=== PATIENT | male | born 1970 | race Caucasian/White ===

== ENCOUNTER 2019-08-29 00:07 | Outpatient (CLI) | payer OTHER, SELFPAY ==
[2019-08-29 18:00] LABS: SARS-CoV-2 RNA PCR Negative
== END 2019-08-29 00:08 | disposition home or self-care (01) ==
LOC: ANHCOVIDDT 00:07
PROVIDERS: PCP Family Medicine; Visit Provider Otolaryngology
DX: Z01.818 Encounter for other preprocedural examination (principal); Z11.59 Encounter for screening for other viral diseases
CPT/HCPCS: 87635; C9803; U0003

== ENCOUNTER 2019-09-01 00:47 | Day surgery (SDC) | payer OTHER, SELFPAY ==
[2019-08-25 08:03] VITALS: BMI 35.7
--- NOTE | 2019-08-27 06:35 | P.HP_ITS ---
History of Present Illness History of Present Illness Consent: Risks, benefits, and alternatives have been discussed and questions answered. Patient agrees to proceed with procedure. Chief complaint: Mucocele Right Lower Lip Narrative: Armaan Hurst is a 49 year old male Review of Systems Review of Systems: Narrative: Patient presents with a small mucocele on the lower lip chest clear heart without murmurs abdomen is soft extremities negative impression mucocele lower lip plan excision and primary closure PMFSH Surgical History Surgical History (Updated 05/07/19 @ 10:57 by Kayley Valenzuela MA) H/O left knee surgery (~2013) H/O shoulder surgery left shoulder History of neck surgery History of right knee surgery (~2017) Family History Family History (Updated 05/07/19 @ 11:00 by Kayley Valenzuela MA) Mother Parkinson disease Father Accident Social History Social History (Updated 06/04/19 @ 08:36 by Stephanie Cisneros [facility]) Smoking status: Current every day smoker Tobacco type: cigarettes and smokeless tobacco Smokeless tobacco user: chewing tobacco Second hand tobacco smoke exposure: No Alcohol intake: never Substance use: never Substance use type: does not use Gender identity (if verbalized by the patient): Male Meds Home Medications and Allergies Home Medications Medication Instructions Recorded Confirmed Type nebivolol [Bystolic] 20 mg PO DAILY 08/25/19 08/25/19 History vitamin B complex 1 tablet PO DAILY 08/25/19 08/25/19 History Allergies Allergy/AdvReac Type Severity Reaction Status Date / Time chlorpheniramine AdvReac CHILE- Verified 08/25/19 08:04 [From Actifed Cold-Allergy] UNKNOWN REACTION phenylephrine AdvReac CHILD- Verified 08/25/19 08:04 [From Actifed Cold-Allergy] UNKNOWN REACTION pseudoephedrine AdvReac CHILD- Verified 08/25/19 08:04 [From Actifed Cold-Allergy] UNKNOWN REACTION triprolidine AdvReac CHILD- Verified 08/25/19 08:04 [From Actifed Cold-Allergy] UNKNOWN REACTION Assessment and Plan Additional Plan Plan is to remove the mucocele with primary closure
--- NOTE | 2019-09-01 05:54 | WPDHPUPDATE1 ---
History and Physical Update Update Date/Time: 09/01/19 05:54 History and Physical has been reviewed, including an updated exam of the patient. There are NO changes in the patient's condition. Risks, benefits, and alternatives have been discussed and questions answered. Patient agrees to proceed with procedure.
[2019-09-01 06:44] VITALS: BP 128/76; PULSE 20; RESP 16; TEMP 36.2; O2SAT 98
[2019-09-01 07:22] VITALS: BP 144/104; PULSE 68; RESP 16; O2SAT 94
[2019-09-01] MEDS: LIDO 1%/EPINEPHRINE 1:100,000 20 ML VIAL 11 ML INFILTRATE (07:25)
[2019-09-01 07:32] VITALS: BP 160/97; PULSE 68; RESP 16; O2SAT 91
[2019-09-01 07:36] VITALS: BP 156/93; PULSE 73; RESP 17; O2SAT 94
--- NOTE | 2019-09-01 07:39 | PM.PROC ---
Procedure Note - Detailed Date of procedure: 09/01/19 Pre-op diagnosis: Mucocele Right Lower Lip Post-op diagnosis: same Description of procedure: Patient was prepped after induction of local anesthesia with 1% xylocaine 1 to 905116 epinephrine. Incision was made over the prominence of the large lower right cyst after the incision was made that appeared to be a lipoma it was excised was a question of there might be a cyst underneath however there was left undisturbed hemostasis was obtained with bipolar or bipolar electrocautery and closed with interrupted 5 0 nylon Anesthesia: GLMA Surgeon: Bobby Schneider MD Estimated blood loss (mL): 5.0 Drains: No Packing: No Pathology: yes Complications: No immediate complications Condition: stable Disposition: same day
[2019-09-01 07:40] VITALS: BP 138/86; PULSE 67; RESP 20; O2SAT 93
== END 2019-09-01 08:00 | disposition home or self-care (01) ==
PROVIDERS: PCP Family Medicine; Visit Provider Otolaryngology
PROC: (CPT 40810; principal; 2019-09-01 07:30)
DX: D17.0 Benign lipomatous neoplasm of skin and subcutaneous tissue of head, face and neck (principal)
CPT/HCPCS: 11442; 88304

== ENCOUNTER 2021-06-01 10:32 | Outpatient (CLI) | payer OTHER, SELFPAY | END 2021-06-01 10:33 | disposition home or self-care (01) | LOC: ANHAUDASC 10:34 | PROVIDERS: PCP Family Medicine; Visit Provider Otolaryngology | DX: H91.90 Unspecified hearing loss, unspecified ear (principal) | CPT/HCPCS: 92557; 92567 ==

== ENCOUNTER 2021-08-24 07:29 | Outpatient (CLI) | payer OTHER, SELFPAY ==
--- NOTE | ~2021-08-24 | XR_ITS ---
XR chest 2V DATE: 08/24/2021 08:07 INDICATION: Dyspnea TECHNIQUE: 2 views COMPARISON: 07/12/2008 two-view chest FINDINGS: Status post anterior cervical spine surgical fusion. Normal heart size. Mild aortic unfolding. No hilar or mediastinal enlargement. No pulmonary infiltrate or consolidation, pleural effusion or pulmonary vascular congestion or pneumo thorax. Degenerative spurring of the thoracic spine. IMPRESSION: No active cardiopulmonary disease Status post anterior cervical spine surgical fusion since 07/12/2008 Reviewed, dictated and finalized at location A.
--- NOTE | 2021-08-24 08:09 | ECG_ITS ---
Measurements Intervals [place] Rate: 72 P: 54 NM: 181 QRS: 45 QRSD: 94 T: 51 QT: 361 QTc: 395 Interpretive Statements SINUS RHYTHM BORDERLINE R WAVE PROGRESSION, ANTERIOR LEADS BASELINE ARTIFACT- I, II, III, AVR, AVL, AVF BORDERLINE ECG Electronically Signed On 08-24-2021 9:01:14 CDT by Iftikhar Masters D.O.
[2021-08-24 08:10] LABS: Basophils Absolute Auto 0.1 K/mm3 (0.0-0.1); Basophils Percent Auto 0.9 % (0.2-1.2); Eosinophils Absolute Auto 0.5 K/mm3 (0-0.3); Eosinophils Percent Auto 6.3 % (0-4.4); Hematocrit 44.4 % (42.0-52.0); Hemoglobin 14.1 g/dL (14.0-18.0); Immature Granulocyte Absolute 0.02 K/mm3 (0.00-0.031); Immature Granulocyte Percent A 0.3 % (0-0.5); Lymphocytes Absolute Auto 1.83 K/mm3 (0.9-3.2); Lymphocytes Percent Auto 23.9 % (18.3-44.2); Mean Corpuscular HGB Conc 31.8 g/dl (32-36); Mean Corpuscular Hemoglobin 28.4 pg (26-34); Mean Corpuscular Volume 89.5 fl (80-100); Mean Platelet Volume 12.5 fl (7.4-10.4); Monocytes Absolute Auto 0.7 K/mm3 (0.1-0.6); Monocytes Percent Auto 8.6 % (2.6-8.5); Neutrophils Absolute Auto 4.6 K/mm3 (1.3-6.7); Platelet Count Result 193 k/mm3 (150-375); Red Blood Count 4.96 M/mm3 (4.6-6.20); Red Cell Distribution Width 13.7 % (11.5-14.5); White Blood Count 7.7 K/mm3 (4.5-10.0)
--- NOTE | 2021-08-24 08:10 | EST_ITS ---
Patient Info Name: Armaan Hurst Age: 51 years : 1970 Gender: Male Ht: 65 in Wt: 220 lbs BSA: 2.18 m2 HR: 71 bpm BP: 151 / 96 mmHg Heart Rhythm: Sinus Rhythm Exam Date: 08/24/2021 9:43 AM Exam Location: [facility] Stress Patient Status: Outpatient Admit Date: 08/24/2021 Staff Ordering Physician: Juanito Moralez MD Attending Provider: Juanito Moralez MD Exercise Technologist: Yaa Leija CT Exercise Physician: Iftikhar Masters DO Exam Type: CA stress test treadmill Study Info Indications R06.00 - Dyspnea, unspecified R06.02 - Shortness of breath A treadmill exercise stress test was performed. Summary 1. 1. Negative Alfonso exercise stress test for ischemic ST changes by ECG criteria. However, he achieved only 80% MPHR for age group achieving 136 bpm which reduces sensitivity of the test. His last dose of Metoprolol Succinate was 24 hours ago. 2. 2. Good functional capacity, achieving 10 METs of workload. 3. 3. Baseline hypertension with hypertensive response to exercise. 4. 4. Appropriate HR response to exercise. 5. 5. Appropriate HR recovery at 1 minute post exercise. 6. 6. No imaging with stress testing. 7. 7. Patient informed of the above results. Protocol: Alfonso Stress ECG Details Stage: REST Duration (min): 2 min : 48 sec Speed (mph): 0.0 Grade (%): 0 HR (bpm): 72 SBP (mmHg): 151 DBP (mmHg): 96 METS: --- Stage: REST Duration (min): 15 min : 21 sec Speed (mph): 0.0 Grade (%): 0 HR (bpm): 86 SBP (mmHg): 151 DBP (mmHg): 96 METS: --- Stage: STAGE 1 Duration (min): 1 min : 0 sec Speed (mph): 1.7 Grade (%): 10 HR (bpm): 97 SBP (mmHg): 151 DBP (mmHg): 96 METS: --- Stage: STAGE 1 Duration (min): 2 min : 0 sec Speed (mph): 1.7 Grade (%): 10 HR (bpm): 101 SBP (mmHg): 151 DBP (mmHg): 96 METS: --- Stage: STAGE 1 Duration (min): 3 min : 0 sec Speed (mph): 1.7 Grade (%): 10 HR (bpm): 102 SBP (mmHg): 185 DBP (mmHg): 93 METS: --- Stage: STAGE 2 Duration (min): 1 min : 0 sec Speed (mph): 2.5 Grade (%): 12 HR (bpm): 111 SBP (mmHg): 185 DBP (mmHg): 93 METS: --- Stage: STAGE 2 Duration (min): 2 min : 0 sec Speed (mph): 2.5 Grade (%): 12 HR (bpm): 115 SBP (mmHg): 185 DBP (mmHg): 93 METS: --- Stage: STAGE 2 Duration (min): 3 min : 0 sec Speed (mph): 2.5 Grade (%): 12 HR (bpm): 115 SBP (mmHg): 201 DBP (mmHg): 110 METS: --- Stage: STAGE 3 Duration (min): 1 min : 0 sec Speed (mph): 3.4 Grade (%): 14 HR (bpm): 124 SBP (mmHg): 206 DBP (mmHg): 112 METS: --- Stage: STAGE 3 Duration (min): 2 min : 0 sec Speed (mph): 3.4 Grade (%): 14 HR (bpm): 131 SBP (mmHg): 206 DBP (mmHg): 112 METS: --- Stage: STAGE 3 Duration (min): 2 min : 57 sec Speed (mph): 3.4 Grade (%): 14 HR (bpm): 136 SBP (mmHg): 220 DBP (mmH
[2021-08-24 08:18] LABS: Add Urine Microscopic? NO; Appearance Urine Clear (Clear); Bilirubin Urine Negative (Negative); Blood Urine Negative (Negative); Color Urine Yellow (Yellow); Glucose Urine UA Negative (Negative); Ketones Urine Negative (Negative); Leukocyte Esterase Ur Negative LEU/UL (NEGATIVE); Nitrate Urine Negative (Negative); Protein Urine Negative (Negative); Specific Grav Ur 1.025 (1.001-1.035); Urobilinogen Urine 0.2 mg/dL (<2.0); pH Urine 5.5 (5.0-9.0)
[2021-08-24 08:26] LABS: Alanine Aminotransferase 28 U/L (6-50); Albumin Level 4.2 g/dL (3.5-5.1); Alkaline Phosphatase 80 U/L (38-126); Anion Gap 3 mmol/L (8-16); Aspartate Amino Transferase 31 U/L (17-59); Bilirubin,Total 0.2 mg/dL (0.2-1.3); Blood Urea Nitrogen 7 mg/dL (9-20); Calcium 8.3 mg/dL (8.4-10.2); Carbon Dioxide 28 mmol/L (22-30); Chloride 109 mmol/L (98-107); Cholesterol 207 mg/dL (0-200); Estimated Glomerular Filt Rate > 60; Glucose 110 mg/dL (65-110); HDL Direct 40 mg/dL; Potassium 4.4 mmol/L (3.4-5.0); Sodium 140 mmol/L (137-145); Triglycerides 111 mg/dL (<150)
[2021-08-24 08:37] LABS: LDL Cholesterol Direct 132 mg/dL
[2021-08-24 08:44] LABS: Hemoglobin A1C 5.5 % (<5.7)
[2021-08-24 09:27] LABS: Iron 49 ug/dL (49-181)
[2021-08-24 09:29] LABS: Folic Acid 10.9 ng/mL (2.76->20); Vitamin B12 > 1000.0 pg/mL (239-931)
[2021-08-24 09:36] LABS: Percent Iron Saturation 13 % (20-50)
--- NOTE | 2021-08-25 08:58 | WPDPFTINT ---
PFT Procedure Performed PFT Procedure Performed Spirometry with Pre/Post Bronchodilator Plethysmography (Lung Vol) Diffusing Cap (DLCO) Flow Vol Loop PFT Interpretation Lung volumes were measured with the body plethysmography method. The elevated FRC and RV are indicative of air trapping. Spirometry showed diminished expiratory flow rates and a diminished FEV1 to FVC ratio of 61%, consistent with obstructive airway disease. Following administration of a bronchodilator there was significant increase in expiratory flow rates. Lung diffusion capacity is mildly reduced at 63% predicted. The flow volume loop is consistent with obstructive airway disease. Impression: Moderate obstructive airway disease with evidence of air trapping and significant response to bronchodilators on this testing. Mild reduction in lung diffusion capacity.
== END 2021-08-24 07:30 | disposition home or self-care (01) ==
PROVIDERS: PCP Family Medicine; Visit Provider Family Medicine
DX: R06.02 Shortness of breath (principal); R06.00 Dyspnea, unspecified; Z98.1 Arthrodesis status; M47.812 Spondylosis without myelopathy or radiculopathy, cervical region
CPT/HCPCS: 36415; 71046; 80053; 80061; 81003; 82607; 82746; 83036; 83540; 83550; 84153; 84443; 85025; 93005; 93017; 94060; 94726; 94729; G0103

== ENCOUNTER → 2022-05-07 17:03 | Outpatient (CLI) | payer OTHER, SELFPAY ==
--- NOTE | ~2022-05-07 | XR_ITS ---
EXAMINATION: XR foot LT min 3V, XR foot RT min 3V DATE: 05/07/2022 17:30 INDICATION: Chronic bilateral foot and ankle pain. TECHNIQUE: 1. Dorsoplantar, two oblique and lateral views of the left foot were obtained. 2. Dorsoplantar, two oblique and lateral views of the right foot were obtained. COMPARISON: None. FINDINGS: Bone alignment is normal at both feet. No fractures. Mild osteoarthritis at the bilateral first metat arsophalangeal joints and at a few of the bilateral tarsometatarsal joints. Small left Achilles calca gabriela spur. IMPRESSION: 1. Relatively symmetric pattern of mild polyarticular osteoarthritis at the first metatarsophalangeal and several tarsal metatarsal joints. Reviewed, dictated and finalized at location A. 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 Relatively symmetric pattern of mild polyarticular osteoarthritis at the fir st metatarsophalangeal and several tarsal metatarsal joints.
== END ==
PROVIDERS: PCP Family Medicine; Visit Provider Family Medicine
DX: M25.571 Pain in right ankle and joints of right foot (principal); M25.572 Pain in left ankle and joints of left foot; M15.9 Polyosteoarthritis, unspecified
CPT/HCPCS: 73630

== ENCOUNTER → 2023-09-03 09:23 | Outpatient (CLI) | payer OTHER, SELFPAY ==
--- NOTE | ~2023-09-03 | XR_ITS ---
EXAMINATION: XR chest 2V DATE: 09/03/2023 09:32 INDICATION: Cough, unspecified. TECHNIQUE: Frontal and lateral views of the chest were obtained. COMPARISON: Chest 2 views 08/24/2021 FINDINGS: There is no pneumonia, pleural effusion, or pneumothorax. The heart size is normal. There a re changes of anterior fusion procedure in cervical spine. IMPRESSION: 1. No acute cardiopulmonary disease. Reviewed, dictated and finalized at location A.
== END ==
LOC: EXPTROY 09:24
PROVIDERS: PCP Nurse Practitioner Family; Visit Provider Nurse Practitioner Family
DX: R05.9 Cough, unspecified (principal)
CPT/HCPCS: 71046

== ENCOUNTER 2023-12-22 17:33 | Inpatient (IN) | payer OTHER, SELFPAY ==
--- NOTE | ~2023-12-22 | CT_ITS ---
EXAMINATION: CT abdomen pelvis w con DATE: 12/22/2023 22:02 INDICATION: Left lower quadrant abdominal pain, left side pain TECHNIQUE: Computed tomography (CT) of the abdomen and pelvis was performed with 100 CC Omnipaque 350 intravenous contrast. Automated exposure control and iterative reconstruction technique were employe d. Exam dose: 1482.65 mGy-cm total exam DLP. COMPARISON: None. FINDINGS: Normal heart size. No pericardial or pleural effusion. The lung bases are clear. The liver, gallbladder, bile ducts, spleen, pancreas, pancreatic duct, and adrenal glands and kidneys are unremarkable. Urinary bladder, prostate gland and seminal vesicles appear normal. Normal caliber of the abdominal aorta. No periaortic, aortocaval lymphadenopathy. There is bilateral external iliac lymphadenopathy, including 13.8 x 20.8 mm right external iliac lymph node, multiple le ft external iliac lymph nodes, the largest 16 x 28 mm. Shotty bilateral inguinal lymph nodes are note d as well. Small bilateral fat-containing inguinal hernias. Very small fat-containing umbilical hernia. Degenerative spurring of the thoracic and lumbar spine. No suspicious osteolytic or osteoblastic lesi ons. IMPRESSION: Bilateral external iliac lymphadenopathy and shotty bilateral inguinal lymph nodes Reviewed, dictated and finalized at Location A. Reviewed, dictated and finalized at location A. IMPRESSION: Bilateral external iliac lymphadenopathy and shotty bilateral ingu inal lymph nodes
--- NOTE | ~2023-12-22 | CT_ITS ---
EXAMINATION: CT LE LT w con DATE: 12/24/2023 19:13 INDICATION: Hypoxia and fever. Left lower limb swelling and infection. Assess for necrotizing fasciit is. TECHNIQUE: High resolution computed tomography (CT) of the left lower leg from the hip through the fo ot was performed with 100 mL Omnipaque-350 intravenous contrast. Additional sagittal and coronal renaldo nstructions were performed. Automated exposure control and iterative reconstruction technique were em ployed. The dose-length product was 1811.50 mGy-cm. COMPARISON: Left knee radiographs dated 12/23/2023 FINDINGS: Left total knee arthroplasty with patellar resurfacing which is in near-anatomic alignment and which appears well seated in near-anatomic alignment with no periprosthetic lucency to suggest loosening or infection. No fracture. No cortical erosions or periosteal reaction. 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 Is a large amount fluid in the joint space with no joint effus ions. No abscess or other abnormal fluid collections. No soft tissue gas to suggest necrotizing fasci itis which is ultimately a clinical diagnosis. The vasculature of the left lower limb is unremarkable with no evident hemodynamically significant stenosis or venous thrombosis. There is some excreted co ntrast in the visualized left ureter and bladder related to earlier contrast-enhanced chest CT. Mildl y prominent but still normal-sized likely reactive left inguinal lymph nodes. Partially visualized at least moderate sized fat-containing left inguinal hernia. IMPRESSION: 1. Nonspecific subcutaneous edema throughout the left lower leg. No abscess or evident soft tissue ga s to suggest necrotizing fasciitis which is ultimately a clinical diagnosis. 2. Mild likely reactive left inguinal lymphadenopathy. 3. Partially visualized at least moderate-sized fat-containing left inguinal hernia. Reviewed, dictated and finalized at location A. IMPRESSION: 1. Nonspecific subcutaneous edema throughout the left lower leg. No abscess or evident soft tissue gas to suggest necrotizing fasciitis which is ultimately a clinical diagnosis. 2. Mild likely reactive left inguinal lymphadenopathy. 3. Partially visualized at least moderate-sized fat-containing left inguinal he rnia.
--- NOTE | ~2023-12-22 | XR_ITS ---
EXAMINATION: XR knee LT 3V DATE: 12/23/2023 12:50 INDICATION: Left knee swelling and infection. TECHNIQUE: 3 views of left knee were obtained. COMPARISON: None. FINDINGS: There is a total left knee arthroplasty with patellar resurfacing in near-anatomic alignmen t. No periprosthetic lucency to suggest loosening or infection. No fracture. No knee joint effusion. IMPRESSION: 1. Total left knee arthroplasty in near-anatomic alignment. Reviewed, dictated and finalized at location A.
--- NOTE | ~2023-12-22 | CT_ITS ---
Non-contrast Head CT History: Headache Technique: Axial non-contrast imaging of the brain was performed. Dose reduction technique was used on this scan by utilizing automated exposure control and iterative reconstruction technique. The dose -length product (DLP) was 681.00 mGy-cm. Findings: There is no evidence of intracranial hemorrhage, mass lesion, or acute infarct. Brain par enchyma appears normal. The ventricles and subarachnoid spaces are normal in size. The calvarium ap pears normal. The visualized paranasal sinuses and mastoid air cells are clear. Impression: No significant abnormality seen. Reviewed, dictated and finalized at location . Impression: No significant abnormality seen.
--- NOTE | ~2023-12-22 | XR_ITS ---
XR chest 1V DATE: 12/22/2023 18:25 INDICATION: Shortness of breath TECHNIQUE: PA chest COMPARISON: 09/03/2023 2 view chest FINDINGS: Heart size is within normal range. No hilar or mediastinal enlargement. No pulmonary infiltrate or consolidation, pleural effusion or pulmonary vascular congestion or pneumo thorax. Status post lower anterior cervical spine surgical fusion. Degenerative spurring of the thoracic spine. IMPRESSION: No active cardiopulmonary disease Reviewed, dictated and finalized at location A.
--- NOTE | ~2023-12-22 | XR_ITS ---
EXAMINATION: XR chest 1V portable DATE: 12/24/2023 16:35 INDICATION: Hypoxia TECHNIQUE: frontal view of the chest was obtained. COMPARISON: Chest radiograph dated 12/22/2023 FINDINGS: The lungs remain clear with no focal airspace opacities, pulmonary edema, pleural effusion or pneumot horax. The cardiomediastinal silhouette is normal. Again seen is plate and screw fixation for lower c ervical anterior spinal fusion. IMPRESSION: 1. No acute cardiopulmonary disease. Reviewed, dictated and finalized at location A.
--- NOTE | ~2023-12-22 | CT_ITS ---
EXAMINATION: CTA chest PE protocol DATE: 12/24/2023 18:59 INDICATION: Hypoxia TECHNIQUE: Computed tomography (CT) pulmonary angiogram of the chest was performed with 100 mL Omnipa que-350 intravenous contrast. Additional 3D reconstructions utilizing coronal maximum intensity proje ction (MIP) were performed. Automated exposure control and iterative reconstruction technique were em ployed. The dose-length product was 1087.66 mGy-cm. COMPARISON: CT abdomen pelvis dated 12/22/2023 FINDINGS: No pulmonary embolism. Lungs are clear with no pneumonia, pulmonary edema or other pulmonary infiltra kings. No pleural effusion or pneumothorax. Heart size is normal. Small amount of atherosclerotic coron fran artery calcific location. No pericardial effusion. Thoracic aorta is normal in caliber with no di ssection. No pathologically enlarged thoracic lymphadenopathy. Visualized upper abdomen is unremarkab le. Moderate thoracic spondylosis with chronic appearing mild anterior wedging at T8 and T11. IMPRESSION: 1. No pulmonary embolism or other acute cardiopulmonary disease. Reviewed, dictated and finalized at location A.
--- NOTE | ~2023-12-22 | US_ITS ---
LEFT LOWER EXTREMITY VENOUS ULTRASOUND Ordering provider: MONALISA Denise History: . left calf pain . Comparison: None. FINDINGS: --COMMON FEMORAL: Patent and free of thrombus. Normal compressibility, phasic flow and augmentation. --PROXIMAL SUPERFICIAL FEMORAL: Patent and free of thrombus. Normal compressibility, phasic flow and augmentation. --DISTAL SUPERFICIAL FEMORAL: Patent and free of thrombus. Normal compressibility, phasic flow and au gmentation. --POPLITEAL: Patent and free of thrombus. Normal compressibility, phasic flow and augmentation. --POSTERIOR TIBIAL: Patent and free of thrombus. Normal compressibility, phasic flow and augmentation . Multiple lymph nodes seen in the left groin. IMPRESSION: Negative left lower extremity venous US. No deep vein thrombosis. Reviewed, dictated and finalized at location A.
--- NOTE | ~2023-12-22 | XR_ITS ---
XR chest 1V portable Ordering provider: David Bradshaw MD History: 53 years Male with . trouble breathing . Comparison: December 24, 2023 FINDINGS: MEDIASTINUM: The cardiac silhouette is slightly enlarged. Congestive linda. LUNGS: No pneumothorax. Prominent markings bilaterally with interstitial changes. Minimal opacificati on the left upper lobe area. OTHER: No free air under the diaphragm. IMPRESSION: Highly suggestive cardiomegaly with cardiac decompensation and pulmonary edema. Superimposed pneumoni tis with focal pneumonia in the left upper lobe is not excluded. Reviewed, dictated and finalized at location A. IMPRESSION: Highly suggestive cardiomegaly with cardiac decompensation and pulmonary edema. Superimposed pneumonitis with focal pneumonia in the left upper lobe is not ex cluded.
--- NOTE | ~2023-12-22 | XR_ITS ---
EXAMINATION: XR lumbar puncture diagnostic DATE: 12/24/2023 14:49 INDICATION: Headache and fever. Neck pain. TECHNIQUE: The procedure including the risks, benefits, and alternatives was discussed with the patie nt. Risks discussed included spinal headache, cerebrospinal fluid leak, bleeding, and infection. The patient understood the risks and agreed to proceed. A timeout was performed to verify the patient' s name, date of , and procedure to be performed. The skin overlying the L2-L3 and L3-L4 levels was prepped and draped in usual sterile fashion. Subcutaneous 1% lidocaine was used for local anesth esia. A 20 gauge spinal needle was advanced under fluoroscopic guidance at L2-L3 and then at L3-L4. The needle was removed and the entry site was cleaned and dressed. There were no immediate complicat ions. Fluoroscopy exposure time was 0.2 minutes. The total number of images was 2. FINDINGS: Real-time fluoroscopy demonstrates the needle at the L3-L4 level. The opening pressure was not measured. 9 mL of clear, colorless fluid was collected in 4 tubes. The fourth tube was contaminat ed by blood. IMPRESSION: 1. Successful fluoro-guided lumbar puncture. Reviewed, dictated and finalized at location A.
[2023-12-22 17:51] VITALS: BP 150/71; PULSE 110; RESP 19; TEMP 38.6; O2SAT 94
[2023-12-22 18:38] LABS: Influenza A QL RT-PCR Negative (Negative); Influenza B QL RT-PCR Negative (Negative); RSV RNA, RT-PCR Negative (Negative); SARS-CoV-2 RNA PCR Negative (Negative)
[2023-12-22 20:17] LABS: Influenza A QL RT-PCR Negative (Negative); Influenza B QL RT-PCR Negative (Negative); RSV RNA, RT-PCR Negative (Negative); SARS-CoV-2 RNA PCR Negative (Negative)
[2023-12-22] MEDS: SODIUM CHLORIDE 0.9% IV 1,000 ML 999 ML IV CONT (20:22)
[2023-12-22] MEDS: ACETAMINOPHEN 500 MG TABLET 1000 MG PO (20:23)
[2023-12-22] MEDS: ONDANSETRON INJ 4 MG/2 ML VIAL IV PUSH (20:24)
[2023-12-22 20:25] LABS: Basophils Percent Auto 0.2 % (0.2-1.2); Hematocrit 41.1 % (42.0-52.0); Hemoglobin 13.4 g/dL (14.0-18.0); Immature Granulocyte Absolute 0.12 K/mm3 (0.00-0.031); Immature Granulocyte Percent A 0.7 % (0-0.5); Lymphocytes Absolute Auto 0.86 K/mm3 (0.9-3.2); Lymphocytes Percent Auto 5.3 % (18.3-44.2); Mean Corpuscular HGB Conc 32.6 g/dl (32-36); Mean Corpuscular Hemoglobin 29.1 pg (26-34); Mean Corpuscular Volume 89.2 fl (80-100); Mean Platelet Volume 12.7 fl (7.4-10.4); Monocytes Percent Auto 6.2 % (2.6-8.5); Neutrophils Absolute Auto 14.1 K/mm3 (1.3-6.7); Neutrophils Percent Auto 87.6 % (45.5-73.1); Platelet Count Result 156 k/mm3 (150-375); Red Blood Count 4.61 M/mm3 (4.6-6.20); Red Cell Distribution Width 14.8 % (11.5-14.5); White Blood Count 16.1 K/mm3 (4.5-10.0)
[2023-12-22] MEDS: KETOROLAC 15 MG/ML VIAL (*BKC) IV PUSH (20:27)
[2023-12-22 20:31] VITALS: BP 134/71; PULSE 92; RESP 18; TEMP 37.8; O2SAT 96
[2023-12-22 20:32] VITALS: BP 134/71; PULSE 90; RESP 20; TEMP 37.8; O2SAT 94
[2023-12-22 20:39] LABS: INR 1.1; Prothrombin Time 14.5 Seconds (11.1-14.7)
[2023-12-22 20:46] VITALS: BP 127/69; PULSE 94; RESP 20; TEMP 37.7; O2SAT 96
[2023-12-22 21:19] LABS: Erythrocyte Sedimentation Rate 19 mm/hr (0-20)
[2023-12-22 21:21] LABS: Procalcitonin 0.9 ng/mL
[2023-12-22 21:34] LABS: Lactic Acid Reflex 1.3 mmol/L (0.7-2.0)
[2023-12-22 21:40] LABS: Potassium 3.5 mmol/L (3.4-5.0)
[2023-12-22 21:41] LABS: Alanine Aminotransferase 36 U/L (6-50); Albumin Level 4.1 g/dL (3.5-5.1); Alkaline Phosphatase 71 U/L (38-126); Aspartate Amino Transferase 32 U/L (17-59); Bilirubin,Total 0.4 mg/dL (0.2-1.3); Blood Urea Nitrogen 12 mg/dL (9-20); Calcium 8.1 mg/dL (8.4-10.2); Carbon Dioxide 26 mmol/L (22-30); Chloride 94 mmol/L (98-107); Estimated CRCL calculation 89 ml/min; Estimated Glomerular Filt Rate > 60; Glucose 143 mg/dL (65-110)
[2023-12-22 21:53] LABS: CRP 23.3 mg/dL (<1.0)
[2023-12-22 21:59] LABS: Anion Gap 13 mmol/L (4-12); Sodium 133 mmol/L (137-145)
--- NOTE | 2023-12-22 22:19 | ED.GENADULT ---
HPI - General Adult General Chief complaint: Unspecified Stated complaint: chills, bodyaches Time Seen by Provider: 12/22/23 19:43 History of Present Illness HPI narrative: Patient is a 53-year-old gentleman presents emergency department with chief complaint fever body aches chills left groin pain. Patient reports that yesterday he started having body aches had a fever patient reports he has had chills all over reports he has pain in the inguinal area. The patient states it hurts whenever he pushes in groin reports no mass reports no pain in the testicles or scrotum. Related Data Allergies Allergy/AdvReac Type Severity Reaction Status Date / Time chlorpheniramine AdvReac CHILE- Verified 12/13/23 13:34 [From Actifed Cold-Allergy] UNKNOWN REACTION phenylephrine AdvReac CHILD- Verified 12/13/23 13:34 [From Actifed Cold-Allergy] UNKNOWN REACTION pseudoephedrine AdvReac CHILD- Verified 12/13/23 13:34 [From Actifed Cold-Allergy] UNKNOWN REACTION triprolidine AdvReac CHILD- Verified 12/13/23 13:34 [From Actifed Cold-Allergy] UNKNOWN REACTION Review of Systems Review of Systems: A 10 system review of systems was completed on the patient and is negative except for what is stated in the HPI. Nursing and ancillary documentation was reviewed. [facility] Past Medical History Medical History (Updated 12/23/23 @ 03:57 by Jorge A Marinelli MD) Abnormal fasting glucose fasting glucose normal at 95 on 03/11/2020. Glucose 110 with hemoglobin A1c 5.5 on 08/24/2021. Glucose 95 with hemoglobin A1c 5.8 on 11/13/2022 Acute conjunctivitis of left eye Acute low back pain Adult BMI 39.0-39.9 kg/sq m BMI 36.0-36.9,adult BMI 37.0-37.9, adult Candidiasis of other urogenital sites (10/31/21) Chronic nonallergic rhinitis Chronic pain of both knees chronic bilateral knee pain after multiple surgeries. Degenerative changes. Permanent handicap placard 06/29/2021 COPD (chronic obstructive pulmonary disease) (~08/24/21) PFT on 08/24/2021 with moderate obstructive defect with significant improvement with bronchodilator. COPD exacerbation Cough COVID-19 (02/14/21) fully vaccinated and COVID COVID-19 (~08/2021) 2nd episode with mild symptoms for 2 or 3 days. Dyshidrotic eczema Dyspnea on exertion exercise stress test on 08/24/2021 was negative for ischemia. EKG revealed sinus rhythm with borderline R-wave progression. Encounter for prostate cancer screening PSA 0.6 on 03/11/2020. PSA 1.0 on 08/24/2021. Encounter for wellness examination in adult Hand eczema Hearing loss chronic worse on left than right Hypertension Insomnia Lip cyst Low iron (08/24/21) iron 49 with 13% saturation and hemoglobin 14.1 on 08/24/2021. Iron 50 with 12% saturation and ferritin 31 on 11/13/2022. Mixed hyperlipidemia total cholesterol 217, triglycerides 403, HDL 30 and LDL 106 with AST 22 and ALT 26 on 03/11/2020. Cholesterol 207, HDL 40, triglycerides 111, LDL 142 on 08/24/2021. Cholesterol 226, triglycerides 169, HDL 36, LDL 159 on 11/13/2022. Morbid obesity with BMI of 40.0-44.9, adult Obesity (BMI 30-39.9) Obstructive sleep apnea Pain in joints of both feet x-rays of both feet on 05/07/2022 reveals diffuse mild osteoarthritis of both feet. Rash and nonspecific skin eruption SOB (shortness of breath) Tinea pedis Tobacco use disorder, continuous patient quit smoking cigarettes Jul, 2021 but continues to chew tobacco 1/2 can daily. Tonsillar hypertrophy Surgical History Surgical History H/O left knee surgery (~2013) H/O shoulder surgery left shoulder History of neck surgery History of right knee surgery (~2017) Family History Family History Mother Parkinson disease Father Accident Social History Social History (Reviewed 12/22/23 @ 22:22 by Jorge A Haines
[2023-12-22 22:20] VITALS: BP 120/49; PULSE 86; RESP 20; TEMP 36.7; O2SAT 98
[2023-12-22 22:37] LABS: Add Urine Microscopic? YES; Appearance Urine Clear (Clear); Bacteria Urine None Seen /hpf; Bilirubin Urine Negative (Negative); Blood Urine Negative (Negative); Color Urine Yellow (Yellow); Glucose Urine UA Negative (Negative); Ketones Urine Negative (Negative); Leukocyte Esterase Ur Negative LEU/UL (Negative); Nitrate Urine Negative (Negative); Protein Urine 2+ mg/dL (Negative); RBC Urine 0-2 /hpf (0-2); Specific Grav Ur 1.027 (1.001-1.035); Squamous Epithelial Cell Urine None Seen /hpf (Few); WBC Urine 0-5 /hpf (0-3); pH Urine 6.5 (5.0-9.0)
[2023-12-23] VITALS (8 sets, daily range): BP systolic 121–142; BP diastolic 57–87; PULSE 83–90; RESP 13–20; TEMP 36.4–37.6; O2SAT 95–97; BMI 40.3
[2023-12-23] MEDS: PIPERACILLN/TAZ 3.375GM/NS50ML 3.375 GM/50 ML BAG IVPB ×2 (00:33→06:00)
[2023-12-23] MEDS: SODIUM CHLORIDE 0.9% IV 1,000 ML 125 ML IV CONT ×2 (01:02→16:23)
[2023-12-23] MEDS: FLUCONAZOLE 200 MG/NACL 100 ML 200 MG/100 ML BAG 100 MG IVPB (01:02)
--- NOTE | 2023-12-23 01:06 | PM.IMHP ---
H&P: HPI History of Present Illness Date/Time: 12/23/23 01:06 Chief Complaint: chills Narrative: This is a 53-year-old male with past medical history significant for obesity, COPD, hypertension, tobacco dependence, tobacco chewing. patient presents to the emergency room due to 2 days of chills, headaches, generalized malaise, body aches and pains left inguinal area lymphadenopathy painful to the touch. Patient denies any recent travel has cats and dogs as pets at home denies any penile discharge, denies sore throat, had a tick bite 3 months ago, denies rashes no nausea no vomiting. Preliminary workup was significant for CBC with a white blood cell count of 16,000, C-reactive protein is 23. patient has been admitted for further evaluation management and treatment. XR chest 1V DATE: 12/22/2023 18:25 INDICATION: Shortness of breath TECHNIQUE: PA chest COMPARISON: 09/03/2023 2 view chest FINDINGS: Heart size is within normal range. No hilar or mediastinal enlargement. No pulmonary infiltrate or consolidation, pleural effusion or pulmonary vascular congestion or pneumothorax. Status post lower anterior cervical spine surgical fusion. Degenerative spurring of the thoracic spine. IMPRESSION: No active cardiopulmonary disease EXAMINATION: CT abdomen pelvis w con DATE: 12/22/2023 22:02 INDICATION: Left lower quadrant abdominal pain, left side pain TECHNIQUE: Computed tomography (CT) of the abdomen and pelvis was performed with 100 CC Omnipaque 350 intravenous contrast. Automated exposure control and iterative reconstruction technique were employed. Exam dose: 1482.65 mGy-cm total exam DLP. COMPARISON: None. FINDINGS: Normal heart size. No pericardial or pleural effusion. The lung bases are clear. The liver, gallbladder, bile ducts, spleen, pancreas, pancreatic duct, and adrenal glands and kidneys are unremarkable. Urinary bladder, prostate gland and seminal vesicles appear normal. Normal caliber of the abdominal aorta. No periaortic, aortocaval lymphadenopathy. There is bilateral external iliac lymphadenopathy, including 13.8 x 20.8 mm right external iliac lymph node, multiple left external iliac lymph nodes, the largest 16 x 28 mm. Shotty bilateral inguinal lymph nodes are noted as well. Small bilateral fat-containing inguinal hernias. Very small fat-containing umbilical hernia. Degenerative spurring of the thoracic and lumbar spine. No suspicious osteolytic or osteoblastic lesions. IMPRESSION: Bilateral external iliac lymphadenopathy and shotty bilateral inguinal lymph nodes Review of Systems Review of Systems: left inguinal lymphadenopathy, headaches [facility] Past Medical History Medical History (Updated 12/25/23 @ 14:31 by Stephanie Lott, [employer]) Abnormal fasting glucose fasting glucose normal at 95 on 03/11/2020. Glucose 110 with hemoglobin A1c 5.5 on 08/24/2021. Glucose 95 with hemoglobin A1c 5.8 on 11/13/2022 Acute conjunctivitis of left eye Acute low back pain Adult BMI 39.0-39.9 kg/sq m BMI 36.0-36.9,adult BMI 37.0-37.9, adult Candidiasis of other urogenital sites (10/31/21) Chronic nonallergic rhinitis Chronic pain of both knees chronic bilateral knee pain after multiple surgeries. Degenerative changes. Permanent handicap placard 06/29/2021 COPD (chronic obstructive pulmonary disease) (~08/24/21) PFT on 08/24/2021 with moderate obstructive defect with significant improvement with bronchodilator. COPD exacerbation Cough COVID-19 (02/14/21) fully vaccinated and COVID COVID-19 (~08/2021) 2nd episode with mild symptoms for 2 or 3 days. Dyshidrotic eczema Dyspnea on exertion exercise stress test on 08/24/2021 was negative for ischemia. EKG revealed sinus rhythm with borderline R-wave progression. Encounter for prostate cancer screening PSA 0.6 on 03/11/2020. PSA 1.0 on 08/24/2021. Encounter for wellness examination in adult Hand eczema Hearing loss chronic worse on left than ri
[2023-12-23] MEDS: ACETAMINOPHEN 325 MG TABLET 650 MG PO ×3 (01:07→13:06)
--- NOTE | 2023-12-23 02:00 | ADMGEN ---
This patient, Armaan Hurst, was admitted to [address] [facility] Surg Room 316-02. Patient/family oriented to hospital policies and general routines including ID bracelet, bed and alarms, visiting hours, pain management, procedures, bathroom and other care routines, personal items, smoking policy, room service/diet, and visiting hours. Information on how to activate the Rapid Response Team has been discussed. Patient/Family are encouraged to report perceived risks to care and to ask questions if they do not understand what they are told or what they should do.
[2023-12-23] MEDS: DOXYCYCLINE 100 MG/NS 100 ML 100 MG/100 ML BAG IVPB ×2 (02:02→13:04)
[2023-12-23] MEDS: VANCOMYCIN 1,250 MG/NS 250 ML 1,250 MG/250 ML BAG 166.67 MG IVPB ×2 (02:09→04:00)
--- NOTE | 2023-12-23 02:50 | PC.NURSE ---
Upon admission Patient reported 8/10 headache. Stated headache started on Saturday and has not gone away. Describes it as pounding and states it is in the front of his head, says he has been taking Ibuprofen or Tylenol Arthritis at home for the headache. Patient denies any visual changes with headache. Patient also states before the headache he had a stiff neck for about a week and thought it was related to sleeping wrong, he says the stiff neck has not gone away either. Findings reported to Dr. Bradshaw via telephone.
[2023-12-23 02:58] LABS: Alanine Aminotransferase 33 U/L (6-50); Albumin Level 3.6 g/dL (3.5-5.1); Alkaline Phosphatase 73 U/L (38-126); Aspartate Amino Transferase 29 U/L (17-59); Bilirubin,Total 0.4 mg/dL (0.2-1.3)
[2023-12-23 03:07] LABS: HIV 1/2 Ab P24 Ag Result Negative (Negative)
[2023-12-23 03:33] LABS: Monoscreen Negative (Negative); Negative Monotest Control Negative (Negative); Positive Monotest Control Positive (Positive)
[2023-12-23 03:42] LABS: Rapid Plasma Reagin Non-Reactive (NonReactive)
[2023-12-23] MEDS: METOPROLOL SUCCINATE EXT REL 100 MG TABCR 200 MG PO (08:57)
--- NOTE | 2023-12-23 09:30 | P.PNIM_ITS ---
Progress Note: A&P Assessment and Plan (1) Inguinal lymphadenopathy: Code(s): R59.0 - Localized enlarged lymph nodes Status: Acute Assessment and Plan: 12/23/23: * Continue abx of Vancomycin, Zosyn, Doxycycline (Has a recent tick bite) and Diflucan. * Pt's labs are partially resulted including: RPR nonreactive, [place] negative, HIV negative, COVID negative, Flu negative, urine negative, CRP elevated at 23.3, Lactic acid normal, Procalcitonin moderately elevated at 0.9, BC pending x2, Anti-streptolysin O Screen, and Tick borne illness pending at this time. * Non-specific source at this point in time. * Pt was meeting sepsis criteria at time of presentation with left shifted Leukocytosis, Fever and Procal of 0.9. * Now no longer meeting Sepsis criteria. * Continue to monitor and trend labs and VS. * Await blood cultures, Anti Streptolysin O Screen and tick borne illness labs * Symptomatic management with prn meds for nausea/pain. (2) Headache: Code(s): R51.9 - Headache, unspecified Status: Acute Assessment and Plan: 12/23/23: * PRN pain meds * No meningismus signs. (3) Leg pain, left: Code(s): M79.605 - Pain in left leg Status: Acute Assessment and Plan: 12/23/23: * Pt states this AM that his pain has traveled from his left groin now down into the left calf. * Check Venous doppler LLE * Continue prn pain meds * Continue abx regimen. (4) Morbid obesity with BMI of 40.0-44.9, adult: Code(s): E66.01 - Morbid (severe) obesity due to excess calories; Z68.41 - Body mass index [BMI] 40.0-44.9, adult Status: Chronic Assessment and Plan: 12/23/23: * Suggest heart healthy diet and lifestyle modifications upon discharge (5) COPD (chronic obstructive pulmonary disease): Onset Date: ~08/24/21 Qualifiers: COPD type: unspecified COPD Qualified Code(s): J44.9 - Chronic obstructive pulmonary disease, unspecified Code(s): J44.9 - Chronic obstructive pulmonary disease, unspecified Status: Chronic Assessment and Plan: 12/23/23: * Not currently symptomatic. * Observe and monitor for any new symptoms or complaints. (6) Obstructive sleep apnea: Code(s): G47.33 - Obstructive sleep apnea (adult) (pediatric) Status: Chronic Assessment and Plan: 12/23/23: * Does not use home CPAP. * Consider apnea link if needed. (7) Tobacco use disorder, continuous: Code(s): F17.209 - Nicotine dependence, unspecified, with unspecified nicotine-induced disorders Status: Chronic Assessment and Plan: 12/23/23: * Nicotine patch ordered. * Fifteen minutes of counseling was provided regarding smoking cessation. Time Spent With Patient Time with patient: 25 - 35 minutes Subjective Date/time seen: 12/23/23 09:30 Interval history: This very pleasant 53 year old male pt was examined at the bedside today. He continues to complain of headache and generally feeling unwell. He shows me the site of a tick bite just below his left axillary region from a couple of months ago and states it is feed mill tender. In addition, he states the pain that he felt in his left groin now seems to be in his distal left calf. He has no further fevers and is currently being covered on Vancomycin, Zosyn, Doxy and Diflucan. Review of Systems Review of Systems: All systems reviewed & are unremarkable except as noted in HPI and below Exam Narrative: CONSTITUTIONAL: Pleasant male pt lying supine and in no acute distress. H
--- NOTE | 2023-12-23 09:30 | PM.IMPN ---
Progress Note: A&P Assessment and Plan (1) Inguinal lymphadenopathy: Code(s): R59.0 - Localized enlarged lymph nodes Status: Acute Assessment and Plan: 12/23/23: Continue abx of Vancomycin, Zosyn, Doxycycline (Has a recent tick bite) and Diflucan. Pt's labs are partially resulted including: RPR nonreactive, [place] negative, HIV negative, COVID negative, Flu negative, urine negative, CRP elevated at 23.3, Lactic acid normal, Procalcitonin moderately elevated at 0.9, BC pending x2, Anti-streptolysin O Screen, and Tick borne illness pending at this time. Non-specific source at this point in time. Pt was meeting sepsis criteria at time of presentation with left shifted Leukocytosis, Fever and Procal of 0.9. Now no longer meeting Sepsis criteria. Continue to monitor and trend labs and VS. Await blood cultures, Anti Streptolysin O Screen and tick borne illness labs Symptomatic management with prn meds for nausea/pain. (2) Headache: Code(s): R51.9 - Headache, unspecified Status: Acute Assessment and Plan: 12/23/23: PRN pain meds No meningismus signs. (3) Leg pain, left: Code(s): M79.605 - Pain in left leg Status: Acute Assessment and Plan: 12/23/23: Pt states this AM that his pain has traveled from his left groin now down into the left calf. Check Venous doppler LLE Continue prn pain meds Continue abx regimen. (4) Morbid obesity with BMI of 40.0-44.9, adult: Code(s): E66.01 - Morbid (severe) obesity due to excess calories; Z68.41 - Body mass index [BMI] 40.0-44.9, adult Status: Chronic Assessment and Plan: 12/23/23: Suggest heart healthy diet and lifestyle modifications upon discharge (5) COPD (chronic obstructive pulmonary disease): Onset Date: ~08/24/21 Qualifiers: COPD type: unspecified COPD Qualified Code(s): J44.9 - Chronic obstructive pulmonary disease, unspecified Code(s): J44.9 - Chronic obstructive pulmonary disease, unspecified Status: Chronic Assessment and Plan: 12/23/23: Not currently symptomatic. Observe and monitor for any new symptoms or complaints. (6) Obstructive sleep apnea: Code(s): G47.33 - Obstructive sleep apnea (adult) (pediatric) Status: Chronic Assessment and Plan: 12/23/23: Does not use home CPAP. Consider apnea link if needed. (7) Tobacco use disorder, continuous: Code(s): F17.209 - Nicotine dependence, unspecified, with unspecified nicotine-induced disorders Status: Chronic Assessment and Plan: 12/23/23: Nicotine patch ordered. Fifteen minutes of counseling was provided regarding smoking cessation. Time Spent With Patient Time with patient: 25 - 35 minutes Subjective Date/time seen: 12/23/23 09:30 Interval history: This very pleasant 53 year old male pt was examined at the bedside today. He continues to complain of headache and generally feeling unwell. He shows me the site of a tick bite just below his left axillary region from a couple of months ago and states it is spinning frame tender. In addition, he states the pain that he felt in his left groin now seems to be in his distal left calf. He has no further fevers and is currently being covered on Vancomycin, Zosyn, Doxy and Diflucan. Review of Systems Review of Systems: All systems reviewed & are unremarkable except as noted in HPI and below Exam Narrative: CONSTITUTIONAL: Pleasant male pt lying supine and in no acute distress. HEENT: atraumatic and normocephalic w/patent oropharynx and MMM. EYES: Non-icteric and PERRLA NECK: No appreciable LN present. FROM in a supple manner, but he does complain of a stiffness in his neck. Negative Kernig and Brudzinski's. No meningismus. RESPIRATORY: CTAB in all [place]. CARDIO: RRR, S1 and S2 present. No S3, S4, m,r,g,h or displacement of PMI. Trace BLE Peripheral edema. GI: Soft, NT, BS present x4. : Deferred SKIN: Left groin with shodd
[2023-12-23] MEDS: ENOXAPARIN 40 MG/0.4 ML SYRINGE SUB-Q (13:03)
[2023-12-23] MEDS: MORPHINE SULFATE (*CRX) 4 MG/ML INJ IV PUSH ×2 (13:03→23:11)
[2023-12-23 13:08] LABS: Basophils Percent Auto 0.2 % (0.2-1.2); Eosinophils Percent Auto 0.1 % (0-4.4); Hematocrit 39.2 % (42.0-52.0); Hemoglobin 12.5 g/dL (14.0-18.0); Immature Granulocyte Absolute 0.05 K/mm3 (0.00-0.031); Immature Granulocyte Percent A 0.4 % (0-0.5); Lymphocytes Percent Auto 10.4 % (18.3-44.2); Mean Corpuscular HGB Conc 31.9 g/dl (32-36); Mean Corpuscular Hemoglobin 29.1 pg (26-34); Mean Corpuscular Volume 91.2 fl (80-100); Mean Platelet Volume 12.5 fl (7.4-10.4); Monocytes Absolute Auto 0.7 K/mm3 (0.1-0.6); Monocytes Percent Auto 5.7 % (2.6-8.5); Neutrophils Absolute Auto 9.7 K/mm3 (1.3-6.7); Neutrophils Percent Auto 83.2 % (45.5-73.1); Platelet Count Result 144 k/mm3 (150-375); Red Cell Distribution Width 15.2 % (11.5-14.5); White Blood Count 11.6 K/mm3 (4.5-10.0)
[2023-12-23 13:20] LABS: Alanine Aminotransferase 32 U/L (6-50); Albumin Level 3.8 g/dL (3.5-5.1); Alkaline Phosphatase 72 U/L (38-126); Anion Gap 9 mmol/L (4-12); Aspartate Amino Transferase 30 U/L (17-59); Bilirubin,Total 0.3 mg/dL (0.2-1.3); Blood Urea Nitrogen 11 mg/dL (9-20); Calcium 8.4 mg/dL (8.4-10.2); Carbon Dioxide 26 mmol/L (22-30); Chloride 101 mmol/L (98-107); Estimated CRCL calculation 96 ml/min; Estimated Glomerular Filt Rate > 60; Glucose 105 mg/dL (65-110); Potassium 3.6 mmol/L (3.4-5.0); Sodium 136 mmol/L (137-145)
[2023-12-23] MEDS: ACETAMINOPHEN/BUTALBITAL/CAFFEINE 325-50-40 MG TABLET (FIORICET) 1 TAB PO (15:39)
[2023-12-23] MEDS: VANCOMYCIN 1,500 MG/NS 500 ML 1,500 MG/500 ML BAG 250 MG IVPB (15:40)
[2023-12-24] VITALS (13 sets, daily range): BP systolic 106–160; BP diastolic 51–88; PULSE 71–98; RESP 18–28; TEMP 36.7–39.1; O2SAT 85–97
[2023-12-24] MEDS: MORPHINE SULFATE (*CRX) 4 MG/ML INJ IV PUSH ×8 (00:58→18:36)
[2023-12-24] MEDS: DOXYCYCLINE 100 MG/NS 100 ML 100 MG/100 ML BAG IVPB (00:59)
[2023-12-24] MEDS: SODIUM CHLORIDE 0.9% IV 1,000 ML 125 ML IV CONT ×2 (01:00→12:18)
[2023-12-24] MEDS: VANCOMYCIN 1,500 MG/NS 500 ML 1,500 MG/500 ML BAG 250 MG IVPB ×2 (03:10→17:19)
[2023-12-24] MEDS: ACETAMINOPHEN 325 MG TABLET 650 MG PO (05:22)
[2023-12-24 06:59] LABS: Basophils Percent Auto 0.3 % (0.2-1.2); Eosinophils Percent Auto 0.2 % (0-4.4); Hematocrit 38.9 % (42.0-52.0); Hemoglobin 12.3 g/dL (14.0-18.0); Immature Granulocyte Absolute 0.08 K/mm3 (0.00-0.031); Immature Granulocyte Percent A 0.7 % (0-0.5); Immature Platelet Fraction Pct 13.7 % (0.9-11.2); Lymphocytes Absolute Auto 1.67 K/mm3 (0.9-3.2); Mean Corpuscular HGB Conc 31.6 g/dl (32-36); Mean Corpuscular Hemoglobin 29.1 pg (26-34); Mean Corpuscular Volume 92.2 fl (80-100); Mean Platelet Volume 12.7 fl (7.4-10.4); Monocytes Absolute Auto 0.9 K/mm3 (0.1-0.6); Monocytes Percent Auto 7.9 % (2.6-8.5); Neutrophils Absolute Auto 9.1 K/mm3 (1.3-6.7); Neutrophils Percent Auto 76.9 % (45.5-73.1); Platelet Count Result 147 k/mm3 (150-375); Red Blood Count 4.22 M/mm3 (4.6-6.20); Red Cell Distribution Width 15.4 % (11.5-14.5); White Blood Count 11.9 K/mm3 (4.5-10.0)
[2023-12-24 07:25] LABS: Alanine Aminotransferase 29 U/L (6-50); Albumin Level 3.7 g/dL (3.5-5.1); Alkaline Phosphatase 74 U/L (38-126); Anion Gap 5 mmol/L (4-12); Aspartate Amino Transferase 27 U/L (17-59); Bilirubin,Total 0.3 mg/dL (0.2-1.3); Blood Urea Nitrogen 9 mg/dL (9-20); CRP 25.8 mg/dL (<1.0); Carbon Dioxide 29 mmol/L (22-30); Chloride 99 mmol/L (98-107); Estimated CRCL calculation 87 ml/min; Estimated Glomerular Filt Rate > 60; Glucose 109 mg/dL (65-110); Potassium 3.8 mmol/L (3.4-5.0); Sodium 133 mmol/L (137-145)
[2023-12-24] MEDS: METOPROLOL SUCCINATE EXT REL 100 MG TABCR 200 MG PO (08:16)
[2023-12-24] MEDS: ENOXAPARIN 40 MG/0.4 ML SYRINGE SUB-Q (08:16)
--- NOTE | 2023-12-24 08:28 | PM.IMPN ---
Progress Note: A&P Assessment and Plan (1) Sepsis: Code(s): A41.9 - Sepsis, unspecified organism Status: Inactive Assessment and Plan: Unclear etiology. Patient reports with symptoms of fever and chills at home with severe headache, neck pain, and now lower extremity redness, edema, and pain. Patient did have a tick bite back in 07/2023 which was removed without issue. No subsequent rash or pain. Pt's labs are partially resulted including: RPR nonreactive, [place] negative, HIV negative, COVID negative, Flu negative, urine negative, CRP elevated at 23.3, Lactic acid normal, Procalcitonin moderately elevated at 0.9, BC pending x2, Anti-streptolysin O Screen, and Tick borne illness pending at this time. Non-specific source at this point in time. Left lower extremity cellulitis which seems to have worsened after admission. His main complaints that brought him in were fever, chills, headache, and neck pain. High suspicion for meningitis vs encephalitis. Lumbar puncture pending, antibiotics have been broadened for bacterial meningitis. Now on Rocephin, ampicillin, doxycycline, and vancomycin. He had a low grade fever of 100.9 this morning despite Vancomycin and Doxycycline. Abx broadened. Continue to monitor and trend labs and VS Await blood cultures, Anti Streptolysin O Screen and tick borne illness labs Symptomatic management with prn meds for nausea/pain (2) Inguinal lymphadenopathy: Code(s): R59.0 - Localized enlarged lymph nodes Status: Acute Assessment and Plan: likely reactive from left lower extremity cellulitis (3) Headache: Code(s): R51.9 - Headache, unspecified Status: Inactive Assessment and Plan: Patient reports severe headache with neck pain for the last week. He has had headaches before but typically will resolve with Tylenol or Ibuprofen. Fioricet is not helping (4) Leg pain, left: Code(s): M79.605 - Pain in left leg Status: Inactive Assessment and Plan: 12/24/23: Pt states he had a small patch of dry skin to his left lower leg which he used a back relocation commissioner to itch. Over the last 24 he has developed erythema, warmth, edema, and pain to his left lower leg with erythema tracking up into his left groin. Check Venous doppler LLE negative for DVT Continue prn pain medication Continue antibiotic regimen. (5) COPD (chronic obstructive pulmonary disease): Onset Date: ~08/24/21 Qualifiers: COPD type: unspecified COPD Qualified Code(s): J44.9 - Chronic obstructive pulmonary disease, unspecified Code(s): J44.9 - Chronic obstructive pulmonary disease, unspecified Status: Chronic Assessment and Plan: 12/23/23: Not currently symptomatic. Observe and monitor for any new symptoms or complaints. (6) Obstructive sleep apnea: Code(s): G47.33 - Obstructive sleep apnea (adult) (pediatric) Status: Chronic Assessment and Plan: 12/23/23: Does not use home CPAP. Consider apnea link if needed. (7) Tobacco use disorder, continuous: Code(s): F17.209 - Nicotine dependence, unspecified, with unspecified nicotine-induced disorders Status: Inactive Assessment and Plan: 12/23/23: Nicotine patch ordered. Fifteen minutes of counseling was provided regarding smoking cessation. Subjective Date/time seen: 12/24/23 08:28 Interval history: Patient is seen sitting up in his chair. He appears unwell. He complains of a severe headache and neck pain, rigidity for the last week that seems to have worsened in the last day or two. He has continued to experience fever and chills. He also has increased erythema, warmth, and pain to his left lower leg. He reports initial area of dry skin to the left lateral lower leg which he used a back relocation commissioner to itch. Over the last day the warmth increased and traveled up into his left groin associated with erythema and edema. I did speak with the pa
[2023-12-24 08:43] LABS: Erythrocyte Sedimentation Rate 25 mm/hr (0-20)
[2023-12-24 13:18] LABS: Anti Streptolysin O Screen 153 IU/mL (<200)
[2023-12-24] MEDS: ACETAMINOPHEN/BUTALBITAL/CAFFEINE 325-50-40 MG TABLET (FIORICET) 1 TAB PO (15:04)
[2023-12-24 15:19] LABS: Glucose CSF 74 mg/dL (40-70); Total Protein CSF 65 mg/dL (12-60)
[2023-12-24] MEDS: AMPICILLIN 2 GM/NS 100 ML 2 GM/100 ML BAG IVPB ×3 (15:38→21:04)
[2023-12-24] MEDS: ACETAMINOPHEN 325 MG TABLET PO (15:39)
[2023-12-24 15:47] LABS: Vancomycin Trough 9.3 ug/mL (10.0-20.0)
[2023-12-24] MEDS: cefTRIAXone 2 GM/NS 100 ML 2 GM/100 ML BAG IVPB (15:55)
[2023-12-24 15:56] LABS: Alveolar/Arterial O2 Gradient 29.3 mmHg; Fractional Inspired Oxygen 21 %; HCO3 ABG 27.2 mEq/l (22.0-26.0); Oxygen Saturation ABG 89.3 % (95.0-100.0); Oxyhemoglobin 90.5 % THb (90.0-100.0); PCO2 ABG 50.7 mmHg (35.0-45.0); PO2 ABG 59.7 mmHg (80.0-100.0); PO2 FiO2 Ratio Arterial Blood 2.84 %; Total Hemoglobin 11.8 g/dL (12.0-18.0); pH ABG 7.348 (7.350-7.450)
[2023-12-24 15:57] LABS: Modified Allen's Test Pass; Site Drawn RIGHT RADIAL
[2023-12-24 16:06] LABS: Appearance CSF Hazy (Clear); CSF source CSF
[2023-12-24 16:07] LABS: Color CSF Colorless (Colorless)
[2023-12-24 16:08] LABS: Nucleated Cell CSF 2 /uL (0-5)
[2023-12-24 16:09] LABS: Lymphocytes CSF 66 % (40-80); Monocytes CSF 22 % (15-45); Neutrophils CSF 12 % (0-6); Red Blood Cell CSF 535 (0-2)
[2023-12-24] MEDS: FAMOTIDINE 20 MG/2 ML VIAL IV PUSH (17:43)
[2023-12-24] MEDS: PROCHLORPERAZINE EDISYLATE 10 MG/2 ML VIAL IV PUSH (17:43)
[2023-12-24] MEDS: KETOROLAC 30 MG/ML VIAL (*BKC) IV PUSH (17:44)
[2023-12-24] MEDS: CEFEPIME 2 GM/NS 50 ML 2 GM/50 ML BAG IVPB (19:58)
[2023-12-24] MEDS: oxyCODONE HCL (*CRX) 5 MG TAB IR 10 MG PO (20:00)
[2023-12-24] MEDS: DOXYCYCLINE HYCLATE 100 MG TABLET PO (20:18)
--- NOTE | 2023-12-24 21:30 | PC.NURSE ---
O2 sats dropping into low 80's during sleep, educated patient on the importance of wearing CPAP when sleeping, pt states I'm aware of the effects, my doctor has been trying to get me to do a sleep study for 2 years, at this time, I want to worry about 1 problem at a time, I'm not wearing the mask . I asked him if he could tell me the effects it can have on his health, he states I don't give a damn at this time .
[2023-12-25] VITALS (13 sets, daily range): BP systolic 147–165; BP diastolic 65–82; PULSE 70–91; RESP 18–22; TEMP 36.7–37; O2SAT 84–97
[2023-12-25] MEDS: VANCOMYCIN 1,500 MG/NS 500 ML 1,500 MG/500 ML BAG 250 MG IVPB ×2 (03:16→12:08)
[2023-12-25] MEDS: ACETAMINOPHEN 325 MG TABLET 650 MG PO (04:57)
--- NOTE | 2023-12-25 04:59 | PC.NURSE ---
Pt requesting morphine for headache, quickly falls back asleep, O2 sats obtained and are 80% on room air. Awoke patient and told him its not safe to take morphine while oxygen sats are low, pt states Cant you put that oxygen back in my nose , I said yes, but cpap mask is best , he says Im not wearing that mask, but ill wear the oxygen . NC applied and oxycodone given for pain.
[2023-12-25] MEDS: AMPICILLIN 2 GM/NS 100 ML 2 GM/100 ML BAG IVPB ×4 (05:22→18:05)
[2023-12-25] MEDS: CEFEPIME 2 GM/NS 50 ML 2 GM/50 ML BAG IVPB ×3 (05:58→21:26)
[2023-12-25 06:56] LABS: Estimated CRCL calculation 80 ml/min; Estimated Glomerular Filt Rate > 60
[2023-12-25] MEDS: SODIUM CHLORIDE 0.9% IV 1,000 ML 75 ML IV CONT (08:58)
[2023-12-25] MEDS: METOPROLOL SUCCINATE EXT REL 100 MG TABCR 200 MG PO (08:59)
[2023-12-25] MEDS: DOXYCYCLINE HYCLATE 100 MG TABLET PO ×2 (09:00→20:30)
[2023-12-25] MEDS: ENOXAPARIN 40 MG/0.4 ML SYRINGE SUB-Q (09:01)
[2023-12-25 09:06] LABS: Basophils Absolute Auto 0.1 K/mm3 (0.0-0.1); Basophils Percent Auto 0.5 % (0.2-1.2); Eosinophils Percent Auto 0.3 % (0-4.4); Hematocrit 35.2 % (42.0-52.0); Hemoglobin 11.1 g/dL (14.0-18.0); Immature Granulocyte Percent A 0.9 % (0-0.5); Immature Platelet Fraction Pct 12.4 % (0.9-11.2); Lymphocytes Absolute Auto 1.45 K/mm3 (0.9-3.2); Lymphocytes Percent Auto 13.4 % (18.3-44.2); Mean Corpuscular HGB Conc 31.5 g/dl (32-36); Mean Corpuscular Hemoglobin 29.3 pg (26-34); Mean Corpuscular Volume 92.9 fl (80-100); Mean Platelet Volume 13.6 fl (7.4-10.4); Monocytes Absolute Auto 1.2 K/mm3 (0.1-0.6); Monocytes Percent Auto 10.7 % (2.6-8.5); Neutrophils Percent Auto 74.2 % (45.5-73.1); Platelet Count Result 162 k/mm3 (150-375); Red Blood Count 3.79 M/mm3 (4.6-6.20); Red Cell Distribution Width 15.5 % (11.5-14.5); White Blood Count 10.8 K/mm3 (4.5-10.0)
--- NOTE | 2023-12-25 09:08 | P.PNIM_ITS ---
Progress Note: A&P Assessment and Plan (1) Sepsis: Code(s): A41.9 - Sepsis, unspecified organism Status: Acute Assessment and Plan: * Unclear etiology. Patient reports with symptoms of fever and chills at home with severe headache, neck pain, and now lower extremity redness, edema, and pain. Patient did have a tick bite back in 07/2023 which was removed without issue. No subsequent rash or pain. * Pt's labs are partially resulted including: RPR nonreactive, [place] negative, HIV negative, COVID negative, Flu negative, urine negative, CRP elevated at 23.3, Lactic acid normal, Procalcitonin moderately elevated at 0.9, BC pending x2, Anti-streptolysin O Screen, and Tick borne illness pending at this time. * Non-specific source at this point in time. Left lower extremity cellulitis which seems to have worsened after admission. His main complaints that brought him in were fever, chills, headache, and neck pain. High suspicion for meningitis vs encephalitis. * Lumbar puncture pending, antibiotics have been broadened for bacterial meningitis. * Now on Rocephin, ampicillin, doxycycline, and vancomycin. * He had a low grade fever of 100.9 this morning despite Vancomycin and Doxycycline. Abx broadened. * Continue to monitor and trend labs and VS * Await blood cultures, Anti Streptolysin O Screen and tick borne illness labs * Symptomatic management with prn meds for nausea/pain 12/25/23: * CSF with WBC gram stain suspicious of bacterial meningitis * Continue with current antibiotic therapy will deescalate when applicable * Blood cultures with no growth (2) Bacterial meningitis: Code(s): G00.9 - Bacterial meningitis, unspecified Status: Acute Assessment and Plan: * Spinal tap CSF suspicious with WBC gram stain, hazy in color, elevated protein * culture pending * on Vanc, cefepime, and doxycycline * Still with neck pain does have HX of cervical surgery * Blood cultures negative * WBC trending down (3) Inguinal lymphadenopathy: Code(s): R59.0 - Localized enlarged lymph nodes Status: Acute Assessment and Plan: * likely reactive from left lower extremity cellulitis (4) Headache: Code(s): R51.9 - Headache, unspecified Status: Acute Assessment and Plan: * Patient reports severe headache with neck pain for the last week. He has had headaches before but typically will resolve with Tylenol or Ibuprofen. * Fioricet is not helping 12/25/23: * added sumatriptan (5) Leg pain, left: Code(s): M79.605 - Pain in left leg Status: Acute Assessment and Plan: 12/24/23: * Pt states he had a small patch of dry skin to his left lower leg which he used a back solidworks drafter to itch. Over the last 24 he has developed erythema, warmth, edema, and pain to his left lower leg with erythema tracking up into his left groin. * Check Venous doppler LLE negative for DVT Negative * Continue prn pain medication * Continue antibiotic regimen. 12/25/23: * Leg improving * Reports itching will add a cream patient has HX of eczema (6) COPD (chronic obstructive pulmonary disease): Onset Date: ~08/24/21 Qualifiers: COPD type: unspecified [place]
--- NOTE | 2023-12-25 09:08 | PM.IMPN ---
Progress Note: A&P Assessment and Plan (1) Sepsis: Code(s): A41.9 - Sepsis, unspecified organism Status: Acute Assessment and Plan: Unclear etiology. Patient reports with symptoms of fever and chills at home with severe headache, neck pain, and now lower extremity redness, edema, and pain. Patient did have a tick bite back in 07/2023 which was removed without issue. No subsequent rash or pain. Pt's labs are partially resulted including: RPR nonreactive, [place] negative, HIV negative, COVID negative, Flu negative, urine negative, CRP elevated at 23.3, Lactic acid normal, Procalcitonin moderately elevated at 0.9, BC pending x2, Anti-streptolysin O Screen, and Tick borne illness pending at this time. Non-specific source at this point in time. Left lower extremity cellulitis which seems to have worsened after admission. His main complaints that brought him in were fever, chills, headache, and neck pain. High suspicion for meningitis vs encephalitis. Lumbar puncture pending, antibiotics have been broadened for bacterial meningitis. Now on Rocephin, ampicillin, doxycycline, and vancomycin. He had a low grade fever of 100.9 this morning despite Vancomycin and Doxycycline. Abx broadened. Continue to monitor and trend labs and VS Await blood cultures, Anti Streptolysin O Screen and tick borne illness labs Symptomatic management with prn meds for nausea/pain 12/25/23: CSF with WBC gram stain suspicious of bacterial meningitis Continue with current antibiotic therapy will deescalate when applicable Blood cultures with no growth (2) Bacterial meningitis: Code(s): G00.9 - Bacterial meningitis, unspecified Status: Acute Assessment and Plan: Spinal tap CSF suspicious with WBC gram stain, hazy in color, elevated protein culture pending on Vanc, cefepime, and doxycycline Still with neck pain does have HX of cervical surgery Blood cultures negative WBC trending down (3) Inguinal lymphadenopathy: Code(s): R59.0 - Localized enlarged lymph nodes Status: Acute Assessment and Plan: likely reactive from left lower extremity cellulitis (4) Headache: Code(s): R51.9 - Headache, unspecified Status: Acute Assessment and Plan: Patient reports severe headache with neck pain for the last week. He has had headaches before but typically will resolve with Tylenol or Ibuprofen. 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 Over the last 24 he has developed erythema, warmth, edema, and pain to his left lower leg with erythema tracking up into his left groin. Check Venous doppler LLE negative for DVT Negative Continue prn pain medication Continue antibiotic regimen. 12/25/23: Leg improving Reports itching will add a cream patient has HX of eczema (6) COPD (chronic obstructive pulmonary disease): Onset Date: ~08/24/21 Qualifiers: COPD type: unspecified COPD Qualified Code(s): J44.9 - Chronic obstructive pulmonary disease, unspecified Code(s): J44.9 - Chronic obstructive pulmonary disease, unspecified Status: Chronic Assessment and Plan: 12/23/23: Not currently symptomatic. Observe and monitor for any new symptoms or complaints. 12/25/23: Episode of hypoxia CTA negative for PE or acute cardiopulmonary disease Known sleep apnea With home O2 walk study prior to discharge (7) Obstructive sleep apnea: Code(s): G47.33 - Obstructive sleep apnea (adult) (pediatric) Status: Chronic Assessment and Plan: 12/23/23: Does not use home CPAP. Consider apnea link if needed. 12/25/23: Episode of hypoxia CTA negative for PE or acute cardiopulmonary
--- NOTE | 2023-12-25 09:10 | PC.NURSE ---
Oxicodone pulled by Leonora Sewell RN. Patient was asleep, woken up, and refused medication this morning. Medication was not given at this time (early this morning). MAR documentation undone.
[2023-12-25 09:23] LABS: Alanine Aminotransferase 30 U/L (6-50); Albumin Level 3.6 g/dL (3.5-5.1); Alkaline Phosphatase 76 U/L (38-126); Anion Gap 9 mmol/L (4-12); Aspartate Amino Transferase 31 U/L (17-59); Bilirubin,Total 0.2 mg/dL (0.2-1.3); Blood Urea Nitrogen 10 mg/dL (9-20); Calcium 8.1 mg/dL (8.4-10.2); Carbon Dioxide 26 mmol/L (22-30); Chloride 102 mmol/L (98-107); Estimated CRCL calculation 80 ml/min; Estimated Glomerular Filt Rate > 60; Glucose 121 mg/dL (65-110); Sodium 137 mmol/L (137-145)
[2023-12-25] MEDS: SUMAtriptan SUCCINATE 25 MG TABLET 100 MG PO (14:14)
[2023-12-25] MEDS: oxyCODONE HCL (*CRX) 5 MG TAB IR PO ×2 (15:21→20:30)
[2023-12-25] MEDS: TRIAMCINOLONE ACET 0.1% CREAM 15 GM TUBE 1 APPLIC TOPICAL ×2 (18:06→20:30)
[2023-12-25 20:24] LABS: Vancomycin Trough 11.4 ug/mL (10.0-20.0)
[2023-12-25] MEDS: VANCOMYCIN 1,750 MG/NS 500 ML 1,750 MG/500 ML BAG 250 MG IVPB (22:06)
[2023-12-26] VITALS (16 sets, daily range): BP systolic 127–148; BP diastolic 69–84; PULSE 60–84; RESP 16–24; TEMP 36.2–38.2; O2SAT 90–100
--- NOTE | 2023-12-26 | ECHO_ITS ---
Patient Info Name: Armaan Hurst Age: 53 years : 1970 Gender: Male Ht: 65 in Wt: 250 lbs BSA: 2.34 m2 HR: 77 bpm BP: 138 / 75 mmHg Technical Quality: Fair Exam Date: 12/26/2023 10:35 AM Exam Location: Echo Lab Patient Status: Inpatient Admit Date: 12/24/2023 Staff Ordering Physician: David Bradshaw MD Electrolysis Investigator: Christina Wallace RDCS Attending Provider: Stephanie Lott APRN Referring Physician: Leeann GILL; Exam Type: CA echo dop color flow w con Study Info Indications - Elevated BNP Complete two-dimensional, color flow and Doppler transthoracic echocardiogram is performed with contrast to opacify the left ventricle and to improve the deliniation of the left ventricle endocardial borders. Contrast/Agitated Saline Contrast/Ag. Saline: Definity Amount: 2.00 ml Existing IV Access: Yes IV Access Condition: patent with no signs of infiltration Summary 1. Left ventricular chamber dimension is normal. 2. Left ventricular systolic function is normal, estimated at 60-65%. 3. The left ventricular diastolic function is abnormal. 4. Definity contrast administered improved wall motion interpretation. 5. E/e' 10 is mildly elevated. 6. There is trace tricuspid valve regurgitation. 7. Moderate pulmonary hypertension, estimated pulmonary arterial systolic pressure is 57 mmHg. Left Ventricle E/e' 10 is mildly elevated. Left ventricular chamber dimension is normal. Left ventricular systolic function is normal, estimated at 60-65%. The left ventricular diastolic function is abnormal. Definity contrast administered improved wall motion interpretation. Right Ventricle Right ventricular chamber dimension is normal. Right ventricular systolic function is normal. Left Atria Left atrial chamber dimension is normal. Right Atria Right atrial chamber dimension is normal. Aortic Valve The aortic valve is trileaflet. There is no aortic valve stenosis. There is no aortic valve regurgitation. Pulmonic Valve There is no pulmonic regurgitation. Mitral Valve There is no mitral valve stenosis. There is no mitral valve regurgitation. Tricuspid Valve There is trace tricuspid valve regurgitation. Moderate pulmonary hypertension, estimated pulmonary arterial systolic pressure is 57 mmHg. Pericardium/Pleural There is no pericardial effusion. Inferior Vena Cava Normal inferior vena cava with >50% collapse upon inspiration consistent with normal right atrial pressure, 5 mmHg. Aorta The aortic root size at the sinus of Valsalva is normal. Left Ventricular Outflow Tract Name Value Normal LVOT 2D LVOT Diameter 1.88 cm LVOT Doppler LVOT Peak Gradient 6 mmHg LVOT Mean Gradient 3 mmHg LVOT VTI 24.35 cm LVOT VTI/AV VTI Ratio 0.92 LVOT Stroke Volume 67.54 ml LVOT CO 3.87 l/min LVOT CI 1.65 L/min/m2 Pulmonic Valve Name Value Normal -
[2023-12-26] MEDS: IPRATROPIUM 0.5 MG/ALBUTEROL SULFATE 2.5 MG AMPUL.NEB 3 ML INHALATION ×2 (00:40→11:36)
[2023-12-26] MEDS: FUROSEMIDE INJ 40 MG/4 ML VIAL IV PUSH ×3 (01:00→16:50)
[2023-12-26] MEDS: MORPHINE SULFATE (*CRX) 2 MG/ML INJ 1 MG IV PUSH (01:00)
[2023-12-26 01:22] LABS: Alveolar/Arterial O2 Gradient 192.5 mmHg; Base Excess ABG 2.5 mEq/l (+/-2.0); Carboxyhemoglobin 0.8 % THb (0-2.0); Fractional Inspired Oxygen 45 %; HCO3 ABG 29.3 mEq/l (22.0-26.0); Methemoglobin ABG 0.1 %THb (0-1.5); Oxygen Content ABG 15.4 %vol (16.0-22.0); Oxyhemoglobin 91.9 % THb (90.0-100.0); PO2 ABG 64.7 mmHg (80.0-100.0); PO2 FiO2 Ratio Arterial Blood 1.44 %; Reduced Hemoglobin 7.2 %THb (0-5.0); Total Hemoglobin 11.9 g/dL (12.0-18.0); pH ABG 7.337 (7.350-7.450)
[2023-12-26 01:23] LABS: Device OTHER DEVICE; Modified Allen's Test Pass; Site Drawn RIGHT RADIAL
[2023-12-26] MEDS: AMPICILLIN 2 GM/NS 100 ML 2 GM/100 ML BAG IVPB ×7 (01:38→23:37)
[2023-12-26 01:50] LABS: Hemoglobin 10.9 g/dL (14.0-18.0); Mean Corpuscular HGB Conc 31.1 g/dl (32-36); Mean Corpuscular Hemoglobin 28.8 pg (26-34); Mean Corpuscular Volume 92.3 fl (80-100); Mean Platelet Volume 11.9 fl (7.4-10.4); Platelet Count Result 190 k/mm3 (150-375); Red Blood Count 3.79 M/mm3 (4.6-6.20); Red Cell Distribution Width 15.1 % (11.5-14.5); White Blood Count 12.5 K/mm3 (4.5-10.0)
[2023-12-26 02:00] LABS: Anion Gap 7 mmol/L (4-12); Blood Urea Nitrogen 9 mg/dL (9-20); Carbon Dioxide 31 mmol/L (22-30); Chloride 97 mmol/L (98-107); Estimated CRCL calculation 87 ml/min; Estimated Glomerular Filt Rate > 60; Glucose 152 mg/dL (65-110); Lactic Acid Reflex 1.5 mmol/L (0.7-2.0); Magnesium 1.9 mg/dL (1.6-2.3); Phosphorus 2.8 mg/dL (2.5-4.5); Potassium 4.1 mmol/L (3.4-5.0); Sodium 135 mmol/L (137-145)
[2023-12-26 02:14] LABS: NT Pro B Type Natriuretic Pept 2760 pg/mL (19.9-100)
[2023-12-26] MEDS: oxyCODONE HCL (*CRX) 5 MG TAB IR PO ×4 (03:19→20:59)
[2023-12-26] MEDS: ACETAMINOPHEN 325 MG TABLET 650 MG PO (03:19)
[2023-12-26] MEDS: CEFEPIME 2 GM/NS 50 ML 2 GM/50 ML BAG IVPB ×3 (05:07→22:00)
--- NOTE | 2023-12-26 05:55 | PCRCNOTE ---
Bipap order changed to cpap of 8 @ [address] Brad[address]. Pt refused to wear mask stating he knows he needs it, but does not want to try it at this time (03:00).
[2023-12-26] MEDS: VANCOMYCIN 1,750 MG/NS 500 ML 1,750 MG/500 ML BAG 250 MG IVPB ×2 (06:28→13:53)
[2023-12-26 07:07] LABS: Basophils Absolute Auto 0.1 K/mm3 (0.0-0.1); Basophils Percent Auto 0.4 % (0.2-1.2); Eosinophils Absolute Auto 0.1 K/mm3 (0-0.3); Eosinophils Percent Auto 1.1 % (0-4.4); Hematocrit 34.2 % (42.0-52.0); Hemoglobin 10.5 g/dL (14.0-18.0); Immature Granulocyte Absolute 0.18 K/mm3 (0.00-0.031); Immature Granulocyte Percent A 1.5 % (0-0.5); Lymphocytes Absolute Auto 1.88 K/mm3 (0.9-3.2); Lymphocytes Percent Auto 15.3 % (18.3-44.2); Mean Corpuscular HGB Conc 30.7 g/dl (32-36); Mean Corpuscular Hemoglobin 28.8 pg (26-34); Mean Corpuscular Volume 93.7 fl (80-100); Mean Platelet Volume 12.2 fl (7.4-10.4); Monocytes Absolute Auto 1.6 K/mm3 (0.1-0.6); Monocytes Percent Auto 12.9 % (2.6-8.5); Neutrophils Absolute Auto 8.4 K/mm3 (1.3-6.7); Neutrophils Percent Auto 68.8 % (45.5-73.1); Platelet Count Result 170 k/mm3 (150-375); Red Blood Count 3.65 M/mm3 (4.6-6.20); Red Cell Distribution Width 15.2 % (11.5-14.5); White Blood Count 12.3 K/mm3 (4.5-10.0)
[2023-12-26 07:15] LABS: Alanine Aminotransferase 44 U/L (6-50); Albumin Level 3.6 g/dL (3.5-5.1); Alkaline Phosphatase 78 U/L (38-126); Anion Gap 5 mmol/L (4-12); Aspartate Amino Transferase 37 U/L (17-59); Bilirubin,Total 0.2 mg/dL (0.2-1.3); Blood Urea Nitrogen 9 mg/dL (9-20); Calcium 8.6 mg/dL (8.4-10.2); Carbon Dioxide 38 mmol/L (22-30); Chloride 96 mmol/L (98-107); Estimated CRCL calculation 89 ml/min; Estimated Glomerular Filt Rate > 60; Glucose 129 mg/dL (65-110); Potassium 3.9 mmol/L (3.4-5.0); Sodium 139 mmol/L (137-145)
--- NOTE | 2023-12-26 07:39 | P.PNIM_ITS ---
Progress Note: A&P Assessment and Plan (1) Sepsis: Code(s): A41.9 - Sepsis, unspecified organism Status: Acute Assessment and Plan: * Unclear etiology. Patient reports with symptoms of fever and chills at home with severe headache, neck pain, and now lower extremity redness, edema, and pain. Patient did have a tick bite back in 07/2023 which was removed without issue. No subsequent rash or pain. * Pt's labs are partially resulted including: RPR nonreactive, [place] negative, HIV negative, COVID negative, Flu negative, urine negative, CRP elevated at 23.3, Lactic acid normal, Procalcitonin moderately elevated at 0.9, BC pending x2, Anti-streptolysin O Screen, and Tick borne illness pending at this time. * Non-specific source at this point in time. Left lower extremity cellulitis which seems to have worsened after admission. His main complaints that brought him in were fever, chills, headache, and neck pain. High suspicion for meningitis vs encephalitis. * Lumbar puncture pending, antibiotics have been broadened for bacterial meningitis. * Now on Rocephin, ampicillin, doxycycline, and vancomycin. * He had a low grade fever of 100.9 this morning despite Vancomycin and Doxycycline. Abx broadened. * Continue to monitor and trend labs and VS * Await blood cultures, Anti Streptolysin O Screen and tick borne illness labs * Symptomatic management with prn meds for nausea/pain 12/25/23: * CSF with WBC gram stain suspicious of bacterial meningitis * Continue with current antibiotic therapy will deescalate when applicable * Blood cultures with no growth 12/26/23: * No change to current treatment plan (2) Bacterial meningitis: Code(s): G00.9 - Bacterial meningitis, unspecified Status: Acute Assessment and Plan: * Spinal tap CSF suspicious with WBC gram stain, hazy in color, elevated protein * culture pending * on Vanc, cefepime, and doxycycline * Still with neck pain does have HX of cervical surgery * Blood cultures negative * WBC trending down * inguinal lymphadenopathy likely reactive from left lower extremity cellulitis 12/26/23: * WBC 12.3 today, T max 100.8 * Blood cultures showing no growth to date on preliminary read * CSF fungal culture and stain still pending * CSF gram stain shown light WBC's and no organisms seen on final read * CSF culture showing WBCs, no organisms, no epithelial cells seen on preliminary read. * Continue IV antibiotics (3) Leg pain, left: Code(s): M79.605 - Pain in left leg Status: Acute Assessment and Plan: 12/24/23: * Pt states he had a small patch of dry skin to his left lower leg which he used a back home aide to itch. Over the last 24 he has developed erythema, warmth, edema, and pain to his left lower leg with erythema tracking up into his left groin. * Check Venous doppler LLE negative for DVT Negative * Continue prn pain medication * Continue antibiotic regimen. 12/25/23: * Leg improving * Reports itching will add a cream patient has HX of eczema 12/26/23: * No change to current treatment plan (4) Headache: Code(s): R51.9 - Headache, unspecified Status: Acute Assessment and Plan: * Patient reports severe headache with neck pain for the last week. He has had headaches before but typically will resolve with Tylenol or Ibuprofen. * Fioricet is not helping 12/25/23: * added sumatriptan 12/26/23: * No change to current treatment plan (5) COPD exacerbation: Code(s): J44.1 - Chronic obstructive pulmonary disease with (acute) exace
--- NOTE | 2023-12-26 07:39 | PM.IMPN ---
Progress Note: A&P Assessment and Plan (1) Sepsis: Code(s): A41.9 - Sepsis, unspecified organism Status: Acute Assessment and Plan: Unclear etiology. Patient reports with symptoms of fever and chills at home with severe headache, neck pain, and now lower extremity redness, edema, and pain. Patient did have a tick bite back in 07/2023 which was removed without issue. No subsequent rash or pain. Pt's labs are partially resulted including: RPR nonreactive, [place] negative, HIV negative, COVID negative, Flu negative, urine negative, CRP elevated at 23.3, Lactic acid normal, Procalcitonin moderately elevated at 0.9, BC pending x2, Anti-streptolysin O Screen, and Tick borne illness pending at this time. Non-specific source at this point in time. Left lower extremity cellulitis which seems to have worsened after admission. His main complaints that brought him in were fever, chills, headache, and neck pain. High suspicion for meningitis vs encephalitis. Lumbar puncture pending, antibiotics have been broadened for bacterial meningitis. Now on Rocephin, ampicillin, doxycycline, and vancomycin. He had a low grade fever of 100.9 this morning despite Vancomycin and Doxycycline. Abx broadened. Continue to monitor and trend labs and VS Await blood cultures, Anti Streptolysin O Screen and tick borne illness labs Symptomatic management with prn meds for nausea/pain 12/25/23: CSF with WBC gram stain suspicious of bacterial meningitis Continue with current antibiotic therapy will deescalate when applicable Blood cultures with no growth 12/26/23: No change to current treatment plan (2) Bacterial meningitis: Code(s): G00.9 - Bacterial meningitis, unspecified Status: Acute Assessment and Plan: Spinal tap CSF suspicious with WBC gram stain, hazy in color, elevated protein culture pending on Vanc, cefepime, and doxycycline Still with neck pain does have HX of cervical surgery Blood cultures negative WBC trending down inguinal lymphadenopathy likely reactive from left lower extremity cellulitis 12/26/23: WBC 12.3 today, T max 100.8 Blood cultures showing no growth to date on preliminary read CSF fungal culture and stain still pending CSF gram stain shown light WBC's and no organisms seen on final read CSF culture showing WBCs, no organisms, no epithelial cells seen on preliminary read. 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 Over the last 24 he has developed erythema, warmth, edema, and pain to his left lower leg with erythema tracking up into his left groin. Check Venous doppler LLE negative for DVT Negative Continue prn pain medication Continue antibiotic regimen. 12/25/23: Leg improving Reports itching will add a cream patient has HX of eczema 12/26/23: No change to current treatment plan (4) Headache: Code(s): R51.9 - Headache, unspecified Status: Acute Assessment and Plan: Patient reports severe headache with neck pain for the last week. He has had headaches before but typically will resolve with Tylenol or Ibuprofen. Fioricet is not helping 12/25/23: added sumatriptan 12/26/23: No change to current treatment plan (5) COPD exacerbation: Code(s): J44.1 - Chronic obstructive pulmonary disease with (acute) exacerbation Status: Acute Assessment and Plan: 12/23/23: Not currently symptomatic. Observe and monitor for any new symptoms or complaints 12/25/23: Episode of hypoxia CTA negative for PE or acute cardiopulmonary disease Known sleep apnea With home O2 walk study prior to discharge 12/26/23: Will add breathing treatment as needed Continue to wean O2 for saturation greater than 92% Home O2 evaluation prior
[2023-12-26] MEDS: METOPROLOL SUCCINATE EXT REL 100 MG TABCR 200 MG PO (08:53)
[2023-12-26] MEDS: TRIAMCINOLONE ACET 0.1% CREAM 15 GM TUBE 1 APPLIC TOPICAL ×2 (08:54→21:05)
[2023-12-26] MEDS: DOXYCYCLINE HYCLATE 100 MG TABLET PO ×2 (08:54→20:59)
[2023-12-26] MEDS: ENOXAPARIN 40 MG/0.4 ML SYRINGE SUB-Q (08:56)
[2023-12-26] MEDS: PERFLUTREN LIPID MICROSPHERES 1.5 ML VIAL DILUTED TO 10 ML TOTAL VOLUME IV PUSH (12:43)
--- NOTE | 2023-12-26 12:43 | IVDEFINITY ---
Prior to administration of IV Definity the patient was educated on the risks and benefits of the imaging enhancing agent including potential adverse side effects. The patient verbalized understanding. Allergies were verified. No exclusion criteria were identified and at least one of the following inclusion criteria were met: 1) physician request, 2) patient technically difficult to image (per the [place] [employer] guidelines of two or more segments not discernable within the apical view), or 3) questionable left ventricular function. ?
[2023-12-26] MEDS: ACETAMINOPHEN/BUTALBITAL/CAFFEINE 325-50-40 MG TABLET (FIORICET) 1 TAB PO ×2 (13:51→20:58)
[2023-12-26 23:06] LABS: Vancomycin Trough 22.1 ug/mL (10.0-20.0)
[2023-12-27] VITALS (8 sets, daily range): BP systolic 131; BP diastolic 67; PULSE 63–96; RESP 16; TEMP 36.7; O2SAT 87–99
[2023-12-27] MEDS: oxyCODONE HCL (*CRX) 5 MG TAB IR PO ×2 (02:11→08:35)
[2023-12-27] MEDS: ACETAMINOPHEN/BUTALBITAL/CAFFEINE 325-50-40 MG TABLET (FIORICET) 1 TAB PO ×2 (02:11→15:45)
[2023-12-27] MEDS: AMPICILLIN 2 GM/NS 100 ML 2 GM/100 ML BAG IVPB ×2 (04:27→08:37)
[2023-12-27] MEDS: CEFEPIME 2 GM/NS 50 ML 2 GM/50 ML BAG IVPB (05:08)
[2023-12-27 06:25] LABS: Basophils Absolute Auto 0.1 K/mm3 (0.0-0.1); Basophils Percent Auto 0.5 % (0.2-1.2); Eosinophils Absolute Auto 0.5 K/mm3 (0-0.3); Eosinophils Percent Auto 5.5 % (0-4.4); Hematocrit 34.8 % (42.0-52.0); Hemoglobin 10.9 g/dL (14.0-18.0); Immature Granulocyte Absolute 0.18 K/mm3 (0.00-0.031); Immature Granulocyte Percent A 1.8 % (0-0.5); Lymphocytes Absolute Auto 1.57 K/mm3 (0.9-3.2); Mean Corpuscular HGB Conc 31.3 g/dl (32-36); Mean Corpuscular Volume 92.6 fl (80-100); Mean Platelet Volume 12.1 fl (7.4-10.4); Monocytes Percent Auto 10.1 % (2.6-8.5); Neutrophils Absolute Auto 6.5 K/mm3 (1.3-6.7); Neutrophils Percent Auto 66.1 % (45.5-73.1); Platelet Count Result 185 k/mm3 (150-375); Red Blood Count 3.76 M/mm3 (4.6-6.20); Red Cell Distribution Width 14.8 % (11.5-14.5); White Blood Count 9.8 K/mm3 (4.5-10.0)
[2023-12-27 06:39] LABS: Alanine Aminotransferase 42 U/L (6-50); Albumin Level 3.4 g/dL (3.5-5.1); Alkaline Phosphatase 79 U/L (38-126); Aspartate Amino Transferase 30 U/L (17-59); Bilirubin,Total 0.4 mg/dL (0.2-1.3); Blood Urea Nitrogen 10 mg/dL (9-20); Calcium 8.2 mg/dL (8.4-10.2); Carbon Dioxide > 40 mmol/L (22-30); Chloride 93 mmol/L (98-107); Estimated CRCL calculation 109 ml/min; Estimated Glomerular Filt Rate > 60; Glucose 119 mg/dL (65-110); Potassium 3.4 mmol/L (3.4-5.0); Sodium 138 mmol/L (137-145)
[2023-12-27] MEDS: METOPROLOL SUCCINATE EXT REL 100 MG TABCR 200 MG PO (08:35)
[2023-12-27] MEDS: DOXYCYCLINE HYCLATE 100 MG TABLET PO (08:35)
[2023-12-27] MEDS: ENOXAPARIN 40 MG/0.4 ML SYRINGE SUB-Q (08:36)
[2023-12-27] MEDS: FUROSEMIDE INJ 40 MG/4 ML VIAL IV PUSH (08:37)
[2023-12-27] MEDS: TRIAMCINOLONE ACET 0.1% CREAM 15 GM TUBE 1 APPLIC TOPICAL (08:40)
[2023-12-27] MEDS: VANCOMYCIN 1,750 MG/NS 500 ML 1,750 MG/500 ML BAG 250 MG IVPB (09:09)
--- NOTE | 2023-12-27 10:43 | P.PNIM_ITS ---
Progress Note: A&P Assessment and Plan (1) Sepsis: Code(s): A41.9 - Sepsis, unspecified organism Status: Acute Assessment and Plan: * Unclear etiology. Patient reports with symptoms of fever and chills at home with severe headache, neck pain, and now lower extremity redness, edema, and pain. Patient did have a tick bite back in 07/2023 which was removed without issue. No subsequent rash or pain. * Pt's labs are partially resulted including: RPR nonreactive, [place] negative, HIV negative, COVID negative, Flu negative, urine negative, CRP elevated at 23.3, Lactic acid normal, Procalcitonin moderately elevated at 0.9, BC pending x2, Anti-streptolysin O Screen, and Tick borne illness pending at this time. * Non-specific source at this point in time. Left lower extremity cellulitis which seems to have worsened after admission. His main complaints that brought him in were fever, chills, headache, and neck pain. High suspicion for meningitis vs encephalitis. * Lumbar puncture pending, antibiotics have been broadened for bacterial meningitis. * Now on Rocephin, ampicillin, doxycycline, and vancomycin. * He had a low grade fever of 100.9 this morning despite Vancomycin and Doxycycline. Abx broadened. * Continue to monitor and trend labs and VS * Await blood cultures, Anti Streptolysin O Screen and tick borne illness labs * Symptomatic management with prn meds for nausea/pain 12/25/23: * CSF with WBC gram stain suspicious of bacterial meningitis * Continue with current antibiotic therapy will deescalate when applicable * Blood cultures with no growth 12/26/23: * No change to current treatment plan (2) Bacterial meningitis: Code(s): G00.9 - Bacterial meningitis, unspecified Status: Acute Assessment and Plan: * Spinal tap CSF suspicious with WBC gram stain, hazy in color, elevated protein * culture pending * on Vanc, cefepime, and doxycycline * Still with neck pain does have HX of cervical surgery * Blood cultures negative * WBC trending down * inguinal lymphadenopathy likely reactive from left lower extremity cellulitis 12/26/23: * WBC 12.3 today, T max 100.8 * Blood cultures showing no growth to date on preliminary read * CSF fungal culture and stain still pending * CSF gram stain shown light WBC's and no organisms seen on final read * CSF culture showing WBCs, no organisms, no epithelial cells seen on preliminary read. * Continue IV antibiotics 12/27/23: * WBC 9.8 today , afebrile past 24 hours * Blood cultures still showing no growth to date on preliminary read * Fungal culture and stain is still pending. CSF culture still pending * Continue IV antibiotics (3) Leg pain, left: Code(s): M79.605 - Pain in left leg Status: Acute Assessment and Plan: 12/24/23: * Pt states he had a small patch of dry skin to his left lower leg which he used a back non destructive evaluation technician to itch. Over the last 24 he has developed erythema, warmth, edema, and pain to his left lower leg with erythema tracking up into his left groin. * Check Venous doppler LLE negative for DVT Negative * Continue prn pain medication * Continue antibiotic regimen. 12/25/23: * Leg improving * Reports itching will add a cream patient has HX of eczema 12/26/23: * No change to current treatment plan (4) Headache: Code(s): R51.9 - Headache, unspecified Status: Acute Assessment and Plan: * Patient reports severe headache with neck pain for the last week. He has had headaches before but typically will resolve with Tylenol or Ibuprofen. * [place]
--- NOTE | 2023-12-27 10:43 | PM.IMPN ---
Progress Note: A&P Assessment and Plan (1) Sepsis: Code(s): A41.9 - Sepsis, unspecified organism Status: Acute Assessment and Plan: Unclear etiology. Patient reports with symptoms of fever and chills at home with severe headache, neck pain, and now lower extremity redness, edema, and pain. Patient did have a tick bite back in 07/2023 which was removed without issue. No subsequent rash or pain. Pt's labs are partially resulted including: RPR nonreactive, [place] negative, HIV negative, COVID negative, Flu negative, urine negative, CRP elevated at 23.3, Lactic acid normal, Procalcitonin moderately elevated at 0.9, BC pending x2, Anti-streptolysin O Screen, and Tick borne illness pending at this time. Non-specific source at this point in time. Left lower extremity cellulitis which seems to have worsened after admission. His main complaints that brought him in were fever, chills, headache, and neck pain. High suspicion for meningitis vs encephalitis. Lumbar puncture pending, antibiotics have been broadened for bacterial meningitis. Now on Rocephin, ampicillin, doxycycline, and vancomycin. He had a low grade fever of 100.9 this morning despite Vancomycin and Doxycycline. Abx broadened. Continue to monitor and trend labs and VS Await blood cultures, Anti Streptolysin O Screen and tick borne illness labs Symptomatic management with prn meds for nausea/pain 12/25/23: CSF with WBC gram stain suspicious of bacterial meningitis Continue with current antibiotic therapy will deescalate when applicable Blood cultures with no growth 12/26/23: No change to current treatment plan (2) Bacterial meningitis: Code(s): G00.9 - Bacterial meningitis, unspecified Status: Acute Assessment and Plan: Spinal tap CSF suspicious with WBC gram stain, hazy in color, elevated protein culture pending on Vanc, cefepime, and doxycycline Still with neck pain does have HX of cervical surgery Blood cultures negative WBC trending down inguinal lymphadenopathy likely reactive from left lower extremity cellulitis 12/26/23: WBC 12.3 today, T max 100.8 Blood cultures showing no growth to date on preliminary read CSF fungal culture and stain still pending CSF gram stain shown light WBC's and no organisms seen on final read CSF culture showing WBCs, no organisms, no epithelial cells seen on preliminary read. Continue IV antibiotics 12/27/23: WBC 9.8 today , afebrile past 24 hours Blood cultures still showing no growth to date on preliminary read Fungal culture and stain is still pending. CSF culture still pending Continue IV antibiotics (3) Leg pain, left: Code(s): M79.605 - Pain in left leg Status: Acute Assessment and Plan: 12/24/23: Pt states he had a small patch of dry skin to his left lower leg which he used a back infant caregiver to itch. Over the last 24 he has developed erythema, warmth, edema, and pain to his left lower leg with erythema tracking up into his left groin. Check Venous doppler LLE negative for DVT Negative Continue prn pain medication Continue antibiotic regimen. 12/25/23: Leg improving Reports itching will add a cream patient has HX of eczema 12/26/23: No change to current treatment plan (4) Headache: Code(s): R51.9 - Headache, unspecified Status: Acute Assessment and Plan: Patient reports severe headache with neck pain for the last week. He has had headaches before but typically will resolve with Tylenol or Ibuprofen. Fioricet is not helping 12/25/23: added sumatriptan 12/26/23: No change to current treatment plan (5) COPD exacerbation: Code(s): J44.1 - Chronic obstructive pulmonary disease with (acute) exacerbation Status: Acute Assessment and Plan: 12/23/23: Not currently symptomatic. Observe and monitor for any new symptoms or complaints 12/25/23: Episode of hypoxia CTA negative for PE or acute card
[2023-12-27] MEDS: levoFLOXacin 750 MG TABLET PO (13:15)
--- NOTE | 2023-12-27 14:45 | PM.DS ---
DS: Admitting Diagnosis Discharge Date 12/27/23 Admitting Diagnosis Inguinal lymphadenopathy Headache Morbid obesity COPD DS: Discharge Diagnosis Discharge Diagnosis (1) Sepsis: Code(s): A41.9 - Sepsis, unspecified organism Status: Acute (2) Bacterial meningitis: Code(s): G00.9 - Bacterial meningitis, unspecified Status: Acute (3) Leg pain, left: Code(s): M79.605 - Pain in left leg Status: Acute (4) Headache: Code(s): R51.9 - Headache, unspecified Status: Acute (5) COPD exacerbation: Code(s): J44.1 - Chronic obstructive pulmonary disease with (acute) exacerbation Status: Acute (6) Obstructive sleep apnea: Code(s): G47.33 - Obstructive sleep apnea (adult) (pediatric) Status: Chronic (7) Hypertension: Qualifiers: Hypertension type: unspecified Qualified Code(s): I10 - Essential (primary) hypertension Code(s): I10 - Essential (primary) hypertension Status: Acute DS: Summary Hospital Course Reason for hospitalization: Inguinal lymphadenopathy Headache Morbid obesity COPD Hospital Course: This is a 53 year old male with a significant past medical history of COPD, Hypertension, HARLAN, hyperlipidemia, obesity who was admitted to the hospital on 12/23/23 with fever, chills, headache, and body aches. Work up in the hospital included a chest x-ray that was negative. Abdomen/pelvis CT shown bilateral external iliac lymphadenopathy and shotty bilateral inguinal lymph nodes. Head CT was negative. Venous Doppler was negative for DVT. Left knee x-ray shown a total left knee arthroplasty in near-anatomic alignment. Patient went for lumbar puncture on 12/24/23.Chest CTA was negative for PE , Left lower extremity CT shown nonspecific subcutaneous edema throughout the left lower leg, mild reactive left inguinal lymphadenopathy, partially visualized moderate sized fat containing left inguinal hernia. Initial labs revealed a WBC 16.1, Hgb 13.4, Na+ 133, Chloride 94, Anion gap 13, CRP 23.3. UA was obtained and shown 2+ protein, otherwise negative. Respiratory panel was negative for Influenza A and B, RSV, and COVID. HIV, [place] screen, and RPR were all negative. West Nile RNA and tick borne labs still pending. CSF labs shown cloudy appearance, RBC, 535, Neutrophils 12, glucose 74, Total protein 65. Blood cultures were obtained and showing no growth to date on preliminary read. CSF fungal culture and stain is still pending. CSF gram stain only shown light WBC's and no organisms seen. CSF culture showing WBC, no organism, or epithelial cells on preliminary read. PTH cytology pending. Patient was started on Vancomycin, Cefepime, Doxycycline and Unasyn. Patient was transitioned to Levaquin and doxycycline oral. Blood cultures are still showing no growth on preliminary read. CSF cultures are still pending. Echo was obtained and shown normal LV systolic function with an estimated EF of 60-65%, diastolic dysfunction noted, moderate pulmonary hypertension. Patient was started on Lasix as well as amlodipine for better blood pressure control and to treat his pulmonary hypertension. He also an ApneaLink which showed concerns for obstructive sleep apnea as well as the need for nocturnal O2 upon discharge. He will need a further workup for HARLAN on an outpatient basis. He will also need to follow up with a extrusion die corrector for his newly diagnosed CHF and pulmonary hypertension. The patient has been afebrile for the past 24 hours. His white blood cell count is now in a normal range. He is currently on room air, his vital signs are stable. He is stable for discharge at this time. He will need to follow up with his primary care physician in 1 week. Final diagnosis: Sepsis, Bacterial Meningitis, cellulitis, pulmonary hypertension, obstructive sleep apnea, Uncontrolled hypertension Status at Discharge Cognitive/behavioral status at discharge: Alert and oriented x3 Functiona
--- NOTE | 2023-12-27 16:03 | HOMEO2EVAL ---
Evaluation was performed at [facility] Home Oxygen Evaluation RC: Home Oxygen (O2) Evaluation Start: 12/27/23 14:39 Freq: ONCE Status: Active Protocol: RPE Activity Type Activity Date Activity User E-sign Co-sign Detail Recorded Client Recorded Date Recorded By Document 12/27/23 15:30 LINDA [email or web address] 12/27/23 16:03 LINDA Document 12/27/23 15:31 LINDA [email or web address] 12/27/23 16:03 LINDA Document 12/27/23 15:33 LINDA [email or web address] 12/27/23 16:03 LINDA Document 12/27/23 15:35 [email or web address] [email or web address] 12/27/23 16:03 LINDA Document 12/27/23 15:45 [email or web address] [email or web address] 12/27/23 16:03 LINDA 12/27/23 12/27/23 12/27/23 15:30 15:31 15:33 Home O2 Evaluation [Oxygen] -Test Phase Resting Resting Resting -Oxygen Delivery Room Air Nasal Cannula Nasal Cannula -Oxygen Flow Rate (L/min) 1 2 [Pulse Oximetry] -Pulse Oximetry (90-100 %) 87 L 88 L 94 [Pulse Rate] -Pulse Rate (60-100 beats/min) 96 [Comments] -Home Oxygen Evaluation Comments [Charges] -Evaluation Charges O2 Evaluation by Pulmonary 12/27/23 12/27/23 15:35 15:45 Home O2 Evaluation [Oxygen] -Test Phase Exercise Resting -Oxygen Delivery Nasal Cannula Nasal Cannula -Oxygen Flow Rate (L/min) 2 2 [Pulse Oximetry] -Pulse Oximetry (90-100 %) 92 95 [Pulse Rate] -Pulse Rate (60-100 beats/min) 93 86 [Comments] -Home Oxygen Evaluation Comments PT REQUIRES 2 L HOME O2 WITH RESTING AND EXERTION [Charges] -Evaluation Charges
--- NOTE | 2023-12-27 16:08 | PCRCNOTE ---
HOME O2 EVAL COMPLETED, 2 L AT REST AND WITH ACT. SET UP HOME O2 WITH [facility]
[2023-12-27 23:59] LABS: Epstein Barr Virus DNA PCR NOT DETECTED; Source Epstein Barr Virus CEREBROSPINAL FLUID
--- NOTE | 2023-12-31 10:12 | PC.NURSE ---
Blood cx and CSF cultures are all negative.
[2024-01-01 08:52] LABS: Source CEREBROSPINAL FLUID
[2024-01-01 23:03] LABS: VDRL Quantitative CSF NON-REACTIVE
[2024-01-02 20:29] LABS: Lyme AB IgG, Immunoblot NO BANDS DETECTED; Lyme AB IgM, Immunoblot NO BANDS DETECTED
[2024-01-03 21:48] LABS: Babesia duncani (WA1) AB IgG <1:256; Babesia microti AB IgG <1:64 titer; Babesia microti AB IgM <1:20 titer
[2024-01-04 14:12] LABS: West Nile Virus, IgM <0.90 index
[2024-01-06 23:54] LABS: Lyme AB Screen <0.90 INDEX
[2024-01-08 08:26] LABS: Cryptococcus Antigen NOT DETECTED; Cryptococcus Specimen Source CEREBROSPINAL FLUID
[2024-01-08 13:27] LABS: Cryptococcus Additional Testin Not Indicated
== END 2023-12-27 17:50 | disposition home or self-care (01) | DRG 871 ==
LOC: ANHED 20:05 → ANH3MEDSUR 12-23 00:44
PROVIDERS: Emergency Medicine; Nurse Practitioner Acute Care; Nurse Practitioner Adult Health; Nurse Practitioner Family; Admitting Provider Internal Medicine; Emergency Provider Emergency Medicine; PCP Nurse Practitioner Family; Visit Provider Nurse Practitioner Acute Care
DX: A41.9 Sepsis, unspecified organism (principal); G00.9 Bacterial meningitis, unspecified; Z68.41 Body mass index [BMI] 40.0-44.9, adult; J44.1 Chronic obstructive pulmonary disease with (acute) exacerbation; E78.2 Mixed hyperlipidemia; E66.01 Morbid (severe) obesity due to excess calories; G47.33 Obstructive sleep apnea (adult) (pediatric); I11.0 Hypertensive heart disease with heart failure; I50.9 Heart failure, unspecified; I27.20 Pulmonary hypertension, unspecified; K40.90 Unilateral inguinal hernia, without obstruction or gangrene, not specified as recurrent; M79.605 Pain in left leg; R21 Rash and other nonspecific skin eruption; R59.1 Generalized enlarged lymph nodes; Z87.891 Personal history of nicotine dependence; Z20.822 Contact with and (suspected) exposure to COVID-19; Z96.652 Presence of left artificial knee joint
CPT/HCPCS: 36415; 36600; 62328; 70450; 71045; 71275; 73562; 73701; 74177; 80048; 80053; 80076; 80202; 81001; 82375; 82565; 82805; 82810; 82945; 83050; 83605; 83735; 83880; 84100; 84145; 84157; 85018; 85025; 85027; 85055; 85610; 85652; 86060; 86140; 86308; 86403; 86592; 86617; 86703; 86788; 87040; 87070; 87102; 87206; 87637; 87798; 88108; 89051; 93971; 94618; 94640; 94762; 96361; 96365; 96366; 96367; 96372; 96374; 96375; 99285; A9270; C8929; G0378; G0432; J0290; J0692; J0696; J0780; J1450; J1650; J1885; J1940; J2270; J2405; J2543; J3370; J7030; Q9957; Q9967

== ENCOUNTER 2024-03-06 07:26 | Outpatient (CLI) | payer OTHER, SELFPAY ==
[2024-03-06 07:58] LABS: Basophils Absolute Auto 0.1 K/mm3 (0.0-0.1); Basophils Percent Auto 1.1 % (0.2-1.2); Eosinophils Absolute Auto 0.4 K/mm3 (0-0.3); Eosinophils Percent Auto 5.2 % (0-4.4); Hematocrit 42.8 % (42.0-52.0); Hemoglobin 13.4 g/dL (14.0-18.0); Immature Granulocyte Absolute 0.03 K/mm3 (0.00-0.031); Immature Granulocyte Percent A 0.4 % (0-0.5); Lymphocytes Absolute Auto 1.99 K/mm3 (0.9-3.2); Lymphocytes Percent Auto 25.2 % (18.3-44.2); Mean Corpuscular HGB Conc 31.3 g/dl (32-36); Mean Corpuscular Hemoglobin 27.9 pg (26-34); Mean Corpuscular Volume 89.2 fl (80-100); Mean Platelet Volume 12.3 fl (7.4-10.4); Monocytes Absolute Auto 0.7 K/mm3 (0.1-0.6); Monocytes Percent Auto 9.4 % (2.6-8.5); Neutrophils Absolute Auto 4.6 K/mm3 (1.3-6.7); Neutrophils Percent Auto 58.7 % (45.5-73.1); Platelet Count Result 197 k/mm3 (150-375); Red Cell Distribution Width 13.8 % (11.5-14.5); White Blood Count 7.9 K/mm3 (4.5-10.0)
[2024-03-06 08:02] LABS: Alveolar/Arterial O2 Gradient 11.7 mmHg; Base Excess ABG 2.5 mEq/l (+/-2.0); Carboxyhemoglobin 0.5 % THb (0-2.0); Fractional Inspired Oxygen 21 %; Methemoglobin ABG 0.3 %THb (0-1.5); Oxygen Content ABG 17.9 %vol (16.0-22.0); Oxygen Saturation ABG 94.3 % (95.0-100.0); Oxyhemoglobin 94.1 % THb (90.0-100.0); PCO2 ABG 52.7 mmHg (35.0-45.0); PO2 ABG 74.9 mmHg (80.0-100.0); PO2 FiO2 Ratio Arterial Blood 3.57 %; Reduced Hemoglobin 5.1 %THb (0-5.0); Total Hemoglobin 13.5 g/dL (12.0-18.0); pH ABG 7.358 (7.350-7.450)
[2024-03-06 08:05] LABS: Device ROOM AIR; Modified Allen's Test Pass; Site Drawn RIGHT RADIAL
--- NOTE | 2024-03-09 21:44 | P.PCNPFT_ITS ---
PFT Procedure Performed PFT Procedure Performed Spirometry with Pre/Post Bronchodilator Plethysmography (Lung Vol) Diffusing Cap (DLCO) Flow Vol Loop PFT Interpretation DOS: 03/06/2024 REQUESTING: Terrence Cuevas MD REASON FOR TESTING: COPD PULMONARY FUNCTION TESTS Results are reliable and reproducible. Repeatability of spirometry FEV1 maneuver pre and post bronchodilator is Grade A. Spirometry: The pre-bronchodilator FEV1 is 1.60 L, 49%, decreased. The pre- bronchodilator FVC is 2.38 L, 58%, decreased. The FEV1/FVC ratio is 67%, decreased, consistent with airflow obstruction. After bronchodilator, the FEV1 is 1.70 L, 52%, +6%. The post-bronchodilator FVC is 2.47 L, 60%, +4%. The FEV1/F VC ratio is 69%. This is not a statistically significant increase Lung volumes: The total lung capacity is 6.03 L, 101%, normal. The residual volume is 2.73 L, 152%, mildly increased. The RV/TLC is 45%, increased. Airway resistance is increased. Diffusion: DLCO is 17.2, 61%, decreased. The DLCO/VA is 5.0, 105%, normal. Flow volume loop: The flow volume loop shows mild coving of the expiratory limb. IMPRESSION: This study shows a severe obstructive ventilatory impairment without significant response to bronchodilator, mild air trapping, mild diffusion impairment that normalizes for alveolar volume. Lack of response to bronchodilator should not preclude use if clinically indicated. No prior studies to compare. Keisha Parker MD
--- NOTE | 2024-03-09 21:48 | WPDSIXMINUTE ---
Six Minute Walk Procedure Procedure Performed Pulmonary Stress Test (6 min walk) Six Minute Walk Six Minute Walk: DOS: 03/06/2024 REQUESTING: Terrence Cuevas MD REASON FOR TESTING: COPD SIX MINUTE WALK This test was conducted per ATS guidelines. The initial saturation was 95%, and initial heart rate was 75 beats per minute. The patient walked without stopping, completing 365.7 m/1200 ft. The saturation at the end of testing was 93%, and the heart rate was 102 beats per minute. The patient had a Jose Francisco scale of 0.5 at the beginning of the test, at the end of testing the Jose Francisco scale was 2, consistent with a mild degree of dyspnea. IMPRESSION: This is a normal study. The patient did not require supplemental oxygen with exertion. Keisha Parker MD
== END 2024-03-06 07:27 | disposition home or self-care (01) ==
LOC: ANHPFT 07:26
PROVIDERS: PCP Nurse Practitioner Family; Visit Provider Internal Medicine Pulmonary Disease
DX: J44.9 Chronic obstructive pulmonary disease, unspecified (principal)
CPT/HCPCS: 36415; 36600; 82375; 82805; 83050; 85018; 85025; 94060; 94618; 94726; 94729

== ENCOUNTER 2024-03-11 19:10 | Inpatient (IN) | payer OTHER, SELFPAY ==
--- NOTE | ~2024-03-11 | XR_ITS ---
EXAMINATION: XR chest 1V portable DATE: 03/13/2024 16:33 INDICATION: Shortness of breath. TECHNIQUE: A single frontal view of the chest was obtained. COMPARISON: Chest 2 views 03/11/2024, CT abdomen and pelvis 03/12/2024 FINDINGS: There is no pneumonia, pleural effusion, or pneumothorax. The heart size is normal. There a re changes of anterior fusion procedure in cervical spine. IMPRESSION: 1. No acute cardiopulmonary disease. Reviewed, dictated and finalized at location A. EKEEPING ASSISTANT
--- NOTE | ~2024-03-11 | US_ITS ---
Duplex Sonography of the right upper extremity: Indication: DVT Sagittal and transverse B-mode images as well as color-flow imaging were performed on the right inter nal jugular, subclavian, axillary, brachial, basilic, cephalic, radial, and ulnar veins. B-mode exam ination was done without and with compression in the transverse plane. There is good visualization o f the internal jugular, subclavian, axillary, brachial, cephalic, and basilic, radial, and ulnar vein s. Normal flow was seen on color-flow imaging. Normal compressibility was demonstrated. Impression: No evidence of deep vein thrombosis involving the right upper extremity. Reviewed, dictated and finalized at location . INE REPAIRMAN Impression: No evidence of deep vein thrombosis involving the right upper extre [facility].
--- NOTE | ~2024-03-11 | US_ITS ---
EXAMINATION: US venous doppler LE RT DATE: 03/15/2024 19:33 INDICATION: leg swelling . TECHNIQUE: Grayscale images without and with compression and Doppler images of the right lower extrem ity veins were obtained. COMPARISON: CTA right lower extremity, same date; ultrasound right lower extremity venous Doppler 01/2024 FINDINGS: The right common femoral vein, profunda (deep) femoral vein, femoral vein, popliteal vein, peroneal v ein, posterior tibial veins, gastrocnemius vein, and greater saphenous vein are patent. IMPRESSION: Patent right lower extremity veins. No evidence of deep venous thrombosis. Reviewed, dictated and finalized at location K. MANAGEMENT TEACHER
--- NOTE | ~2024-03-11 | CT_ITS ---
EXAMINATION: CT brain wo con DATE: 03/12/2024 13:36 INDICATION: High-grade fevers and concern for meningitis TECHNIQUE: Computed tomography (CT) of the head was performed without intravenous contrast. Sagittal and coronal reconstructions were performed. The mA was adjusted according to patient size. Iterative reconstruction technique was employed. The dose-length product was 605.33 mGy-cm. COMPARISON: head CT dated 12/23/2023 FINDINGS: No acute intracranial hemorrhage, acute infarction or abnormal extra axial fluid collection. Ventricl es are normal and symmetric. No mass/mass effect. Mucosal thickening and dependently layering mucus i n the left sphenoid sinus. Small mucous retention cyst in the bilateral maxillary sinuses. The orbits and mastoid air cells are normal. IMPRESSION: 1. Normal brain. Reviewed, dictated and finalized at location A. ECTIONAL SECURITY OFFICER IMPRESSION: 1. Normal brain.
--- NOTE | ~2024-03-11 | US_ITS ---
EXAMINATION: US soft tissue LE RT DATE: 03/13/2024 16:24 INDICATION: Right lower limb swelling. TECHNIQUE: Multiple grayscale and Doppler ultrasound images of the right lower limb were obtained. COMPARISON: CT 03/12/2024 FINDINGS: There is subcutaneous edema about the knee. There is a small knee joint effusion. IMPRESSION: 1. Small knee joint effusion. Reviewed, dictated and finalized at location A. PRINT CONTROL CLERK
--- NOTE | ~2024-03-11 | CT_ITS ---
CT scan of the right lower extremity CLINICAL HISTORY: Right inguinal lymphadenopathy TECHNIQUE: Following intravenous administration of 100 cc of Omnipaque 350 contrast material, axial i maging of the right lower extremity was performed, from the level right pelvis through the right ankl e. Sagittal and coronal reformatted images were constructed. Dose reduction technique was used on thi s scan by utilizing automated exposure control and iterative reconstruction technique. The dose-lengt h product (DLP) was 1665.36 mGy-cm. COMPARISON: 12/22/2023 Findings: There are mildly enlarged external iliac/common femoral lymph nodes on the right side, larg est measuring 2.5 x 2.0 cm (axial image 27). There are shotty inguinal lymph nodes. There is a single larger inguinal lymph node with apparent preserved fatty hilum. There are minimal infiltrative cr es in the subcutaneous soft tissues at the proximal thigh/right inguinal region. Visualized musculature throughout the right lower extremity unremarkable. No lymphadenopathy or mass seen in the remainder of the right lower extremity. Right knee arthroplasty in place. Vascular struct ures enhance normally. Visualized urinary bladder and pelvic organs are unremarkable. No ascites seen in the pelvis. IMPRESSION: Right external iliac/common femoral adenopathy, largest node measuring 2.5 x 2.0 cm. Please see dirk ls above. Findings are somewhat nonspecific, and stable since prior exam. Correlate for reactive/infl ammatory lymph nodes versus any possibility of lymphoma or other metastatic disease. Reviewed, dictated and finalized at [facility]. ERCIAL LOAN COLLECTION OFFICER IMPRESSION: Right external iliac/common femoral adenopathy, largest node measuring 2.5 x 2. 0 cm. Please see details above. Findings are somewhat nonspecific, and stable s nick prior exam. Correlate for reactive/inflammatory lymph nodes versus any pos sibility of lymphoma or other metastatic disease.
--- NOTE | ~2024-03-11 | US_ITS ---
EXAMINATION: US knee asp inj w image RT DATE: 03/17/2024 18:55 INDICATION: Right knee joint effusion TECHNIQUE: The procedure including the risks and benefits was discussed with the patient. Risks discu ssed included bleeding and infection. The patient understood the risks and agreed to proceed. A site was chosen for aspiration overlying the lateral gutter of the suprapatellar pouch furthest from the r egion of erythema. The skin at the access site was prepped and draped in usual sterile fashion. Anes thetic was administered with 1% lidocaine subcutaneously. A 20-gauge needle was advanced under contin uous ultrasound into the joint effusion and fluid was aspirated and sent to the lab. The needle was removed and the entry site was cleaned and dressed. There were no immediate competitions. FINDINGS: Ultrasound images demonstrate the needle advanced into the right knee joint effusion at the suprapatellar pouch. IMPRESSION: 1. Successful Ultrasound-guided right knee aspiration yielding 18 mL of cloudy yellow fluid. Reviewed, dictated and finalized at location A. ITURE CLEANER
--- NOTE | ~2024-03-11 | CT_ITS ---
CT of the Abdomen and Pelvis: Indication: Fever Technique: 2.5 mm axial scans were obtained through the abdomen and pelvis following intravenous adm inistration of 100 cc of Omnipaque 350. Dose reduction technique was used on this scan by utilizing a utomated exposure control and iterative reconstruction technique. The dose-length product (DLP) was 1 477.59 mGy-cm. Findings: Scans through the lung bases are unremarkable. There is diffuse hepatic steatosis. The spleen, pancreas, gallbladder, adrenals and kidneys are withi n normal limits. No evidence of aortic aneurysm. Stable enlarged lymph node at the right common femo ral region measuring 2.6 x 1.9 cm (axial image 159).. No bowel obstruction or bowel wall thickening. There is no evidence to suggest acute appendicitis. Sm all amount of soft tissue gas noted in the anterior subcutaneous soft tissues, which could relate to sequela of recent injection. Images through the pelvis were performed. Urinary bladder unremarkable. No pelvic mass seen. Small fa t-containing left inguinal hernia present. No ascites. Impression: Enlarged right common femoral region lymph node, as above, nonspecific. Diffuse hepatic steatosis. Small fat-containing left inguinal hernia. Reviewed, dictated and finalized at location . RSTATE BUS DISPATCHER Impression: Enlarged right common femoral region lymph node, as above, nonspecific. Diffuse hepatic steatosis. Small fat-containing left inguinal hernia.
--- NOTE | ~2024-03-11 | US_ITS ---
EXAMINATION: US venous doppler LE RT DATE: 03/11/2024 22:44 INDICATION: Deep vein thrombosis. TECHNIQUE: Grayscale ultrasound images without and with compression and Doppler ultrasound images of the right lower extremity veins were obtained. COMPARISON: None. FINDINGS: The visualized portions of right common femoral vein, profunda (deep) femoral vein, popliteal vein, a nd greater saphenous vein outflow are patent. There is thrombus in right femoral vein. The calf veins are not well visualized. IMPRESSION: 1. Deep vein thrombosis involving right femoral vein. Reviewed, dictated and finalized at location A. TS BOOK SERVER
--- NOTE | ~2024-03-11 | XR_ITS ---
EXAMINATION: XR chest 2V DATE: 03/11/2024 22:24 INDICATION: Fever. TECHNIQUE: Frontal and lateral views of the chest were obtained. COMPARISON: Chest single view 12/26/2023, chest CT 12/24/2023 FINDINGS: There is no pneumonia, pleural effusion, or pneumothorax. The heart size is normal. There a re changes of anterior fusion procedure in cervical spine. IMPRESSION: 1. No acute cardiopulmonary disease. Reviewed, dictated and finalized at location A. GOODS EXAMINER
--- NOTE | ~2024-03-11 | CT_ITS ---
Clinical Indication: Pulmonary embolus CT Scan of the Chest with Contrast: Technique: Contiguous sections were acquired throughout the chest after intravenous administration of 100 cc of Omnipaque 350. Dose reduction technique was used on this scan by utilizing automated expos ure control and iterative reconstruction technique. The dose-length product (DLP) was 922.16 mGy-cm. COMPARISON: 12/24/2023 Findings: There is no evidence of any significant mediastinal, hilar or axillary lymphadenopathy. There is no f illing defect in the pulmonary arterial tree to suggest pulmonary embolus. There is no evidence of ao rtic dissection or aneurysm. There is no evidence of pleural or pericardial effusion. The lungs are clear. No pulmonary nodules or infiltrates are noted. Images through the upper abdomen reveal no abnormalities. Impression: No evidence of pulmonary embolus, aortic dissection, or aortic aneurysm. Clear lungs. Reviewed, dictated and finalized at [facility]. RVATION NURSE Impression: No evidence of pulmonary embolus, aortic dissection, or aortic aneurysm. Clear lungs.
--- NOTE | ~2024-03-11 | CT_ITS ---
CTA OF right lower extremity EXAMINATION: CTA LE RT DATE: 03/15/2024 14:12 INDICATION: Epigastric fasciitis, compartment syndrome. TECHNIQUE: Computed tomography angiography of the right lower extremity was performed with 150 mL Omn ipaque 350 intravenous contrast. Automated exposure control and iterative reconstruction technique we re employed. The dose-length product was 1242.84 mGy-cm. COMPARISON: CT right lower extremity 03/12/2024; CT abdomen pelvis 03/12/2024; ultrasound soft tissue right lower extremity 03/13/2024 FINDINGS: Mild scattered atherosclerotic calcifications. No extravasation or severe stenosis. A portion of the popliteal artery is obscured by metal artifact. Patent trifurcation. 2 vessel flow below the level of the ankle. Subcutaneous stranding involving the entire lower extremity on the right, most pronounced over the le ft anterolateral thigh, anterolateral knee, and medial ankle. Mild dermal thickening along the medial thigh and anteromedial lower leg. No subcutaneous gas. Fluid runs along the anterior surface of the superficial fascial planes. No definite deep fascial involvement. No focal fluid collection. No osseous fracture or erosion. Right total knee arthroplasty hardware, which creates metallic artifa ct that obscures the soft tissues at the level of the knee. Small knee joint effusion. Abdominopelvic contents are unremarkable. Small uncomplicated bilateral fat-containing inguinal hernias. Right ingu inal, femoral, and external iliac lymph node enlargement. IMPRESSION: Dermal thickening and subcutaneous inflammation/edema of the right lower extremity. No abscess detect ed. No CT evidence to suggest necrotizing fasciitis, keeping in mind this is a clinical diagnosis. Right external iliac, femoral, and inguinal lymphadenopathy. Reviewed, dictated and finalized at location K. RISK MANAGEMENT CONSULTANT IMPRESSION: Dermal thickening and subcutaneous inflammation/edema of the right lower extrem ity. No abscess detected. No CT evidence to suggest necrotizing fasciitis, keep ing in mind this is a clinical diagnosis. Right external iliac, femoral, and inguinal lymphadenopathy.
[2024-03-11 19:15] VITALS: BP 117/61; PULSE 110; RESP 24; TEMP 37.4; O2SAT 97
--- NOTE | 2024-03-11 22:07 | ECG_ITS ---
Test Date: 2024-03-11 23:23:09 Measurements Intervals [place] Rate: 94 P: 24 MD: 173 QRS: 65 QRSD: 89 T: 35 QT: 313 QTc: 393 Interpretive Statements SINUS RHYTHM NONSPECIFIC T-WAVE ABNORMALITY POOR R WAVE PROGRESSION IN ANT PRECORDIAL LEADS No previous ECG available for comparison Electronically Signed On 03-12-2024 15:37:52 APPLIANCE TECHNICIAN by Oli Phelan
--- NOTE | 2024-03-11 22:10 | ED.FEVER ---
HPI - Fever General Chief Complaint: Fever <Marina Nicholas PA-C - Last Filed: 03/12/24 03:07> Stated Complaint: fever, swollen lymph nodes <PARESH Mcneal Last Filed: 03/12/24 03:07> Time Seen by Provider: 03/11/24 21:48 <PARESH Mcneal Last Filed: 03/12/24 03:07> History of Present Illness HPI Narrative: 53-year-old male with history of mild diastolic dysfunction, COPD, obesity, hyperlipidemia, hypertension presents to the emergency department for chills, subjective fever and right inguinal pain since 1100 today. Patient states he had a fever of 102 around 1400 today and took an ibuprofen without significant improvement. He is reporting pain to the right groin and concerns for painful lymph nodes. He is also reporting pain to his right knee. States he has chronic pain to the right knee ever since he had an arthroplasty performed in [address] Rony Israel at [facility]. He states today it seems to be more painful than normal. He denies cough, congestion, chest pain or shortness of breath, headache, neck pain, abdominal pain, N/V/D, dysuria or hematuria, rash, IVDU. Of note patient was admitted to our hospital in November for sepsis. Upon admission and further workup, he was found to have bacterial meningitis and cellulitis to the left leg. <Marina Nicholas PA-C - Last Filed: 03/12/24 03:07> Related Data Allergies/Adverse Reactions: Allergies Allergy/AdvReac Type Severity Reaction Status Date / Time chlorpheniramine (From AdvReac CHILE- Verified 02/13/24 13:04 Actifed Cold-Allergy) UNKNOWN REACTION phenylephrine (From Actifed AdvReac CHILD- Verified 02/13/24 13:04 Cold-Allergy) UNKNOWN REACTION pseudoephedrine (From AdvReac CHILD- Verified 02/13/24 13:04 Actifed Cold-Allergy) UNKNOWN REACTION triprolidine (From Actifed AdvReac CHILD- Verified 02/13/24 13:04 Cold-Allergy) UNKNOWN REACTION <PARESH Mcneal Last Filed: 03/12/24 03:07> Review of Systems Review of Systems: All systems reviewed & are unremarkable except as noted in HPI and below <Marina Nicholas PA-C - Last Filed: 03/12/24 03:07> [facility] Past Medical History Medical History: Medical History Nocturnal hypoxemia Pulmonary hypertension Mild diastolic dysfunction Cellulitis and abscess of left leg (~12/23/23) Bacterial meningitis Sepsis Leg pain, left Febrile illness Inguinal adenopathy Headache Hand eczema COPD exacerbation SOB (shortness of breath) Cough Morbid obesity with BMI of 40.0-44.9, adult Acute conjunctivitis of left eye Dyshidrotic eczema Tinea pedis Pain in joints of both feet x-rays of both feet on 05/07/2022 reveals diffuse mild osteoarthritis of both feet. Rash and nonspecific skin eruption Adult BMI 39.0-39.9 kg/sq m Obesity (BMI 30-39.9) COVID-19 (~08/2021) 2nd episode with mild symptoms for 2 or 3 days. Candidiasis of other urogenital sites (10/31/21) Low iron (08/24/21) iron 49 with 13% saturation and hemoglobin 14.1 on 08/24/2021. Iron 50 with 12% saturation and ferritin 31 on 11/13/2022. COPD (chronic obstructive pulmonary disease) (~08/24/21) PFT on 08/24/2021 with moderate obstructive defect with significant improvement with bronchodilator. Dyspnea on exertion exercise stress test on 08/24/2021 was negative for ischemia. EKG revealed sinus rhythm with borderline R-wave progression. Chronic nonallergic rhinitis BMI 37.0-37.9, adult Hearing loss chronic worse on left than right Encounter for wellness examination in adult COVID-19 (02/14/21) fully vaccinated and COVID BMI 36.0-36.9,adult Insomnia Acute low back pain Mixed hyperlipidemia total cholesterol 217, triglycerides 403, HDL 30 and LDL 106 with AST 22 and ALT 26 on 03/11/2020. Cholesterol 207, HDL 40, triglycerides 111, LDL 142 on 08/24/2021. Cholesterol 226, triglycerides 169, HDL 36, LDL 159 on 11/13/2022. Abnormal fasting glucose fasting glucose normal at 95 on 03/11/2020. Glucose 110 with hemoglobin A1c 5.5 on 08/24/2021. Glucose 95 with hemoglobin A1c 5.8 on 11/13/2022 Chronic pain of both knees chronic bilateral knee pain after multiple surgeries. Degenerative changes. Permanent handicap placard 06/29/2021 Tonsillar hypertrophy Encounter for prostate cancer screening PSA 0.6 on 03/11/2020. PSA 1.0 on 08/24/2021. Lip cyst Tobacco use disorder, continuous patient quit smoking cigarettes Jul, 2021 but continues to chew tobacco 1/2 can daily. Obstructive sleep apnea Hypertension <Marina Nicholas PA-C - Last Filed: 03/12/24 03:07> Surgical History Surgical History: Surgical History H/O shoulder surgery left shoulder History of neck surgery History of right knee surgery (~2017) H/O left knee surgery (~2013) <PARESH Mcneal Last Filed: 03/12/24 03:07> Family History Family History: Family History Mother Parkinson disease Father Accident <PARESH Mcneal Last Filed: 03/12/24 03:07> Social History Social History: Social History Smoking packs per day: 1 Smoking cigarettes per day: 20.0 Smoking status: Former smoker Tobacco type: cigarettes Smokeless tobacco user: chewing tobacco Second hand tobacco smoke exposure: No Smoking end date: 04/01/19 Alcohol intake: never Substance use: never Substance use type: does not use Do You Feel Safe in your Home?: Yes Lack of Transportation: YES Lack of Food: Never True Current Housing: I Have Housing Concerned About Future Housing: No Difficulty Paying Gas/Electric Bills: No Difficulty Paying for Meds: No Currently Unemployed: No Education: High School Diploma/GED Difficulty w/ Childcare or Family Care: No Living arrangements: with family Occupation/Education: occupation Gender identity (if verbalized by the patient): Male Spiritual care concerns: No <Marina Nicholas PA-C - Last Filed: 03/12/24 03:07> Exam Narrative: GENERAL: Ill-appearing, obese, NAD HEAD: Normocephalic, atraumatic. EYES: PERRLA and EOMI. ENT: Nares clear, no rhinorrhea or epistaxis. Mucous membranes moist. NECK: Supple. No nuchal rigidity CHEST: Clear to auscultation. No respiratory distress. HEART: Regular rate and rhythm. No murmur heard. Normal peripheral pulses. ABDOMEN: Soft, nontender, nondistended, normal active bowel sounds. EXTREMITIES: Tenderness to the right inguinal region with palpable lymphadenopathy. No palpable hernia. Right leg with well-healed surgical scar to the right knee, warmth and erythema just distal to the patella extending down the tibia. No crepitus or vesicles. No weeping. Pt has full active and passive ROM w/o difficulty. DP pulse 2+. Sensation intact. SKIN: Warm, dry, no rash. NEURO: No focal deficits. Alert and oriented x3 <Marina Nicholas PA-C - Last Filed: 03/12/24 03:07> Course WATER SUPPLY TECHNICIAN/PA Physician Supervision For this patient encounter, I reviewed the WATER SUPPLY TECHNICIAN or PA documentation, treatment plan, and medical decision making and had [id number] time with this patient. I performed all aspects of the MDM as documented. <Kimmy Ram MD - Last Filed: 03/23/24 04:19> Vital Signs Vital signs: Vital Signs Temperature 99.3 F 03/11/24 19:15 Pulse Rate 110 H 03/11/24 19:15 Respiratory Rate 24 H 03/11/24 19:15 Blood Pressure 117/61 03/11/24 19:15 Pulse Oximetry 97 03/11/24 19:15 Oxygen Delivery Room Air 03/11/24 19:15 Temperature 98.5 F 03/17/24 20:57 Pulse Rate 74 03/17/24 20:57 Respiratory Rate 12 03/17/24 20:57 Blood Pressure 131/63 03/17/24 20:57 Pulse Oximetry 98 03/17/24 20:57 Oxygen Delivery Nasal Cannula 03/17/24 08:00 Oxygen Flow Rate 2 03/17/24 08:00 Fraction of Inspired Oxygen 28 03/16/24 08:00 <Marina Nicholas PA-C - Last Filed: 03/12/24 03:07> Vital Signs Temperature 99.3 F 03/11/24 19:15 Pulse Rate 110 H 03/11/24 19:15 Respiratory Rate 24 H 03/11/24 19:15 Blood Pressure 117/61 03/11/24 19:15 Pulse Oximetry 97 03/11/24 19:15 Oxygen Delivery Room Air 03/11/24 19:15 Temperature 98.5 F 03/17/24 20:57 Pulse Rate 74 03/17/24 20:57 Respiratory Rate 12 03/17/24 20:57 Blood Pressure 131/63 03/17/24 20:57 Pulse Oximetry 98 03/17/24 20:57 Oxygen Delivery Nasal Cannula 03/17/24 08:00 Oxygen Flow Rate 2 03/17/24 08:00 Fraction of Inspired Oxygen 28 03/16/24 08:00 <Kimmy Ram MD - Last Filed: 03/23/24 04:19> MDM - Fever MDM Narrative Medical decision making narrative: 53-year-old male presents to emergency department for subjective fever, chills and right leg pain. See HPI for further history. Triage vital significant for tachycardia 110 and tachypnea of 24. He is currently afebrile at 99.3. Exam is significant for the above. Will obtain sepsis workup and start IV fluids. Tachycardia tachypnea have resolved, however patient did spike a fever to 102.7. He was given Tylenol and started on fluids, vancomycin and Zosyn for sepsis. His CBC shows a leukocytosis of 25.1, no bands. Lactic acid normal at 1.6. CRP elevated to 6.9. Chemistries reveal mild hypokalemia of 3.3 which is been orally repleted. Mag normal. Lipase normal at 35. UA with trace ketones, no UTI. COVID and flu were negative. Coags normal. Procalcitonin is 1.1. Blood cultures pending. EKG shows NSR, normal NV interval, normal QRS duration, normal QTC, no ischemic changes. Chest x-ray shows no acute cardiopulmonary findings. The right lower extremity Doppler shows a DVT involving the right femoral vein. CTA chest shows no PE. CT right lower extremity shows mild subcutaneous edema in the right medial thigh with no significant skin thickening and low suspicion for cellulitis. There is evidence of right knee arthroplasty with no periprosthetic fracture moderate anterior subcutaneous edema. No intramuscular edema or fluid collection, no soft tissue abscess, no fracture or dislocation. Patient updated on workup. Only possible identifiable source at this time for sepsis is a cellulitis to the right lower extremity. I did consider a septic arthritis to the right knee, however I feel like this is less likely given no effusion noted on CT and no significant pain with range of motion of the knee. I also did consider meningitis, however he has no headache, no neck pain, no pain with range of motion of the neck, no nuchal rigidity. He was given Lovenox for DVT. Plan to admit to the hospitalist for further evaluation and management. Patient is amenable to this. Discussed with the hospitalist, Dr. Bradshaw, who agrees to admission. <Marina Nicholas PA-C - Last Filed: 03/12/24 03:07> Lab Data Result diagrams: 03/16/24 06:40 03/16/24 06:40 <Marina Nicholas PA-C - Last Filed: 03/12/24 03:07> Labs: Lab Results 03/11/24 03/11/24 03/12/24 Range/Units 22:49 22:50 00:59 WBC 25.1 H (4.5-10.0) K/mm3 RBC 4.22 L (4.6-6.20) M/mm3 Hgb 12.1 L (14.0-18.0) g/dL Hct 36.6 L (42.0-52.0) % MCV 86.7 (80-100) fl MCH 28.7 (26-34) pg MCHC 33.1 (32-36) g/dl RDW 14.2 (11.5-14.5) % Plt Count 201 (150-375) k/mm3 MPV 12.2 H (7.4-10.4) fl Immature Gran % (Auto) 1.1 H (0-0.5) % Neut % (Auto) 89.8 H (45.5-73.1) % Lymph % (Auto) 3.7 L (18.3-44.2) % [place] % (Auto) 4.9 (2.6-8.5) % Eos % (Auto) 0.1 (0-4.4) % Baso % (Auto) 0.4 (0.2-1.2) % Lymph # (Auto) 0.93 (0.9-3.2) K/mm3 [place] # (Auto) 1.2 H (0.1-0.6) K/mm3 Eos # (Auto) 0.0 (0-0.3) K/mm3 Baso # (Auto) 0.1 (0.0-0.1) K/mm3 Abs Immat Gran (auto) 0.28 H (0.00-0.031) K/mm3 Absolute Neuts (auto) 22.5 H (1.3-6.7) K/mm3 Absolute Nucleated RBC 0.000 (0.0-0.012) K/mm3 Nucleated RBC % 0.0 (0.0-0.2) % PT 13.5 (11.1-14.7) Seconds INR 1.0 APTT 31.0 (22.3-36.8) Seconds Sodium 135 L (137-145) mmol/L Potassium 3.3 L (3.4-5.0) mmol/L Chloride 100 (98-107) mmol/L Carbon Dioxide 30 (22-30) mmol/L Anion Gap 5 (4-12) mmol/L BUN 13 (9-20) mg/dL Creatinine 1.20 (0.7-1.3) mg/dL Estim Creat Clear Calc 74 ml/min Estimated GFR > 60 (59 - ) Glucose 145 H (65-110) mg/dL Lactic Acid 1.6 (0.7-2.0) mmol/L Calcium 8.9 (8.4-10.2) mg/dL Magnesium 1.6 (1.6-2.3) mg/dL Total Bilirubin 0.6 (0.2-1.3) mg/dL AST 34 (17-59) U/L ALT 27 (6-50) U/L Alkaline Phosphatase 74 (38-126) U/L C-Reactive Protein 6.9 H (<1.0) mg/dL Total Protein 8.0 (6.3-8.2) g/dL Albumin 4.1 (3.5-5.1) g/dL Lipase 35 (23-300) U/L Procalcitonin 1.1 ng/mL Urine Color Dark yellow (Yellow) Urine Appearance Clear (Clear) Urine pH 5.5 (5.0-9.0) Ur Specific [place] 1.034 (1.001-1.035) Urine Protein 1+ H (Negative) mg/dL Urine Glucose (UA) Negative (Negative) mg/dL Urine Ketones Trace H (Negative) mg/dL Ur Blood (Man) Negative (Negative) Urine Nitrate Negative (Negative) Urine Bilirubin Negative (Negative) Urine Urobilinogen 1.0 (<2.0) mg/dL Add Ur Microanalysis Reviewed Leukocyte Esterase Rfl Negative (Negative) SHYLA/UL Urine RBC 0-2 (0-2) /hpf Urine WBC 0-5 (0-3) /hpf Ur Squamous Epith Cells None seen (Few) /hpf Urine Bacteria None seen /hpf Urine Casts 6-10 Nasal MRSA (PCR) Not detected (NOT DETECTE) West Nile Virus IgM Ab index Influenza A (RT-PCR) Negative (Negative) Influenza B (RT-PCR) Negative (Negative) SARS-CoV-2 RNA (RT-PCR) Negative (Negative) 03/12/24 03/12/24 Range/Units 07:36 07:37 WBC 17.9 H (4.5-10.0) K/mm3 RBC 4.08 L (4.6-6.20) M/mm3 Hgb 11.5 L (14.0-18.0) g/dL Hct 36.0 L (42.0-52.0) % MCV 88.2 (80-100) fl MCH 28.2 (26-34) pg MCHC 31.9 L (32-36) g/dl RDW 14.4 (11.5-14.5) % Plt Count 177 (150-375) k/mm3 MPV 12.4 H (7.4-10.4) fl Immature Gran % (Auto) 0.4 (0-0.5) % Neut % (Auto) 90.0 H (45.5-73.1) % Lymph % (Auto) 4.9 L (18.3-44.2) % [place] % (Auto) 4.4 (2.6-8.5) % Eos % (Auto) 0.0 (0-4.4) % Baso % (Auto) 0.3 (0.2-1.2) % Lymph # (Auto) 0.87 L (0.9-3.2) K/mm3 [place] # (Auto) 0.8 H (0.1-0.6) K/mm3 Eos # (Auto) 0.0 (0-0.3) K/mm3 Baso # (Auto) 0.1 (0.0-0.1) K/mm3 Abs Immat Gran (auto) 0.07 H (0.00-0.031) K/mm3 Absolute Neuts (auto) 16.1 H (1.3-6.7) K/mm3 Absolute Nucleated RBC 0.000 (0.0-0.012) K/mm3 Nucleated RBC % 0.0 (0.0-0.2) % PT (11.1-14.7) Seconds INR APTT (22.3-36.8) Seconds Sodium 135 L (137-145) mmol/L Potassium 2.9 L (3.4-5.0) mmol/L Chloride 100 (98-107) mmol/L Carbon Dioxide 30 (22-30) mmol/L Anion Gap 5 (4-12) mmol/L BUN 12 (9-20) mg/dL Creatinine 1.20 (0.7-1.3) mg/dL Estim Creat Clear Calc 76 ml/min Estimated GFR > 60 (59 - ) Glucose 133 H (65-110) mg/dL Lactic Acid (0.7-2.0) mmol/L Calcium 8.6 (8.4-10.2) mg/dL Magnesium (1.6-2.3) mg/dL Total Bilirubin (0.2-1.3) mg/dL AST (17-59) U/L ALT (6-50) U/L Alkaline Phosphatase (38-126) U/L C-Reactive Protein (<1.0) mg/dL Total Protein (6.3-8.2) g/dL Albumin (3.5-5.1) g/dL Lipase (23-300) U/L Procalcitonin ng/mL Urine Color (Yellow) Urine Appearance (Clear) Urine pH (5.0-9.0) Ur Specific [place] (1.001-1.035) Urine Protein (Negative) mg/dL Urine Glucose (UA) (Negative) mg/dL Urine Ketones (Negative) mg/dL Ur Blood (Man) (Negative) Urine Nitrate (Negative) Urine Bilirubin (Negative) Urine Urobilinogen (<2.0) mg/dL Add Ur Microanalysis Leukocyte Esterase Rfl (Negative) SHYLA/UL Urine RBC (0-2) /hpf Urine WBC (0-3) /hpf Ur Squamous Epith Cells (Few) /hpf Urine Bacteria /hpf Urine Casts Nasal MRSA (PCR) (NOT DETECTE) West Nile Virus IgM Ab <0.90 index Influenza A (RT-PCR) (Negative) Influenza B (RT-PCR) (Negative) SARS-CoV-2 RNA (RT-PCR) (Negative) <Marina Nicholas PA-C - Last Filed: 03/12/24 03:07> Lab Results 03/11/24 03/11/24 03/12/24 Range/Units 22:49 22:50 00:59 WBC 25.1 H (4.5-10.0) K/mm3 RBC 4.22 L (4.6-6.20) M/mm3 Hgb 12.1 L (14.0-18.0) g/dL Hct 36.6 L (42.0-52.0) % MCV 86.7 (80-100) fl MCH 28.7 (26-34) pg MCHC 33.1 (32-36) g/dl RDW 14.2 (11.5-14.5) % Plt Count 201 (150-375) k/mm3 MPV 12.2 H (7.4-10.4) fl Immature Gran % (Auto) 1.1 H (0-0.5) % Neut % (Auto) 89.8 H (45.5-73.1) % Lymph % (Auto) 3.7 L (18.3-44.2) % [place] % (Auto) 4.9 (2.6-8.5) % Eos % (Auto) 0.1 (0-4.4) % Baso % (Auto) 0.4 (0.2-1.2) % Lymph # (Auto) 0.93 (0.9-3.2) K/mm3 [place] # (Auto) 1.2 H (0.1-0.6) K/mm3 Eos # (Auto) 0.0 (0-0.3) K/mm3 Baso # (Auto) 0.1 (0.0-0.1) K/mm3 Abs Immat Gran (auto) 0.28 H (0.00-0.031) K/mm3 Absolute Neuts (auto) 22.5 H (1.3-6.7) K/mm3 Absolute Nucleated RBC 0.000 (0.0-0.012) K/mm3 Nucleated RBC % 0.0 (0.0-0.2) % PT 13.5 (11.1-14.7) Seconds INR 1.0 APTT 31.0 (22.3-36.8) Seconds Sodium 135 L (137-145) mmol/L Potassium 3.3 L (3.4-5.0) mmol/L Chloride 100 (98-107) mmol/L Carbon Dioxide 30 (22-30) mmol/L Anion Gap 5 (4-12) mmol/L BUN 13 (9-20) mg/dL Creatinine 1.20 (0.7-1.3) mg/dL Estim Creat Clear Calc 74 ml/min Estimated GFR > 60 (59 - ) Glucose 145 H (65-110) mg/dL Lactic Acid 1.6 (0.7-2.0) mmol/L Calcium 8.9 (8.4-10.2) mg/dL Magnesium 1.6 (1.6-2.3) mg/dL Total Bilirubin 0.6 (0.2-1.3) mg/dL AST 34 (17-59) U/L ALT 27 (6-50) U/L Alkaline Phosphatase 74 (38-126) U/L C-Reactive Protein 6.9 H (<1.0) mg/dL Total Protein 8.0 (6.3-8.2) g/dL Albumin 4.1 (3.5-5.1) g/dL Lipase 35 (23-300) U/L Procalcitonin 1.1 ng/mL Urine Color Dark yellow (Yellow) Urine Appearance Clear (Clear) Urine pH 5.5 (5.0-9.0) Ur Specific [place] 1.034 (1.001-1.035) Urine Protein 1+ H (Negative) mg/dL Urine Glucose (UA) Negative (Negative) mg/dL Urine Ketones Trace H (Negative) mg/dL Ur Blood (Man) Negative (Negative) Urine Nitrate Negative (Negative) Urine Bilirubin Negative (Negative) Urine Urobilinogen 1.0 (<2.0) mg/dL Add Ur Microanalysis Reviewed Leukocyte Esterase Rfl Negative (Negative) SHYLA/UL Urine RBC 0-2 (0-2) /hpf Urine WBC 0-5 (0-3) /hpf Ur Squamous Epith Cells None seen (Few) /hpf Urine Bacteria None seen /hpf Urine Casts 6-10 Nasal MRSA (PCR) Not detected (NOT DETECTE) West Nile Virus IgM Ab index Influenza A (RT-PCR) Negative (Negative) Influenza B (RT-PCR) Negative (Negative) SARS-CoV-2 RNA (RT-PCR) Negative (Negative) 03/12/24 03/12/24 Range/Units 07:36 07:37 WBC 17.9 H (4.5-10.0) K/mm3 RBC 4.08 L (4.6-6.20) M/mm3 Hgb 11.5 L (14.0-18.0) g/dL Hct 36.0 L (42.0-52.0) % MCV 88.2 (80-100) fl MCH 28.2 (26-34) pg MCHC 31.9 L (32-36) g/dl RDW 14.4 (11.5-14.5) % Plt Count 177 (150-375) k/mm3 MPV 12.4 H (7.4-10.4) fl Immature Gran % (Auto) 0.4 (0-0.5) % Neut % (Auto) 90.0 H (45.5-73.1) % Lymph % (Auto) 4.9 L (18.3-44.2) % [place] % (Auto) 4.4 (2.6-8.5) % Eos % (Auto) 0.0 (0-4.4) % Baso % (Auto) 0.3 (0.2-1.2) % Lymph # (Auto) 0.87 L (0.9-3.2) K/mm3 [place] # (Auto) 0.8 H (0.1-0.6) K/mm3 Eos # (Auto) 0.0 (0-0.3) K/mm3 Baso # (Auto) 0.1 (0.0-0.1) K/mm3 Abs Immat Gran (auto) 0.07 H (0.00-0.031) K/mm3 Absolute Neuts (auto) 16.1 H (1.3-6.7) K/mm3 Absolute Nucleated RBC 0.000 (0.0-0.012) K/mm3 Nucleated RBC % 0.0 (0.0-0.2) % PT (11.1-14.7) Seconds INR APTT (22.3-36.8) Seconds Sodium 135 L (137-145) mmol/L Potassium 2.9 L (3.4-5.0) mmol/L Chloride 100 (98-107) mmol/L Carbon Dioxide 30 (22-30) mmol/L Anion Gap 5 (4-12) mmol/L BUN 12 (9-20) mg/dL Creatinine 1.20 (0.7-1.3) mg/dL Estim Creat Clear Calc 76 ml/min Estimated GFR > 60 (59 - ) Glucose 133 H (65-110) mg/dL Lactic Acid (0.7-2.0) mmol/L Calcium 8.6 (8.4-10.2) mg/dL Magnesium (1.6-2.3) mg/dL Total Bilirubin (0.2-1.3) mg/dL AST (17-59) U/L ALT (6-50) U/L Alkaline Phosphatase (38-126) U/L C-Reactive Protein (<1.0) mg/dL Total Protein (6.3-8.2) g/dL Albumin (3.5-5.1) g/dL Lipase (23-300) U/L Procalcitonin ng/mL Urine Color (Yellow) Urine Appearance (Clear) Urine pH (5.0-9.0) Ur Specific [place] (1.001-1.035) Urine Protein (Negative) mg/dL Urine Glucose (UA) (Negative) mg/dL Urine Ketones (Negative) mg/dL Ur Blood (Man) (Negative) Urine Nitrate (Negative) Urine Bilirubin (Negative) Urine Urobilinogen (<2.0) mg/dL Add Ur Microanalysis Leukocyte Esterase Rfl (Negative) SHYLA/UL Urine RBC (0-2) /hpf Urine WBC (0-3) /hpf Ur Squamous Epith Cells (Few) /hpf Urine Bacteria /hpf Urine Casts Nasal MRSA (PCR) (NOT DETECTE) West Nile Virus IgM Ab <0.90 index Influenza A (RT-PCR) (Negative) Influenza B (RT-PCR) (Negative) SARS-CoV-2 RNA (RT-PCR) (Negative) <Kimmy Ram MD - Last Filed: 03/23/24 04:19> Discharge Plan Discharge Clinical Impression: Sepsis Qualifiers: Sepsis type: sepsis due to unspecified organism Sepsis acute organ dysfunction status: unspecified Qualified Code(s): A41.9 - Sepsis, unspecified organism Cellulitis Qualifiers: Site of cellulitis: extremity Site of cellulitis of extremity: lower extremity Laterality: right Qualified Code(s): L03.115 - Cellulitis of right lower limb DVT (deep venous thrombosis) Qualifiers: DVT location: lower extremity Affected thrombotic vein of extremity: femoral Chronicity: acute Laterality: right Qualified Code(s): I82.411 - Acute embolism and thrombosis of right femoral vein <Marina Nicholas PA-C - Last Filed: 03/12/24 03:07> Patient Disposition: Still a Patient <Marina Nicholas PA-C - Last Filed: 03/12/24 03:07> Condition: Stable <Marina Nicholas PA-C - Last Filed: 03/12/24 03:07>
[2024-03-11] MEDS: ACETAMINOPHEN 500 MG TABLET 1000 MG PO (22:38)
[2024-03-11] MEDS: LACTATED RINGERS 1,000 ML 999 ML IV CONT (22:47)
[2024-03-11 22:55] VITALS: BP 141/71; PULSE 96; RESP 15; TEMP 39.3; O2SAT 95
[2024-03-11 23:01] LABS: Basophils Absolute Auto 0.1 K/mm3 (0.0-0.1); Basophils Percent Auto 0.4 % (0.2-1.2); Eosinophils Percent Auto 0.1 % (0-4.4); Hematocrit 36.6 % (42.0-52.0); Hemoglobin 12.1 g/dL (14.0-18.0); Immature Granulocyte Absolute 0.28 K/mm3 (0.00-0.031); Immature Granulocyte Percent A 1.1 % (0-0.5); Lymphocytes Absolute Auto 0.93 K/mm3 (0.9-3.2); Lymphocytes Percent Auto 3.7 % (18.3-44.2); Mean Corpuscular HGB Conc 33.1 g/dl (32-36); Mean Corpuscular Hemoglobin 28.7 pg (26-34); Mean Corpuscular Volume 86.7 fl (80-100); Mean Platelet Volume 12.2 fl (7.4-10.4); Monocytes Absolute Auto 1.2 K/mm3 (0.1-0.6); Monocytes Percent Auto 4.9 % (2.6-8.5); Neutrophils Absolute Auto 22.5 K/mm3 (1.3-6.7); Neutrophils Percent Auto 89.8 % (45.5-73.1); Platelet Count Result 201 k/mm3 (150-375); Red Blood Count 4.22 M/mm3 (4.6-6.20); Red Cell Distribution Width 14.2 % (11.5-14.5); White Blood Count 25.1 K/mm3 (4.5-10.0)
[2024-03-11 23:03] VITALS: TEMP 38.4
[2024-03-11 23:11] LABS: Lactic Acid Reflex 1.6 mmol/L (0.7-2.0)
[2024-03-11 23:12] LABS: Prothrombin Time 13.5 Seconds (11.1-14.7)
[2024-03-11 23:16] LABS: Add Urine Microscopic? YES; Appearance Urine Clear (Clear); Bilirubin Urine Negative (Negative); Blood Urine Negative (Negative); Color Urine Dark Yellow (Yellow); Glucose Urine UA Negative (Negative); Ketones Urine Trace mg/dL (Negative); Leukocyte Esterase Ur Negative LEU/UL (Negative); Nitrate Urine Negative (Negative); Protein Urine 1+ mg/dL (Negative); Specific Grav Ur 1.034 (1.001-1.035); pH Urine 5.5 (5.0-9.0)
[2024-03-11 23:36] LABS: Bacteria Urine None Seen /hpf; Need Manual Microscopic Reviewed; RBC Urine 0-2 /hpf (0-2); Squamous Epithelial Cell Urine None Seen /hpf (Few); WBC Urine 0-5 /hpf (0-3)
[2024-03-11 23:42] LABS: Influenza A QL RT-PCR Negative (Negative); Influenza B QL RT-PCR Negative (Negative); SARS-CoV-2 RNA PCR Negative (Negative)
[2024-03-11] MEDS: KETOROLAC 15 MG/ML VIAL (*BKC) IV PUSH (23:54)
[2024-03-12] VITALS (15 sets, daily range): BP systolic 108–171; BP diastolic 60–81; PULSE 78–105; RESP 16–24; TEMP 36.7–38.8; O2SAT 95–98; BMI 42.7
[2024-03-12] MEDS: PIPERACILLN/TAZ 3.375GM/NS50ML 3.375 GM/50 ML BAG IVPB (00:08)
[2024-03-12 00:10] LABS: Alanine Aminotransferase 27 U/L (6-50); Albumin Level 4.1 g/dL (3.5-5.1); Alkaline Phosphatase 74 U/L (38-126); Anion Gap 5 mmol/L (4-12); Aspartate Amino Transferase 34 U/L (17-59); Bilirubin,Total 0.6 mg/dL (0.2-1.3); Blood Urea Nitrogen 13 mg/dL (9-20); CRP 6.9 mg/dL (<1.0); Calcium 8.9 mg/dL (8.4-10.2); Carbon Dioxide 30 mmol/L (22-30); Chloride 100 mmol/L (98-107); Estimated CRCL calculation 74 ml/min; Estimated Glomerular Filt Rate > 60; Glucose 145 mg/dL (65-110); Lipase 35 U/L (23-300); Potassium 3.3 mmol/L (3.4-5.0); Sodium 135 mmol/L (137-145)
[2024-03-12] MEDS: VANCOMYCIN 1,250 MG/NS 250 ML 1,250 MG/250 ML BAG 166.67 MG IVPB ×2 (00:40→03:21)
[2024-03-12] MEDS: LACTATED RINGERS 1,000 ML 999 ML IV CONT ×2 (00:42→03:22)
[2024-03-12] MEDS: POTASSIUM CHLORIDE 20 MEQ PACKET (FOR LIQUID) PO (00:54)
[2024-03-12 01:33] LABS: Magnesium 1.6 mg/dL (1.6-2.3)
[2024-03-12 01:51] LABS: Procalcitonin 1.1 ng/mL
[2024-03-12 02:14] LABS: MRSA (PCR) NOT DETECTED (NOT DETECTE)
[2024-03-12] MEDS: ENOXAPARIN 120 MG/0.8 ML SYRINGE 112 MG SUB-Q (03:23)
--- NOTE | 2024-03-12 04:20 | ADMGEN ---
This patient, Armaan Hurst, was admitted to 3 [facility] Surg Room 311-01. Patient/family oriented to hospital policies and general routines including ID bracelet, bed and alarms, visiting hours, pain management, procedures, bathroom and other care routines, personal items, smoking policy, room service/diet, and visiting hours. Information on how to activate the Rapid Response Team has been discussed. Patient/Family are encouraged to report perceived risks to care and to ask questions if they do not understand what they are told or what they should do.
[2024-03-12 08:13] LABS: Basophils Absolute Auto 0.1 K/mm3 (0.0-0.1); Basophils Percent Auto 0.3 % (0.2-1.2); Hemoglobin 11.5 g/dL (14.0-18.0); Immature Granulocyte Absolute 0.07 K/mm3 (0.00-0.031); Immature Granulocyte Percent A 0.4 % (0-0.5); Lymphocytes Absolute Auto 0.87 K/mm3 (0.9-3.2); Lymphocytes Percent Auto 4.9 % (18.3-44.2); Mean Corpuscular HGB Conc 31.9 g/dl (32-36); Mean Corpuscular Hemoglobin 28.2 pg (26-34); Mean Corpuscular Volume 88.2 fl (80-100); Mean Platelet Volume 12.4 fl (7.4-10.4); Monocytes Absolute Auto 0.8 K/mm3 (0.1-0.6); Monocytes Percent Auto 4.4 % (2.6-8.5); Neutrophils Absolute Auto 16.1 K/mm3 (1.3-6.7); Platelet Count Result 177 k/mm3 (150-375); Red Blood Count 4.08 M/mm3 (4.6-6.20); Red Cell Distribution Width 14.4 % (11.5-14.5); White Blood Count 17.9 K/mm3 (4.5-10.0)
[2024-03-12 08:24] LABS: Anion Gap 5 mmol/L (4-12); Blood Urea Nitrogen 12 mg/dL (9-20); Calcium 8.6 mg/dL (8.4-10.2); Carbon Dioxide 30 mmol/L (22-30); Chloride 100 mmol/L (98-107); Estimated CRCL calculation 76 ml/min; Estimated Glomerular Filt Rate > 60; Glucose 133 mg/dL (65-110); Potassium 2.9 mmol/L (3.4-5.0); Sodium 135 mmol/L (137-145)
[2024-03-12] MEDS: cefTRIAXone 2 GM/NS 100 ML 2 GM/100 ML BAG IVPB ×2 (10:39→20:37)
[2024-03-12] MEDS: POTASSIUM CHLORIDE 20 MEQ PACKET (FOR LIQUID) 40 MEQ PO ×3 (10:39→17:08)
[2024-03-12] MEDS: AMPICILLIN 2 GM/NS 100 ML 2 GM/100 ML BAG IVPB ×4 (10:40→22:23)
[2024-03-12] MEDS: DEXTROSE 5%/0.9% SOD CHL 1,000 ML 75 ML IV CONT (10:40)
[2024-03-12] MEDS: METOPROLOL SUCCINATE EXT REL 100 MG TABCR 200 MG PO (10:40)
[2024-03-12] MEDS: ACETAMINOPHEN 325 MG TABLET 650 MG PO ×3 (10:51→20:31)
[2024-03-12] MEDS: ENOXAPARIN 120 MG/0.8 ML SYRINGE SUB-Q ×2 (10:51→20:35)
--- NOTE | 2024-03-12 12:19 | P.HP_ITS ---
H&P: HPI History of Present Illness Date/Time: 03/12/24 12:19 Chief Complaint: High grade fever Narrative: 53-year-old male with history of mild diastolic dysfunction, COPD, obesity, hyperlipidemia, hypertension presents to the emergency department for chills, subjective fever and right inguinal pain. Denies any Nausea, vomiting. Complains of right knee pain. Patient has history of a right knee arthroplasty a few years ago. Underwent CTA chest, negative for PE, pneumonia. Tested positive for right leg DVT. He had similar presentation in November, when he was treated for possible meningitis until CSF culture turned out to be negative for bacterial meningitis. Right leg CT scan was done overnight, shows inguinal lymph nodes. Discussed with the radiologist over the phone about any acute findings in the knee on CT scan. No concerning abnormality was reported verbally to me on the phone. RSV, influenza, COVID was negative on admission. Admitted with concerns for sepsis with unclear source. Review of Systems Constitutional: Constitutional: Reports body ache(s), Reports chills, Reports fatigue and Reports weakness Eyes: Eyes: Reports no additional eye complaints ENT: Reports system reviewed and no additional complaints, except as documented Cardiovascular: Cardiovascular: Reports diaphoresis Respiratory: Respiratory: Reports no additional respiratory complaints Gastrointestinal: Gastrointestinal: Reports no additional gastrointestinal co mplaints Musculoskeletal: Musculoskeletal: Reports myalgias, Reports arthralgias and Reports joint swelling Neurologic: Reports system reviewed and no additional complaints, except as documented [facility] Past Medical History Medical History Nocturnal hypoxemia Pulmonary hypertension Mild diastolic dysfunction Cellulitis and abscess of left leg (~12/23/23) Bacterial meningitis Sepsis Leg pain, left Febrile illness Inguinal adenopathy Headache Hand eczema COPD exacerbation SOB (shortness of breath) Cough Morbid obesity with BMI of 40.0-44.9, adult Acute conjunctivitis of left eye Dyshidrotic eczema Tinea pedis Pain in joints of both feet x-rays of both feet on 05/07/2022 reveals diffuse mild osteoarthritis of both feet. Rash and nonspecific skin eruption Adult BMI 39.0-39.9 kg/sq m Obesity (BMI 30-39.9) COVID-19 (~08/2021) 2nd episode with mild symptoms for 2 or 3 days. Candidiasis of other urogenital sites (10/31/21) Low iron (08/24/21) iron 49 with 13% saturation and hemoglobin 14.1 on 08/24/2021. Iron 50 with 12% saturation and ferritin 31 on 11/13/2022. COPD (chronic obstructive pulmonary disease) (~08/24/21) PFT on 08/24/2021 with moderate obstructive defect with significant improvement with bronchodilator. Dyspnea on exertion exercise stress test on 08/24/2021 was negative for ischemia. EKG revealed sinus rhythm with borderline R-wave progression. Chronic nonallergic rhinitis BMI 37.0-37.9, adult Hearing loss chronic worse on left than right Encounter for wellness examination in adult COVID-19 (02/14/21) fully vaccinated and COVID BMI 36.0-36.9,adult Insomnia Acute low back pain Mixed hyperlipidemia total cholesterol 217, triglycerides 403, HDL 30 and LDL 106 with AST 22 and ALT 26 on 03/11/2020. Cholesterol 207, HDL 40, triglycerides 111, LDL 142 on 08/24/2021. Cholesterol 226, triglycerides 169, HDL 36, LDL 159 on 11/13/2022. Abnormal fasting glucose fasting glucose normal at 95 on 03/11/2020. Glucose 110 with hemoglobin A1c 5.5 on 08/24/2021. Glucose 95 with hemoglobin A1c 5.8 on 11/13/2022 Chronic pain of both knees chronic bilateral knee pain after multiple surgeries. Degenerative changes. Permanent handicap placard 06/29/2021 Tonsillar hypertrophy Encounter for prostate cancer screening PSA 0.6 on 03/11/2020. PSA 1.0 on 08/24/2021. Lip cyst Tobacco use disorder, continuous patient quit smoking cigarettes Jul, 2021 but continues to chew tobacco 1/2 can daily. Obstructive sleep apnea Hypertension Surgical History Surgical History H/O shoulder surgery left shoulder History of neck surgery History of right knee surgery (~2017) H/O left knee surgery (~2013) Family History Family History Mother Parkinson disease Father Accident Social History Social History Smoking packs per day: 1 Smoking cigarettes per day: 20.0 Smoking status: Former smoker Tobacco type: cigarettes Smokeless tobacco user: chewing tobacco Second hand tobacco smoke exposure: No Smoking end date: 04/01/19 Alcohol intake: never Substance use: never Substance use type: does not use Do You Feel Safe in your Home?: Yes Lack of Transportation: YES Lack of Food: Never True Current Housing: I Have Housing Concerned About Future Housing: No Difficulty Paying Gas/Electric Bills: No Difficulty Paying for Meds: No Currently Unemployed: No Education: High School Diploma/GED Difficulty w/ Childcare or Family Care: No Living arrangements: with family Occupation/Education: occupation Gender identity (if verbalized by the patient): Male Spiritual care concerns: No Meds Home Medications and Allergies Home Medications ?Medication ?Instructions ?Recorded ?Confirmed ?Type metoprolol succinate 200 mg 200 mg PO DAILY #90 tabs 04/29/23 03/12/24 Rx tablet,extended release 24 hr ibuprofen 800 mg tablet 800 mg PO TID PRN pain #90 tabs 10/02/23 03/12/24 Rx budesonide 160 mcg-glycopyr 9 2 inh inhalation BID #10.7 grams 12/31/23 03/12/24 Rx mcg-formot 4.8 mcg/actuation HFA inhaler (Breztri Aerosphere) amlodipine 5 mg tablet (Norvasc) 5 mg PO DAILY #90 tabs 01/22/24 03/12/24 Rx furosemide 40 mg tablet (Lasix) 40 mg PO QAM #90 tabs 01/22/24 03/12/24 Rx Allergies Allergy/AdvReac Type Severity Reaction Status Date / Time chlorpheniramine (From AdvReac CHILE- Verified 02/13/24 13:04 Actifed Cold-Allergy) UNKNOWN REACTION phenylephrine (From Actifed AdvReac CHILD- Verified 02/13/24 13:04 Cold-Allergy) UNKNOWN REACTION pseudoephedrine (From AdvReac CHILD- Verified 02/13/24 13:04 Actifed Cold-Allergy) UNKNOWN REACTION triprolidine (From Actifed AdvReac CHILD- Verified 02/13/24 13:04 Cold-Allergy) UNKNOWN REACTION Vital Signs Vital Signs - 24 hr 03/11/24 19:15 03/11/24 22:55 03/11/24 23:03 Temperature 99.3 F 102.7 F H 101.2 F H Pulse Rate 110 H 96 Respiratory Rate 24 H 15 Blood Pressure 117/61 141/71 H Pulse Oximetry 97 95 Oxygen Delivery Room Air 03/12/24 00:24 03/12/24 01:00 03/12/24 02:47 Temperature 98.8 F 98.8 F 98.1 F Pulse Rate 80 78 Respiratory Rate 16 16 Blood Pressure 108/60 150/79 H Pulse Oximetry 95 95 Oxygen Delivery 03/12/24 03:27 03/12/24 03:54 03/12/24 05:10 Temperature 99.6 F 98.8 F Pulse Rate 81 95 95 Respiratory Rate 16 18 18 Blood Pressure 146/67 H 131/81 Pulse Oximetry 98 98 98 Oxygen Delivery Room Air 03/12/24 06:00 03/12/24 07:20 03/12/24 10:19 Temperature 99.4 F 101.9 F H Pulse Rate 90 Respiratory Rate 16 Blood Pressure 171/61 H Pulse Oximetry 95 Oxygen Delivery Room Air 03/12/24 10:51 Temperature 101.4 F H Pulse Rate Respiratory Rate Blood Pressure Pulse Oximetry Oxygen Delivery Exam Const: General: in distress and uncomfortable HENMT: Face/Nose/Sinus: Normal nares present Mouth: Yes dry mucous membranes Eyes: Other: Injected conjunctiva Neck: Neck: supple Other: No neck stiffness Resp: Effort & Inspection: normal respiratory effort Auscultation: clear to auscultation bilaterally Cardio: Rate: regular rate Rhythm: regular rhythm GI: Inspection: distended GI Palp: Yes Firmness to palpation present (GI) Auscultation: normal bowel sounds Skin: General skin exam: normal color Extrem: Other: Redness noted over right leg, right knee seems to be tender to touch, limited range of motion Psych: Mental Status: mental status grossly normal H&P: Results Labs Labs: Short CBC 03/11/24 03/12/24 Range/Units 22:50 07:37 WBC 25.1 H 17.9 H (4.5-10.0) K/mm3 Hgb 12.1 L 11.5 L (14.0-18.0) g/dL Hct 36.6 L 36.0 L (42.0-52.0) % Plt Count 201 177 (150-375) k/mm3 [facility] 03/11/24 03/12/24 22:50 07:37 Sodium 135 L 135 L Potassium 3.3 L 2.9 L Chloride 100 100 Carbon Dioxide 30 30 BUN 13 12 Creatinine 1.20 1.20 Glucose 145 H 133 H Calcium 8.9 8.6 Liver Function 03/11/24 Range/Units 22:50 Total Bilirubin 0.6 (0.2-1.3) mg/dL AST 34 (17-59) U/L ALT 27 (6-50) U/L Alkaline Phosphatase 74 (38-126) U/L Albumin 4.1 (3.5-5.1) g/dL Urine 03/11/24 Range/Units 22:50 Urine Color Dark yellow (Yellow) Urine Appearance Clear (Clear) Urine pH 5.5 (5.0-9.0) Ur Specific Villalba 1.034 (1.001-1.035) Urine Protein 1+ H (Negative) mg/dL Urine Glucose (UA) Negative (Negative) mg/dL Assessment and Plan Assessment and plan (1) DVT (deep venous thrombosis): Qualifiers: Affected thrombotic vein of extremity: femoral Chronicity: acute DVT location: lower extremity Laterality: right Qualified Code(s): I82.411 - Acute embolism and thrombosis of right femoral vein Code(s): I82.409 - Acute embolism and thrombosis of unspecified deep veins of unspecified lower extremity Status: Acute (2) Cellulitis: Qualifiers: Laterality: right Site of cellulitis: extremity Site of cellulitis of extremity: lower extremity Qualified Code(s): L03.115 - Cellulitis of right lower limb Code(s): L03.90 - Cellulitis, unspecified Status: Acute (3) Sepsis: Qualifiers: Sepsis acute organ dysfunction status: unspecified Sepsis type: sepsis due to unspecified organism Qualified Code(s): A41.9 - Sepsis, unspecified organism Code(s): A41.9 - Sepsis, unspecified organism Status: Acute (4) Inguinal lymphadenopathy: Code(s): R59.0 - Localized enlarged lymph nodes Status: Acute Plan 53-year-old male with history of mild diastolic dysfunction, COPD, obesity, hyperlipidemia, hypertension presents to the emergency department for chills, subjective fever and right inguinal pain. Tested positive for right leg DVT. PE negative. Continues to have high-grade fever. 1. Sepsis: ? Secondary to right lower leg extremity cellulitis ? Any others an identified source UA unremarkable, CT chest angio negative for pneumonia Discussed with radiology were for no concerning abnormalities noted on right leg CT for right knee Continue tele monitoring IV fluids Follow blood cultures Concern for meningitis, although the suspicion is extremely low Await CT head Will plan for lumbar puncture Continue with vancomycin, ampicillin, ceftriaxone Monitor leukocytosis Tylenol p.r.n. for fever Will also obtain CT abdomen to rule out any intra-abdominal etiology 2. Right leg DVT: Lovenox 3. Hypokalemia: Supplement potassium 4. Hypertension: Increase the dose of Norvasc Continue with metoprolol 5. Code status: Full 6. Disposition: Admit to [facility] VTE Prophylaxis VTE prophylaxis: pharmacologic ordered Hospitalist [facility] Advance Care Plan I have confirmed that the patient's Advanced Care Plan is present, code status is documented, or surrogate decision maker is listed in patient medical record.: Yes Medication Reconciliation I have utilized all available resources to obtain, update and review the patients current medications (includes all prescriptions, OTC, herbals, cannabis, and nutritional supplements).: Yes
--- NOTE | 2024-03-12 13:26 | PC.NURSE ---
To CT per stretcher.
--- NOTE | 2024-03-12 14:10 | PC.NURSE ---
Returned to room from Radiology per stretcher.
[2024-03-12] MEDS: VANCOMYCIN 1,500 MG/NS 500 ML 1,500 MG/500 ML BAG 250 MG IVPB (18:08)
[2024-03-13] VITALS (9 sets, daily range): BP systolic 121–172; BP diastolic 56–75; PULSE 74–97; RESP 17–28; TEMP 36.3–39.2; O2SAT 93–99
--- NOTE | 2024-03-13 | ECHO_ITS ---
Patient Info Name: Armaan Hurst Age: 53 years : 1970 Gender: Male Ht: 65 in Wt: 257 lbs BSA: 2.37 m2 HR: 97 bpm BP: 149 / 71 mmHg Technical Quality: Poor Exam Date: 03/13/2024 2:18 PM Exam Location: Echo Lab Patient Status: Inpatient Admit Date: 03/12/2024 Staff Ordering Physician: Danelle Henry PA-C Signal Operator: Ayanna Gomez RDCS Attending Provider: Danelle Henry PA-C Referring Physician: Elaine CHUN; Exam Type: CA echo limited w contrast Study Info Indications - R/O ENDOCARDITIS Limited two-dimensional transthoracic echocardiogram is performed with contrast. Contrast/Agitated Saline Contrast/Ag. Saline: Definity Amount: 2.00 ml Existing IV Access: Yes Reason for Poor Study: poor echocardiographic windows Summary 1. Limited echo to r/o endocarditis. 2. Technically suboptimal study due to poor sonographic images. 3. Left ventricular chamber dimension is normal. 4. Left ventricular systolic function is normal, estimated at 60-65%. 5. The left ventricular diastolic function is indeterminate as it was not assessed. Left Ventricle Limited echo to r/o endocarditis. Technically suboptimal study due to poor sonographic images. The left ventricular diastolic function is indeterminate as it was not assessed. Left ventricular chamber dimension is normal. Left ventricular systolic function is normal, estimated at 60-65%. Right Ventricle Right ventricular chamber dimension is not well visualized. Left Atria Left atrial chamber dimension is normal. Right Atria Right atrial chamber dimension is not well visualized. Aortic Valve The aortic valve is not well visualized. Cannot determine number of aortic valve leaflets. There is no aortic valve stenosis. There is no aortic valve regurgitation. No aortic valve vegetation visualized. Pulmonic Valve The pulmonic valve is not well visualized. Mitral Valve There is no mitral valve stenosis. There is no mitral valve regurgitation. No mitral valve vegetation visualized. Tricuspid Valve The tricuspid valve leaflets are not well visualized. Pericardium/Pleural There is no pericardial effusion. Inferior Vena Cava Inferior vena cava is not well visualized. Report Signatures
[2024-03-13] MEDS: AMPICILLIN 2 GM/NS 100 ML 2 GM/100 ML BAG IVPB ×4 (01:45→13:00)
[2024-03-13] MEDS: ACETAMINOPHEN 325 MG TABLET 650 MG PO ×2 (03:40→16:31)
[2024-03-13 05:13] LABS: Alveolar/Arterial O2 Gradient < 0.0 mmHg; Base Excess ABG 0.8 mEq/l (+/-2.0); Carboxyhemoglobin 0.4 % THb (0-2.0); Fractional Inspired Oxygen 21 %; Methemoglobin ABG 0.3 %THb (0-1.5); Oxygen Content ABG 16.9 %vol (16.0-22.0); Oxygen Saturation ABG 98.2 % (95.0-100.0); Oxyhemoglobin 97.6 % THb (90.0-100.0); PCO2 ABG 38.2 mmHg (35.0-45.0); PO2 ABG 109.8 mmHg (80.0-100.0); PO2 FiO2 Ratio Arterial Blood 5.23 %; Reduced Hemoglobin 1.7 %THb (0-5.0); Total Hemoglobin 12.2 g/dL (12.0-18.0); pH ABG 7.433 (7.350-7.450)
[2024-03-13 05:55] LABS: Site Drawn RIGHT RADIAL
[2024-03-13 05:56] LABS: Device NON-INVASIVE VENT; Modified Allen's Test Pass
[2024-03-13 05:57] LABS: Non-Invasive Expiratory Pressure 5 CMH2O; Non-Invasive Inspiratory Pressure 15 CMH2O; Non-Invasive Vent Rate 16 /MIN
[2024-03-13 05:58] LABS: Mean Platelet Volume 12.2 fl (7.4-10.4); Platelet Count Result 154 k/mm3 (150-375)
[2024-03-13 05:59] LABS: Basophils Absolute Auto 0.1 K/mm3 (0.0-0.1); Basophils Percent Auto 0.4 % (0.2-1.2); Eosinophils Percent Auto 0.1 % (0-4.4); Hematocrit 32.9 % (42.0-52.0); Hemoglobin 10.3 g/dL (14.0-18.0); Immature Granulocyte Percent A 0.7 % (0-0.5); Lymphocytes Absolute Auto 1.32 K/mm3 (0.9-3.2); Lymphocytes Percent Auto 9.6 % (18.3-44.2); Mean Corpuscular HGB Conc 31.3 g/dl (32-36); Mean Corpuscular Hemoglobin 27.8 pg (26-34); Mean Corpuscular Volume 88.7 fl (80-100); Monocytes Absolute Auto 0.8 K/mm3 (0.1-0.6); Monocytes Percent Auto 5.9 % (2.6-8.5); Neutrophils Absolute Auto 11.5 K/mm3 (1.3-6.7); Neutrophils Percent Auto 83.3 % (45.5-73.1); Platelet Count Result 146 k/mm3 (150-375); Red Blood Count 3.71 M/mm3 (4.6-6.20); Red Cell Distribution Width 14.4 % (11.5-14.5); White Blood Count 13.8 K/mm3 (4.5-10.0)
[2024-03-13 06:16] LABS: Anion Gap 2 mmol/L (4-12); Blood Urea Nitrogen 7 mg/dL (9-20); Calcium 8.3 mg/dL (8.4-10.2); Carbon Dioxide 30 mmol/L (22-30); Chloride 104 mmol/L (98-107); Estimated CRCL calculation 90 ml/min; Estimated Glomerular Filt Rate > 60; Glucose 133 mg/dL (65-110); Potassium 3.3 mmol/L (3.4-5.0); Sodium 136 mmol/L (137-145)
[2024-03-13] MEDS: DEXTROSE 5%/0.9% SOD CHL 1,000 ML 75 ML IV CONT (06:20)
[2024-03-13 06:30] LABS: INR 1.3; Prothrombin Time 16.3 Seconds (11.1-14.7)
[2024-03-13 06:31] LABS: Partial Thromboplastin Time 54.6 Seconds (22.3-36.8)
--- NOTE | 2024-03-13 08:20 | P.PNIM_ITS ---
Progress Note: A&P Assessment and Plan (1) Sepsis: Qualifiers: Sepsis acute organ dysfunction status: unspecified Sepsis type: sepsis due to unspecified organism Qualified Code(s): A41.9 - Sepsis, unspecified o rganism Code(s): A41.9 - Sepsis, unspecified organism Status: Acute Assessment and Plan: - lactic acid: 1.6 - suspected source: right lower extremity cellulitis? - blood cultures drawn on 03/11: NGTD - Viral panel negative - UA: non concerning for infection - CXR: No acute cardiopulmonary disease. - Chest CTA: No evidence of pulmonary embolus, aortic dissection, or aortic aneurysm. - Abd/pelvis CT: Enlarged right common femoral region lymph node, as above, nonspecific. Diffuse hepatic steatosis. Small fat-containing left inguinal hernia. - Right LE CT: Right external iliac/common femoral adenopathy, largest node measuring 2.5 x 2.0 cm. Please see details above. Findings are somewhat nonspecific, and stable since prior exam. Correlate for reactive/inflammatory lymph nodes versus any possibility of lymphoma or other metastatic disease. Per chart review prior provider discussed with radiology and no concerning abnormalities noted on right leg CT for right knee - Concern for meningitis, although the suspicion is extremely low. A lumbar puncture was ordered by prior provider, however patient does not wish to proceed with LP. Prior LP in November when patient was having similar symptoms was nega tive. - Head CT: normal brain - Echo ordered - Right LE US ordered - Continue tele monitoring - Antibiotics: vancomycin, ampicillin, ceftriaxone (2) Cellulitis: Qualifiers: Laterality: right Site of cellulitis: extremity Site of cellulitis of extremity: lower extremity Qualified Code(s): L03.115 - Cellulitis of right lower limb Code(s): L03.90 - Cellulitis, unspecified Status: Acute Assessment and Plan: - Right LE CT: Right external iliac/common femoral adenopathy, largest node measuring 2.5 x 2.0 cm. Please see details above. Findings are somewhat nonspecific, and stable since prior exam. Correlate for reactive/inflammatory lymph nodes versus any possibility of lymphoma or other metastatic disease. - Antiboitics: vancomycin, ampicillin, ceftriaxone - Monitor vital signs, I&Os, neuro status and patient is a fall risk - Monitor serum electrolytes, CBC, cultures, WBC and temp curve - Gentle IV fluids resuscitation (3) DVT (deep venous thrombosis): Qualifiers: Affected thrombotic vein of extremity: femoral Chronicity: acute DVT location: lower extremity Laterality: right Qualified Code(s): I82.411 - Acute embolism and thrombosis of right femoral vein Code(s): I82.409 - Acute embolism and thrombosis of unspecified deep veins of unspecified lower extremity Status: Acute Assessment and Plan: - Venous doppler: Deep vein thrombosis involving right femoral vein. - Right LE CT: Right external iliac/common femoral adenopathy, largest node measuring 2.5 x 2.0 cm. Please see details above. Findings are somewhat nonspecific, and stable since prior exam. Correlate for reactive/inflammatory lymph nodes versus any possibility of lymphoma or other metastatic disease. - Chest CTA: No evidence of pulmonary embolus, aortic dissection, or aortic aneurysm. - Anticoagulation: Lovenox 120 mg BID (4) Hypertension: Qualifiers: Hypertension type: unspecified Qualified Code(s): I10 - Essential (primary) hypertension Code(s): I10 - Essential (primary) hypertension Status: Acute Assessment and Plan: Chronic - Continue with metoprolol 200 mg daily - Amlodipine increased to 10 mg daily - Monitor (5) Chronic hypercapnic respiratory failure: Code(s): J96.12 - Chronic respiratory failure with hypercapnia Status: Acute Assessment and Plan: Patient has COPD with chronic hypercarbic respiratory failure with an ABG of 7.36/52.7/75 on room air, overnight oximetry on 2 L with time of saturation less than or equal to 88% 16 minutes. Patient will be trialed on BIPAP during admission by pulmonology. At time of discharge he is to be sent home with 4L nocturnal O2. (6) COPD (chronic obstructive pulmonary disease): Onset Date: ~08/24/21 Qualifiers: COPD type: unspecified COPD Qualified Code(s): J44.9 - Chronic obstructive pulmonary disease, unspecified Code(s): J44.9 - Chronic obstructive pulmonary disease, unspecified Status: Chronic Assessment and Plan: Chronic, no acute exacerbation. Time Spent With Patient Time with patient: 25 - 35 minutes Subjective Date/time seen: 03/13/24 08:20 Interval history: 53-year-old male with history of mild diastolic dysfunction, COPD, obesity, hyperlipidemia, hypertension presents to the hospital for chills, subjective fever and right inguinal pain. Patient is pleasant lying in bed. He has perfuse pain to the right knee and has difficulty moving the joint. He denies tingling/numbness to the area. He has no other complaints denying chest pain, shortness of breath, nausea/vomiting and abdominal pain. A lumbar puncture was ordered by prior provider, however patient does not wish to proceed with LP. Prior LP in November when patient was having similar symptoms to the left knee was negative. Review of Systems Review of Systems: All systems reviewed & are unremarkable except as noted in HPI and below Exam Narrative: AF HR 74 RR 20 SpO2 99 BP 129/71 General: male in no acute respiratory distress who is nontoxic appearing, lying semi recumbent in bed. HEENT: Normocephalic. Atraumatic. Extraocular movement intact. Sclera clear and anicteric. No facial asymmetry. Chest: Lungs are clear to auscultation bilaterally. No wheezes or crackles. CV: Heart was regular rate and rhythm. S1/S2. No murmurs, gallops, or rubs. Abd: Abdomen was soft. Nontender. Nondistended. Positive bowel sounds. No organomegaly or masses. Ext: Redness and edema to the right leg extending from mid colby to mid thigh, tenderness to slight palpation worse along the knee. 2+ DP pulses bilaterally. Neuro: Patient is alert and oriented x4. Cranial nerves 2-12 are intact. Speech is clear. No neuro deficits. No nuchal rigidity. Objective Data Vital Signs Vital Signs: Vital Signs - 24 hr 03/12/24 10:19 03/12/24 10:51 03/12/24 14:00 Temperature 101.9 F H 101.4 F H 100.8 F H Pulse Rate 105 H Respiratory Rate 20 Blood Pressure 155/79 H Pulse Oximetry 98 Oxygen Delivery Oxygen Flow Rate Fraction of Inspired Oxygen 03/12/24 15:07 03/12/24 20:00 03/12/24 20:31 Temperature 100.8 F H 101.2 F H Pulse Rate Respiratory Rate Blood Pressure Pulse Oximetry 98 Oxygen Delivery Nasal Cannula Oxygen Flow Rate 2 Fraction of Inspired Oxygen 03/12/24 22:26 03/12/24 23:15 03/13/24 01:33 Temperature 101.6 F H 99.2 F Pulse Rate 91 91 Respiratory Rate 16 24 H Blood Pressure 153/78 H Pulse Oximetry 95 95 Oxygen Delivery BiPAP Oxygen Flow Rate Fraction of Inspired Oxygen 03/13/24 04:05 03/13/24 04:15 03/13/24 06:00 Temperature 98.5 F Pulse Rate 74 Respiratory Rate 21 H 20 Blood Pressure 149/71 H Pulse Oximetry 95 99 Oxygen Delivery BiPAP BiPAP Oxygen Flow Rate Fraction of Inspired Oxygen 21 Intake/Output Intake/Output: Intake & Output 03/10/24 03/11/24 03/12/24 03/13/24 23:59 23:59 23:59 23:59 Intake Total 1000 5170.0 2000 Output Total 1600 1950 Balance 1000 3570.0 50 Meds/Results Medications: Active Medications Generic Name Dose Route Start Last Admin Trade Name Freq PRN Reason Stop Dose Admin Acetaminophen 650 mg 03/12/24 03:07 03/13/24 03:40 Acetaminophen 325 Mg Tablet PO 650 mg Q4H PRN Administration Mild Pain (1-3) or Fever Amlodipine Besylate 10 mg 03/13/24 09:00 Amlodipine Besylate 10 Mg Tablet PO DAILY CHRISTINA Enoxaparin Sodium 120 mg 03/12/24 11:00 03/12/24 20:35 Enoxaparin 120 Mg/0.8 Ml Syringe SUB-Q 120 mg Q12HR CHRISTINA Administration Fluticasone/Umeclidinium/Vilanterol 1 puff 03/12/24 08:00 Fluticasone/Umeclidin/Vilanter 100-62.5-25 Mcg Ellipta INHALATION DAILYRT CHRISTINA Vancomycin HCl 1,500 mg in 500 mls @ 250 mls/hr 03/12/24 19:00 03/12/24 20:08 Vancomycin 1,500 Mg/Ns 500 Ml IVPB Infused Q18H CHRISTINA Infusion Ceftriaxone Sodium 2 gm in 100 mls @ 200 mls/hr 03/12/24 09:00 03/12/24 21:07 Rocephin 2 Gm/Ns 100 Ml IVPB Infused Q12H CHRISTINA Infusion Ampicillin Sodium 2 gm in 100 mls @ 200 mls/hr 03/12/24 10:00 03/13/24 06:05 Ampicillin 2 Gm/Ns 100 Ml IVPB Infused Q4H CHRISTINA Infusion Dextrose/Sodium Chloride 1,000 mls @ 75 mls/hr 03/12/24 09:55 03/13/24 06:20 Dextrose 5% Sodium Chloride 0.9% IV CONT 75 mls/hr .[id number] CHRISTINA Administration Metoprolol Succinate 200 mg 03/12/24 09:00 03/12/24 10:40 Metoprolol Succinate Ext Rel 100 Mg Tabcr PO 200 mg DAILY CHRISTINA Administration Radiology Results: ITS Impressions Chest X-Ray 03/11/24 22:25 IMPRESSION: 1. No acute cardiopulmonary disease. Venous Doppler Study 03/11/24 22:44 IMPRESSION: 1. Deep vein thrombosis involving right femoral vein. Chest CTA 03/12/24 05:45 Impression: No evidence of pulmonary embolus, aortic dissection, or aortic aneurysm. Clear lungs. Lower Extremity CT 03/12/24 06:47 IMPRESSION: Right external iliac/common femoral adenopathy, largest node measuring 2.5 x 2.0 cm. Please see details above. Findings are somewhat nonspecific, and stable since prior exam. Correlate for reactive/inflammatory lymph nodes versus any possibility of lymphoma or other metastatic disease. Head CT 03/12/24 13:56 IMPRESSION: 1. Normal brain. Abdomen/Pelvis CT 03/12/24 14:07 Impression: Enlarged right common femoral region lymph node, as above, nonspecific. Diffuse hepatic steatosis. Small fat-containing left inguinal hernia. Labs Labs: Laboratory Results - last 24 hr 03/12/24 03/13/24 03/13/24 07:37 04:25 05:45 WBC 17.9 H 13.8 H RBC 4.08 L 3.71 L Hgb 11.5 L 10.3 L Hct 36.0 L 32.9 L MCV 88.2 88.7 MCH 28.2 27.8 MCHC 31.9 L 31.3 L RDW 14.4 14.4 Plt Count 177 146 L MPV 12.4 H Immature Gran % (Auto) 0.4 Neut % (Auto) 90.0 H Lymph % (Auto) 4.9 L Stephens % (Auto) 4.4 Eos % (Auto) 0.0 Baso % (Auto) 0.3 Lymph # (Auto) 0.87 L Stephens # (Auto) 0.8 H Eos # (Auto) 0.0 Baso # (Auto) 0.1 Abs Immat Gran (auto) 0.07 H Absolute Neuts (auto) 16.1 H Absolute Nucleated RBC 0.000 Nucleated RBC % 0.0 PT INR APTT Puncture Site Right radial ABG pH 7.433 ABG pCO2 38.2 ABG pO2 109.8 H ABG PO2/FiO2 Ratio 5.23 ABG HCO3 25.0 ABG O2 Saturation 98.2 ABG O2 Content 16.9 ABG Base Excess 0.8 A-a Gradient < 0.0 Oxyhemoglobin 97.6 Carboxyhemoglobin 0.4 Methemoglobin 0.3 Reduced Hemoglobin 1.7 Total Hemoglobin 12.2 O2 Delivery Device Non-invasive vent O2 Liters/Min Not Reportable Vent Rate 16 FiO2 21 Expiratory Pressure 5 Inspiratory Pressure 15 Sodium 135 L Potassium 2.9 L Chloride 100 Carbon Dioxide 30 Anion Gap 5 BUN 12 Creatinine 1.20 Estim Creat Clear Calc 76 Estimated GFR > 60 Glucose 133 H Calcium 8.6 03/13/24 03/13/24 05:45 05:45 WBC RBC Hgb Hct MCV MCH MCHC RDW Plt Count 154 MPV 12.0 H 12.2 H Immature Gran % (Auto) 0.7 H Neut % (Auto) 83.3 H Lymph % (Auto) 9.6 L Stephens % (Auto) 5.9 Eos % (Auto) 0.1 Baso % (Auto) 0.4 Lymph # (Auto) 1.32 Stephens # (Auto) 0.8 H Eos # (Auto) 0.0 Baso # (Auto) 0.1 Abs Immat Gran (auto) 0.10 H Absolute Neuts (auto) 11.5 H Absolute Nucleated RBC 0.000 Nucleated RBC % 0.0 PT 16.3 H D INR 1.3 APTT 54.6 H Puncture Site ABG pH ABG pCO2 ABG pO2 ABG PO2/FiO2 Ratio ABG HCO3 ABG O2 Saturation ABG O2 Content ABG Base Excess A-a Gradient Oxyhemoglobin Carboxyhemoglobin Methemoglobin Reduced Hemoglobin Total Hemoglobin O2 Delivery Device O2 Liters/Min Vent Rate FiO2 Expiratory Pressure Inspiratory Pressure Sodium 136 L Potassium 3.3 L Chloride 104 Carbon Dioxide 30 Anion Gap 2 L BUN 7 L D Creatinine 1.00 Estim Creat Clear Calc 90 Estimated GFR > 60 Glucose 133 H Calcium 8.3 L Quality VTE Prophylaxis VTE prophylaxis: pharmacologic ordered
[2024-03-13] MEDS: FLUTICASONE/UMECLIDIN/VILANTER 100-62.5-25 MCG ELLIPTA 1 PUFF INHALATION (08:47)
[2024-03-13] MEDS: METOPROLOL SUCCINATE EXT REL 100 MG TABCR 200 MG PO (09:30)
[2024-03-13] MEDS: cefTRIAXone 2 GM/NS 100 ML 2 GM/100 ML BAG IVPB (09:30)
[2024-03-13] MEDS: amLODIPine BESYLATE 10 MG TABLET PO (09:31)
--- NOTE | 2024-03-13 11:06 | P.CONPL_ITS ---
Assessment and Plan Assessment and plan (1) COPD (chronic obstructive pulmonary disease): Onset Date: ~08/24/21 Qualifiers: COPD type: unspecified COPD Qualified Code(s): J44.9 - Chronic obstructive pulmonary disease, unspecified Code(s): J44.9 - Chronic obstructive pulmonary disease, unspecified Status: Chronic Assessment and Plan: GOLD grade 3 group B COPD with chronic hypercarbic respiratory failure 30 pack year tobacco use, quit 2019, Alpha 1 anti trypsin genotype MM, PFTs 08/24/2021 with severe obstruction with an FEV1 of 1.26 L, 38% predicted, positive bronchodilator response, hyperinflation and mildly decreased DLCO that normalized when adjusted for alveolar volume. Patient has hypoxemic respiratory failure with home O2 assessment on 12/27/2023 requiring 2 L at rest and with activity. 03/06/2024 eosinophil count 410. 03/06/2024 6 minute walk 366 m with alexander saturation 93%. 03/06/2024: PFTs with a severe obstructive abnormality with an FEV1 1.60 L, 49% predicted, no bronchodilator response, slow vital capacity is 1.02 L greater than forced vital capacity suggestive of small airways disease, hyperinflation DLCO mildly decreased and normalized when adjusted for alveolar ventilation an ABG of 7.36/53/75 on room air. 03/04/2024: Overnight oximetry on 2 L with time of saturation less than or equal to 88% at 16 minutes. Maintained on Breztri. currently no evidence of COPD exacerbation, pneumonia, PE, bronchitis. patient on no oxygen at home. Currently was on 2 L nasal cannula saturation 98%. I placed him on room air and his saturations remained 92%. Plan: I will continue patient's triple inhalers with trelegy inhaler 100. Goal saturation 90-94%. Adjust oxygen accordingly. From a pulmonary perspective patient can be discharged on these pulmonary medications: Breztri 160-9-4.8 at 2 puffs twice a day. Rescue albuterol 2 puffs q.4 hours p.r.n. shortness of breath or wheezing 4 L nasal cannula oxygen at night pending set up of his noninvasive ventilation with BiPAP. Ipatient pulmonary consult services will resume on 03/16/2024. Call with questions. Discussed with Danelle Henry. (2) Chronic hypercapnic respiratory failure: Code(s): J96.12 - Chronic respiratory failure with hypercapnia Status: Acute Assessment and Plan: Patient has COPD with chronic hypercarbic respiratory failure with an ABG of 7.36/52.7/75 on room air, overnight oximetry on 2 L with time of saturation less than or equal to 88% 16 minutes. Patient with COPD and chronic hypercarbic respiratory failure and would benefit from noninvasive ventilation to prevent further deterioration and subsequent hospitalizations. I will initiate the patient on BiPAP. 03/13/24: He said he wore the fullface mask with the BiPAP 16 pressures 15/5, inspiratory time 1.0, rise ramp of 0.1 and room air. Patient had an overnight oximetry on these settings with a recording duration of 4 hours and 56 minutes, average saturation 92%, low saturation 82%, time with saturation less than or equal to 88% was 31 minutes with an oxygen desaturation index of 72.8. ABG prior to removal was 7.43/38/110. He says he had a difficult time as BiPAP was pushing the air in too fast and I adjusted his inspiratory time from 1.0 to 1.3 and his ramp rise from 0.1 to 0.4 and he said that this felt much better. Plan: BiPAP 16 pressures 15/5 provide adequate ventilation. Patient was hypoxic on room air. It appears that according to his insurance patient should be on BiPAP with no backup rate for 60 days. Tonight I will place the patient on BiPAP pressures 15/5 with no backup rate, inspiratory time 1.3, rise of 0.4 and 2 L nasal cannula. I will perform an overnight oximetry on 28% and an ABG prior to removal on these settings. I will initiate process for home noninvasive ventilation today. History of Present Illness History of Present Illness Consult date: 03/13/24 Chief complaint: Sepsis Narrative: 03/13/2024: This is a new pulmonary consult for COPD with chronic hypercarbic respiratory failure. 53-year-old with a history of COPD, hypertension, diastolic dysfunction, obesity, HARLAN, and pulmonary hypertension. Patient is followed in the [facility]monary [facility] and last seen on 02/13/2024. GOLD grade 3 group B COPD with chronic hypercarbic respiratory failure 30 pack year tobacco use, quit 2019, Alpha 1 anti trypsin genotype MM, PFTs 08/24/2021 with severe obstruction with an FEV1 of 1.26 L, 38% predicted, positive bronchodilator response, hyperinflation and mildly decreased DLCO that normalized when adjusted for alveolar volume. Patient has hypoxemic respiratory failure with home O2 assessment on 12/27/2023 requiring 2 L at rest and with activity. 03/06/2024 eosinophil count 410. 03/06/2024 6 minute walk 366 m with alexander saturation 93%. 03/06/2024: PFTs with a severe obstructive abnormality with an FEV1 1.60 L, 49% predicted, no bronchodilator response, slow vital capacity is 1.02 L greater than forced vital capacity suggestive of small airways disease, hyperinflation DLCO mildly decreased and normalized when adjusted for alveolar ventilation an ABG of 7.36/53/75 on room air. 03/04/2024: Overnight oximetry on 2 L with time of saturation less than or equal to 88% at 16 minutes. Maintained on Breztri. patient presented to [facility] on 03/12/2024 with chills. He denied any respiratory issues. Specifically denied cough, phlegm production, hemoptysis, chest pain, worsening shortness of breath or dyspnea on exertion. White blood cell count was 17 0.9 and he was admitted to the hospital with cellulitis and to rule out meningitis. Patient with right femoral vein DVT. CT angiogram of the chest with no pulmonary embolism. Started on full-dose Lovenox. Given his chronic hypercarbic respiratory failure he was initiated on nocturnal noninvasive ventilator with BiPAP with a backup rate of 16, pressures 15/5 and room air. 03/13/24: Currently the patient denies any respiratory complaints. He said he wore the fullface mask with the BiPAP 16 pressures 15/5, inspiratory time 1.0, rise ramp of 0.1 and room air. Patient had an overnight oximetry on these settings with a recording duration of 4 hours and 56 minutes, average saturation 92%, low saturation 82%, time with saturation less than or equal to 88% was 31 minutes with an oxygen desaturation index of 72.8. ABG prior to removal was 7.43/38/110. He says he had a difficult time as BiPAP was pushing the air in too fast and I adjusted his inspiratory time from 1.0 to 1.3 and his ramp rise from 0.1 to 0.4 and he said that this felt much better. DATA: 03/04/2024: Overnight oximetry on 2 L nasal cannula: Recording duration 4 hours and 5 minutes. Basal saturation 94.5. Low saturation 63%. Time with saturation less than or equal to 88% was 16 minutes and 6 seconds. Oxygen desaturation index is 30. 03/06/2024: This is a pulmonary function test with pre and post-bronchodilator spirometry, plethysmography, diffusing capacity, and rest room air arterial blood gas. The test was performed and results interpreted in accordance with the 2019 and 2005 ATS/ERS Task Force guidelines respectively using the Global Lung Function Initiative-2012 reference equations. Patient demonstrated good effort and cooperation. Reproducibility criteria were met. The quality of the pre bronchodilator spirometry maneuver was Grade A and post bronchodilator spirometry maneuver was Grade A. Findings: Spirometry: there is decreased maximal expiratory airflow at all lung volumes with concave expiratory flow tracing. The contour the inspiratory flow tracing is normal. The pre bronchodilator FVC is 2.3 L, 58% predicted. The pre bronchodilator FEV1 is 1.60 L, 49% predicted. The pre bronchodilator FEV1: FVC ratio is 67%. The post bronchodilator FVC is 2.47 L, representing a 4% increase. The post bronchodilator FEV1 is 1.70 L, representing a 6% increase. The post bronchodilator FEV1: FVC ratio 69%. Plethysmography: The total lung capacity is 6.03 L, 101% predicted. The functional residual capacity is 2.80 L, 94% predicted. The residual volume is 2.73 L, 152% predicted. The slow vital capacity is 3.30 L. The residual volume: Total lung capacity ratio is 45%. Diffusing capacity: The diffusing capacity unadjusted for hemoglobin and carboxyhemoglobin is 17.2, 61% predicted. The diffusing capacity adjusted for alveolar volume is 5.00, 105% predicted. Rest room air arterial blood gas: PH 7.36, PaCO2 52.7, PaO2 75. In comparison to Pulmonary function testing on 08/24/2021 the post bronchodilator FVC is unchanged from 2.49 L to 2 point 4 7 L. The post bronchodilator FEV1 is unchanged from 1.72 L to 1.70 L. The total lung capacity is unchanged from 7.01 L to 6.03 L. The functional residual capacity is decreased from 4.33 L to 2.80 L. The residual volume is decreased from 4.25 L to 2.73 L. the slow vital capacity is unchanged from 3.30 L to 2.76 L. the residual volume: Total lung capacity ratio has decreased from 61% to 45%. The diffusing capacity unadjusted for hemoglobin and carboxyhemoglobin is unchanged from 18.0 to 17.2. The diffusing capacity adjusted for alveolar volume is unchanged from 5.60 to 5.00. Impression: There is a severe obstructive abnormality. There is no significant improvement after inhaling a single dose of albuterol. The slow vital capacity is 1.02 L greater than forced vital capacity. This is suggestive of small airways disease. The increase in residual volume to total lung volume ratio is consistent with hyperinflation from an obstructive abnormality. The diffusing capacity unadjusted for hemoglobin and carboxyhemoglobin is mildly decreased and normalizes when adjusted for alveolar volume. The rest room air arterial blood gas demonstrates a compensated respiratory acidosis. In comparison to previous pulmonary function testing on 08/24/2021 there has been a greater than anticipated time dependent decrease in the functional residual capacity, residual volume, And residual volume: Total lung capacity ratio with no significant change in the FVC, FEV1, total lung capacity or diffusing capacity. 03/06/2024: This is a 6 minute walk test. The test was performed and interpreted in accordance with the 2014 ERS/ATS task force guidelines. Findings: The patient's resting room air oxygen saturation measured by pulse oximetry was 95%, the heart rate was 775 bpm, and the modified Jose Francisco dyspnea score was 0.5. Patient ambulated for 366 meters and oxygen saturation remained 93 to 94%. At the end of the study the heart rate was 102 bpm and the modified Jose Francisco dyspnea score was 2. The patient did not qualify for supplemental oxygen at rest or with ambulation. There are no prior studies for comparison. 03/06/2024: White blood cell count 7.9K, eosinophils 5.2%=410 uL. eosinophils greater than 300 per micro L and will continue maricarmentri inhaler at this time. 02/13/2024: Alpha 1 anti trypsin genotype MM, normal. 12/27/2023: Home O2 evaluation.? Rest room air saturation 87%.? Rest nasal cannula 1 L saturation 88%.? Rest nasal cannula 2 L saturation 94%.? Exercise nasal cannula 2 L saturation 92%.? Patient requires 2 L at rest and with activity.? Set up with [facility] 05/27/2023:? Overnight oximetry on 2 L nasal cannula.? Recording duration 6 hours and 49 minutes.? Baseline saturation 97%.? Average saturation 96%.? Low saturation 78%.? Time with saturation less than or equal to 88% was 8 minutes, 2% of the recording time.? Oxygen desaturation index 6.3. 12/26/2023: Echo Summary 1. Left ventricular chamber dimension is normal. 2. Left ventricular systolic function is normal, estimated at 60-65%. 3. The left ventricular diastolic function is abnormal. 4. Definity contrast administered improved wall motion interpretation. 5. E/e' 10 is mildly elevated. 6. There is trace tricuspid valve regurgitation. 7. Moderate pulmonary hypertension, estimated pulmonary arterial systolic pressure is 57 mmHg. Right Ventricle Right ventricular chamber dimension is normal. Right ventricular systolic function is normal. Right Atria Right atrial chamber dimension is normal. 12/24/2023: EXAMINATION: CTA chest PE protocol INDICATION: Hypoxia COMPARISON: CT abdomen pelvis dated 12/22/2023 FINDINGS: No pulmonary embolism. Lungs are clear with no pneumonia, pulmonary edema or other pulmonary infiltrates. No pleural effusion or pneumothorax. Heart size is normal. Small amount of atherosclerotic coronary artery calcific location. No pericardial effusion. Thoracic aorta is normal in caliber with no dissection. No pathologically enlarged thoracic lymphadenopathy. Visualized upper abdomen is unremarkable. Moderate thoracic spondylosis with chronic appearing mild anterior wedging at T8 and T11. IMPRESSION: 1. No pulmonary embolism or other acute cardiopulmonary disease. 08/24/2021:? This is a pulmonary function test with pre and post-bronchodilator spirometry, plethysmography and diffusing capacity.? The test was performed and results interpreted in accordance with the 2019 and 2005 ATS/ERS Task Force guidelines respectively using the Global Lung Function Initiative-2012 reference equations. Patient demonstrated good effort and cooperation. Reproducibility criteria were met. The quality of the pre bronchodilator spirometry maneuver was Grade A and post bronchodilator spirometry maneuver was Grade A. Findings: Spirometry:? There is decreased maximal expiratory airflow at all lung volumes with concave expiratory flow tracing.? The contour the inspiratory flow tracing is normal.? The pre bronchodilator FVC is 2.05 L, 49% predicted.? The pre bronchodilator FEV1 is 1.26 L, 38% predicted.? The pre bronchodilator FEV1: FVC ratio 61%.? The post bronchodilator FVC is 2.49 L, representing a 21% increase.? The post bronchodilator FEV1 is 1.72 L, representing a 36% increase.? The post bronchodilator FEV1:? FVC ratio is 69%.? Plethysmography:? The total lung capacity is 7.01 L, 118% predicted.? The functional residual capacity is 4.33 L, 147% predicted.? The residual volume is 4.25 L, 242% predicted.? The residual volume: Total lung capacity ratio 61%.? Diffusing capacity:? The diffusing capacity unadjusted for hemoglobin and carboxyhemoglobin is 18.0, 63% predicted.? The diffusing capacity adjusted for alveolar volume is 5.60, 116% predicted. Impression: There is a severe obstructive abnormality. There is significant improvement after inhaling a single dose of albuterol.? The increase in residual volume to total lung volume ratio is consistent with hyperinflation from an obstructive abnormality.? The diffusing capacity unadjusted for hemoglobin and carboxyhemoglobin is mildly decreased and normalizes when adjusted for alveolar volume. There are no prior studies for comparison Review of Systems 2 Constitutional: Constitutional: Reports no additional constitutional complaints Eyes: Eyes: Reports no additional eye complaints ENT: Reports system reviewed and no additional complaints, except as documented Cardiovascular: Cardiovascular: Reports no additional cardiovascular complaints Respiratory: Respiratory: Reports no additional respiratory complaints Gastrointestinal: Gastrointestinal: Reports no additional gastrointestinal complaints Musculoskeletal: Musculoskeletal: Reports no additional musculoskeletal complaints Neurologic: Reports system reviewed and no additional complaints, except as documented Psychiatric: Psychiatric: Reports no additional psychiatric complaints Endocrine: Endocrine: Reports no additional endocrine complaints Hematologic/Lymphatic: Hematologic/Lymphatic: Reports no additional hematologic/lymphatic complaints Allergic/Immunologic: Allergic/Immunologic: Reports no additional allergic/immunologic complaints [facility] Past Medical History Medical History Nocturnal hypoxemia Pulmonary hypertension Mild diastolic dysfunction Cellulitis and abscess of left leg (~12/23/23) Bacterial meningitis Sepsis Leg pain, left Febrile illness Inguinal adenopathy Headache Hand eczema COPD exacerbation SOB (shortness of breath) Cough Morbid obesity with BMI of 40.0-44.9, adult Acute conjunctivitis of left eye Dyshidrotic eczema Tinea pedis Pain in joints of both feet x-rays of both feet on 05/07/2022 reveals diffuse mild osteoarthritis of both feet. Rash and nonspecific skin eruption Adult BMI 39.0-39.9 kg/sq m Obesity (BMI 30-39.9) COVID-19 (~08/2021) 2nd episode with mild symptoms for 2 or 3 days. Candidiasis of other urogenital sites (10/31/21) Low iron (08/24/21) iron 49 with 13% saturation and hemoglobin 14.1 on 08/24/2021. Iron 50 with 12% saturation and ferritin 31 on 11/13/2022. COPD (chronic obstructive pulmonary disease) (~08/24/21) PFT on 08/24/2021 with moderate obstructive defect with significant improvement with bronchodilator. Dyspnea on exertion exercise stress test on 08/24/2021 was negative for ischemia. EKG revealed sinus rhythm with borderline R-wave progression. Chronic nonallergic rhinitis BMI 37.0-37.9, adult Hearing loss chronic worse on left than right Encounter for wellness examination in adult COVID-19 (02/14/21) fully vaccinated and COVID BMI 36.0-36.9,adult Insomnia Acute low back pain Mixed hyperlipidemia total cholesterol 217, triglycerides 403, HDL 30 and LDL 106 with AST 22 and ALT 26 on 03/11/2020. Cholesterol 207, HDL 40, triglycerides 111, LDL 142 on 08/24/2021. Cholesterol 226, triglycerides 169, HDL 36, LDL 159 on 11/13/2022. Abnormal fasting glucose fasting glucose normal at 95 on 03/11/2020. Glucose 110 with hemoglobin A1c 5.5 on 08/24/2021. Glucose 95 with hemoglobin A1c 5.8 on 11/13/2022 Chronic pain of both knees chronic bilateral knee pain after multiple surgeries. Degenerative changes. Permanent handicap placard 06/29/2021 Tonsillar hypertrophy Encounter for prostate cancer screening PSA 0.6 on 03/11/2020. PSA 1.0 on 08/24/2021. Lip cyst Tobacco use disorder, continuous patient quit smoking cigarettes Jul, 2021 but continues to chew tobacco 1/2 can daily. Obstructive sleep apnea Hypertension Surgical History Surgical History H/O shoulder surgery left shoulder History of neck surgery History of right knee surgery (~2017) H/O left knee surgery (~2013) Family History Family History Mother Parkinson disease Father Accident Social History Social History Smoking packs per day: 1 Smoking cigarettes per day: 20.0 Smoking status: Former smoker Tobacco type: cigarettes Smokeless tobacco user: chewing tobacco Second hand tobacco smoke exposure: No Smoking end date: 04/01/19 Alcohol intake: never Substance use: never Substance use type: does not use Do You Feel Safe in your Home?: Yes Lack of Transportation: YES Lack of Food: Never True Current Housing: I Have Housing Concerned About Future Housing: No Difficulty Paying Gas/Electric Bills: No Difficulty Paying for Meds: No Currently Unemployed: No Education: High School Diploma/GED Difficulty w/ Childcare or Family Care: No Living arrangements: with family Occupation/Education: occupation Gender identity (if verbalized by the patient): Male Spiritual care concerns: No Meds Home Medications and Allergies Home Medications ?Medication ?Instructions ?Recorded ?Confirmed ?Type metoprolol succinate 200 mg 200 mg PO DAILY #90 tabs 04/29/23 03/12/24 Rx tablet,extended release 24 hr ibuprofen 800 mg tablet 800 mg PO TID PRN pain #90 tabs 10/02/23 03/12/24 Rx budesonide 160 mcg-glycopyr 9 2 inh inhalation BID #10.7 grams 12/31/23 03/12/24 Rx mcg-formot 4.8 mcg/actuation HFA inhaler (Breztri Aerosphere) amlodipine 5 mg tablet (Norvasc) 5 mg PO DAILY #90 tabs 01/22/24 03/12/24 Rx furosemide 40 mg tablet (Lasix) 40 mg PO QAM #90 tabs 01/22/24 03/12/24 Rx Allergies Allergy/AdvReac Type Severity Reaction Status Date / Time chlorpheniramine (From AdvReac CHILE- Verified 02/13/24 13:04 Actifed Cold-Allergy) UNKNOWN REACTION phenylephrine (From Actifed AdvReac CHILD- Verified 02/13/24 13:04 Cold-Allergy) UNKNOWN REACTION pseudoephedrine (From AdvReac CHILD- Verified 02/13/24 13:04 Actifed Cold-Allergy) UNKNOWN REACTION triprolidine (From Actifed AdvReac CHILD- Verified 02/13/24 13:04 Cold-Allergy) UNKNOWN REACTION Vital Signs Vital Signs - 24 hr 03/12/24 14:00 03/12/24 15:07 03/12/24 20:00 Temperature 38.2 C H 38.2 C H Pulse Rate 105 H Respiratory Rate 20 Blood Pressure 155/79 H Pulse Oximetry 98 98 Oxygen Delivery Nasal Cannula Oxygen Flow Rate 2 Fraction of Inspired Oxygen 03/12/24 20:31 03/12/24 22:26 03/12/24 23:15 Temperature 38.4 C H 38.7 C H Pulse Rate 91 91 Respiratory Rate 16 24 H Blood Pressure 153/78 H Pulse Oximetry 95 95 Oxygen Delivery BiPAP Oxygen Flow Rate Fraction of Inspired Oxygen 03/13/24 01:33 03/13/24 04:05 03/13/24 04:15 Temperature 37.3 C Pulse Rate Respiratory Rate 21 H Blood Pressure Pulse Oximetry 95 Oxygen Delivery BiPAP BiPAP Oxygen Flow Rate Fraction of Inspired Oxygen 21 03/13/24 06:00 03/13/24 08:05 03/13/24 08:05 Temperature 36.9 C Pulse Rate 74 97 Respiratory Rate 20 20 Blood Pressure 149/71 H Pulse Oximetry 99 95 Oxygen Delivery Nasal Cannula Oxygen Flow Rate 3 Fraction of Inspired Oxygen Exam 2 Const: General: cooperative, healthy appearing and comfortable O rientation/consciousness: oriented to person, oriented to place and oriented to time HENMT: Head: normal to inspection Ears: hearing grossly normal bilaterally Eyes: General: appearance normal, both eyes and all related structures Neck: Neck: normal visual inspection Chest: Chest palpation & inspection: normal inspection of the chest Resp: Effort & Inspection: normal respiratory effort and able to speak in complete sentences Auscultation: no crackles, no rales, no rhonchi, no wheezes and lung sounds not diminished Cardio: Jugular venous distension: no JVD GI: Inspection: normal to inspection GI Palp: No abdominal tenderness Skin: General skin exam: normal color Neuro: General: oriented to person, oriented to place and oriented to time Extrem: General: normal to inspection and edema Other: erythema and petechia around right knee Psych: Appearance: grossly normal Results Laboratory Findings 03/13/24 05:45 03/13/24 05:45 ABG, PT/INR, D-dimer: ABG ABG pH 7.433 (7.350-7.450) 03/13/24 04:25 ABG pCO2 38.2 mmHg (35.0-45.0) 03/13/24 04:25 ABG pO2 109.8 mmHg (80.0-100.0) H 03/13/24 04:25 ABG O2 Saturation 98.2 % (95.0-100.0) 03/13/24 04:25 PT/INR, D-dimer PT 16.3 Seconds (11.1-14.7) H D 03/13/24 05:45 INR 1.3 03/13/24 05:45 Abnormal lab findings: Abnormal Labs 03/11/24 03/12/24 03/13/24 22:50 07:37 04:25 WBC 25.1 H 17.9 H RBC 4.22 L 4.08 L Hgb 12.1 L 11.5 L Hct 36.6 L 36.0 L MCHC 31.9 L Plt Count MPV 12.2 H 12.4 H Immature Gran % (Auto) 1.1 H Neut % (Auto) 89.8 H 90.0 H Lymph % (Auto) 3.7 L 4.9 L Lymph # (Auto) 0.87 L Daniels # (Auto) 1.2 H 0.8 H Abs Immat Gran (auto) 0.28 H 0.07 H Absolute Neuts (auto) 22.5 H 16.1 H PT APTT ABG pO2 109.8 H Sodium 135 L 135 L Potassium 3.3 L 2.9 L Anion Gap BUN Glucose 145 H 133 H Calcium C-Reactive Protein 6.9 H Urine Protein 1+ H Urine Ketones Trace H 03/13/24 03/13/24 05:45 05:45 WBC 13.8 H RBC 3.71 L Hgb 10.3 L Hct 32.9 L MCHC 31.3 L Plt Count 146 L MPV 12.0 H 12.2 H Immature Gran % (Auto) 0.7 H Neut % (Auto) 83.3 H Lymph % (Auto) 9.6 L Lymph # (Auto) Daniels # (Auto) 0.8 H Abs Immat Gran (auto) 0.10 H Absolute Neuts (auto) 11.5 H PT 16.3 H D APTT 54.6 H ABG pO2 Sodium 136 L Potassium 3.3 L Anion Gap 2 L BUN 7 L D Glucose 133 H Calcium 8.3 L C-Reactive Protein Urine Protein Urine Ketones Diagnostic Findings Additional studies: ITS Impressions Chest X-Ray 03/11/24 22:25 IMPRESSION: 1. No acute cardiopulmonary disease. Venous Doppler Study 03/11/24 22:44 IMPRESSION: 1. Deep vein thrombosis involving right femoral vein. Chest CTA 03/12/24 05:45 Impression: No evidence of pulmonary embolus, aortic dissection, or aortic aneurysm. Clear lungs. Lower Extremity CT 03/12/24 06:47 IMPRESSION: Right external iliac/common femoral adenopathy, largest node measuring 2.5 x 2.0 cm. Please see details above. Findings are somewhat nonspecific, and stable since prior exam. Correlate for reactive/inflammatory lymph nodes versus any possibility of lymphoma or other metastatic disease. Head CT 03/12/24 13:56 IMPRESSION: 1. Normal brain. Abdomen/Pelvis CT 03/12/24 14:07 Impression: Enlarged right common femoral region lymph node, as above, nonspecific. Diffuse hepatic steatosis. Small fat-containing left inguinal hernia.
[2024-03-13] MEDS: HYDROcodone/acetaminophen (*CRX) 5-325 MG TABLET 1 TAB PO (11:20)
[2024-03-13 12:06] LABS: Vancomycin Trough < 5.0 ug/mL (10.0-20.0)
--- NOTE | 2024-03-13 13:27 | PCCARD ---
Permission given from ,Hospitalist coordinator, Yazmin Harrison, to modify order to a Limited Echo study.
[2024-03-13] MEDS: PERFLUTREN LIPID MICROSPHERES 1.5 ML VIAL DILUTED TO 10 ML TOTAL VOLUME IV PUSH (14:40)
--- NOTE | 2024-03-13 14:43 | PCRCNOTE ---
Home bipap machine being arranged with [facility]. [phone].
--- NOTE | 2024-03-13 14:50 | IVDEFINITY ---
Prior to administration of IV Definity the patient was educated on the risks and benefits of the imaging enhancing agent including potential adverse side effects. The patient verbalized understanding. Allergies were verified. No exclusion criteria were identified and at least one of the following inclusion criteria were met: 1) physician request, 2) patient technically difficult to image (per the [employer] guidelines of two or more segments not discernable within the apical view), or 3) questionable left ventricular function. ?
[2024-03-13] MEDS: MORPHINE SULFATE (*CRX) 2 MG/ML INJ IV PUSH ×2 (17:02→21:06)
[2024-03-13] MEDS: CEFEPIME 2 GM/NS 50 ML 2 GM/50 ML BAG IVPB (17:02)
[2024-03-13] MEDS: VANCOMYCIN 2,000 MG/NS 500 ML 2,000 MG/500 ML BAG 250 MG IVPB (19:28)
[2024-03-13] MEDS: ENOXAPARIN 120 MG/0.8 ML SYRINGE SUB-Q (20:27)
[2024-03-14] VITALS (7 sets, daily range): BP systolic 131–133; BP diastolic 62–76; PULSE 79–91; RESP 18–20; TEMP 36.6–37.1; O2SAT 95–96
[2024-03-14] MEDS: CEFEPIME 2 GM/NS 50 ML 2 GM/50 ML BAG IVPB ×3 (00:10→16:04)
[2024-03-14] MEDS: MORPHINE SULFATE (*CRX) 2 MG/ML INJ IV PUSH ×6 (01:05→22:21)
[2024-03-14 01:25] LABS: Alveolar/Arterial O2 Gradient 95.7 mmHg; Base Excess ABG -0.5 mEq/l (+/-2.0); Fractional Inspired Oxygen 28 %; HCO3 ABG 24.1 mEq/l (22.0-26.0); Oxygen Content ABG 15.2 %vol (16.0-22.0); Oxygen Saturation ABG 89.9 % (95.0-100.0); Oxyhemoglobin 89.4 % THb (90.0-100.0); PCO2 ABG 39.6 mmHg (35.0-45.0); PO2 ABG 57.2 mmHg (80.0-100.0); PO2 FiO2 Ratio Arterial Blood 2.04 %; Total Hemoglobin 12.1 g/dL (12.0-18.0); pH ABG 7.403 (7.350-7.450)
[2024-03-14 01:27] LABS: Device BIPAP; Modified Allen's Test Pass; Site Drawn RIGHT RADIAL
[2024-03-14 01:28] LABS: Expiratory Pressure 5 cmH2O; Inspiratory Pressure 15 cmH2O
[2024-03-14] MEDS: VANCOMYCIN 2,000 MG/NS 500 ML 2,000 MG/500 ML BAG 250 MG IVPB (06:45)
[2024-03-14] MEDS: ENOXAPARIN 120 MG/0.8 ML SYRINGE SUB-Q ×2 (08:04→20:28)
[2024-03-14] MEDS: METOPROLOL SUCCINATE EXT REL 100 MG TABCR 200 MG PO (08:04)
[2024-03-14] MEDS: amLODIPine BESYLATE 10 MG TABLET PO (08:04)
[2024-03-14 08:10] LABS: Estimated CRCL calculation 90 ml/min; Estimated Glomerular Filt Rate > 60
[2024-03-14] MEDS: FLUTICASONE/UMECLIDIN/VILANTER 100-62.5-25 MCG ELLIPTA 1 PUFF INHALATION (08:14)
[2024-03-14 12:04] LABS: Hematocrit 31.7 % (42.0-52.0); Hemoglobin 10.2 g/dL (14.0-18.0); Mean Corpuscular HGB Conc 32.2 g/dl (32-36); Mean Corpuscular Hemoglobin 28.5 pg (26-34); Mean Corpuscular Volume 88.5 fl (80-100); Mean Platelet Volume 12.5 fl (7.4-10.4); Platelet Count Result 162 k/mm3 (150-375); Red Blood Count 3.58 M/mm3 (4.6-6.20); Red Cell Distribution Width 14.7 % (11.5-14.5)
[2024-03-14] MEDS: oxyCODONE HCL (*CRX) 5 MG TAB IR PO ×3 (12:26→20:27)
[2024-03-14 12:43] LABS: Alanine Aminotransferase 33 U/L (6-50); Albumin Level 3.5 g/dL (3.5-5.1); Alkaline Phosphatase 75 U/L (38-126); Anion Gap 6 mmol/L (4-12); Aspartate Amino Transferase 29 U/L (17-59); Bilirubin,Total 0.4 mg/dL (0.2-1.3); Blood Urea Nitrogen 8 mg/dL (9-20); Calcium 8.3 mg/dL (8.4-10.2); Carbon Dioxide 26 mmol/L (22-30); Chloride 104 mmol/L (98-107); Glucose 110 mg/dL (65-110); Potassium 3.7 mmol/L (3.4-5.0); Sodium 136 mmol/L (137-145)
--- NOTE | 2024-03-14 13:33 | P.PNIM_ITS ---
Progress Note: A&P Assessment and Plan (1) Sepsis: Qualifiers: Sepsis acute organ dysfunction status: unspecified Sepsis type: sepsis due to unspecified organism Qualified Code(s): A41.9 - Sepsis, unspecified o rganism Code(s): A41.9 - Sepsis, unspecified organism Status: Acute Assessment and Plan: - lactic acid: 1.6 - suspected source: right lower extremity cellulitis? - blood cultures drawn on 03/11: NGTD - Viral panel negative - UA: non concerning for infection - CXR: No acute cardiopulmonary disease. - Chest CTA: No evidence of pulmonary embolus, aortic dissection, or aortic aneurysm. - Abd/pelvis CT: Enlarged right common femoral region lymph node, as above, nonspecific. Diffuse hepatic steatosis. Small fat-containing left inguinal hernia. - Right LE CT: Right external iliac/common femoral adenopathy, largest node measuring 2.5 x 2.0 cm. Please see details above. Findings are somewhat nonspecific, and stable since prior exam. Correlate for reactive/inflammatory lymph nodes versus any possibility of lymphoma or other metastatic disease. Per chart review prior provider discussed with radiology and no concerning abnormalities noted on right leg CT for right knee - Concern for meningitis, although the suspicion is extremely low. A lumbar puncture was ordered by prior provider, however patient does not wish to proceed with LP. Prior LP in November when patient was having similar symptoms was nega tive. - Head CT: normal brain - Echo unremarkable - Right LE US Showed right femoral DVT - Continue tele monitoring - Antibiotics: vancomycin, ampicillin, cefepime Culture negative Biopsy right femoral adenopathy ordered monitor Patient had already had LP done last admission and was negative, he currently declines any LP stating his last one was negative (2) Cellulitis: Qualifiers: Laterality: right Site of cellulitis: extremity Site of cellulitis of extremity: lower extremity Qualified Code(s): L03.115 - Cellulitis of right lower limb Code(s): L03.90 - Cellulitis, unspecified Status: Acute Assessment and Plan: - Right LE CT: Right external iliac/common femoral adenopathy, largest node measuring 2.5 x 2.0 cm. Please see details above. Findings are somewhat nonspecific, and stable since prior exam. Correlate for reactive/inflammatory lymph nodes versus any possibility of lymphoma or other metastatic disease. - Antiboitics: vancomycin, ampicillin, ceftriaxone - Monitor vital signs, I&Os, neuro status and patient is a fall risk - Monitor serum electrolytes, CBC, cultures, WBC and temp curve - monitor closely (3) DVT (deep venous thrombosis): Qualifiers: Affected thrombotic vein of extremity: femoral Chronicity: acute DVT location: lower extremity Laterality: right Qualified Code(s): I82.411 - Acute embolism and thrombosis of right femoral vein Code(s): I82.409 - Acute embolism and thrombosis of unspecified deep veins of unspecified lower extremity Status: Acute Assessment and Plan: - Venous doppler: Deep vein thrombosis involving right femoral vein. - Right LE CT: Right external iliac/common femoral adenopathy, largest node measuring 2.5 x 2.0 cm. Please see details above. Findings are somewhat nonspe cific, and stable since prior exam. Correlate for reactive/inflammatory lymph nodes versus any possibility of lymphoma or other metastatic disease. - Chest CTA: No evidence of pulmonary embolus, aortic dissection, or aortic aneurysm. - Anticoagulation: Lovenox 120 mg BID (4) Hypertension: Qualifiers: Hypertension type: unspecified Qualified Code(s): I10 - Essential (primary) hypertension Code(s): I10 - Essential (primary) hypertension Status: Acute Assessment and Plan: Chronic - Continue with metoprolol 200 mg daily - Amlodipine increased to 10 mg daily - Monitor (5) Chronic hypercapnic respiratory failure: Code(s): J96.12 - Chronic respiratory failure with hypercapnia Status: Acute Assessment and Plan: Patient has COPD with chronic hypercarbic respiratory failure with an ABG of 7.36/52.7/75 on room air, overnight oximetry on 2 L with time of saturation less than or equal to 88% 16 minutes. BiPAP at night, patient on 2 liters at the time of encounter apnea link tonight on 2 liters (6) COPD (chronic obstructive pulmonary disease): Onset Date: ~08/24/21 Qualifiers: COPD type: unspecified COPD Qualified Code(s): J44.9 - Chronic obstructive pulmonary disease, unspecified Code(s): J44.9 - Chronic obstructive pulmonary disease, unspecified Status: Chronic Assessment and Plan: Chronic, no acute exacerbation. Plan DVT prophylaxis on Full dose Lovenox Subjective Date/time seen: 03/14/24 13:33 Interval history: Patient comfortable at bedside last fever 102.6 was 1630 Patient has LP done the last admission which was negative and has declined repeat LP this admission will keep current management and monitor Review of Systems Review of Systems: All systems reviewed & are unremarkable except as noted in HPI and below Constitutional: Constitutional: Reports body ache(s), Reports chills, Reports fatigue and Reports weakness Eyes: Eyes: Reports no additional eye complaints ENT: Reports system reviewed and no additional complaints, except as documented Cardiovascular: Cardiovascular: Reports diaphoresis Respiratory: Respiratory: Reports no additional respiratory complaints Gastrointestinal: Gastrointestinal: Reports no additional gastrointestinal complaints Musculoskeletal: Musculoskeletal: Reports myalgias, Reports arthralgias and Reports joint swelling Neurologic: Reports system reviewed and no additional complaints, except as documented and Reports weakness Endocrine: Endocrine: Reports fatigue Exam Narrative: AF HR 74 RR 20 SpO2 99 BP 129/71 General: male in no acute respiratory distress who is nontoxic appearing, lying semi recumbent in bed. HEENT: Normocephalic. Atraumatic. Extraocular movement intact. Sclera clear and anicteric. No facial asymmetry. Chest: Lungs are clear to auscultation bilaterally. No wheezes or crackles. CV: Heart was regular rate and rhythm. S1/S2. No murmurs, gallops, or rubs. Abd: Abdomen was soft. Nontender. Nondistended. Positive bowel sounds. No organomegaly or masses. Ext: Redness and edema to the right leg extending from mid colby to mid thigh, tenderness to slight palpation worse along the knee. 2+ DP pulses bilaterally. Neuro: Patient is alert and oriented x4. Cranial nerves 2-12 are intact. Speech is clear. No neuro deficits. No nuchal rigidity. Const: General: in distress and uncomfortable HENMT: Face/Nose/Sinus: Normal nares present Mouth: Yes dry mucous membranes Eyes: Other: Injected conjunctiva Neck: Neck: supple Other: No neck stiffness Resp: Effort & Inspection: normal respiratory effort Auscultation: clear to auscultation bilaterally Cardio: Rate: regular rate Rhythm: regular rhythm GI: Inspection: distended Auscultation: normal bowel sounds Skin: General skin exam: normal color Extrem: Other: Redness noted over right leg, right knee seems to be tender to touch, limited range of motion Psych: Mental Status: mental status grossly normal Objective Data Vital Signs Vital Signs: Vital Signs - 24 hr 03/13/24 15:59 03/13/24 16:31 03/13/24 22:00 Temperature 102.6 F H 102.6 F H 97.4 F L Pulse Rate 94 88 Respiratory Rate 28 H 18 Blood Pressure 172/75 H 121/56 L Pulse Oximetry 95 96 Oxygen Delivery Oxygen Flow Rate Fraction of Inspired Oxygen 03/13/24 22:45 03/13/24 22:45 03/14/24 06:00 Temperature 98.7 F Pulse Rate 79 Respiratory Rate 17 18 18 Blood Pressure 133/76 Pulse Oximetry 93 96 Oxygen Delivery BiPAP BiPAP Oxygen Flow Rate Fraction of Inspired Oxygen 28 03/14/24 08:00 03/14/24 08:14 Temperature Pulse Rate Respiratory Rate Blood Pressure Pulse Oximetry 96 96 Oxygen Delivery Nasal Cannula Nasal Cannula Oxygen Flow Rate 2 2 Fraction of Inspired Oxygen 28 Intake/Output Intake/Output: Intake & Output 03/11/24 03/12/24 03/13/24 03/14/24 23:59 23:59 23:59 23:59 Intake Total 1000 5170.0 3780 1540 Output Total 1600 3300 1800 Balance 1000 3570.0 480 -260 Meds/Results Medications: Active Medications Generic Name Dose Route Start Last Admin Trade Name Freq PRN Reason Stop Dose Admin Acetaminophen 650 mg 03/12/24 03:07 03/13/24 16:31 Acetaminophen 325 Mg Tablet PO 650 mg Q4H PRN Administration Mild Pain (1-3) or Fever Amlodipine Besylate 10 mg 03/13/24 09:00 03/14/24 08:04 Amlodipine Besylate 10 Mg Tablet PO 10 mg DAILY CHRISTINA Administration Enoxaparin Sodium 120 mg 03/12/24 11:00 03/14/24 08:04 Enoxaparin 120 Mg/0.8 Ml Syringe SUB-Q 120 mg Q12HR CHRISTINA Administration Fluticasone/Umeclidinium/Vilanterol 1 puff 03/12/24 08:00 03/14/24 08:14 Fluticasone/Umeclidin/Vilanter 100-62.5-25 Mcg Ellipta INHALATION 1 puff DAILYRT CHRISTINA Administration Vancomycin HCl 2,000 mg in 500 mls @ 250 mls/hr 03/13/24 13:00 03/14/24 08:45 Vancomycin 2,000 Mg/Ns 500 Ml IVPB Infused Q12H CHRISTINA Infusion Cefepime HCl 2 gm in 50 mls @ 100 mls/hr 03/13/24 17:00 03/14/24 08:34 Maxipime 2 Gm/Ns 50 Ml IVPB Infused Q8H CHRISTINA Infusion Metoprolol Succinate 200 mg 03/12/24 09:00 03/14/24 08:04 Metoprolol Succinate Ext Rel 100 Mg Tabcr PO 200 mg DAILY CHRISTINA Administration Morphine Sulfate 2 mg 03/13/24 16:19 03/14/24 13:18 Morphine Sulfate (*Crx) 2 Mg/Ml Inj IV PUSH 2 mg Q4H PRN Administration Pain Rated 7-10 Oxycodone HCl 5 mg 03/14/24 11:57 03/14/24 12:26 Oxycodone Hcl (*Crx) 5 Mg Tab Ir PO 5 mg Q4H PRN Administration Pain Rated 4-6 Radiology Results: ITS Impressions Venous Doppler Study 03/11/24 22:44 IMPRESSION: 1. Deep vein thrombosis involving right femoral vein. Chest CTA 03/12/24 05:45 Impression: No evidence of pulmonary embolus, aortic dissection, or aortic aneurysm. Clear lungs. Lower Extremity CT 03/12/24 06:47 IMPRESSION: Right external iliac/common femoral adenopathy, largest node measuring 2.5 x 2.0 cm. Please see details above. Findings are somewhat nonspecific, and stable since prior exam. Correlate for reactive/inflammatory lymph nodes versus any possibility of lymphoma or other metastatic disease. Head CT 03/12/24 13:56 IMPRESSION: 1. Normal brain. Abdomen/Pelvis CT 03/12/24 14:07 Impression: Enlarged right common femoral region lymph node, as above, nonspecific. Diffuse hepatic steatosis. Small fat-containing left inguinal hernia. Soft Tissue Ultrasound 03/13/24 16:32 IMPRESSION: 1. Small knee joint effusion. Chest X-Ray 03/13/24 16:33 IMPRESSION: 1. No acute cardiopulmonary disease. Labs Labs: Laboratory Results - last 24 hr 03/14/24 03/14/24 03/14/24 01:12 07:49 11:58 WBC 10.0 RBC 3.58 L Hgb 10.2 L Hct 31.7 L MCV 88.5 MCH 28.5 MCHC 32.2 RDW 14.7 H Plt Count 162 MPV 12.5 H Puncture Site Right radial ABG pH 7.403 ABG pCO2 39.6 ABG pO2 57.2 L ABG PO2/FiO2 Ratio 2.04 ABG HCO3 24.1 ABG O2 Saturation 89.9 L ABG O2 Content 15.2 L ABG Base Excess -0.5 A-a Gradient 95.7 Oxyhemoglobin 89.4 L Total Hemoglobin 12.1 O2 Delivery Device Bipap O2 Liters/Min Not Reportable FiO2 28 Expiratory Pressure 5 Inspiratory Pressure 15 Sodium 136 L Cancelled Potassium 3.7 Cancelled Chloride 104 Cancelled Carbon Dioxide 26 Cancelled Anion Gap 6 Cancelled BUN 8 L Cancelled Creatinine 1.00 Cancelled Estim Creat Clear Calc 90 Cancelled Estimated GFR > 60 Cancelled Glucose 110 Cancelled Calcium 8.3 L Cancelled Total Bilirubin 0.4 Cancelled AST 29 Cancelled ALT 33 Cancelled Alkaline Phosphatase 75 Cancelled Total Protein 7.0 Cancelled Albumin 3.5 Cancelled Quality VTE Prophylaxis VTE prophylaxis: pharmacologic ordered
[2024-03-14] MEDS: VANCOMYCIN 2,000 MG/NS 500 ML 2,000 MG/500 ML BAG 125 MG IVPB (17:59)
[2024-03-15] VITALS (7 sets, daily range): BP systolic 117–159; BP diastolic 58–85; PULSE 76–91; RESP 14–22; TEMP 36.4–37.2; O2SAT 91–95
[2024-03-15] MEDS: CEFEPIME 2 GM/NS 50 ML 2 GM/50 ML BAG IVPB ×3 (00:21→16:41)
[2024-03-15] MEDS: oxyCODONE HCL (*CRX) 5 MG TAB IR PO ×4 (01:27→19:42)
[2024-03-15] MEDS: MORPHINE SULFATE (*CRX) 2 MG/ML INJ IV PUSH ×5 (02:42→20:12)
[2024-03-15] MEDS: ACETAMINOPHEN 325 MG TABLET 650 MG PO (04:55)
[2024-03-15 06:14] LABS: Basophils Percent Auto 0.5 % (0.2-1.2); Eosinophils Absolute Auto 0.2 K/mm3 (0-0.3); Eosinophils Percent Auto 1.8 % (0-4.4); Hematocrit 31.4 % (42.0-52.0); Hemoglobin 9.8 g/dL (14.0-18.0); Immature Granulocyte Absolute 0.09 K/mm3 (0.00-0.031); Lymphocytes Absolute Auto 1.57 K/mm3 (0.9-3.2); Lymphocytes Percent Auto 18.1 % (18.3-44.2); Mean Corpuscular HGB Conc 31.2 g/dl (32-36); Mean Corpuscular Volume 89.7 fl (80-100); Mean Platelet Volume 12.1 fl (7.4-10.4); Monocytes Absolute Auto 1.1 K/mm3 (0.1-0.6); Monocytes Percent Auto 12.9 % (2.6-8.5); Neutrophils Absolute Auto 5.7 K/mm3 (1.3-6.7); Neutrophils Percent Auto 65.7 % (45.5-73.1); Nucleated Red Blood Cells Perc 0.2 % (0.0-0.2); Platelet Count Result 175 k/mm3 (150-375); Red Cell Distribution Width 14.5 % (11.5-14.5); White Blood Count 8.7 K/mm3 (4.5-10.0)
[2024-03-15] MEDS: VANCOMYCIN 2,000 MG/NS 500 ML 2,000 MG/500 ML BAG 125 MG IVPB (06:26)
[2024-03-15 06:31] LABS: Alanine Aminotransferase 35 U/L (6-50); Albumin Level 3.6 g/dL (3.5-5.1); Alkaline Phosphatase 77 U/L (38-126); Anion Gap 3 mmol/L (4-12); Aspartate Amino Transferase 28 U/L (17-59); Bilirubin,Total 0.6 mg/dL (0.2-1.3); Blood Urea Nitrogen 9 mg/dL (9-20); Calcium 8.5 mg/dL (8.4-10.2); Carbon Dioxide 29 mmol/L (22-30); Chloride 103 mmol/L (98-107); Estimated CRCL calculation 76 ml/min; Estimated Glomerular Filt Rate > 60; Glucose 104 mg/dL (65-110); Magnesium 2.2 mg/dL (1.6-2.3); Potassium 3.4 mmol/L (3.4-5.0); Sodium 135 mmol/L (137-145)
[2024-03-15 06:44] LABS: Vancomycin Trough 12.9 ug/mL (10.0-20.0)
[2024-03-15] MEDS: METOPROLOL SUCCINATE EXT REL 100 MG TABCR 200 MG PO (08:55)
[2024-03-15] MEDS: FLUTICASONE/UMECLIDIN/VILANTER 100-62.5-25 MCG ELLIPTA 1 PUFF INHALATION (08:59)
[2024-03-15] MEDS: ENOXAPARIN 120 MG/0.8 ML SYRINGE SUB-Q (09:12)
--- NOTE | 2024-03-15 09:31 | P.CONOP_ITS ---
Assessment and Plan Assessment and plan (1) Status post bilateral knee replacements: Code(s): Z96.653 - Presence of artificial knee joint, bilateral Status: Acute Assessment and Plan: Patient has cellulitis of his right leg. He also has a deep venous thrombosis. This is contributing to the swelling of his knee as is his he has been taken off Lasix. He needs to get back on the Lasix. I have ordered a sed rate and CRP. He is on antibiotics at this time. He apparently had this or similar problem on the left knee 3 months ago. He is requesting transfer to a higher level institution. I think that is a very reasonable plan, as he is difficult patient, and we do not have an infectious disease doctor on staff to see him. This is all complicated by COPD and morbid obesity. At this time I do not feel that he has a compartment syndrome I think the swelling is the that he has is the combination of the cellulitis in the DVT. (2) DVT (deep venous thrombosis): Qualifiers: Affected thrombotic vein of extremity: femoral Chronicity: acute DVT location: lower extremity Laterality: right Qualified Code(s): I82.411 - Acute embolism and thrombosis of right femoral vein Code(s): I82.409 - Acute embolism and thrombosis of unspecified deep veins of unspecified lower extremity Status: Acute (3) Morbid obesity: Code(s): E66.01 - Morbid (severe) obesity due to excess calories Status: Acute (4) Cellulitis of right anterior lower leg: Code(s): L03.115 - Cellulitis of right lower limb Status: Acute History of Present Illness HPI Consult date: 03/15/24 Chief complaint: Sepsis Review of Systems 2 Review of Systems: All systems reviewed & are unremarkable except as noted in HPI and below Constitutional: Constitutional: Reports body ache(s), Reports chills, Reports fatigue and Reports weakness Eyes: Eyes: Reports no additional eye complaints ENT: Reports system reviewed and no additional complaints, except as documented Cardiovascular: Cardiovascular: Reports diaphoresis Respiratory: Respiratory: Reports no additional respiratory complaints Gastrointestinal: Gastrointestinal: Reports no additional gastrointestinal complaints Musculoskeletal: Musculoskeletal: Reports myalgias, Reports arthralgias and Reports joint swelling Neurologic: Reports system reviewed and no additional complaints, except as documented and Reports weakness Endocrine: Endocrine: Reports fatigue PMFSH Past Medical History Medical History Nocturnal hypoxemia Pulmonary hypertension Mild diastolic dysfunction Cellulitis and abscess of left leg (~12/23/23) Bacterial meningitis Sepsis Leg pain, left Febrile illness Inguinal adenopathy Headache Hand eczema COPD exacerbation SOB (shortness of breath) Cough Morbid obesity with BMI of 40.0-44.9, adult Acute conjunctivitis of left eye Dyshidrotic eczema Tinea pedis Pain in joints of both feet x-rays of both feet on 05/07/2022 reveals diffuse mild osteoarthritis of both feet. Rash and nonspecific skin eruption Adult BMI 39.0-39.9 kg/sq m Obesity (BMI 30-39.9) COVID-19 (~08/2021) 2nd episode with mild symptoms for 2 or 3 days. Candidiasis of other urogenital sites (10/31/21) Low iron (08/24/21) iron 49 with 13% saturation and hemoglobin 14.1 on 08/24/2021. Iron 50 with 12% saturation and ferritin 31 on 11/13/2022. COPD (chronic obstructive pulmonary disease) (~08/24/21) PFT on 08/24/2021 with moderate obstructive defect with significant improvement with bronchodilator. Dyspnea on exertion exercise stress test on 08/24/2021 was negative for ischemia. EKG revealed sinus rhythm with borderline R-wave progression. Chronic nonallergic rhinitis BMI 37.0-37.9, adult Hearing loss chronic worse on left than right Encounter for wellness examination in adult COVID-19 (02/14/21) fully vaccinated and COVID BMI 36.0-36.9,adult Insomnia Acute low back pain Mixed hyperlipidemia total cholesterol 217, triglycerides 403, HDL 30 and LDL 106 with AST 22 and ALT 26 on 03/11/2020. Cholesterol 207, HDL 40, triglycerides 111, LDL 142 on 08/24/2021. Cholesterol 226, triglycerides 169, HDL 36, LDL 159 on 11/13/2022. Abnormal fasting glucose fasting glucose normal at 95 on 03/11/2020. Glucose 110 with hemoglobin A1c 5.5 on 08/24/2021. Glucose 95 with hemoglobin A1c 5.8 on 11/13/2022 Chronic pain of both knees chronic bilateral knee pain after multiple surgeries. Degenerative changes. Permanent handicap placard 06/29/2021 Tonsillar hypertrophy Encounter for prostate cancer screening PSA 0.6 on 03/11/2020. PSA 1.0 on 08/24/2021. Lip cyst Tobacco use disorder, continuous patient quit smoking cigarettes Jul, 2021 but continues to chew tobacco 1/2 can daily. Obstructive sleep apnea Hypertension Surgical History Surgical History H/O shoulder surgery left shoulder History of neck surgery History of right knee surgery (~2017) H/O left knee surgery (~2013) Family History Family History Mother Parkinson disease Father Accident Social History Social History Smoking packs per day: 1 Smoking cigarettes per day: 20.0 Smoking status: Former smoker Tobacco type: cigarettes Smokeless tobacco user: chewing tobacco Second hand tobacco smoke exposure: No Smoking end date: 04/01/19 Alcohol intake: never Substance use: never Substance use type: does not use Do You Feel Safe in your Home?: Yes Lack of Transportation: YES Lack of Food: Never True Current Housing: I Have Housing Concerned About Future Housing: No Difficulty Paying Gas/Electric Bills: No Difficulty Paying for Meds: No Currently Unemployed: No Education: High School Diploma/GED Difficulty w/ Childcare or Family Care: No Living arrangements: with family Occupation/Education: occupation Gender identity (if verbalized by the patient): Male Spiritual care concerns: No Meds Home Medications and Allergies Home Medications ?Medication ?Instructions ?Recorded ?Confirmed ?Type metoprolol succinate 200 mg 200 mg PO DAILY #90 tabs 04/29/23 03/12/24 Rx tablet,extended release 24 hr ibuprofen 800 mg tablet 800 mg PO TID PRN pain #90 tabs 10/02/23 03/12/24 Rx budesonide 160 mcg-glycopyr 9 2 inh inhalation BID #10.7 grams 12/31/23 03/12/24 Rx mcg-formot 4.8 mcg/actuation HFA inhaler (Breztri Aerosphere) amlodipine 5 mg tablet (Norvasc) 5 mg PO DAILY #90 tabs 01/22/24 03/12/24 Rx furosemide 40 mg tablet (Lasix) 40 mg PO QAM #90 tabs 01/22/24 03/12/24 Rx Allergies Allergy/AdvReac Type Severity Reaction Status Date / Time chlorpheniramine (From AdvReac CHILE- Verified 02/13/24 13:04 Actifed Cold-Allergy) UNKNOWN REACTION phenylephrine (From Actifed AdvReac CHILD- Verified 02/13/24 13:04 Cold-Allergy) UNKNOWN REACTION pseudoephedrine (From AdvReac CHILD- Verified 02/13/24 13:04 Actifed Cold-Allergy) UNKNOWN REACTION triprolidine (From Actifed AdvReac CHILD- Verified 02/13/24 13:04 Cold-Allergy) UNKNOWN REACTION Vital Signs Vital Signs - 24 hr 03/14/24 14:00 03/14/24 20:00 03/14/24 21:49 Temperature 98.5 F 97.9 F Pulse Rate 86 91 Respiratory Rate 18 20 Blood Pressure 133/75 131/62 Pulse Oximetry 95 96 96 Oxygen Delivery Nasal Cannula Oxygen Flow Rate 2 Fraction of Inspired Oxygen 03/14/24 23:41 03/15/24 06:00 03/15/24 08:55 Temperature 97.8 F Pulse Rate 85 76 Respiratory Rate 14 Blood Pressure 151/76 H Pulse Oximetry 95 95 Oxygen Delivery Nasal Cannula Oxygen Flow Rate 2 Fraction of Inspired Oxygen 03/15/24 08:59 Temperature Pulse Rate Respiratory Rate Blood Pressure Pulse Oximetry 95 Oxygen Delivery Nasal Cannula Oxygen Flow Rate 2 Fraction of Inspired Oxygen 28 Exam 2 Narrative: Right knee is red and swollen he has pain when he moves the knee I can move it from about 3 5 to 90? he has pain beyond that. The leg is swollen although I do not believe he has a compartment syndrome however syndrome. He has got redness in his anterior aspect of the tibia from mid tibia up above his knee. He has a little bit a redness in his thigh as well. He has pain in the groin. Neurologically he is grossly intact. I Results Labs 03/15/24 05:51 03/15/24 05:51 Labs: Abnormal lab results 03/14/24 03/14/24 03/15/24 Range/Units 07:49 11:58 05:51 RBC 3.58 L 3.50 L (4.6-6.20) M/mm3 Hgb 10.2 L 9.8 L (14.0-18.0) g/dL Hct 31.7 L 31.4 L (42.0-52.0) % MCHC 31.2 L (32-36) g/dl RDW 14.7 H (11.5-14.5) % MPV 12.5 H 12.1 H (7.4-10.4) fl Immature Gran % (Auto) 1.0 H (0-0.5) % Lymph % (Auto) 18.1 L (18.3-44.2) % Humphreys % (Auto) 12.9 H (2.6-8.5) % Humphreys # (Auto) 1.1 H (0.1-0.6) K/mm3 Abs Immat Gran (auto) 0.09 H (0.00-0.031) K/mm3 Absolute Nucleated RBC 0.020 H (0.0-0.012) K/mm3 Sodium 136 L 135 L (137-145) mmol/L Anion Gap 3 L (4-12) mmol/L BUN 8 L (9-20) mg/dL Calcium 8.3 L (8.4-10.2) mg/dL H & H 03/11/24 03/12/24 03/13/24 Range/Units 22:50 07:37 05:45 Hgb 12.1 L 11.5 L 10.3 L (14.0-18.0) g/dL Hct 36.6 L 36.0 L 32.9 L (42.0-52.0) % 03/14/24 03/15/24 Range/Units 11:58 05:51 Hgb 10.2 L 9.8 L (14.0-18.0) g/dL Hct 31.7 L 31.4 L (42.0-52.0) % Coagulation 03/11/24 03/13/24 Range/Units 22:50 05:45 INR 1.0 1.3 All other labs normal.
[2024-03-15] MEDS: CLINDAMYCIN 600 MG/D5W 50 ML 600 MG/50 ML PIGGYBACK 100 MG IVPB ×3 (09:55→21:25)
[2024-03-15 10:04] LABS: CRP 24.7 mg/dL (<1.0)
--- NOTE | 2024-03-15 10:05 | P.PNIM_ITS ---
Progress Note: A&P Assessment and Plan (1) Sepsis: Qualifiers: Sepsis acute organ dysfunction status: unspecified Sepsis type: sepsis due to unspecified organism Qualified Code(s): A41.9 - Sepsis, unspecified o rganism Code(s): A41.9 - Sepsis, unspecified organism Status: Acute Assessment and Plan: - lactic acid: 1.6 - suspected source: right lower extremity cellulitis? - blood cultures drawn on 03/11: NGTD - Viral panel negative - UA: non concerning for infection - CXR: No acute cardiopulmonary disease. - Chest CTA: No evidence of pulmonary embolus, aortic dissection, or aortic aneurysm. - Abd/pelvis CT: Enlarged right common femoral region lymph node, as above, nonspecific. Diffuse hepatic steatosis. Small fat-containing left inguinal hernia. - Right LE CT: Right external iliac/common femoral adenopathy, largest node measuring 2.5 x 2.0 cm. Please see details above. Findings are somewhat nonspecific, and stable since prior exam. Correlate for reactive/inflammatory lymph nodes versus any possibility of lymphoma or other metastatic disease. Per chart review prior provider discussed with radiology and no concerning abnormalities noted on right leg CT for right knee - Concern for meningitis, although the suspicion is extremely low. A lumbar puncture was ordered by prior provider, however patient does not wish to proceed with LP. Prior LP in November when patient was having similar symptoms was nega tive. - Head CT: normal brain - Echo unremarkable - Right LE US Showed right femoral DVT - Continue tele monitoring - Antibiotics: vancomycin, ampicillin, cefepime Culture negative Biopsy right femoral adenopathy ordered monitor Patient had already had LP done last admission and was negative, he currently declines any LP stating his last one was negative (2) Cellulitis: Qualifiers: Laterality: right Site of cellulitis: extremity Site of cellulitis of extremity: lower extremity Qualified Code(s): L03.115 - Cellulitis of right lower limb Code(s): L03.90 - Cellulitis, unspecified Status: Acute Assessment and Plan: r/o Nec Fasciitis Patient still having worsening erythema and swelling Stat CT ordered prior CT showed right external iliac/Common femoral adenopathy largest node measuring 2.5 x 2.0 cm, inflammation vs lymphoma vs metastatic disease f/u with repeat CT Continue Vanc, Cefepime and Addded Clindamycin this morning Called [facility] for possible transfer Ortho reviewed and has low suspicion for Compartment syndrome, still recommends transfer to higher level of care (3) DVT (deep venous thrombosis): Qualifiers: Affected thrombotic vein of extremity: femoral Chronicity: acute DVT location: lower extremity Laterality: right Qualified Code(s): I82.411 - Acute embolism and thrombosis of right femoral vein Code(s): I82.409 - Acute embolism and thrombosis of unspecified deep veins of unspecified lower extremity Status: Acute Assessment and Plan: - Venous doppler: Deep vein thrombosis involving right femoral vein. - Right LE CT: Right external iliac/common femoral adenopathy, largest node measuring 2.5 x 2.0 cm. Please see details above. Findings are somewhat nonspecific, and stable since prior exam. Correlate for reactive/inflammatory lymph nodes versus any possibility of lymphoma or other metastatic disease. - Chest CTA: No evidence of pulmonary embolus, aortic dissection, or aortic aneurysm. - Anticoagulation: Lovenox 120 mg BID (4) Hypertension: Qualifiers: Hypertension type: unspecified Qualified Code(s): I10 - Essential (primary) hypertension Code(s): I10 - Essential (primary) hypertension Status: Acute Assessment and Plan: Chronic - Continue with metoprolol 200 mg daily - Amlodipine increased to 10 mg daily - Monitor (5) Chronic hypercapnic respiratory failure: Code(s): J96.12 - Chronic respiratory failure with hypercapnia Status: Acute Assessment and Plan: Patient has COPD with chronic hypercarbic respiratory failure with an ABG of 7.36/52.7/75 on room air, overnight oximetry on 2 L with time of saturation less than or equal to 88% 16 minutes. Apnea link reviewed by pulmonology and recommended nighttime BiPAP 15/5 with 2 liters oxygen bleed in at night pulmonology following (6) COPD (chronic obstructive pulmonary disease): Onset Date: ~08/24/21 Qualifiers: COPD type: unspecified COPD Qualified Code(s): J44.9 - Chronic obstructive pulmonary disease, unspecified Code(s): J44.9 - Chronic obstructive pulmonary disease, unspecified Status: Chronic Assessment and Plan: Chronic, no acute exacerbation. Plan DVT prophylaxis on Full dose Lovenox Subjective Date/time seen: 03/15/24 10:05 Interval history: Patient noted worsening pain, redness and swelling in the RLE last fever 102.6 was 1630 on 03/13 Added clindamycin to abx Stat CT leg and reaching to [facility] for possible transfer Review of Systems Review of Systems: All systems reviewed & are unremarkable except as noted in HPI and below Constitutional: Constitutional: Reports body ache(s), Reports chills, Reports fatigue and Reports weakness Eyes: Eyes: Reports no additional eye complaints ENT: Reports system reviewed and no additional complaints, except as documented Cardiovascular: Cardiovascular: Reports diaphoresis Respiratory: Respiratory: Reports no additional respiratory complaints Gastrointestinal: Gastrointestinal: Reports no additional gastrointestinal complaints Musculoskeletal: Musculoskeletal: Reports myalgias, Reports arthralgias and Reports joint swelling Neurologic: Reports system reviewed and no additional complaints, except as documented and Reports weakness Endocrine: Endocrine: Reports fatigue Exam Narrative: AF HR 74 RR 20 SpO2 99 BP 129/71 General: male in no acute respiratory distress who is nontoxic appearing, lying semi recumbent in bed. HEENT: Normocephalic. Atraumatic. Extraocular movement intact. Sclera clear and anicteric. No facial asymmetry. Chest: Lungs are clear to auscultation bilaterally. No wheezes or crackles. CV: Heart was regular rate and rhythm. S1/S2. No murmurs, gallops, or rubs. Abd: Abdomen was soft. Nontender. Nondistended. Positive bowel sounds. No organomegaly or masses. Ext: Redness and edema to the right leg extending from mid colby to mid thigh, tenderness to slight palpation worse along the knee. 2+ DP pulses bilaterally. Neuro: Patient is alert and oriented x4. Cranial nerves 2-12 are intact. Speech is clear. No neuro deficits. No nuchal rigidity. Const: General: in distress and uncomfortable HENMT: Face/Nose/Sinus: Normal nares present Mouth: Yes dry mucous membranes Eyes: Other: Injected conjunctiva Neck: Neck: supple Other: No neck stiffness Resp: Effort & Inspection: normal respiratory effort Auscultation: clear to auscultation bilaterally Cardio: Rate: regular rate Rhythm: regular rhythm GI: Inspection: distended Auscultation: normal bowel sounds Skin: General skin exam: normal color Extrem: Other: Redness noted over right leg, right knee seems to be tender to touch, limited range of motion Psych: Mental Status: mental status grossly normal Objective Data Vital Signs Vital Signs: Vital Signs - 24 hr 03/14/24 14:00 03/14/24 20:00 03/14/24 21:49 Temperature 98.5 F 97.9 F Pulse Rate 86 91 Respiratory Rate 18 20 Blood Pressure 133/75 131/62 Pulse Oximetry 95 96 96 Oxygen Delivery Nasal Cannula Oxygen Flow Rate 2 Fraction of Inspired Oxygen 03/14/24 23:41 03/15/24 06:00 03/15/24 08:55 Temperature 97.8 F Pulse Rate 85 76 Respiratory Rate 14 Blood Pressure 151/76 H Pulse Oximetry 95 95 Oxygen Delivery Nasal Cannula Oxygen Flow Rate 2 Fraction of Inspired Oxygen 03/15/24 08:59 Temperature Pulse Rate Respiratory Rate Blood Pressure Pulse Oximetry 95 Oxygen Delivery Nasal Cannula Oxygen Flow Rate 2 Fraction of Inspired Oxygen 28 Intake/Output Intake/Output: Intake & Output 03/12/24 03/13/24 03/14/24 03/15/24 23:59 23:59 23:59 23:59 Intake Total 5170.0 3780 2570 290 Output Total 1600 3300 2700 Balance 3570.0 480 -130 290 Meds/Results Medications: Active Medications Generic Name Dose Route Start Last Admin Trade Name Freq PRN Reason Stop Dose Admin Acetaminophen 650 mg 03/12/24 03:07 03/15/24 04:55 Acetaminophen 325 Mg Tablet PO 650 mg Q4H PRN Administration Mild Pain (1-3) or Fever Amlodipine Besylate 10 mg 03/15/24 21:00 Amlodipine Besylate 10 Mg Tablet PO HS CHRISTINA Enoxaparin Sodium 120 mg 03/12/24 11:00 03/15/24 09:12 Enoxaparin 120 Mg/0.8 Ml Syringe SUB-Q 120 mg Q12HR CHRISTINA Administration Fluticasone/Umeclidinium/Vilanterol 1 puff 03/12/24 08:00 03/15/24 08:59 Fluticasone/Umeclidin/Vilanter 100-62.5-25 Mcg Ellipta INHALATION 1 puff DAILYRT CHRISTINA Administration Furosemide 40 mg 03/15/24 17:00 Furosemide 40 Mg Tablet PO BID CHRISTINA Cefepime HCl 2 gm in 50 mls @ 100 mls/hr 03/13/24 17:00 03/15/24 08:56 Maxipime 2 Gm/Ns 50 Ml IVPB 100 mls/hr Q8H CHRISTINA Administration Vancomycin HCl 1,750 mg in 500 mls @ 250 mls/hr 03/15/24 16:00 Vancomycin 1,750 Mg/Ns 500 Ml IVPB Q8H CHRISTINA Clindamycin Phosphate 600 mg in 50 mls @ 100 mls/hr 03/15/24 09:30 03/15/24 09:55 Clindamycin 600 Mg/D5w 50 Ml IVPB 100 mls/hr Q8HR CHRISTINA Administration Metoprolol Succinate 200 mg 03/12/24 09:00 03/15/24 08:55 Metoprolol Succinate Ext Rel 100 Mg Tabcr PO 200 mg DAILY CHRISTINA Administration Morphine Sulfate 2 mg 03/13/24 16:19 03/15/24 08:47 Morphine Sulfate (*Crx) 2 Mg/Ml Inj IV PUSH 2 mg Q4H PRN Administration Pain Rated 7-10 Oxycodone HCl 5 mg 03/14/24 11:57 03/15/24 09:37 Oxycodone Hcl (*Crx) 5 Mg Tab Ir PO 5 mg Q4H PRN Administration Pain Rated 4-6 Radiology Results: ITS Impressions Venous Doppler Study 03/11/24 22:44 IMPRESSION: 1. Deep vein thrombosis involving right femoral vein. Chest CTA 03/12/24 05:45 Impression: No evidence of pulmonary embolus, aortic dissection, or aortic aneurysm. Clear lungs. Lower Extremity CT 03/12/24 06:47 IMPRESSION: Right external iliac/common femoral adenopathy, largest node measuring 2.5 x 2.0 cm. Please see details above. Findings are somewhat nonspecific, and stable since prior exam. Correlate for reactive/inflammatory lymph nodes versus any possibility of lymphoma or other metastatic disease. Head CT 03/12/24 13:56 IMPRESSION: 1. Normal brain. Abdomen/Pelvis CT 03/12/24 14:07 Impression: Enlarged right common femoral region lymph node, as above, nonspecific. Diffuse hepatic steatosis. Small fat-containing left inguinal hernia. Soft Tissue Ultrasound 03/13/24 16:32 IMPRESSION: 1. Small knee joint effusion. Chest X-Ray 03/13/24 16:33 IMPRESSION: 1. No acute cardiopulmonary disease. Labs Labs: Laboratory Results - last 24 hr 03/14/24 03/14/24 03/15/24 07:49 11:58 05:48 WBC 10.0 RBC 3.58 L Hgb 10.2 L Hct 31.7 L MCV 88.5 MCH 28.5 MCHC 32.2 RDW 14.7 H Plt Count 162 MPV 12.5 H Immature Gran % (Auto) Neut % (Auto) Lymph % (Auto) [place] % (Auto) Eos % (Auto) Baso % (Auto) Lymph # (Auto) [place] # (Auto) Eos # (Auto) Baso # (Auto) Abs Immat Gran (auto) Absolute Neuts (auto) Absolute Nucleated RBC Nucleated RBC % Sodium 136 L Cancelled Potassium 3.7 Cancelled Chloride 104 Cancelled Carbon Dioxide 26 Cancelled Anion Gap 6 Cancelled BUN 8 L Cancelled Creatinine 1.00 Cancelled Estim Creat Clear Calc 90 Cancelled Estimated GFR > 60 Cancelled Glucose 110 Cancelled Calcium 8.3 L Cancelled Magnesium Total Bilirubin 0.4 Cancelled AST 29 Cancelled ALT 33 Cancelled Alkaline Phosphatase 75 Cancelled C-Reactive Protein 24.7 H Total Protein 7.0 Cancelled Albumin 3.5 Cancelled Vancomycin Trough 03/15/24 05:51 WBC 8.7 RBC 3.50 L Hgb 9.8 L Hct 31.4 L MCV 89.7 MCH 28.0 MCHC 31.2 L RDW 14.5 Plt Count 175 MPV 12.1 H Immature Gran % (Auto) 1.0 H Neut % (Auto) 65.7 Lymph % (Auto) 18.1 L [place] % (Auto) 12.9 H Eos % (Auto) 1.8 Baso % (Auto) 0.5 Lymph # (Auto) 1.57 [place] # (Auto) 1.1 H Eos # (Auto) 0.2 Baso # (Auto) 0.0 Abs Immat Gran (auto) 0.09 H Absolute Neuts (auto) 5.7 Absolute Nucleated RBC 0.020 H Nucleated RBC % 0.2 Sodium 135 L Potassium 3.4 Chloride 103 Carbon Dioxide 29 Anion Gap 3 L BUN 9 Creatinine 1.20 Estim Creat Clear Calc 76 Estimated GFR > 60 Glucose 104 Calcium 8.5 Magnesium 2.2 Total Bilirubin 0.6 AST 28 ALT 35 Alkaline Phosphatase 77 C-Reactive Protein Total Protein 7.0 Albumin 3.6 Vancomycin Trough 12.9 Quality VTE Prophylaxis VTE prophylaxis: pharmacologic ordered
[2024-03-15 10:31] LABS: Erythrocyte Sedimentation Rate > 140 mm/hr (0-20)
[2024-03-15] MEDS: FUROSEMIDE 40 MG TABLET PO (14:14)
[2024-03-15] MEDS: SALINE LOCK FLUSH 10 ML IV PUSH ×2 (14:15→22:47)
[2024-03-15 16:55] LABS: Alveolar/Arterial O2 Gradient 101.4 mmHg; Base Excess ABG 3.1 mEq/l (+/-2.0); Device NASAL CANNULA; Fractional Inspired Oxygen 32 %; HCO3 ABG 29.1 mEq/l (22.0-26.0); Modified Allen's Test Pass; Oxygen Content ABG 13.6 %vol (16.0-22.0); Oxygen Saturation ABG 92.2 % (95.0-100.0); Oxyhemoglobin 91.8 % THb (90.0-100.0); PCO2 ABG 51.9 mmHg (35.0-45.0); PO2 FiO2 Ratio Arterial Blood 2.06 %; Site Drawn LEFT RADIAL; Total Hemoglobin 10.5 g/dL (12.0-18.0); pH ABG 7.367 (7.350-7.450)
[2024-03-15] MEDS: VANCOMYCIN 1,750 MG/NS 500 ML 1,750 MG/500 ML BAG 250 MG IVPB ×2 (17:00→23:40)
[2024-03-15] MEDS: amLODIPine BESYLATE 10 MG TABLET PO (19:42)
[2024-03-16] VITALS (7 sets, daily range): BP systolic 130–132; BP diastolic 75–78; PULSE 70–82; RESP 16–24; TEMP 36.4–36.6; O2SAT 93–100
[2024-03-16] MEDS: oxyCODONE HCL (*CRX) 5 MG TAB IR PO ×4 (00:45→20:11)
[2024-03-16] MEDS: CEFEPIME 2 GM/NS 50 ML 2 GM/50 ML BAG IVPB ×3 (01:56→17:04)
[2024-03-16] MEDS: CLINDAMYCIN 600 MG/D5W 50 ML 600 MG/50 ML PIGGYBACK 100 MG IVPB (06:01)
[2024-03-16] MEDS: SALINE LOCK FLUSH 10 ML IV PUSH ×3 (06:01→20:10)
[2024-03-16 07:04] LABS: Basophils Absolute Auto 0.1 K/mm3 (0.0-0.1); Basophils Percent Auto 0.8 % (0.2-1.2); Eosinophils Absolute Auto 0.3 K/mm3 (0-0.3); Eosinophils Percent Auto 3.4 % (0-4.4); Hematocrit 31.4 % (42.0-52.0); Hemoglobin 9.7 g/dL (14.0-18.0); Immature Granulocyte Absolute 0.19 K/mm3 (0.00-0.031); Immature Granulocyte Percent A 2.5 % (0-0.5); Mean Corpuscular HGB Conc 30.9 g/dl (32-36); Mean Corpuscular Hemoglobin 28.1 pg (26-34); Mean Platelet Volume 12.2 fl (7.4-10.4); Monocytes Absolute Auto 0.9 K/mm3 (0.1-0.6); Monocytes Percent Auto 12.2 % (2.6-8.5); Neutrophils Absolute Auto 4.6 K/mm3 (1.3-6.7); Neutrophils Percent Auto 60.1 % (45.5-73.1); Platelet Count Result 177 k/mm3 (150-375); Red Blood Count 3.45 M/mm3 (4.6-6.20); Red Cell Distribution Width 14.5 % (11.5-14.5); White Blood Count 7.6 K/mm3 (4.5-10.0)
[2024-03-16] MEDS: FLUTICASONE/UMECLIDIN/VILANTER 100-62.5-25 MCG ELLIPTA 1 PUFF INHALATION ×2 (07:10→13:15)
[2024-03-16 07:12] LABS: Prothrombin Time 13.1 Seconds (11.1-14.7)
[2024-03-16 07:13] LABS: Partial Thromboplastin Time 37.5 Seconds (22.3-36.8)
[2024-03-16 07:14] LABS: Alanine Aminotransferase 42 U/L (6-50); Albumin Level 3.6 g/dL (3.5-5.1); Alkaline Phosphatase 74 U/L (38-126); Anion Gap 5 mmol/L (4-12); Aspartate Amino Transferase 34 U/L (17-59); Bilirubin,Total 0.5 mg/dL (0.2-1.3); Blood Urea Nitrogen 9 mg/dL (9-20); Calcium 8.3 mg/dL (8.4-10.2); Carbon Dioxide 32 mmol/L (22-30); Chloride 103 mmol/L (98-107); Estimated CRCL calculation 82 ml/min; Estimated Glomerular Filt Rate > 60; Glucose 109 mg/dL (65-110); Potassium 3.4 mmol/L (3.4-5.0); Sodium 140 mmol/L (137-145)
[2024-03-16] MEDS: METOPROLOL SUCCINATE EXT REL 100 MG TABCR 200 MG PO (08:58)
[2024-03-16] MEDS: FUROSEMIDE 40 MG TABLET PO ×2 (08:59→17:04)
[2024-03-16] MEDS: MORPHINE SULFATE (*CRX) 2 MG/ML INJ IV PUSH ×4 (09:00→22:40)
--- NOTE | 2024-03-16 11:14 | PM.PNPUL ---
Progress Note: A&P Assessment and Plan (1) COPD (chronic obstructive pulmonary disease): Onset Date: ~08/24/21 Qualifiers: COPD type: unspecified COPD Qualified Code(s): J44.9 - Chronic obstructive pulmonary disease, unspecified Code(s): J44.9 - Chronic obstructive pulmonary disease, unspecified Status: Chronic Assessment and Plan: GOLD grade 3 group B COPD with chronic hypercarbic respiratory failure 30 pack year tobacco use, quit 2019, Alpha 1 anti trypsin genotype MM, PFTs 08/24/2021 with severe obstruction with an FEV1 of 1.26 L, 38% predicted, positive bronchodilator response, hyperinflation and mildly decreased DLCO that normalized when adjusted for alveolar volume. Patient has hypoxemic respiratory failure with home O2 assessment on 12/27/2023 requiring 2 L at rest and with activity. 03/06/2024 eosinophil count 410. 03/06/2024 6 minute walk 366 m with alexander saturation 93%. 03/06/2024: PFTs with a severe obstructive abnormality with an FEV1 1.60 L, 49% predicted, no bronchodilator response, slow vital capacity is 1.02 L greater than forced vital capacity suggestive of small airways disease, hyperinflation DLCO mildly decreased and normalized when adjusted for alveolar ventilation an ABG of 7.36/53/75 on room air. 03/04/2024: Overnight oximetry on 2 L with time of saturation less than or equal to 88% at 16 minutes. Maintained on Breztri. currently no evidence of COPD exacerbation, pneumonia, PE, bronchitis. patient on no oxygen at home. Currently was on 2 L nasal cannula saturation 98%. I placed him on room air and his saturations remained 92%. Plan: I will continue patient's triple inhalers with trelegy inhaler 100. Goal saturation 90-94%. Adjust oxygen accordingly. In patient pulmonary consult services will resume on 03/16/2024. Call with questions. 03/16/2024: Patient states he is breathing at his baseline with no evidence of a COPD exacerbation. Is currently on 3 L nasal cannula. Plan: Continue trilogy inhaler 100 mg q.day. goal saturation 90-94%. Adjust oxygen accordingly. From a pulmonary perspective patient can be discharged on these pulmonary medications: Breztri 160-9-4.8 at 2 puffs twice a day. Rescue albuterol 2 puffs q.4 hours p.r.n. shortness of breath or wheezing 4 L nasal cannula oxygen at night pending set up of his noninvasive ventilation with BiPAP auto rate, 15/5, 2 L bleed in. Discussed with Dr. Cox. Will follow with you. (2) Chronic hypercapnic respiratory failure: Code(s): J96.12 - Chronic respiratory failure with hypercapnia Status: Acute Assessment and Plan: Patient has COPD with chronic hypercarbic respiratory failure with an ABG of 7.36/52.7/75 on room air, overnight oximetry on 2 L with time of saturation less than or equal to 88% 16 minutes. Patient with COPD and chronic hypercarbic respiratory failure and would benefit from noninvasive ventilation to prevent further deterioration and subsequent hospitalizations. I will initiate the patient on BiPAP. 03/13/24: He said he wore the fullface mask with the BiPAP 16 pressures 15/5, inspiratory time 1.0, rise ramp of 0.1 and room air. Patient had an overnight oximetry on these settings with a recording duration of 4 hours and 56 minutes, average saturation 92%, low saturation 82%, time with saturation less than or equal to 88% was 31 minutes with an oxygen desaturation index of 72.8. ABG prior to removal was 7.43/38/110. He says he had a difficult time as BiPAP was pushing the air in too fast and I adjusted his inspiratory time from 1.0 to 1.3 and his ramp rise from 0.1 to 0.4 and he said that this felt much better. Plan: BiPAP 16 pressures 15/5 provide adequate ventilation. Patient was hypoxic on room air. It appears that according to his insurance patient should be on BiPAP with no backup rate for 60 days. Tonight I will place the patient on BiPAP pressures 15/5 with no backup rate, inspiratory time 1.3, rise of 0.4 and 2 L nasal cannula. I will perform an overnight oximetry on 28% and an ABG prior to removal on these settings. I will initiate process for home noninvasive ventilation today. In patient pulmonary consult services will resume on 03/16/2024. Call with questions. 03/14/24: Patient was placed on a BiPAP with no backup rate and 2 L bleed in. ABG prior to removal of 7.40/40/57. Overnight oximetry with recording duration 2 hours and 51 minutes. Average saturation 96%. Low saturation 85%. Time with saturation less than or equal to 88% was 1 minute. Oxygen desaturation index 6.6. 03/15/24: Patient had an overnight oximetry on 2 L with recording duration 5 hours and 8 minutes. Average saturation 90%. Low saturation 76%. Time with saturation less than or equal to 88% was 94 minutes. Oxygen desaturation index 44.5. 03/16/24: Patient tells me he is unable to tolerate the hospital BiPAP with no rate and he says that is just too uncomfortable him for him to sleep with all his other concurrent medical issues. He is still willing to try the home noninvasive ventilator. Currently is on 3 L nasal cannula saturation 93%. Of note patient has worsening right lower extremity with repeat Dopplers demonstrating resolution of the right femoral DVT. orthopedic surgery consult and recommended transfer to higher level of care facility. Plan: patient cannot tolerate the hospital BiPAP with full face mask as it is too uncomfortable for him to put on and off given his frequent waking up. He is still willing to try a home noninvasive ventilator and I will continue to pursue this. While he is in the hospital I will attempt to correct his hypoxemia and place him on 4 L nasal cannula perform an ApneaLink tonight on 4 L. Subjective Date/time seen: 03/16/24 11:14 Interval history: 03/13/2024: This is a new pulmonary consult for COPD with chronic hypercarbic respiratory failure. 53-year-old with a history of COPD, hypertension, diastolic dysfunction, obesity, HARLAN, and pulmonary hypertension. Patient is followed in the [facility] and last seen on 02/13/2024. GOLD grade 3 group B COPD with chronic hypercarbic respiratory failure 30 pack year tobacco use, quit 2019, Alpha 1 anti trypsin genotype MM, PFTs 08/24/2021 with severe obstruction with an FEV1 of 1.26 L, 38% predicted, positive bronchodilator response, hyperinflation and mildly decreased DLCO that normalized when adjusted for alveolar volume. Patient has hypoxemic respiratory failure with home O2 assessment on 12/27/2023 requiring 2 L at rest and with activity. 03/06/2024 eosinophil count 410. 03/06/2024 6 minute walk 366 m with alexander saturation 93%. 03/06/2024: PFTs with a severe obstructive abnormality with an FEV1 1.60 L, 49% predicted, no bronchodilator response, slow vital capacity is 1.02 L greater than forced vital capacity suggestive of small airways disease, hyperinflation DLCO mildly decreased and normalized when adjusted for alveolar ventilation an ABG of 7.36/53/75 on room air. 03/04/2024: Overnight oximetry on 2 L with time of saturation less than or equal to 88% at 16 minutes. Maintained on Breztri. patient presented to [facility] on 03/12/2024 with chills. He denied any respiratory issues. Specifically denied cough, phlegm production, hemoptysis, chest pain, worsening shortness of breath or dyspnea on exertion. White blood cell count was 17 0.9 and he was admitted to the hospital with cellulitis and to rule out meningitis. Patient with right femoral vein DVT. CT angiogram of the chest with no pulmonary embolism. Started on full-dose Lovenox. Given his chronic hypercarbic respiratory failure he was initiated on nocturnal noninvasive ventilator with BiPAP with a backup rate of 16, pressures 15/5 and room air. 03/13/24: Currently the patient denies any respiratory complaints. He said he wore the fullface mask with the BiPAP 16 pressures 15/5, inspiratory time 1.0, rise ramp of 0.1 and room air. Patient had an overnight oximetry on these settings with a recording duration of 4 hours and 56 minutes, average saturation 92%, low saturation 82%, time with saturation less than or equal to 88% was 31 minutes with an oxygen desaturation index of 72.8. ABG prior to removal was 7.43/38/110. He says he had a difficult time as BiPAP was pushing the air in too fast and I adjusted his inspiratory time from 1.0 to 1.3 and his ramp rise from 0.1 to 0.4 and he said that this felt much better. 03/14/24: Patient was placed on a BiPAP with no backup rate and 2 L bleed in. ABG prior to removal of 7.40/40/57. Overnight oximetry with recording duration 2 hours and 51 minutes. Average saturation 96%. Low saturation 85%. Time with saturation less than or equal to 88% was 1 minute. Oxygen desaturation index 6.6. 03/15/24: Patient had an overnight oximetry on 2 L with recording duration 5 hours and 8 minutes. Average saturation 90%. Low saturation 76%. Time with saturation less than or equal to 88% was 94 minutes. Oxygen desaturation index 44.5. 03/16/24: Patient tells me he is unable to tolerate the hospital BiPAP with no rate and he says that is just too uncomfortable him for him to sleep with all his other concurrent medical issues. He is still willing to try the home noninvasive ventilator. Currently is on 3 L nasal cannula saturation 93%. Of note patient has worsening right lower extremity with repeat Dopplers demonstrating resolution of the right femoral DVT. orthopedic surgery consult and recommended transfer to higher level of care facility. DATA: 03/04/2024: Overnight oximetry on 2 L nasal cannula: Recording duration 4 hours and 5 minutes. Basal saturation 94.5. Low saturation 63%. Time with saturation less than or equal to 88% was 16 minutes and 6 seconds. Oxygen desaturation index is 30. 03/06/2024: This is a pulmonary function test with pre and post-bronchodilator spirometry, plethysmography, diffusing capacity, and rest room air arterial blood gas. The test was performed and results interpreted in accordance with the 2019 and 2005 ATS/ERS Task Force guidelines respectively using the Global Lung Function Initiative-2012 reference equations. Patient demonstrated good effort and cooperation. Reproducibility criteria were met. The quality of the pre bronchodilator spirometry maneuver was Grade A and post bronchodilator spirometry maneuver was Grade A. Findings: Spirometry: there is decreased maximal expiratory airflow at all lung volumes with concave expiratory flow tracing. The contour the inspiratory flow tracing is normal. The pre bronchodilator FVC is 2.3 L, 58% predicted. The pre bronchodilator FEV1 is 1.60 L, 49% predicted. The pre bronchodilator FEV1: FVC ratio is 67%. The post bronchodilator FVC is 2.47 L, representing a 4% increase. The post bronchodilator FEV1 is 1.70 L, representing a 6% increase. The post bronchodilator FEV1: FVC ratio 69%. Plethysmography: The total lung capacity is 6.03 L, 101% predicted. The functional residual capacity is 2.80 L, 94% predicted. The residual volume is 2.73 L, 152% predicted. The slow vital capacity is 3.30 L. The residual volume: Total lung capacity ratio is 45%. Diffusing capacity: The diffusing capacity unadjusted for hemoglobin and carboxyhemoglobin is 17.2, 61% predicted. The diffusing capacity adjusted for alveolar volume is 5.00, 105% predicted. Rest room air arterial blood gas: PH 7.36, PaCO2 52.7, PaO2 75. In comparison to Pulmonary function testing on 08/24/2021 the post bronchodilator FVC is unchanged from 2.49 L to 2 point 4 7 L. The post bronchodilator FEV1 is unchanged from 1.72 L to 1.70 L. The total lung capacity is unchanged from 7.01 L to 6.03 L. The functional residual capacity is decreased from 4.33 L to 2.80 L. The residual volume is decreased from 4.25 L to 2.73 L. the slow vital capacity is unchanged from 3.30 L to 2.76 L. the residual volume: Total lung capacity ratio has decreased from 61% to 45%. The diffusing capacity unadjusted for hemoglobin and carboxyhemoglobin is unchanged from 18.0 to 17.2. The diffusing capacity adjusted for alveolar volume is unchanged from 5.60 to 5.00. Impression: There is a severe obstructive abnormality. There is no significant improvement after inhaling a single dose of albuterol. The slow vital capacity is 1.02 L greater than forced vital capacity. This is suggestive of small airways disease. The increase in residual volume to total lung volume ratio is consistent with hyperinflation from an obstructive abnormality. The diffusing capacity unadjusted for hemoglobin and carboxyhemoglobin is mildly decreased and normalizes when adjusted for alveolar volume. The rest room air arterial blood gas demonstrates a compensated respiratory acidosis. In comparison to previous pulmonary function testing on 08/24/2021 there has been a greater than anticipated time dependent decrease in the functional residual capacity, residual volume, And residual volume: Total lung capacity ratio with no significant change in the FVC, FEV1, total lung capacity or diffusing capacity. 03/06/2024: This is a 6 minute walk test. The test was performed and interpreted in accordance with the 2014 ERS/ATS task force guidelines. Findings: The patient's resting room air oxygen saturation measured by pulse oximetry was 95%, the heart rate was 775 bpm, and the modified Jose Francisco dyspnea score was 0.5. Patient ambulated for 366 meters and oxygen saturation remained 93 to 94%. At the end of the study the heart rate was 102 bpm and the modified Jose Francisco dyspnea score was 2. The patient did not qualify for supplemental oxygen at rest or with ambulation. There are no prior studies for comparison. 03/06/2024: White blood cell count 7.9K, eosinophils 5.2%=410 uL. eosinophils greater than 300 per micro L and will continue breztri inhaler at this time. 02/13/2024: Alpha 1 anti trypsin genotype MM, normal. 12/27/2023: Home O2 evaluation.? Rest room air saturation 87%.? Rest nasal cannula 1 L saturation 88%.? Rest nasal cannula 2 L saturation 94%.? Exercise nasal cannula 2 L saturation 92%.? Patient requires 2 L at rest and with activity.? Set up with [employer] [facility] [place] 05/27/2023:? Overnight oximetry on 2 L nasal cannula.? Recording duration 6 hours and 49 minutes.? Baseline saturation 97%.? Average saturation 96%.? Low saturation 78%.? Time with saturation less than or equal to 88% was 8 minutes, 2% of the recording time.? Oxygen desaturation index 6.3. 12/26/2023: Echo Summary 1. Left ventricular chamber dimension is normal. 2. Left ventricular systolic function is normal, estimated at 60-65%. 3. The left ventricular diastolic function is abnormal. 4. Definity contrast administered improved wall motion interpretation. 5. E/e' 10 is mildly elevated. 6. There is trace tricuspid valve regurgitation. 7. Moderate pulmonary hypertension, estimated pulmonary arterial systolic pressure is 57 mmHg. Right Ventricle Right ventricular chamber dimension is normal. Right ventricular systolic function is normal. Right Atria Right atrial chamber dimension is normal. 12/24/2023: EXAMINATION: CTA chest PE protocol INDICATION: Hypoxia COMPARISON: CT abdomen pelvis dated 12/22/2023 FINDINGS: No pulmonary embolism. Lungs are clear with no pneumonia, pulmonary edema or other pulmonary infiltrates. No pleural effusion or pneumothorax. Heart size is normal. Small amount of atherosclerotic coronary artery calcific location. No pericardial effusion. Thoracic aorta is normal in caliber with no dissection. No pathologically enlarged thoracic lymphadenopathy. Visualized upper abdomen is unremarkable. Moderate thoracic spondylosis with chronic appearing mild anterior wedging at T8 and T11. IMPRESSION: 1. No pulmonary embolism or other acute cardiopulmonary disease. 08/24/2021:? This is a pulmonary function test with pre and post-bronchodilator spirometry, plethysmography and diffusing capacity.? The test was performed and results interpreted in accordance with the 2019 and 2005 ATS/ERS Task Force guidelines respectively using the Global Lung Function Initiative-2012 reference equations. Patient demonstrated good effort and cooperation. Reproducibility criteria were met. The quality of the pre bronchodilator spirometry maneuver was Grade A and post bronchodilator spirometry maneuver was Grade A. Findings: Spirometry:? There is decreased maximal expiratory airflow at all lung volumes with concave expiratory flow tracing.? The contour the inspiratory flow tracing is normal.? The pre bronchodilator FVC is 2.05 L, 49% predicted.? The pre bronchodilator FEV1 is 1.26 L, 38% predicted.? The pre bronchodilator FEV1: FVC ratio 61%.? The post bronchodilator FVC is 2.49 L, representing a 21% increase.? The post bronchodilator FEV1 is 1.72 L, representing a 36% increase.? The post bronchodilator FEV1:? FVC ratio is 69%.? Plethysmography:? The total lung capacity is 7.01 L, 118% predicted.? The functional residual capacity is 4.33 L, 147% predicted.? The residual volume is 4.25 L, 242% predicted.? The residual volume: Total lung capacity ratio 61%.? Diffusing capacity:? The diffusing capacity unadjusted for hemoglobin and carboxyhemoglobin is 18.0, 63% predicted.? The diffusing capacity adjusted for alveolar volume is 5.60, 116% predicted. Impression: There is a severe obstructive abnormality. There is significant improvement after inhaling a single dose of albuterol.? The increase in residual volume to total lung volume ratio is consistent with hyperinflation from an obstructive abnormality.? The diffusing capacity unadjusted for hemoglobin and carboxyhemoglobin is mildly decreased and normalizes when adjusted for alveolar volume. There are no prior studies for comparison Review of Systems Constitutional: Constitutional: Reports no additional constitutional complaints Eyes: Eyes: Reports no additional eye complaints ENT: Reports system reviewed and no additional complaints, except as documented Cardiovascular: Cardiovascular: Reports no additional cardiovascular complaints Respiratory: Respiratory: Reports no additional respiratory complaints Gastrointestinal: Gastrointestinal: Reports no additional gastrointestinal complaints Musculoskeletal: Musculoskeletal: Reports no additional musculoskeletal complaints Neurologic: Reports system reviewed and no additional complaints, except as documented Psychiatric: Psychiatric: Reports no additional psychiatric complaints Endocrine: Endocrine: Reports no additional endocrine complaints Hematologic/Lymphatic: Hematologic/Lymphatic: Reports no additional hematologic/lymphatic complaints Allergic/Immunologic: Allergic/Immunologic: Reports no additional allergic/immunologic complaints Exam Const: General: cooperative, healthy appearing and comfortable Orientation/consciousness: oriented to person, oriented to place and oriented to time HENMT: Head: normal to inspection Ears: hearing grossly normal bilaterally Eyes: General: appearance normal, both eyes and all related structures Neck: Neck: normal visual inspection Chest: Chest palpation & inspection: normal inspection of the chest Resp: Effort & Inspection: normal respiratory effort and able to speak in complete sentences Auscultation: no crackles, no rales, no rhonchi, no wheezes and lung sounds not diminished Cardio: Jugular venous distension: no JVD GI: Inspection: normal to inspection Skin: General skin exam: normal color Neuro: General: oriented to person, oriented to place and oriented to time Extrem: General: normal to inspection and edema Other: erythema and petechia around right knee Overall this has worsened since admission Psych: Appearance: grossly normal Objective Data Vital Signs Vital Signs: Vital Signs - 24 hr 03/15/24 14:00 03/15/24 20:00 03/15/24 21:13 Temperature 36.4 C 37.2 C Pulse Rate 91 90 Respiratory Rate 18 22 H Blood Pressure 159/77 H 143/85 H Pulse Oximetry 91 92 92 Oxygen Delivery Nasal Cannula Oxygen Flow Rate 2 03/16/24 05:55 03/16/24 07:10 03/16/24 07:10 Temperature 36.6 C Pulse Rate 75 75 75 Respiratory Rate 24 H 18 18 Blood Pressure 132/78 Pulse Oximetry 93 93 Oxygen Delivery Nasal Cannula Oxygen Flow Rate 3 03/16/24 08:58 Temperature Pulse Rate 70 Respiratory Rate Blood Pressure Pulse Oximetry Oxygen Delivery Oxygen Flow Rate Intake/Output Intake/Output: Intake & Output 03/13/24 03/14/24 03/15/24 03/16/24 23:59 23:59 23:59 23:59 Intake Total 3780 2570 2020 600 Output Total 3300 2700 1950 600 Balance 480 -130 70 0 Meds/Results Medications: Active Medications Generic Name Dose Route Start Last Admin Trade Name Freq PRN Reason Stop Dose Admin Acetaminophen 650 mg 03/12/24 03:07 03/15/24 04:55 Acetaminophen 325 Mg Tablet PO 650 mg Q4H PRN Administration Mild Pain (1-3) or Fever Amlodipine Besylate 10 mg 03/15/24 21:00 03/15/24 19:42 Amlodipine Besylate 10 Mg Tablet PO 10 mg HS CHRISTINA Administration Enoxaparin Sodium 120 mg 03/12/24 11:00 03/15/24 09:12 Enoxaparin 120 Mg/0.8 Ml Syringe SUB-Q 120 mg Q12HR CHRISTINA Administration Fluticasone/Umeclidinium/Vilanterol 1 puff 03/12/24 08:00 03/16/24 07:10 Fluticasone/Umeclidin/Vilanter 100-62.5-25 Mcg Ellipta INHALATION 1 puff DAILYRT CHRISTINA Administration Furosemide 40 mg 03/15/24 17:00 03/16/24 08:59 Furosemide 40 Mg Tablet PO 40 mg BID CHRISTINA Administration Cefepime HCl 2 gm in 50 mls @ 100 mls/hr 03/13/24 17:00 03/16/24 08:58 Maxipime 2 Gm/Ns 50 Ml IVPB 100 mls/hr Q8H CHRISTINA Administration Clindamycin Phosphate 600 mg in 50 mls @ 100 mls/hr 03/15/24 09:30 03/16/24 06:30 Clindamycin 600 Mg/D5w 50 Ml IVPB Infused Q8HR CHRISTINA Infusion Vancomycin HCl 1,750 mg in 500 mls @ 250 mls/hr 03/16/24 18:00 Vancomycin 1,750 Mg/Ns 500 Ml IVPB Q12H CHRISTINA Metoprolol Succinate 200 mg 03/12/24 09:00 03/16/24 08:58 Metoprolol Succinate Ext Rel 100 Mg Tabcr PO 200 mg DAILY CHRISTINA Administration Morphine Sulfate 2 mg 03/15/24 11:17 03/16/24 09:00 Morphine Sulfate (*Crx) 2 Mg/Ml Inj IV PUSH 2 mg Q3H PRN Administration Pain Rated 7-10 Oxycodone HCl 5 mg 03/14/24 11:57 03/16/24 06:45 Oxycodone Hcl (*Crx) 5 Mg Tab Ir PO 5 mg Q4H PRN Administration Pain Rated 4-6 Sodium Chloride 10 ml 03/15/24 14:00 03/16/24 06:01 Saline Lock Flush IV PUSH 10 ml Q8HR CHRISTINA Administration Sodium Chloride 10 ml 03/15/24 11:30 Saline Lock Flush IV PUSH PRN PRN Flush Sodium Chloride 20 ml 03/15/24 11:30 Saline Lock Flush IV PUSH PRN PRN after blood draws Radiology Results: ITS Impressions Chest CTA 03/12/24 05:45 Impression: No evidence of pulmonary embolus, aortic dissection, or aortic aneurysm. Clear lungs. Lower Extremity CT 03/12/24 06:47 IMPRESSION: Right external iliac/common femoral adenopathy, largest node measuring 2.5 x 2.0 cm. Please see details above. Findings are somewhat nonspecific, and stable since prior exam. Correlate for reactive/inflammatory lymph nodes versus any possibility of lymphoma or other metastatic disease. Head CT 03/12/24 13:56 IMPRESSION: 1. Normal brain. Abdomen/Pelvis CT 03/12/24 14:07 Impression: Enlarged right common femoral region lymph node, as above, nonspecific. Diffuse hepatic steatosis. Small fat-containing left inguinal hernia. Soft Tissue Ultrasound 03/13/24 16:32 IMPRESSION: 1. Small knee joint effusion. Chest X-Ray 03/13/24 16:33 IMPRESSION: 1. No acute cardiopulmonary disease. Lower Extremity CTA 03/15/24 14:26 IMPRESSION: Dermal thickening and subcutaneous inflammation/edema of the right lower extremity. No abscess detected. No CT evidence to suggest necrotizing fasciitis, keeping in mind this is a clinical diagnosis. Right external iliac, femoral, and inguinal lymphadenopathy. Venous Doppler Study 03/15/24 20:01 IMPRESSION: Patent right lower extremity veins. No evidence of deep venous thrombosis. Labs Labs: Laboratory Results - last 24 hr 03/15/24 03/16/24 16:51 06:40 WBC 7.6 RBC 3.45 L Hgb 9.7 L Hct 31.4 L MCV 91.0 MCH 28.1 MCHC 30.9 L RDW 14.5 Plt Count 177 MPV 12.2 H Immature Gran % (Auto) 2.5 H Neut % (Auto) 60.1 Lymph % (Auto) 21.0 [place] % (Auto) 12.2 H Eos % (Auto) 3.4 Baso % (Auto) 0.8 Lymph # (Auto) 1.60 [place] # (Auto) 0.9 H Eos # (Auto) 0.3 Baso # (Auto) 0.1 Abs Immat Gran (auto) 0.19 H Absolute Neuts (auto) 4.6 Absolute Nucleated RBC 0.000 Nucleated RBC % 0.0 PT 13.1 INR 1.0 APTT 37.5 H Puncture Site Left radial ABG pH 7.367 ABG pCO2 51.9 H ABG pO2 66.0 L ABG PO2/FiO2 Ratio 2.06 ABG HCO3 29.1 H ABG O2 Saturation 92.2 L ABG O2 Content 13.6 L ABG Base Excess 3.1 A-a Gradient 101.4 Oxyhemoglobin 91.8 Total Hemoglobin 10.5 L O2 Delivery Device Nasal cannula O2 Liters/Min 3.0 FiO2 32 Sodium 140 Potassium 3.4 Chloride 103 Carbon Dioxide 32 H Anion Gap 5 BUN 9 Creatinine 1.10 Estim Creat Clear Calc 82 Estimated GFR > 60 Glucose 109 Calcium 8.3 L Total Bilirubin 0.5 AST 34 ALT 42 Alkaline Phosphatase 74 Total Protein 7.0 Albumin 3.6 Vancomycin Trough 25.0 H
[2024-03-16] MEDS: metroNIDAZOLE 500 MG/ISO 100ML 500 MG/100 ML BAG 100 MG IVPB ×2 (13:23→20:10)
[2024-03-16] MEDS: LINEZOLID 600 MG TABLET PO ×2 (13:23→20:10)
--- NOTE | 2024-03-16 13:35 | P.CONGS_ITS ---
Assessment and Plan Assessment and plan (1) Cellulitis of right anterior lower leg: Code(s): L03.115 - Cellulitis of right lower limb Status: Acute Assessment and Plan: * Right lower extremity cellulitis. WBC normalized. No findings on exam or CT that suggest necrotizing fasciitis or deeper abscess that would require surgical intervention. * Continue IV antibiotics. Elevate right lower extremity. * Remote history of bilateral knee replacement with similar infection of the left lower extremity 3 months ago. Ortho recommending transfer to tertiary care facility for infectious disease evaluation. Await transfer. (2) Sepsis: Qualifiers: Sepsis acute organ dysfunction status: unspecified Sepsis type: sepsis due to unspecified organism Qualified Code(s): A41.9 - Sepsis, unspecified organism Code(s): A41.9 - Sepsis, unspecified organism Status: Acute Assessment and Plan: * Sepsis resolving. WBC normalized. Source suspected to be right lower extremity cellulitis. See plan above. (3) DVT (deep venous thrombosis): Qualifiers: Affected thrombotic vein of extremity: femoral Chronicity: acute DVT location: lower extremity Laterality: right Qualified Code(s): I82.411 - Acute embolism and thrombosis of right femoral vein Code(s): I82.409 - Acute embolism and thrombosis of unspecified deep veins of unspecified lower extremity Status: Acute Assessment and Plan: * Right femoral DVT found on admission. Okay to resume anticoagulation from surgical standpoint. (4) Morbid obesity with BMI of 40.0-44.9, adult: Code(s): E66.01 - Morbid (severe) obesity due to excess calories; Z68.41 - Body mass index [BMI] 40.0-44.9, adult Status: Chronic (5) Inguinal lymphadenopathy: Code(s): R59.0 - Localized enlarged lymph nodes Status: Acute Assessment and Plan: * Plan for IR to proceed with inguinal lymph node biopsy today. (6) COPD (chronic obstructive pulmonary disease): Onset Date: ~08/24/21 Qualifiers: COPD type: unspecified COPD Qualified Code(s): J44.9 - Chronic obstructive pulmonary disease, unspecified Code(s): J44.9 - Chronic obstructive pulmonary disease, unspecified Status: Chronic Plan I have discussed the patient's case and plan of care with Dr. Goldman. Thank you for allowing us to see the patient in consultation and we will continue to follow along with you. History of Present Illness Consult details Consult date: 03/16/24 Reason for consult: other (Possible necrotizing fasciitis) Requesting physician: Barrett Cox MD Narrative: This is a 53-year-old man with COPD, chronic hypercarbic respiratory failure, mild diastolic dysfunction, obesity, and multiple other medical problems, who we have been asked to see in surgical consultation for concern of possible necrotizing fasciitis. The patient presented to the ED on 03/11/2024 for evaluation of right inguinal pain and fever. Workup revealed right femoral vein DVT and possible sepsis secondary to right lower extremity cellulitis. CTA chest negative for pneumonia or PE. He was started on anticoagulation for the DVT. White blood cell count was originally at 25,000 on admission and has since normalized. His white blood cell count has remained normal over the past few days. He has since had a right lower extremity CT on 03/12/2024 that showed right external iliac/common femoral adenopathy, largest node measuring 2.5 cm. The patient reports over the last 2 days, he felt the right leg cellulitis had progressed as there was now darker reddened areas on the anterior aspect of his leg. His is on the phone during our conversation and reports that overall swelling and erythema has improved over the last 24 hours. The patient reports cellulitis of the left leg about 3 months ago that had a very similar presentation and improved with antibiotics at that time. He is also concerned because he has had bilateral knee replacements. His reports his right knee was replaced in 2019 and he had a postoperative infection that led to revision of the right knee replacement. Due to the progression and changes of the skin of the right leg he had a CTA of the right lower extremity yesterday. This showed dermal thickening and subcutaneous inflammation/edema of the right lower extremity, no abscess detected, no CT evidence to suggest necrotizing fasciitis. Also seen is right external iliac, femoral, and inguinal lymphadenopathy. The patient reports his right inguinal pain has significantly improved since he was admitted. He denies any numbness or tingling in his lower extremities. He reports full sensation in his right leg and foot, and full range of motion of his toes and ankle. He is currently on 3 L of oxygen, but denies wearing any O2 at home. He does have COPD and pulmonology evaluated the patient during this hospitalization. Review of Systems 2 Review of Systems: All systems reviewed & are unremarkable except as noted in HPI and below PMFSH Past Medical History Medical History Nocturnal hypoxemia Pulmonary hypertension Mild diastolic dysfunction Cellulitis and abscess of left leg (~12/23/23) Bacterial meningitis Sepsis Leg pain, left Febrile illness Inguinal adenopathy Headache Hand eczema COPD exacerbation SOB (shortness of breath) Cough Morbid obesity with BMI of 40.0-44.9, adult Acute conjunctivitis of left eye Dyshidrotic eczema Tinea pedis Pain in joints of both feet x-rays of both feet on 05/07/2022 reveals diffuse mild osteoarthritis of both feet. Rash and nonspecific skin eruption Adult BMI 39.0-39.9 kg/sq m Obesity (BMI 30-39.9) COVID-19 (~08/2021) 2nd episode with mild symptoms for 2 or 3 days. Candidiasis of other urogenital sites (10/31/21) Low iron (08/24/21) iron 49 with 13% saturation and hemoglobin 14.1 on 08/24/2021. Iron 50 with 12% saturation and ferritin 31 on 11/13/2022. COPD (chronic obstructive pulmonary disease) (~08/24/21) PFT on 08/24/2021 with moderate obstructive defect with significant improvement with bronchodilator. Dyspnea on exertion exercise stress test on 08/24/2021 was negative for ischemia. EKG revealed sinus rhythm with borderline R-wave progression. Chronic nonallergic rhinitis BMI 37.0-37.9, adult Hearing loss chronic worse on left than right Encounter for wellness examination in adult COVID-19 (02/14/21) fully vaccinated and COVID BMI 36.0-36.9,adult Insomnia Acute low back pain Mixed hyperlipidemia total cholesterol 217, triglycerides 403, HDL 30 and LDL 106 with AST 22 and ALT 26 on 03/11/2020. Cholesterol 207, HDL 40, triglycerides 111, LDL 142 on 08/24/2021. Cholesterol 226, triglycerides 169, HDL 36, LDL 159 on 11/13/2022. Abnormal fasting glucose fasting glucose normal at 95 on 03/11/2020. Glucose 110 with hemoglobin A1c 5.5 on 08/24/2021. Glucose 95 with hemoglobin A1c 5.8 on 11/13/2022 Chronic pain of both knees chronic bilateral knee pain after multiple surgeries. Degenerative changes. Permanent handicap placard 06/29/2021 Tonsillar hypertrophy Encounter for prostate cancer screening PSA 0.6 on 03/11/2020. PSA 1.0 on 08/24/2021. Lip cyst Tobacco use disorder, continuous patient quit smoking cigarettes Jul, 2021 but continues to chew tobacco 1/2 can daily. Obstructive sleep apnea Hypertension Surgical History Surgical History H/O shoulder surgery left shoulder History of neck surgery History of right knee surgery (~2017) H/O left knee surgery (~2013) Family History Family History Mother Parkinson disease Father Accident Social History Social History Smoking packs per day: 1 Smoking cigarettes per day: 20.0 Smoking status: Former smoker Tobacco type: cigarettes Smokeless tobacco user: chewing tobacco Second hand tobacco smoke exposure: No Smoking end date: 04/01/19 Alcohol intake: never Substance use: never Substance use type: does not use Do You Feel Safe in your Home?: Yes Lack of Transportation: YES Lack of Food: Never True Current Housing: I Have Housing Concerned About Future Housing: No Difficulty Paying Gas/Electric Bills: No Difficulty Paying for Meds: No Currently Unemployed: No Education: High School Diploma/GED Difficulty w/ Childcare or Family Care: No Living arrangements: with family Occupation/Education: occupation Gender identity (if verbalized by the patient): Male Spiritual care concerns: No Meds Home Medications and Allergies Home Medications ?Medication ?Instructions ?Recorded ?Confirmed ?Type metoprolol succinate 200 mg 200 mg PO DAILY #90 tabs 04/29/23 03/12/24 Rx tablet,extended release 24 hr ibuprofen 800 mg tablet 800 mg PO TID PRN pain #90 tabs 10/02/23 03/12/24 Rx budesonide 160 mcg-glycopyr 9 2 inh inhalation BID #10.7 grams 12/31/23 03/12/24 Rx mcg-formot 4.8 mcg/actuation HFA inhaler (Breztri Aerosphere) amlodipine 5 mg tablet (Norvasc) 5 mg PO DAILY #90 tabs 01/22/24 03/12/24 Rx furosemide 40 mg tablet (Lasix) 40 mg PO QAM #90 tabs 01/22/24 03/12/24 Rx Allergies Allergy/AdvReac Type Severity Reaction Status Date / Time chlorpheniramine (From AdvReac CHILE- Verified 02/13/24 13:04 Actifed Cold-Allergy) UNKNOWN REACTION phenylephrine (From Actifed AdvReac CHILD- Verified 02/13/24 13:04 Cold-Allergy) UNKNOWN REACTION pseudoephedrine (From AdvReac CHILD- Verified 02/13/24 13:04 Actifed Cold-Allergy) UNKNOWN REACTION triprolidine (From Actifed AdvReac CHILD- Verified 02/13/24 13:04 Cold-Allergy) UNKNOWN REACTION Vital Signs Vital Signs - 24 hr 03/15/24 14:00 03/15/24 20:00 03/15/24 21:13 Temperature 97.6 F 99.0 F Pulse Rate 91 90 Respiratory Rate 18 22 H Blood Pressure 159/77 H 143/85 H Pulse Oximetry 91 92 92 Oxygen Delivery Nasal Cannula Oxygen Flow Rate 2 03/16/24 05:55 03/16/24 07:10 03/16/24 07:10 Temperature 97.9 F Pulse Rate 75 75 75 Respiratory Rate 24 H 18 18 Blood Pressure 132/78 Pulse Oximetry 93 93 Oxygen Delivery Nasal Cannula Oxygen Flow Rate 3 03/16/24 08:58 Temperature Pulse Rate 70 Respiratory Rate Blood Pressure Pulse Oximetry Oxygen Delivery Oxygen Flow Rate Exam 2 Const: General: comfortable and no acute distress Nutritional Appearance: o bese Orientation/consciousness: patient oriented x3 HENMT: Head: normocephalic and atraumatic Ears: hearing grossly normal bilaterally Eyes: General: appearance normal, both eyes and all related structures P upils: Equal, round and reactive pupils present Neck: Neck: normal visual inspection and full ROM Resp: Effort & Inspection: no respiratory distress Auscultation: clear to auscultation bilaterally Cardio: Rate: regular rate Rhythm: regular rhythm Peripheral pulses: P eripheral pulses 2+ throughout GI: Inspection: non-distended GI Palp: Yes Soft to palpation, No Tenderness to palpation present (GI), No Guarding due to palpation present (GI) and No Rebound tenderness present Percussion: Yes normal to percussion A uscultation: normal bowel sounds Skin: General skin exam: normal color Neuro: General: moves all extremities and no focal motor deficits Speech: n ormal speech Motor exam (neuro): 5/5 motor strength present throughout Extrem: Other: Diffuse mild to moderate edema of the entire right leg and extending diffusely to the right foot. There is diffuse mild erythema around the anterior and medial leg extending from the upper thigh to the lower leg. There is also a darker red flat rash of the anterior leg primarily around the knee and extending slightly inferior and superiorly. This blanches and is diffusely tender. The skin is all intact and the area is dry without any drainage. There is a demarcated line drawn with marker from 4 days ago (per the patient) and the redness is within the demarcated lines, it does not appear to be extending past. He has full range of motion of his toes and ankle. He has full sensation of his right lower extremity and foot. Strong pedal pulses. Psych: Mental Status: mental status grossly normal Attitude: cooperative Insight: Good insight present (Psych) Judgement: Good judgement present (Psych) Results Labs 03/16/24 06:40 03/16/24 06:40 Labs: Abnormal lab results 03/15/24 03/16/24 Range/Units 16:51 06:40 RBC 3.45 L (4.6-6.20) M/mm3 Hgb 9.7 L (14.0-18.0) g/dL Hct 31.4 L (42.0-52.0) % MCHC 30.9 L (32-36) g/dl MPV 12.2 H (7.4-10.4) fl Immature Gran % (Auto) 2.5 H (0-0.5) % [place] % (Auto) 12.2 H (2.6-8.5) % [place] # (Auto) 0.9 H (0.1-0.6) K/mm3 Abs Immat Gran (auto) 0.19 H (0.00-0.031) K/mm3 APTT 37.5 H (22.3-36.8) Seconds ABG pCO2 51.9 H (35.0-45.0) mmHg ABG pO2 66.0 L (80.0-100.0) mmHg ABG HCO3 29.1 H (22.0-26.0) mEq/l ABG O2 Saturation 92.2 L (95.0-100.0) % ABG O2 Content 13.6 L (16.0-22.0) %vol Total Hemoglobin 10.5 L (12.0-18.0) g/dL Carbon Dioxide 32 H (22-30) mmol/L Calcium 8.3 L (8.4-10.2) mg/dL Vancomycin Trough 25.0 H (10.0-20.0) ug/mL Diabetes panel 03/16/24 Range/Units 06:40 Sodium 140 (137-145) mmol/L Potassium 3.4 (3.4-5.0) mmol/L Chloride 103 (98-107) mmol/L Carbon Dioxide 32 H (22-30) mmol/L BUN 9 (9-20) mg/dL Creatinine 1.10 (0.7-1.3) mg/dL Glucose 109 (65-110) mg/dL Calcium 8.3 L (8.4-10.2) mg/dL AST 34 (17-59) U/L ALT 42 (6-50) U/L Alkaline Phosphatase 74 (38-126) U/L Total Protein 7.0 (6.3-8.2) g/dL Albumin 3.6 (3.5-5.1) g/dL Calcium panel 03/16/24 Range/Units 06:40 Calcium 8.3 L (8.4-10.2) mg/dL Albumin 3.6 (3.5-5.1) g/dL Pituitary panel 03/16/24 Range/Units 06:40 Sodium 140 (137-145) mmol/L Potassium 3.4 (3.4-5.0) mmol/L Chloride 103 (98-107) mmol/L Carbon Dioxide 32 H (22-30) mmol/L BUN 9 (9-20) mg/dL Creatinine 1.10 (0.7-1.3) mg/dL Glucose 109 (65-110) mg/dL Calcium 8.3 L (8.4-10.2) mg/dL Adrenal panel 03/16/24 Range/Units 06:40 Sodium 140 (137-145) mmol/L Potassium 3.4 (3.4-5.0) mmol/L Chloride 103 (98-107) mmol/L Carbon Dioxide 32 H (22-30) mmol/L BUN 9 (9-20) mg/dL Creatinine 1.10 (0.7-1.3) mg/dL Glucose 109 (65-110) mg/dL Calcium 8.3 L (8.4-10.2) mg/dL Total Bilirubin 0.5 (0.2-1.3) mg/dL AST 34 (17-59) U/L ALT 42 (6-50) U/L Alkaline Phosphatase 74 (38-126) U/L Total Protein 7.0 (6.3-8.2) g/dL Albumin 3.6 (3.5-5.1) g/dL All other labs normal. Imaging Additional studies: ITS Impressions Chest X-Ray 03/11/24 22:25 IMPRESSION: 1. No acute cardiopulmonary disease. Venous Doppler Study 03/11/24 22:44 IMPRESSION: 1. Deep vein thrombosis involving right femoral vein. Chest CTA 03/12/24 05:45 Impression: No evidence of pulmonary embolus, aortic dissection, or aortic aneurysm. Clear lungs. Lower Extremity CT 03/12/24 06:47 IMPRESSION: Right external iliac/common femoral adenopathy, largest node measuring 2.5 x 2.0 cm. Please see details above. Findings are somewhat nonspecific, and stable since prior exam. Correlate for reactive/inflammatory lymph nodes versus any possibility of lymphoma or other metastatic disease. Head CT 03/12/24 13:56 IMPRESSION: 1. Normal brain. Abdomen/Pelvis CT 03/12/24 14:07 Impression: Enlarged right common femoral region lymph node, as above, nonspecific. Diffuse hepatic steatosis. Small fat-containing left inguinal hernia. Soft Tissue Ultrasound 03/13/24 16:32 IMPRESSION: 1. Small knee joint effusion. Chest X-Ray 03/13/24 16:33 IMPRESSION: 1. No acute cardiopulmonary disease. Venous Doppler Study 03/15/24 12:09 Impression: No evidence of deep vein thrombosis involving the right upper extremity. Lower Extremity CTA 03/15/24 14:26 IMPRESSION: Dermal thickening and subcutaneous inflammation/edema of the right lower extremity. No abscess detected. No CT evidence to suggest necrotizing fasciitis, keeping in mind this is a clinical diagnosis. Right external iliac, femoral, and inguinal lymphadenopathy. Venous Doppler Study 03/15/24 20:01 IMPRESSION: Patent right lower extremity veins. No evidence of deep venous thrombosis.
--- NOTE | 2024-03-16 15:12 | P.PNIM_ITS ---
Progress Note: A&P Assessment and Plan (1) Sepsis: Qualifiers: Sepsis acute organ dysfunction status: unspecified Sepsis type: sepsis due to unspecified organism Qualified Code(s): A41.9 - Sepsis, unspecified o rganism Code(s): A41.9 - Sepsis, unspecified organism Status: Acute Assessment and Plan: - lactic acid: 1.6 - suspected source: right lower extremity cellulitis? - blood cultures drawn on 03/11: NGTD - Viral panel negative - UA: non concerning for infection - CXR: No acute cardiopulmonary disease. - Chest CTA: No evidence of pulmonary embolus, aortic dissection, or aortic aneurysm. -CT lower extremity right showed the thickening and subcutaneous inflammation a double-J right lower extremity. no CT evidence to suggest necrotizing fasciitis - Echo unremarkable - Right LE US Showed right femoral DVT, repeat on 03/15 was negative. Discussed with radiology today to over read due to short duration of treatment and disappearance of clots. - Continue tele monitoring - Antibiotics: vancomycin, cefepime Culture negative Biopsy right femoral adenopathy ordered monitor (2) Cellulitis: Qualifiers: Laterality: right Site of cellulitis: extremity Site of cellulitis of extremity: lower extremity Qualified Code(s): L03.115 - Cellulitis of right lower limb Code(s): L03.90 - Cellulitis, unspecified Status: Acute Assessment and Plan: Patient still having worsening erythema and swelling Stat CT ordered prior CT showed right external iliac/Common femoral adenopathy largest node measuring 2.5 x 2.0 cm, inflammation vs lymphoma vs metastatic disease f/u with repeat CT Continue Vanc, Cefepime Called [facility] for possible transfer Ortho reviewed and has low suspicion for Compartment syndrome, still recommends transfer to higher level of care Erythema still persistence, however leukocytosis and fever has resolved. Given patient's concern and station over transfer, he was transferred for ID involved. Patient has been accepted at [place], awaiting bed (3) DVT (deep venous thrombosis): Qualifiers: Affected thrombotic vein of extremity: femoral Chronicity: acute DVT location: lower extremity Laterality: right Qualified Code(s): I82.411 - Acute embolism and thrombosis of right femoral vein Code(s): I82.409 - Acute embolism and thrombosis of unspecified deep veins of unspecified lower extremity Status: Acute Assessment and Plan: - Venous doppler: Deep vein thrombosis involving right femoral vein. - Right LE CT: Right external iliac/common femoral adenopathy, largest node measuring 2.5 x 2.0 cm. Please see details above. Findings are somewhat nonspecific, and stable since prior exam. Correlate for reactive/inflammatory lymph nodes versus any possibility of lymphoma or other metastatic disease. - Chest CTA: No evidence of pulmonary embolus, aortic dissection, or aortic aneurysm. - Anticoagulation: Lovenox 120 mg BID Awaiting radiology to overread venous doppler on 03/15, if still negative will discontinue full dose lovenox (4) Hypertension: Qualifiers: Hypertension type: unspecified Qualified Code(s): I10 - Essential (primary) hypertension Code(s): I10 - Essential (primary) hypertension Status: Acute Assessment and Plan: Chronic - Continue with metoprolol 200 mg daily - Amlodipine increased to 10 mg daily - Monitor (5) Chronic hypercapnic respiratory failure: Code(s): J96.12 - Chronic respiratory failure with hypercapnia Status: Acute Assessment and Plan: Patient has COPD with chronic hypercarbic respiratory failure with an ABG of 7.36/52.7/75 on room air, overnight oximetry on 2 L with time of saturation less than or equal to 88% 16 minutes. Apnea link reviewed by pulmonology and recommended nighttime BiPAP 13/08 with 2 liters oxygen bleed in at night pulmonology following (6) COPD (chronic obstructive pulmonary disease): Onset Date: ~08/24/21 Qualifiers: COPD type: unspecified COPD Qualified Code(s): J44.9 - Chronic obstructive pulmonary disease, unspecified Code(s): J44.9 - Chronic obstructive pulmonary disease, unspecified Status: Chronic Assessment and Plan: Chronic, no acute exacerbation. Plan DVT prophylaxis on Full dose Lovenox Subjective Date/time seen: 03/16/24 15:12 Interval history: Comfortable at bedside Erythema did not improve however patient has been afebrile since the 03/13 There was concern for Nec Fasciitis and compartment syndrome but all that were ruled, CTA LE did no show any air and repeat Venous doppler negative for DVT I have asked Radiology to overread the venous doppler as it was too short of a duration for dissolution of DVT from diagnosis. He will overread and addedn report Given patient's insistence for transfer, he has been acepted at [place], awaiting bed availability Review of Systems Review of Systems: All systems reviewed & are unremarkable except as noted in HPI and below Constitutional: Constitutional: Reports body ache(s), Reports chills, Reports fatigue and Reports weakness Eyes: Eyes: Reports no additional eye complaints ENT: Reports system reviewed and no additional complaints, except as documented Cardiovascular: Cardiovascular: Reports diaphoresis Respiratory: Respiratory: Reports no additional respiratory complaints Gastrointestinal: Gastrointestinal: Reports no additional gastrointestinal complaints Musculoskeletal: Musculoskeletal: Reports myalgias, Reports arthralgias and Reports joint swelling Neurologic: Reports system reviewed and no additional complaints, except as documented and Reports weakness Endocrine: Endocrine: Reports fatigue Exam Narrative: AF HR 74 RR 20 SpO2 99 BP 129/71 General: male in no acute respiratory distress who is nontoxic appearing, lying semi recumbent in bed. HEENT: Normocephalic. Atraumatic. Extraocular movement intact. Sclera clear and anicteric. No facial asymmetry. Chest: Lungs are clear to auscultation bilaterally. No wheezes or crackles. CV: Heart was regular rate and rhythm. S1/S2. No murmurs, gallops, or rubs. Abd: Abdomen was soft. Nontender. Nondistended. Positive bowel sounds. No organomegaly or masses. Ext: Redness and edema to the right leg extending from mid colby to mid thigh, tenderness to slight palpation worse along the knee. 2+ DP pulses bilaterally. Neuro: Patient is alert and oriented x4. Cranial nerves 2-12 are intact. Speech is clear. No neuro deficits. No nuchal rigidity. Const: General: in distress and uncomfortable HENMT: Face/Nose/Sinus: Normal nares present Mouth: Yes dry mucous membranes Eyes: Other: Injected conjunctiva Neck: Neck: supple Other: No neck stiffness Resp: Effort & Inspection: normal respiratory effort Auscultation: clear to auscultation bilaterally Cardio: Rate: regular rate Rhythm: regular rhythm GI: Inspection: distended Auscultation: normal bowel sounds Skin: General skin exam: normal color Extrem: Other: Redness noted over right leg, right knee seems to be tender to touch, limited range of motion Psych: Mental Status: mental status grossly normal Objective Data Vital Signs Vital Signs: Vital Signs - 24 hr 03/15/24 20:00 03/15/24 21:13 03/16/24 05:55 Temperature 99.0 F 97.9 F Pulse Rate 90 75 Respiratory Rate 22 H 24 H Blood Pressure 143/85 H 132/78 Pulse Oximetry 92 92 93 Oxygen Delivery Nasal Cannula Oxygen Flow Rate 2 03/16/24 07:10 03/16/24 07:10 03/16/24 08:58 Temperature Pulse Rate 75 75 70 Respiratory Rate 18 18 Blood Pressure Pulse Oximetry 93 Oxygen Delivery Nasal Cannula Oxygen Flow Rate 3 03/16/24 14:00 Temperature 97.9 F Pulse Rate 70 Respiratory Rate 16 Blood Pressure 131/77 Pulse Oximetry 98 Oxygen Delivery Oxygen Flow Rate Intake/Output Intake/Output: Intake & Output 03/13/24 03/14/24 03/15/24 03/16/24 23:59 23:59 23:59 23:59 Intake Total 3780 2570 2020 600 Output Total 3300 2700 1950 600 Balance 480 -130 70 0 Meds/Results Medications: Active Medications Generic Name Dose Route Start Last Admin Trade Name Freq PRN Reason Stop Dose Admin Acetaminophen 650 mg 03/12/24 03:07 03/15/24 04:55 Acetaminophen 325 Mg Tablet PO 650 mg Q4H PRN Administration Mild Pain (1-3) or Fever Amlodipine Besylate 10 mg 03/15/24 21:00 03/15/24 19:42 Amlodipine Besylate 10 Mg Tablet PO 10 mg HS CHRISTINA Administration Enoxaparin Sodium 120 mg 03/12/24 11:00 03/15/24 09:12 Enoxaparin 120 Mg/0.8 Ml Syringe SUB-Q 120 mg Q12HR CHRISTINA Administration Fluticasone/Umeclidinium/Vilanterol 1 puff 03/12/24 08:00 03/16/24 13:15 Fluticasone/Umeclidin/Vilanter 100-62.5-25 Mcg Ellipta INHALATION 1 puff DAILYRT CHRISTINA Administration Furosemide 40 mg 03/15/24 17:00 03/16/24 08:59 Furosemide 40 Mg Tablet PO 40 mg BID CHRISTINA Administration Cefepime HCl 2 gm in 50 mls @ 100 mls/hr 03/13/24 17:00 03/16/24 08:58 Maxipime 2 Gm/Ns 50 Ml IVPB 100 mls/hr Q8H CHRISTINA Administration Metronidazole 500 mg in 100 mls @ 100 mls/hr 03/16/24 14:00 03/16/24 13:23 Flagyl 500 Mg/Iso Soln 100 Ml IVPB 100 mls/hr Q8H CHRISTINA Administration Linezolid 600 mg 03/16/24 13:15 03/16/24 13:23 Linezolid 600 Mg Tablet PO 600 mg Q12HR CHRISTINA Administration Metoprolol Succinate 200 mg 03/12/24 09:00 03/16/24 08:58 Metoprolol Succinate Ext Rel 100 Mg Tabcr PO 200 mg DAILY CHRISTINA Administration Morphine Sulfate 2 mg 03/15/24 11:17 03/16/24 15:04 Morphine Sulfate (*Crx) 2 Mg/Ml Inj IV PUSH 2 mg Q3H PRN Administration Pain Rated 7-10 Oxycodone HCl 5 mg 03/14/24 11:57 03/16/24 13:22 Oxycodone Hcl (*Crx) 5 Mg Tab Ir PO 5 mg Q4H PRN Administration Pain Rated 4-6 Sodium Chloride 10 ml 03/15/24 14:00 03/16/24 13:23 Saline Lock Flush IV PUSH 10 ml Q8HR CHRISTINA Administration Sodium Chloride 10 ml 03/15/24 11:30 Saline Lock Flush IV PUSH PRN PRN Flush Sodium Chloride 20 ml 03/15/24 11:30 Saline Lock Flush IV PUSH PRN PRN after blood draws Radiology Results: ITS Impressions Chest CTA 03/12/24 05:45 Impression: No evidence of pulmonary embolus, aortic dissection, or aortic aneurysm. Clear lungs. Lower Extremity CT 03/12/24 06:47 IMPRESSION: Right external iliac/common femoral adenopathy, largest node measuring 2.5 x 2.0 cm. Please see details above. Findings are somewhat nonspecific, and stable since prior exam. Correlate for reactive/inflammatory lymph nodes versus any possibility of lymphoma or other metastatic disease. Head CT 03/12/24 13:56 IMPRESSION: 1. Normal brain. Abdomen/Pelvis CT 03/12/24 14:07 Impression: Enlarged right common femoral region lymph node, as above, nonspecific. Diffuse hepatic steatosis. Small fat-containing left inguinal hernia. Soft Tissue Ultrasound 03/13/24 16:32 IMPRESSION: 1. Small knee joint effusion. Chest X-Ray 03/13/24 16:33 IMPRESSION: 1. No acute cardiopulmonary disease. Lower Extremity CTA 03/15/24 14:26 IMPRESSION: Dermal thickening and subcutaneous inflammation/edema of the right lower extremity. No abscess detected. No CT evidence to suggest necrotizing fasciitis, keeping in mind this is a clinical diagnosis. Right external iliac, femoral, and inguinal lymphadenopathy. Venous Doppler Study 03/15/24 20:01 IMPRESSION: Patent right lower extremity veins. No evidence of deep venous thrombosis. Labs Labs: Laboratory Results - last 24 hr 03/15/24 03/16/24 16:51 06:40 WBC 7.6 RBC 3.45 L Hgb 9.7 L Hct 31.4 L MCV 91.0 MCH 28.1 MCHC 30.9 L RDW 14.5 Plt Count 177 MPV 12.2 H Immature Gran % (Auto) 2.5 H Neut % (Auto) 60.1 Lymph % (Auto) 21.0 [place] % (Auto) 12.2 H Eos % (Auto) 3.4 Baso % (Auto) 0.8 Lymph # (Auto) 1.60 [place] # (Auto) 0.9 H Eos # (Auto) 0.3 Baso # (Auto) 0.1 Abs Immat Gran (auto) 0.19 H Absolute Neuts (auto) 4.6 Absolute Nucleated RBC 0.000 Nucleated RBC % 0.0 PT 13.1 INR 1.0 APTT 37.5 H Puncture Site Left radial ABG pH 7.367 ABG pCO2 51.9 H ABG pO2 66.0 L ABG PO2/FiO2 Ratio 2.06 ABG HCO3 29.1 H ABG O2 Saturation 92.2 L ABG O2 Content 13.6 L ABG Base Excess 3.1 A-a Gradient 101.4 Oxyhemoglobin 91.8 Total Hemoglobin 10.5 L O2 Delivery Device Nasal cannula O2 Liters/Min 3.0 FiO2 32 Sodium 140 Potassium 3.4 Chloride 103 Carbon Dioxide 32 H Anion Gap 5 BUN 9 Creatinine 1.10 Estim Creat Clear Calc 82 Estimated GFR > 60 Glucose 109 Calcium 8.3 L Total Bilirubin 0.5 AST 34 ALT 42 Alkaline Phosphatase 74 Total Protein 7.0 Albumin 3.6 Vancomycin Trough 25.0 H Quality VTE Prophylaxis VTE prophylaxis: pharmacologic ordered
[2024-03-16] MEDS: amLODIPine BESYLATE 10 MG TABLET PO (20:10)
[2024-03-17] MEDS: CEFEPIME 2 GM/NS 50 ML 2 GM/50 ML BAG IVPB ×3 (00:47→17:33)
[2024-03-17] MEDS: oxyCODONE HCL (*CRX) 5 MG TAB IR PO ×3 (02:52→21:10)
[2024-03-17] MEDS: MORPHINE SULFATE (*CRX) 2 MG/ML INJ IV PUSH ×4 (04:55→20:41)
[2024-03-17] MEDS: metroNIDAZOLE 500 MG/ISO 100ML 500 MG/100 ML BAG 100 MG IVPB ×2 (05:29→13:15)
[2024-03-17] MEDS: SALINE LOCK FLUSH 10 ML IV PUSH ×2 (05:30→17:34)
[2024-03-17 06:00] VITALS: BP 129/75; PULSE 70; RESP 20; TEMP 36.1; O2SAT 98
[2024-03-17] MEDS: FLUTICASONE/UMECLIDIN/VILANTER 100-62.5-25 MCG ELLIPTA 1 PUFF INHALATION (07:54)
[2024-03-17 08:00] VITALS: PULSE 83; RESP 20; O2SAT 93; O2SAT 97
[2024-03-17 08:04] VITALS: PULSE 85
[2024-03-17] MEDS: LINEZOLID 600 MG TABLET PO ×2 (08:04→20:37)
[2024-03-17] MEDS: FUROSEMIDE 40 MG TABLET PO ×2 (08:04→17:33)
[2024-03-17] MEDS: METOPROLOL SUCCINATE EXT REL 100 MG TABCR 200 MG PO (08:04)
--- NOTE | 2024-03-17 09:18 | PM.PNPUL ---
Progress Note: A&P Assessment and Plan (1) COPD (chronic obstructive pulmonary disease): Onset Date: ~08/24/21 Qualifiers: COPD type: unspecified COPD Qualified Code(s): J44.9 - Chronic obstructive pulmonary disease, unspecified Code(s): J44.9 - Chronic obstructive pulmonary disease, unspecified Status: Chronic Assessment and Plan: GOLD grade 3 group B COPD with chronic hypercarbic respiratory failure 30 pack year tobacco use, quit 2019, Alpha 1 anti trypsin genotype MM, PFTs 08/24/2021 with severe obstruction with an FEV1 of 1.26 L, 38% predicted, positive bronchodilator response, hyperinflation and mildly decreased DLCO that normalized when adjusted for alveolar volume. Patient has hypoxemic respiratory failure with home O2 assessment on 12/27/2023 requiring 2 L at rest and with activity. 03/06/2024 eosinophil count 410. 03/06/2024 6 minute walk 366 m with alexander saturation 93%. 03/06/2024: PFTs with a severe obstructive abnormality with an FEV1 1.60 L, 49% predicted, no bronchodilator response, slow vital capacity is 1.02 L greater than forced vital capacity suggestive of small airways disease, hyperinflation DLCO mildly decreased and normalized when adjusted for alveolar ventilation an ABG of 7.36/53/75 on room air. 03/04/2024: Overnight oximetry on 2 L with time of saturation less than or equal to 88% at 16 minutes. Maintained on Breztri. currently no evidence of COPD exacerbation, pneumonia, PE, bronchitis. patient on no oxygen at home. Currently was on 2 L nasal cannula saturation 98%. I placed him on room air and his saturations remained 92%. Plan: I will continue patient's triple inhalers with trelegy inhaler 100. Goal saturation 90-94%. Adjust oxygen accordingly. In patient pulmonary consult services will resume on 03/16/2024. Call with questions. 03/16/2024: Patient states he is breathing at his baseline with no evidence of a COPD exacerbation. Is currently on 3 L nasal cannula. Plan: Continue trilogy inhaler 100 mg q.day. goal saturation 90-94%. Adjust oxygen accordingly. 03/17/24: Patient states his breathing at his baseline. No respiratory complaints. currently the patient is on room air with saturations 91-92%. From a pulmonary perspective patient can be discharged on these pulmonary medications: Heathertri 160-9-4.8 at 2 puffs twice a day. Rescue albuterol 2 puffs q.4 hours p.r.n. shortness of breath or wheezing Patient currently on room air and recent 6 minute walk on 03/06/2024 demonstrated no oxygen requirements at rest or with ambulation. If patient is requiring supplemental oxygen on the day of discharge recommend formal home O2 assessment. 4 L nasal cannula oxygen at night pending set up of his noninvasive ventilation with [facility] for BiPAP auto rate, 15/5, 2 L bleed in. Discussed with Dr. Anderson. Will sign off. Call with questions. (2) Chronic hypercapnic respiratory failure: Code(s): J96.12 - Chronic respiratory failure with hypercapnia Status: Acute Assessment and Plan: Patient has COPD with chronic hypercarbic respiratory failure with an ABG of 7.36/52.7/75 on room air, overnight oximetry on 2 L with time of saturation less than or equal to 88% 16 minutes. Patient with COPD and chronic hypercarbic respiratory failure and would benefit from noninvasive ventilation to prevent further deterioration and subsequent hospitalizations. I will initiate the patient on BiPAP. 03/13/24: He said he wore the fullface mask with the BiPAP 16 pressures 15/5, inspiratory time 1.0, rise ramp of 0.1 and room air. Patient had an overnight oximetry on these settings with a recording duration of 4 hours and 56 minutes, average saturation 92%, low saturation 82%, time with saturation less than or equal to 88% was 31 minutes with an oxygen desaturation index of 72.8. ABG prior to removal was 7.43/38/110. He says he had a difficult time as BiPAP was pushing the air in too fast and I adjusted his inspiratory time from 1.0 to 1.3 and his ramp rise from 0.1 to 0.4 and he said that this felt much better. Plan: BiPAP 16 pressures 15/5 provide adequate ventilation. Patient was hypoxic on room air. It appears that according to his insurance patient should be on BiPAP with no backup rate for 60 days. Tonight I will place the patient on BiPAP pressures 15/5 with no backup rate, inspiratory time 1.3, rise of 0.4 and 2 L nasal cannula. I will perform an overnight oximetry on 28% and an ABG prior to removal on these settings. I will initiate process for home noninvasive ventilation today. In patient pulmonary consult services will resume on 03/16/2024. Call with questions. 03/14/24: Patient was placed on a BiPAP with no backup rate and 2 L bleed in. ABG prior to removal of 7.40/40/57. Overnight oximetry with recording duration 2 hours and 51 minutes. Average saturation 96%. Low saturation 85%. Time with saturation less than or equal to 88% was 1 minute. Oxygen desaturation index 6.6. 03/15/24: Patient had an overnight oximetry on 2 L with recording duration 5 hours and 8 minutes. Average saturation 90%. Low saturation 76%. Time with saturation less than or equal to 88% was 94 minutes. Oxygen desaturation index 44.5. 03/16/24: Patient tells me he is unable to tolerate the hospital BiPAP with no rate and he says that is just too uncomfortable him for him to sleep with all his other concurrent medical issues. He is still willing to try the home noninvasive ventilator. Currently is on 3 L nasal cannula saturation 93%. Of note patient has worsening right lower extremity with repeat Dopplers demonstrating resolution of the right femoral DVT. orthopedic surgery consult and recommended transfer to higher level of care facility. Plan: patient cannot tolerate the hospital BiPAP with full face mask as it is too uncomfortable for him to put on and off given his frequent waking up. He is still willing to try a home noninvasive ventilator and I will continue to pursue this. While he is in the hospital I will attempt to correct his hypoxemia and place him on 4 L nasal cannula perform an ApneaLink tonight on 4 L. 03/17/24: Patient was unable to tolerate hospital BiPAP machine at this time. Patient wore 4 L nasal cannula overnight said he slept okay. Overnight oximetry on 4 L with recording duration 5 hours and 10 minutes, average saturation 96%, low saturation 81%, time with saturation less than or equal to 88% was 6 minutes, oxygen desaturation 8.9. Plan: Patient should continue to wear 4 L nasal cannula at night while awaiting set up if his home BiPAP. Subjective Date/time seen: 03/17/24 09:18 Interval history: 03/13/2024: This is a new pulmonary consult for COPD with chronic hypercarbic respiratory failure. 53-year-old with a history of COPD, hypertension, diastolic dysfunction, obesity, HARLAN, and pulmonary hypertension. Patient is followed in the [facility]monary [facility] and last seen on 02/13/2024. GOLD grade 3 group B COPD with chronic hypercarbic respiratory failure 30 pack year tobacco use, quit 2019, Alpha 1 anti trypsin genotype MM, PFTs 08/24/2021 with severe obstruction with an FEV1 of 1.26 L, 38% predicted, positive bronchodilator response, hyperinflation and mildly decreased DLCO that normalized when adjusted for alveolar volume. Patient has hypoxemic respiratory failure with home O2 assessment on 12/27/2023 requiring 2 L at rest and with activity. 03/06/2024 eosinophil count 410. 03/06/2024 6 minute walk 366 m with alexander saturation 93%. 03/06/2024: PFTs with a severe obstructive abnormality with an FEV1 1.60 L, 49% predicted, no bronchodilator response, slow vital capacity is 1.02 L greater than forced vital capacity suggestive of small airways disease, hyperinflation DLCO mildly decreased and normalized when adjusted for alveolar ventilation an ABG of 7.36/53/75 on room air. 03/04/2024: Overnight oximetry on 2 L with time of saturation less than or equal to 88% at 16 minutes. Maintained on Breztri. patient presented to [facility] on 03/12/2024 with chills. He denied any respiratory issues. Specifically denied cough, phlegm production, hemoptysis, chest pain, worsening shortness of breath or dyspnea on exertion. White blood cell count was 17 0.9 and he was admitted to the hospital with cellulitis and to rule out meningitis. Patient with right femoral vein DVT. CT angiogram of the chest with no pulmonary embolism. Started on full-dose Lovenox. Given his chronic hypercarbic respiratory failure he was initiated on nocturnal noninvasive ventilator with BiPAP with a backup rate of 16, pressures 15/5 and room air. 03/13/24: Currently the patient denies any respiratory complaints. He said he wore the fullface mask with the BiPAP 16 pressures 15/5, inspiratory time 1.0, rise ramp of 0.1 and room air. Patient had an overnight oximetry on these settings with a recording duration of 4 hours and 56 minutes, average saturation 92%, low saturation 82%, time with saturation less than or equal to 88% was 31 minutes with an oxygen desaturation index of 72.8. ABG prior to removal was 7.43/38/110. He says he had a difficult time as BiPAP was pushing the air in too fast and I adjusted his inspiratory time from 1.0 to 1.3 and his ramp rise from 0.1 to 0.4 and he said that this felt much better. Later in day home BiPAP orders sent to [facility] BiPAP, auto rate, 15/5 and 3 L bleed in. 03/14/24: Patient was placed on a BiPAP with no backup rate and 2 L bleed in. ABG prior to removal of 7.40/40/57. Overnight oximetry with recording duration 2 hours and 51 minutes. Average saturation 96%. Low saturation 85%. Time with saturation less than or equal to 88% was 1 minute. Oxygen desaturation index 6.6. 03/15/24: Patient had an overnight oximetry on 2 L with recording duration 5 hours and 8 minutes. Average saturation 90%. Low saturation 76%. Time with saturation less than or equal to 88% was 94 minutes. Oxygen desaturation index 44.5. 03/16/24: Patient tells me he is unable to tolerate the hospital BiPAP with no rate and he says that is just too uncomfortable him for him to sleep with all his other concurrent medical issues. He is still willing to try the home noninvasive ventilator. Currently is on 3 L nasal cannula saturation 93%. Of note patient has worsening right lower extremity with repeat Dopplers demonstrating resolution of the right femoral DVT. orthopedic surgery consult and recommended transfer to higher level of care facility. 03/17/24: Patient states his breathing at his baseline. No respiratory complaints. Patient wore 4 L nasal cannula overnight said he slept okay. Overnight oximetry on 4 L with recording duration 5 hours and 10 minutes, average saturation 96%, low saturation 81%, time with saturation less than or equal to 88% was 6 minutes, oxygen desaturation 8.9. DATA: 03/04/2024: Overnight oximetry on 2 L nasal cannula: Recording duration 4 hours and 5 minutes. Basal saturation 94.5. Low saturation 63%. Time with saturation less than or equal to 88% was 16 minutes and 6 seconds. Oxygen desaturation index is 30. 03/06/2024: This is a pulmonary function test with pre and post-bronchodilator spirometry, plethysmography, diffusing capacity, and rest room air arterial blood gas. The test was performed and results interpreted in accordance with the 2019 and 2005 ATS/ERS Task Force guidelines respectively using the Global Lung Function Initiative-2012 reference equations. Patient demonstrated good effort and cooperation. Reproducibility criteria were met. The quality of the pre bronchodilator spirometry maneuver was Grade A and post bronchodilator spirometry maneuver was Grade A. Findings: Spirometry: there is decreased maximal expiratory airflow at all lung volumes with concave expiratory flow tracing. The contour the inspiratory flow tracing is normal. The pre bronchodilator FVC is 2.3 L, 58% predicted. The pre bronchodilator FEV1 is 1.60 L, 49% predicted. The pre bronchodilator FEV1: FVC ratio is 67%. The post bronchodilator FVC is 2.47 L, representing a 4% increase. The post bronchodilator FEV1 is 1.70 L, representing a 6% increase. The post bronchodilator FEV1: FVC ratio 69%. Plethysmography: The total lung capacity is 6.03 L, 101% predicted. The functional residual capacity is 2.80 L, 94% predicted. The residual volume is 2.73 L, 152% predicted. The slow vital capacity is 3.30 L. The residual volume: Total lung capacity ratio is 45%. Diffusing capacity: The diffusing capacity unadjusted for hemoglobin and carboxyhemoglobin is 17.2, 61% predicted. The diffusing capacity adjusted for alveolar volume is 5.00, 105% predicted. Rest room air arterial blood gas: PH 7.36, PaCO2 52.7, PaO2 75. In comparison to Pulmonary function testing on 08/24/2021 the post bronchodilator FVC is unchanged from 2.49 L to 2 point 4 7 L. The post bronchodilator FEV1 is unchanged from 1.72 L to 1.70 L. The total lung capacity is unchanged from 7.01 L to 6.03 L. The functional residual capacity is decreased from 4.33 L to 2.80 L. The residual volume is decreased from 4.25 L to 2.73 L. the slow vital capacity is unchanged from 3.30 L to 2.76 L. the residual volume: Total lung capacity ratio has decreased from 61% to 45%. The diffusing capacity unadjusted for hemoglobin and carboxyhemoglobin is unchanged from 18.0 to 17.2. The diffusing capacity adjusted for alveolar volume is unchanged from 5.60 to 5.00. Impression: There is a severe obstructive abnormality. There is no significant improvement after inhaling a single dose of albuterol. The slow vital capacity is 1.02 L greater than forced vital capacity. This is suggestive of small airways disease. The increase in residual volume to total lung volume ratio is consistent with hyperinflation from an obstructive abnormality. The diffusing capacity unadjusted for hemoglobin and carboxyhemoglobin is mildly decreased and normalizes when adjusted for alveolar volume. The rest room air arterial blood gas demonstrates a compensated respiratory acidosis. In comparison to previous pulmonary function testing on 08/24/2021 there has been a greater than anticipated time dependent decrease in the functional residual capacity, residual volume, And residual volume: Total lung capacity ratio with no significant change in the FVC, FEV1, total lung capacity or diffusing capacity. 03/06/2024: This is a 6 minute walk test. The test was performed and interpreted in accordance with the 2014 ERS/ATS task force guidelines. Findings: The patient's resting room air oxygen saturation measured by pulse oximetry was 95%, the heart rate was 775 bpm, and the modified Jose Francisco dyspnea score was 0.5. Patient ambulated for 366 meters and oxygen saturation remained 93 to 94%. At the end of the study the heart rate was 102 bpm and the modified Jose Francisco dyspnea score was 2. The patient did not qualify for supplemental oxygen at rest or with ambulation. There are no prior studies for comparison. 03/06/2024: White blood cell count 7.9K, eosinophils 5.2%=410 uL. eosinophils greater than 300 per micro L and will continue breztri inhaler at this time. 02/13/2024: Alpha 1 anti trypsin genotype MM, normal. 12/27/2023: Home O2 evaluation.? Rest room air saturation 87%.? Rest nasal cannula 1 L saturation 88%.? Rest nasal cannula 2 L saturation 94%.? Exercise nasal cannula 2 L saturation 92%.? Patient requires 2 L at rest and with activity.? Set up with [facility] 05/27/2023:? Overnight oximetry on 2 L nasal cannula.? Recording duration 6 hours and 49 minutes.? Baseline saturation 97%.? Average saturation 96%.? Low saturation 78%.? Time with saturation less than or equal to 88% was 8 minutes, 2% of the recording time.? Oxygen desaturation index 6.3. 12/26/2023: Echo Summary 1. Left ventricular chamber dimension is normal. 2. Left ventricular systolic function is normal, estimated at 60-65%. 3. The left ventricular diastolic function is abnormal. 4. Definity contrast administered improved wall motion interpretation. 5. E/e' 10 is mildly elevated. 6. There is trace tricuspid valve regurgitation. 7. Moderate pulmonary hypertension, estimated pulmonary arterial systolic pressure is 57 mmHg. Right Ventricle Right ventricular chamber dimension is normal. Right ventricular systolic function is normal. Right Atria Right atrial chamber dimension is normal. 12/24/2023: EXAMINATION: CTA chest PE protocol INDICATION: Hypoxia COMPARISON: CT abdomen pelvis dated 12/22/2023 FINDINGS: No pulmonary embolism. Lungs are clear with no pneumonia, pulmonary edema or other pulmonary infiltrates. No pleural effusion or pneumothorax. Heart size is normal. Small amount of atherosclerotic coronary artery calcific location. No pericardial effusion. Thoracic aorta is normal in caliber with no dissection. No pathologically enlarged thoracic lymphadenopathy. Visualized upper abdomen is unremarkable. Moderate thoracic spondylosis with chronic appearing mild anterior wedging at T8 and T11. IMPRESSION: 1. No pulmonary embolism or other acute cardiopulmonary disease. 08/24/2021:? This is a pulmonary function test with pre and post-bronchodilator spirometry, plethysmography and diffusing capacity.? The test was performed and results interpreted in accordance with the 2019 and 2005 ATS/ERS Task Force guidelines respectively using the Global Lung Function Initiative-2012 reference equations. Patient demonstrated good effort and cooperation. Reproducibility criteria were met. The quality of the pre bronchodilator spirometry maneuver was Grade A and post bronchodilator spirometry maneuver was Grade A. Findings: Spirometry:? There is decreased maximal expiratory airflow at all lung volumes with concave expiratory flow tracing.? The contour the inspiratory flow tracing is normal.? The pre bronchodilator FVC is 2.05 L, 49% predicted.? The pre bronchodilator FEV1 is 1.26 L, 38% predicted.? The pre bronchodilator FEV1: FVC ratio 61%.? The post bronchodilator FVC is 2.49 L, representing a 21% increase.? The post bronchodilator FEV1 is 1.72 L, representing a 36% increase.? The post bronchodilator FEV1:? FVC ratio is 69%.? Plethysmography:? The total lung capacity is 7.01 L, 118% predicted.? The functional residual capacity is 4.33 L, 147% predicted.? The residual volume is 4.25 L, 242% predicted.? The residual volume: Total lung capacity ratio 61%.? Diffusing capacity:? The diffusing capacity unadjusted for hemoglobin and carboxyhemoglobin is 18.0, 63% predicted.? The diffusing capacity adjusted for alveolar volume is 5.60, 116% predicted. Impression: There is a severe obstructive abnormality. There is significant improvement after inhaling a single dose of albuterol.? The increase in residual volume to total lung volume ratio is consistent with hyperinflation from an obstructive abnormality.? The diffusing capacity unadjusted for hemoglobin and carboxyhemoglobin is mildly decreased and normalizes when adjusted for alveolar volume. There are no prior studies for comparison Review of Systems Constitutional: Constitutional: Reports no additional constitutional complaints Eyes: Eyes: Reports no additional eye complaints ENT: Reports system reviewed and no additional complaints, except as documented Cardiovascular: Cardiovascular: Reports no additional cardiovascular complaints Respiratory: Respiratory: Reports no additional respiratory complaints Gastrointestinal: Gastrointestinal: Reports no additional gastrointestinal complaints Musculoskeletal: Musculoskeletal: Reports no additional musculoskeletal complaints Neurologic: Reports system reviewed and no additional complaints, except as documented Psychiatric: Psychiatric: Reports no additional psychiatric complaints Endocrine: Endocrine: Reports no additional endocrine complaints Hematologic/Lymphatic: Hematologic/Lymphatic: Reports no additional hematologic/lymphatic complaints Allergic/Immunologic: Allergic/Immunologic: Reports no additional allergic/immunologic complaints Exam Const: General: cooperative, healthy appearing and comfortable Orientation/consciousness: oriented to person, oriented to place and oriented to time HENMT: Head: normal to inspection Ears: hearing grossly normal bilaterally Eyes: General: appearance normal, both eyes and all related structures Neck: Neck: normal visual inspection Chest: Chest palpation & inspection: normal inspection of the chest Resp: Effort & Inspection: normal respiratory effort and able to speak in complete sentences Auscultation: no crackles, no rales, no rhonchi, no wheezes and lung sounds not diminished Cardio: Jugular venous distension: no JVD GI: Inspection: normal to inspection Skin: General skin exam: normal color Neuro: General: oriented to person, oriented to place and oriented to time Extrem: General: normal to inspection and edema Other: erythema and petechia around right knee Overall this has worsened since admission Psych: Appearance: grossly normal Objective Data Vital Signs Vital Signs: Vital Signs - 24 hr 03/16/24 14:00 03/16/24 20:00 03/16/24 21:03 Temperature 36.6 C 36.4 C Pulse Rate 70 82 Respiratory Rate 16 20 Blood Pressure 131/77 130/75 Pulse Oximetry 98 98 100 Oxygen Delivery Nasal Cannula Oxygen Flow Rate 2 03/17/24 06:00 03/17/24 08:00 03/17/24 08:00 Temperature 36.1 C L Pulse Rate 70 83 83 Respiratory Rate 20 20 20 Blood Pressure 129/75 Pulse Oximetry 98 93 Oxygen Delivery Nasal Cannula Oxygen Flow Rate 4 03/17/24 08:04 Temperature Pulse Rate 85 Respiratory Rate Blood Pressure Pulse Oximetry Oxygen Delivery Oxygen Flow Rate Intake/Output Intake/Output: Intake & Output 03/14/24 03/15/24 03/16/24 03/17/24 23:59 23:59 23:59 23:59 Intake Total 2570 2020 900 1430 Output Total 2700 1950 1100 400 Balance -130 70 -200 1030 Meds/Results Medications: Active Medications Generic Name Dose Route Start Last Admin Trade Name Freq PRN Reason Stop Dose Admin Acetaminophen 650 mg 03/12/24 03:07 12/15/24 04:55 Acetaminophen 325 Mg Tablet PO 650 mg Q4H PRN Administration Mild Pain (1-3) or Fever Amlodipine Besylate 10 mg 03/15/24 21:00 03/16/24 20:10 Amlodipine Besylate 10 Mg Tablet PO 10 mg HS CHRISTINA Administration Enoxaparin Sodium 115 mg 03/17/24 09:00 03/17/24 08:06 Enoxaparin 120 Mg/0.8 Ml Syringe SUB-Q Not Given Q12HR CHRISTINA Fluticasone/Umeclidinium/Vilanterol 1 puff 03/12/24 08:00 03/17/24 07:54 Fluticasone/Umeclidin/Vilanter 100-62.5-25 Mcg Ellipta INHALATION 1 puff DAILYRT CHRISTINA Administration Furosemide 40 mg 03/15/24 17:00 03/17/24 08:04 Furosemide 40 Mg Tablet PO 40 mg BID CHRISTINA Administration Cefepime HCl 2 gm in 50 mls @ 100 mls/hr 03/13/24 17:00 03/17/24 08:06 Maxipime 2 Gm/Ns 50 Ml IVPB 100 mls/hr Q8H CHRISTINA Administration Metronidazole 500 mg in 100 mls @ 100 mls/hr 03/16/24 14:00 03/17/24 06:24 Flagyl 500 Mg/Iso Soln 100 Ml IVPB Infused Q8H CHRISTINA Infusion Linezolid 600 mg 03/16/24 13:15 03/17/24 08:04 Linezolid 600 Mg Tablet PO 600 mg Q12HR CHRISTINA Administration Metoprolol Succinate 200 mg 03/12/24 09:00 03/17/24 08:04 Metoprolol Succinate Ext Rel 100 Mg Tabcr PO 200 mg DAILY CHRISTINA Administration Morphine Sulfate 2 mg 03/15/24 11:17 03/17/24 04:55 Morphine Sulfate (*Crx) 2 Mg/Ml Inj IV PUSH 2 mg Q3H PRN Administration Pain Rated 7-10 Oxycodone HCl 5 mg 03/14/24 11:57 03/17/24 02:52 Oxycodone Hcl (*Crx) 5 Mg Tab Ir PO 5 mg Q4H PRN Administration Pain Rated 4-6 Sodium Chloride 10 ml 03/15/24 14:00 03/17/24 05:30 Saline Lock Flush IV PUSH 10 ml Q8HR CHRISTINA Administration Sodium Chloride 10 ml 03/15/24 11:30 Saline Lock Flush IV PUSH PRN PRN Flush Sodium Chloride 20 ml 03/15/24 11:30 Saline Lock Flush IV PUSH PRN PRN after blood draws Radiology Results: ITS Impressions Chest CTA 03/12/24 05:45 Impression: No evidence of pulmonary embolus, aortic dissection, or aortic aneurysm. Clear lungs. Lower Extremity CT 03/12/24 06:47 IMPRESSION: Right external iliac/common femoral adenopathy, largest node measuring 2.5 x 2.0 cm. Please see details above. Findings are somewhat nonspecific, and stable since prior exam. Correlate for reactive/inflammatory lymph nodes versus any possibility of lymphoma or other metastatic disease. Head CT 03/12/24 13:56 IMPRESSION: 1. Normal brain. Abdomen/Pelvis CT 03/12/24 14:07 Impression: Enlarged right common femoral region lymph node, as above, nonspecific. Diffuse hepatic steatosis. Small fat-containing left inguinal hernia. Soft Tissue Ultrasound 03/13/24 16:32 IMPRESSION: 1. Small knee joint effusion. Chest X-Ray 03/13/24 16:33 IMPRESSION: 1. No acute cardiopulmonary disease. Lower Extremity CTA 03/15/24 14:26 IMPRESSION: Dermal thickening and subcutaneous inflammation/edema of the right lower extremity. No abscess detected. No CT evidence to suggest necrotizing fasciitis, keeping in mind this is a clinical diagnosis. Right external iliac, femoral, and inguinal lymphadenopathy. Venous Doppler Study 03/15/24 20:01 IMPRESSION: Patent right lower extremity veins. No evidence of deep venous thrombosis. ADDENDUM: 03/16/24 2985 No deep venous thrombosis identified in the right femoral vein on the current study.
--- NOTE | 2024-03-17 10:45 | P.PNIM_ITS ---
Progress Note: A&P Assessment and Plan (1) Cellulitis of right anterior lower leg: Code(s): L03.115 - Cellulitis of right lower limb Status: Acute (2) Status post bilateral knee replacements: Code(s): Z96.653 - Presence of artificial knee joint, bilateral Status: Acute (3) Morbid obesity: Code(s): E66.01 - Morbid (severe) obesity due to excess calories Status: Acute (4) Chronic hypercapnic respiratory failure: Code(s): J96.12 - Chronic respiratory failure with hypercapnia Status: Acute (5) DVT (deep venous thrombosis): Qualifiers: Affected thrombotic vein of extremity: femoral Chronicity: acute DVT location: lower extremity Laterality: right Qualified Code(s): I82.411 - Acute embolism and thrombosis of right femoral vein Code(s): I82.409 - Acute embolism and thrombosis of unspecified deep veins of unspecified lower extremity Status: Acute Plan (1) Sepsis: Qualifiers: Sepsis acute organ dysfunction status: unspecified Sepsis type: sepsis due to unspecified organism Qualified Code(s): A41.9 - Sepsis, unspecified organism Code(s): A41.9 - Sepsis, unspecified organism Status: Acute Assessment and Plan: - lactic acid: 1.6 - suspected source: right lower extremity cellulitis? - blood cultures drawn on 03/11: NGTD - Viral panel negative - UA: non concerning for infection - CXR: No acute cardiopulmonary disease. - Chest CTA: No evidence of pulmonary embolus, aortic dissection, or aortic aneurysm. -CT lower extremity right showed the thickening and subcutaneous inflammation a double-J right lower extremity. no CT evidence to suggest necrotizing fasciitis - Echo unremarkable - Right LE US Showed right femoral DVT, repeat on 03/15 was negative. Discussed with radiology today to over read due to short duration of treatment and disappearance of clots. - Continue tele monitoring - Antibiotics: vancomycin, cefepime Culture negative Biopsy right femoral adenopathy ordered. Suspecting from reaction of the inflammation. Post bone biopsy per ID evaluation in the future (2) Cellulitis: Qualifiers: Laterality: right Site of cellulitis: extremity Site of cellulitis of extremity: lower extremity Qualified Code(s): L03.115 - Cellulitis of right lower limb Code(s): L03.90 - Cellulitis, unspecified Status: Acute Assessment and Plan: Patient still having worsening erythema and swelling Stat CT ordered prior CT showed right external iliac/Common femoral adenopathy largest node measuring 2.5 x 2.0 cm, inflammation vs lymphoma vs metastatic disease f/u with repeat CT Continue Vanc, Cefepime Called [facility] for possible transfer Ortho reviewed and has low suspicion for Compartment syndrome, still recommends transfer to higher level of care Erythema still persistence, however leukocytosis and fever has resolved. Given patient's concern and station over transfer, he was transferred for ID involved. Patient has been accepted at [facility], awaiting bed Cellulitis improving based on the marker (3) DVT (deep venous thrombosis): Qualifiers: Affected thrombotic vein of extremity: femoral Chronicity: acute DVT location: lower extremity Laterality: right Qualified Code(s): I82.411 - Acute embolism and thrombosis of right femoral vein Code(s): I82.409 - Acute embolism and thrombosis of unspecified deep veins of unspecified lower extremity Status: Acute Assessment and Plan: - Venous doppler: Deep vein thrombosis involving right femoral vein. - Right LE CT: Right external iliac/common femoral adenopathy, largest node measuring 2.5 x 2.0 cm. Please see details above. Findings are somewhat nonspecific, and stable since prior exam. Correlate for reactive/inflammatory lymph nodes versus any possibility of lymphoma or other metastatic disease. - Chest CTA: No evidence of pulmonary embolus, aortic dissection, or aortic aneurysm. - Anticoagulation: Lovenox 120 mg BID Awaiting radiology to overread venous doppler on 03/15, if still negative will discontinue full dose lovenox 03/17: Radiologist's report, patent right lower extremity veins. No evidence of deep venous thrombosis. Change Lovenox from therapeutic dose to DVT prophylaxis does (4) Hypertension: Qualifiers: Hypertension type: unspecified Qualified Code(s): I10 - Essential (primary) hypertension Code(s): I10 - Essential (primary) hypertension Status: Acute Assessment and Plan: Chronic - Continue with metoprolol 200 mg daily - Amlodipine increased to 10 mg daily - Monitor (5) Chronic hypercapnic respiratory failure: Code(s): J96.12 - Chronic respiratory failure with hypercapnia Status: Acute Assessment and Plan: Patient has COPD with chronic hypercarbic respiratory failure with an ABG of 7.36/52.7/75 on room air, overnight oximetry on 2 L with time of saturation less than or equal to 88% 16 minutes. Apnea link reviewed by pulmonology and recommended nighttime BiPAP 15/5 with 2 liters oxygen bleed in at night pulmonology following (6) COPD (chronic obstructive pulmonary disease): Onset Date: ~08/24/21 Qualifiers: COPD type: unspecified COPD Qualified Code(s): J44.9 - Chronic obstructive pulmonary disease, unspecified Code(s): J44.9 - Chronic obstructive pulmonary disease, unspecified Status: Chronic Assessment and Plan: Chronic, no acute exacerbation. Subjective Date/time seen: 03/17/24 10:45 Interval history: I saw examined patient today. Cellulitis of right lower extremity is improving, a swelling persists, patient is afebrile, white blood cell is trending down to normal. Patient denies chest pain, shortness a of breath, abdomen pain, nausea vomiting Exam Narrative: GENERAL: in no acute distress. Well-nourished. - EYES: EOMI. Anicteric. - HENT: Moist mucous membranes. - LUNGS: Clear to auscultation bilateral ly, no wheezing, rhonchi, or rales. - CARDIOVASCULAR: Regular rate and rhyth m. No murmur. No JVD. - ABDOMEN: Soft, non-tender and non-dist ended. No palpable masses. - EXTREMITIES: No edema. Peripheral puls es 2+. Non-tender. - NEUROLOGIC: No focal neurological defi cits. CN II-XII grossly intact. - PSYCHIATRIC: Awake, Alert and oriented x 3. Appropriate mood and affect. - SKIN: Redness, swelling, tender of ri ght lower extremity, cellulitis improving based on the marker - LYMPH: No cervical lymphadenopathy. Objective Data Vital Signs Vital Signs: Vital Signs - 24 hr 03/16/24 14:00 03/16/24 20:00 03/16/24 21:03 Temperature 97.9 F 97.6 F Pulse Rate 70 82 Respiratory Rate 16 20 Blood Pressure 131/77 130/75 Pulse Oximetry 98 98 100 Oxygen Delivery Nasal Cannula Oxygen Flow Rate 2 03/17/24 06:00 03/17/24 08:00 03/17/24 08:00 Temperature 97.0 F L Pulse Rate 70 83 83 Respiratory Rate 20 20 20 Blood Pressure 129/75 Pulse Oximetry 98 93 Oxygen Delivery Nasal Cannula Oxygen Flow Rate 4 03/17/24 08:00 03/17/24 08:04 Temperature Pulse Rate 85 Respiratory Rate Blood Pressure Pulse Oximetry 97 Oxygen Delivery Nasal Cannula Oxygen Flow Rate 2 Intake/Output Intake/Output: Intake & Output 03/14/24 03/15/24 03/16/24 03/17/24 23:59 23:59 23:59 23:59 Intake Total 2570 2020 900 1430 Output Total 2700 1950 1100 600 Balance -130 70 -200 830 Meds/Results Medications: Active Medications Generic Name Dose Route Start Last Admin Trade Name Freq PRN Reason Stop Dose Admin Acetaminophen 650 mg 03/12/24 03:07 03/15/24 04:55 Acetaminophen 325 Mg Tablet PO 650 mg Q4H PRN Administration Mild Pain (1-3) or Fever Amlodipine Besylate 10 mg 03/15/24 21:00 03/16/24 20:10 Amlodipine Besylate 10 Mg Tablet PO 10 mg HS CHRISTINA Administration Enoxaparin Sodium 115 mg 03/17/24 09:00 03/17/24 08:06 Enoxaparin 120 Mg/0.8 Ml Syringe SUB-Q Not Given Q12HR CHRISTINA Fluticasone/Umeclidinium/Vilanterol 1 puff 03/12/24 08:00 03/17/24 07:54 Fluticasone/Umeclidin/Vilanter 100-62.5-25 Mcg Ellipta INHALATION 1 puff DAILYRT CHRISTINA Administration Furosemide 40 mg 03/15/24 17:00 03/17/24 08:04 Furosemide 40 Mg Tablet PO 40 mg BID CHRISTINA Administration Cefepime HCl 2 gm in 50 mls @ 100 mls/hr 03/13/24 17:00 03/17/24 08:06 Maxipime 2 Gm/Ns 50 Ml IVPB 100 mls/hr Q8H CHRISTINA Administration Metronidazole 500 mg in 100 mls @ 100 mls/hr 03/16/24 14:00 03/17/24 06:24 Flagyl 500 Mg/Iso Soln 100 Ml IVPB Infused Q8H CHRISTINA Infusion Linezolid 600 mg 03/16/24 13:15 03/17/24 08:04 Linezolid 600 Mg Tablet PO 600 mg Q12HR CHRISTINA Administration Metoprolol Succinate 200 mg 03/12/24 09:00 03/17/24 08:04 Metoprolol Succinate Ext Rel 100 Mg Tabcr PO 200 mg DAILY CHRISTINA Administration Morphine Sulfate 2 mg 03/15/24 11:17 03/17/24 04:55 Morphine Sulfate (*Crx) 2 Mg/Ml Inj IV PUSH 2 mg Q3H PRN Administration Pain Rated 7-10 Oxycodone HCl 5 mg 03/14/24 11:57 03/17/24 09:59 Oxycodone Hcl (*Crx) 5 Mg Tab Ir PO 5 mg Q4H PRN Administration Pain Rated 4-6 Sodium Chloride 10 ml 03/15/24 14:00 03/17/24 05:30 Saline Lock Flush IV PUSH 10 ml Q8HR CHRISTINA Administration Sodium Chloride 10 ml 03/15/24 11:30 Saline Lock Flush IV PUSH PRN PRN Flush Sodium Chloride 20 ml 03/15/24 11:30 Saline Lock Flush IV PUSH PRN PRN after blood draws Radiology Results: ITS Impressions Chest CTA 03/12/24 05:45 Impression: No evidence of pulmonary embolus, aortic dissection, or aortic aneurysm. Clear lungs. Lower Extremity CT 03/12/24 06:47 IMPRESSION: Right external iliac/common femoral adenopathy, largest node measuring 2.5 x 2.0 cm. Please see details above. Findings are somewhat nonspecific, and stable since prior exam. Correlate for reactive/inflammatory lymph nodes versus any possibility of lymphoma or other metastatic disease. Head CT 03/12/24 13:56 IMPRESSION: 1. Normal brain. Abdomen/Pelvis CT 03/12/24 14:07 Impression: Enlarged right common femoral region lymph node, as above, nonspecific. Diffuse hepatic steatosis. Small fat-containing left inguinal hernia. Soft Tissue Ultrasound 03/13/24 16:32 IMPRESSION: 1. Small knee joint effusion. Chest X-Ray 03/13/24 16:33 IMPRESSION: 1. No acute cardiopulmonary disease. Lower Extremity CTA 03/15/24 14:26 IMPRESSION: Dermal thickening and subcutaneous inflammation/edema of the right lower extremity. No abscess detected. No CT evidence to suggest necrotizing fasciitis, keeping in mind this is a clinical diagnosis. Right external iliac, femoral, and inguinal lymphadenopathy. Venous Doppler Study 03/15/24 20:01 IMPRESSION: Patent right lower extremity veins. No evidence of deep venous thrombosis. ADDENDUM: 03/16/24 4993 No deep venous thrombosis identified in the right femoral vein on the current study.
--- NOTE | 2024-03-17 11:47 | PM.PNGS ---
Progress Note: A&P Assessment and Plan (1) Cellulitis of right anterior lower leg: Code(s): L03.115 - Cellulitis of right lower limb Status: Acute Assessment and Plan: slowly improving, cont abx, no acute surgical indications, ok to dc home from surgical standpoint, f/u c ID as outpt Subjective Subjective Date/Time Seen: 03/17/24 11:47 Interval history: feels better, wants to go home Review of Systems Review of Systems: All systems reviewed & are unremarkable except as noted in HPI and below Exam Const: General: cooperative, comfortable and no acute distress Resp: Auscultation: clear to auscultation bilaterally Cardio: Rate: regular rate Rhythm: regular rhythm GI: Inspection: normal to inspection Extrem: Other: RLE - area of redness improved, no fluctuance, no drainage Objective Data Vital Signs Vital Signs: Vital Signs - 24 hr 03/16/24 14:00 03/16/24 20:00 03/16/24 21:03 Temperature 36.6 C 36.4 C Pulse Rate 70 82 Respiratory Rate 16 20 Blood Pressure 131/77 130/75 Pulse Oximetry 98 98 100 Oxygen Delivery Nasal Cannula Oxygen Flow Rate 2 03/17/24 06:00 03/17/24 08:00 03/17/24 08:00 Temperature 36.1 C L Pulse Rate 70 83 83 Respiratory Rate 20 20 20 Blood Pressure 129/75 Pulse Oximetry 98 93 Oxygen Delivery Nasal Cannula Oxygen Flow Rate 4 03/17/24 08:00 03/17/24 08:04 Temperature Pulse Rate 85 Respiratory Rate Blood Pressure Pulse Oximetry 97 Oxygen Delivery Nasal Cannula Oxygen Flow Rate 2 Intake/Output Intake/Output: Intake & Output 03/14/24 03/15/24 03/16/24 03/17/24 23:59 23:59 23:59 23:59 Intake Total 2570 2020 900 1550 Output Total 2700 1950 1100 600 Balance -130 70 -200 950 Meds/Results Medications: Active Medications Generic Name Dose Route Start Last Admin Trade Name Freq PRN Reason Stop Dose Admin Acetaminophen 650 mg 03/12/24 03:07 03/15/24 04:55 Acetaminophen 325 Mg Tablet PO 650 mg Q4H PRN Administration Mild Pain (1-3) or Fever Amlodipine Besylate 10 mg 03/15/24 21:00 03/16/24 20:10 Amlodipine Besylate 10 Mg Tablet PO 10 mg HS CHRISTINA Administration Enoxaparin Sodium 115 mg 03/17/24 09:00 03/17/24 08:06 Enoxaparin 120 Mg/0.8 Ml Syringe SUB-Q Not Given Q12HR CHRISTINA Fluticasone/Umeclidinium/Vilanterol 1 puff 03/12/24 08:00 03/17/24 07:54 Fluticasone/Umeclidin/Vilanter 100-62.5-25 Mcg Ellipta INHALATION 1 puff DAILYRT CHRISTINA Administration Furosemide 40 mg 03/15/24 17:00 03/17/24 08:04 Furosemide 40 Mg Tablet PO 40 mg BID CHRISTINA Administration Cefepime HCl 2 gm in 50 mls @ 100 mls/hr 03/13/24 17:00 03/17/24 08:06 Maxipime 2 Gm/Ns 50 Ml IVPB 100 mls/hr Q8H CHRISTINA Administration Metronidazole 500 mg in 100 mls @ 100 mls/hr 03/16/24 14:00 03/17/24 06:24 Flagyl 500 Mg/Iso Soln 100 Ml IVPB Infused Q8H CHRISTINA Infusion Linezolid 600 mg 03/16/24 13:15 03/17/24 08:04 Linezolid 600 Mg Tablet PO 600 mg Q12HR CHRISTINA Administration Metoprolol Succinate 200 mg 03/12/24 09:00 03/17/24 08:04 Metoprolol Succinate Ext Rel 100 Mg Tabcr PO 200 mg DAILY CHRISTINA Administration Morphine Sulfate 2 mg 03/15/24 11:17 03/17/24 04:55 Morphine Sulfate (*Crx) 2 Mg/Ml Inj IV PUSH 2 mg Q3H PRN Administration Pain Rated 7-10 Oxycodone HCl 5 mg 03/14/24 11:57 03/17/24 09:59 Oxycodone Hcl (*Crx) 5 Mg Tab Ir PO 5 mg Q4H PRN Administration Pain Rated 4-6 Sodium Chloride 10 ml 03/15/24 14:00 03/17/24 05:30 Saline Lock Flush IV PUSH 10 ml Q8HR CHRISTINA Administration Sodium Chloride 10 ml 03/15/24 11:30 Saline Lock Flush IV PUSH PRN PRN Flush Sodium Chloride 20 ml 03/15/24 11:30 Saline Lock Flush IV PUSH PRN PRN after blood draws Radiology Results: ITS Impressions Chest CTA 03/12/24 05:45 Impression: No evidence of pulmonary embolus, aortic dissection, or aortic aneurysm. Clear lungs. Lower Extremity CT 03/12/24 06:47 IMPRESSION: Right external iliac/common femoral adenopathy, largest node measuring 2.5 x 2.0 cm. Please see details above. Findings are somewhat nonspecific, and stable since prior exam. Correlate for reactive/inflammatory lymph nodes versus any possibility of lymphoma or other metastatic disease. Head CT 03/12/24 13:56 IMPRESSION: 1. Normal brain. Abdomen/Pelvis CT 03/12/24 14:07 Impression: Enlarged right common femoral region lymph node, as above, nonspecific. Diffuse hepatic steatosis. Small fat-containing left inguinal hernia. Soft Tissue Ultrasound 03/13/24 16:32 IMPRESSION: 1. Small knee joint effusion. Chest X-Ray 03/13/24 16:33 IMPRESSION: 1. No acute cardiopulmonary disease. Lower Extremity CTA 03/15/24 14:26 IMPRESSION: Dermal thickening and subcutaneous inflammation/edema of the right lower extremity. No abscess detected. No CT evidence to suggest necrotizing fasciitis, keeping in mind this is a clinical diagnosis. Right external iliac, femoral, and inguinal lymphadenopathy. Venous Doppler Study 03/15/24 20:01 IMPRESSION: Patent right lower extremity veins. No evidence of deep venous thrombosis. ADDENDUM: 03/16/24 5013 No deep venous thrombosis identified in the right femoral vein on the current study.
[2024-03-17 14:10] VITALS: BP 105/67; PULSE 71; RESP 24; TEMP 36.8; O2SAT 98
--- NOTE | 2024-03-17 14:54 | P.PNOP_ITS ---
Progress Note: A&P Assessment and Plan (1) Cellulitis: Code(s): L03.90 - Cellulitis, unspecified Status: Acute Assessment and Plan: Minimal improvement. Walking OK. Cellulitis persists. Consider Steroids. Risk of making cellulitis worse. Subjective Subjective Date/Time Seen: 03/17/24 14:54 Principal diagnosis: Cellulitis Review of Systems Review of Systems: All systems reviewed & are unremarkable except as noted in HPI and below Constitutional: Constitutional: Reports body ache(s), Reports chills, Reports fatigue and Reports weakness Eyes: Eyes: Reports no additional eye complaints ENT: Reports system reviewed and no additional complaints, except as doc umented Cardiovascular: Cardiovascular: Reports diaphoresis Respiratory: Respiratory: Reports no additional respiratory complaints Gastrointestinal: Gastrointestinal: Reports no additional gastrointestinal complaints Musculoskeletal: Musculoskeletal: Reports myalgias, Reports arthralgias and Reports joint swelling Neurologic: Reports system reviewed and no additional complaints, except as documented and Reports weakness Endocrine: Endocrine: Reports fatigue Exam Narrative: Redness persists. Leg swollen, but not painful to palpation. Negative Pilar's and Norris. Objective Data Vital Signs Vital Signs: Vital Signs - 24 hr 03/16/24 20:00 03/16/24 21:03 03/17/24 06:00 Temperature 97.6 F 97.0 F L Pulse Rate 82 70 Respiratory Rate 20 20 Blood Pressure 130/75 129/75 Pulse Oximetry 98 100 98 Oxygen Delivery Nasal Cannula Oxygen Flow Rate 2 03/17/24 08:00 03/17/24 08:00 03/17/24 08:00 Temperature Pulse Rate 83 83 Respiratory Rate 20 20 Blood Pressure Pulse Oximetry 93 97 Oxygen Delivery Nasal Cannula Nasal Cannula Oxygen Flow Rate 4 2 03/17/24 08:04 03/17/24 14:10 Temperature 98.3 F Pulse Rate 85 71 Respiratory Rate 24 H Blood Pressure 105/67 Pulse Oximetry 98 Oxygen Delivery Oxygen Flow Rate Intake/Output Intake/Output: Intake & Output 03/14/24 03/15/24 03/16/24 03/17/24 23:59 23:59 23:59 23:59 Intake Total 2570 2020 900 1790 Output Total 2700 1950 1100 600 Balance -130 70 -200 1190 Meds/Results Medications: Active Medications Generic Name Dose Route Start Last Admin Trade Name Freq PRN Reason Stop Dose Admin Acetaminophen 650 mg 03/12/24 03:07 03/15/24 04:55 Acetaminophen 325 Mg Tablet PO 650 mg Q4H PRN Administration Mild Pain (1-3) or Fever Amlodipine Besylate 10 mg 03/15/24 21:00 03/16/24 20:10 Amlodipine Besylate 10 Mg Tablet PO 10 mg HS CHRISTINA Administration Fluticasone/Umeclidinium/Vilanterol 1 puff 03/12/24 08:00 03/17/24 07:54 Fluticasone/Umeclidin/Vilanter 100-62.5-25 Mcg Ellipta INHALATION 1 puff DAILYRT CHRISTINA Administration Furosemide 40 mg 03/15/24 17:00 03/17/24 08:04 Furosemide 40 Mg Tablet PO 40 mg BID CHRISTINA Administration Heparin Sodium (Porcine) 5,000 units 03/17/24 14:00 Heparin Sodium 5,000 Units/Ml Vial SUB-Q Q8HR CHRISTINA Cefepime HCl 2 gm in 50 mls @ 100 mls/hr 03/13/24 17:00 03/17/24 08:06 Maxipime 2 Gm/Ns 50 Ml IVPB 100 mls/hr Q8H CHRISTINA Administration Metronidazole 500 mg in 100 mls @ 100 mls/hr 03/16/24 14:00 03/17/24 13:15 Flagyl 500 Mg/Iso Soln 100 Ml IVPB 100 mls/hr Q8H CHRISTINA Administration Linezolid 600 mg 03/16/24 13:15 03/17/24 08:04 Linezolid 600 Mg Tablet PO 600 mg Q12HR CHRISTINA Administration Metoprolol Succinate 200 mg 03/12/24 09:00 03/17/24 08:04 Metoprolol Succinate Ext Rel 100 Mg Tabcr PO 200 mg DAILY CHRISTINA Administration Morphine Sulfate 2 mg 03/15/24 11:17 03/17/24 13:15 Morphine Sulfate (*Crx) 2 Mg/Ml Inj IV PUSH 2 mg Q3H PRN Administration Pain Rated 7-10 Oxycodone HCl 5 mg 03/14/24 11:57 03/17/24 09:59 Oxycodone Hcl (*Crx) 5 Mg Tab Ir PO 5 mg Q4H PRN Administration Pain Rated 4-6 Sodium Chloride 10 ml 03/15/24 14:00 03/17/24 05:30 Saline Lock Flush IV PUSH 10 ml Q8HR CHRISTINA Administration Sodium Chloride 10 ml 03/15/24 11:30 Saline Lock Flush IV PUSH PRN PRN Flush Sodium Chloride 20 ml 03/15/24 11:30 Saline Lock Flush IV PUSH PRN PRN after blood draws Radiology Results: ITS Impressions Chest CTA 03/12/24 05:45 Impression: No evidence of pulmonary embolus, aortic dissection, or aortic aneurysm. Clear lungs. Lower Extremity CT 03/12/24 06:47 IMPRESSION: Right external iliac/common femoral adenopathy, largest node measuring 2.5 x 2.0 cm. Please see details above. Findings are somewhat nonspecific, and stable since prior exam. Correlate for reactive/inflammatory lymph nodes versus any possibility of lymphoma or other metastatic disease. Head CT 03/12/24 13:56 IMPRESSION: 1. Normal brain. Abdomen/Pelvis CT 03/12/24 14:07 Impression: Enlarged right common femoral region lymph node, as above, nonspecific. Diffuse hepatic steatosis. Small fat-containing left inguinal hernia. Soft Tissue Ultrasound 03/13/24 16:32 IMPRESSION: 1. Small knee joint effusion. Chest X-Ray 03/13/24 16:33 IMPRESSION: 1. No acute cardiopulmonary disease. Lower Extremity CTA 03/15/24 14:26 IMPRESSION: Dermal thickening and subcutaneous inflammation/edema of the right lower extremity. No abscess detected. No CT evidence to suggest necrotizing fasciitis, keeping in mind this is a clinical diagnosis. Right external iliac, femoral, and inguinal lymphadenopathy. Venous Doppler Study 03/15/24 20:01 IMPRESSION: Patent right lower extremity veins. No evidence of deep venous thrombosis. ADDENDUM: 03/16/24 9410 No deep venous thrombosis identified in the right femoral vein on the current study.
[2024-03-17] MEDS: HEPARIN SODIUM 5,000 UNITS/ML VIAL 5000 UNITS SUB-Q (17:33)
[2024-03-17 18:50] LABS: Crystals Synovial Fluid None Seen (None Seen)
--- NOTE | 2024-03-17 19:54 | PC.NURSE ---
report called to Priscila DUNHAM at [facility]. will call her back to give her an ETA when EMS gives us one
[2024-03-17] MEDS: amLODIPine BESYLATE 10 MG TABLET PO (20:38)
[2024-03-17 20:57] VITALS: BP 131/63; PULSE 74; RESP 12; TEMP 36.9; O2SAT 98
--- NOTE | 2024-03-18 17:32 | P.TS_ITS ---
Transfer Discharge Sum: Prov Provider Date of admission: 03/12/24 08:02 Primary care physician: Nicole Bruno NP Admitting clinician: David Bradshaw MD Consults: 03/13/24 Consult to Physician Routine Comment: Consulting Provider: Terrence Cuevas call center consultant/MD group to consult: pulmonology Reason for consultation: bipap Has provider been notified: Yes 03/15/24 Consult to Physician Routine Comment: Consulting Provider: Oneal Hurst call center consultant/MD group to consult: orthopedics Reason for consultation: STAT: Compartment Syndrome and Necrotic Fasciatis Has provider been notified: Yes 03/16/24 Consult to Physician Routine Comment: Consulting Provider: Gretchen Goldman call center consultant/MD group to consult: Gen surgery-called office @ 09:25am spoke to [facility] Reason for consultation: ?Necrotizing fasciitis Has provider been notified: Yes DS: Admitting Diagnosis Discharge Date 03/17/24 Admitting Diagnosis (1) Cellulitis of right anterior lower leg: Code(s): L03.115 - Cellulitis of right lower limb Status: Acute (2) Status post bilateral knee replacements: Code(s): Z96.653 - Presence of artificial knee joint, bilateral Status: Acute (3) Morbid obesity: Code(s): E66.01 - Morbid (severe) obesity due to excess calories Status: Acute (4) Chronic hypercapnic respiratory failure: Code(s): J96.12 - Chronic respiratory failure with hypercapnia Status: Acute (5) DVT (deep venous thrombosis): Qualifiers: Affected thrombotic vein of extremity: femoral Chronicity: acute DVT location: lower extremity Laterality: right Qualified Code(s): I82.411 - Acute embolism and thrombosis of right femoral vein Code(s): I82.409 - Acute embolism and thrombosis of unspecified deep veins of unspecified lower extremity Status: Acute DS: Discharge Diagnosis Discharge Diagnosis (1) Cellulitis of right anterior lower leg: Code(s): L03.115 - Cellulitis of right lower limb Status: Acute (2) Status post bilateral knee replacements: Code(s): Z96.653 - Presence of artificial knee joint, bilateral Status: Acute (3) Morbid obesity: Code(s): E66.01 - Morbid (severe) obesity due to excess calories Status: Acute (4) Chronic hypercapnic respiratory failure: Code(s): J96.12 - Chronic respiratory failure with hypercapnia Status: Acute (5) DVT (deep venous thrombosis): Qualifiers: Affected thrombotic vein of extremity: femoral Chronicity: acute DVT location: lower extremity Laterality: right Qualified Code(s): I82.411 - Acute embolism and thrombosis of right femoral vein Code(s): I82.409 - Acute embolism and thrombosis of unspecified deep veins of unspecified lower extremity Status: Acute Transfer Discharge Sum: Med Medications Active and Home Medications: Home Medications metoprolol succinate 200 mg tablet,extended release 24 hr 200 mg PO DAILY #90 tabs 04/29/23 [Rx Confirmed 03/12/24] ibuprofen 800 mg tablet 800 mg PO TID PRN pain #90 tabs 10/02/23 [Rx Confirmed 03/12/24] budesonide 160 mcg-glycopyr 9 mcg-formot 4.8 mcg/actuation HFA inhaler (Breztri Aerosphere) 2 inh inhalation BID #10.7 grams 12/31/23 [Rx Confirmed 03/12/24] amlodipine 5 mg tablet (Norvasc) 5 mg PO DAILY #90 tabs 01/22/24 [Rx Confirmed 03/12/24] furosemide 40 mg tablet (Lasix) 40 mg PO QAM #90 tabs 01/22/24 [Rx Confirmed 03/12/24] Transfer Discharge Sum: Hosp Hospital Course Hospital course: Armaan Hurst is a 53 year old male Per H&P, 53-year-old male with history of mild diastolic dysfunction, COPD, obesity, hyperlipidemia, hypertension presents to the emergency department for chills, subjective fever and right inguinal pain. Denies any Nausea, vomiting. Complains of right knee pain. Patient has history of a right knee arthroplasty a few years ago. Underwent CTA chest, negative for PE, pneumonia. Tested positive for right leg DVT. He had similar presentation in November, when he was treated for possible meningitis until CSF culture turned out to be negative for bacterial meningitis. Right leg CT scan was done overnight, shows inguinal lymph nodes. Discussed with the radiologist over the phone about any acute findings in the knee on CT scan. No concerning abnormality was reported verbally to me on the phone.RSV, influenza, COVID was negative on admission. Admitted with concerns for sepsis with unclear source. The following med issues have been addressed during hospitalization (1) Sepsis: Qualifiers: Sepsis acute organ dysfunction status: unspecified Sepsis type: sepsis due to unspecified organism Qualified Code(s): A41.9 - Sepsis, unspecified organism Code(s): A41.9 - Sepsis, unspecified organism Status: Acute Assessment and Plan: - lactic acid: 1.6 - suspected source: right lower extremity cellulitis? - blood cultures drawn on 03/11: NGTD - Viral panel negative - UA: non concerning for infection - CXR: No acute cardiopulmonary disease. - Chest CTA: No evidence of pulmonary embolus, aortic dissection, or aortic aneurysm. -CT lower extremity right showed the thickening and subcutaneous inflammation a double-J right lower extremity. no CT evidence to suggest necrotizing fasciitis - Echo unremarkable - Right LE US Showed right femoral DVT, repeat on 03/15 was negative. Discussed with radiology today to over read due to short duration of treatment and disappearance of clots. - Continue tele monitoring - Antibiotics: vancomycin, cefepime Culture negative Biopsy right femoral adenopathy ordered. Suspecting from reaction of the inflammation. Post bone biopsy per ID evaluation in the future (2) Cellulitis: Qualifiers: Laterality: right Site of cellulitis: extremity Site of cellulitis of extremity: lower extremity Qualified Code(s): L03.115 - Cellulitis of right lower limb Code(s): L03.90 - Cellulitis, unspecified Status: Acute Assessment and Plan: Patient still having worsening erythema and swelling Stat CT ordered prior CT showed right external iliac/Common femoral adenopathy largest node measuring 2.5 x 2.0 cm, inflammation vs lymphoma vs metastatic disease f/u with repeat CT Continue Vanc, Cefepime Called [facility] for possible transfer Ortho reviewed and has low suspicion for Compartment syndrome, still recommends transfer to higher level of care Erythema still persistence, however leukocytosis and fever has resolved. Given patient's concern and station over transfer, he was transferred for ID involved. Patient has been accepted at [facility], awaiting bed Cellulitis improving based on the marker (3) DVT (deep venous thrombosis): Qualifiers: Affected thrombotic vein of extremity: femoral Chronicity: acute DVT location: lower extremity Laterality: right Qualified Code(s): I82.411 - Acute embolism and thrombosis of right femoral vein Code(s): I82.409 - Acute embolism and thrombosis of unspecified deep veins of unspecified lower extremity Status: Acute Assessment and Plan: - Venous doppler: Deep vein thrombosis involving right femoral vein. - Right LE CT: Right external iliac/common femoral adenopathy, largest node measuring 2.5 x 2.0 cm. Please see details above. Findings are somewhat nonspecific, and stable since prior exam. Correlate for reactive/inflammatory lymph nodes versus any possibility of lymphoma or other metastatic disease. - Chest CTA: No evidence of pulmonary embolus, aortic dissection, or aortic aneurysm. - Anticoagulation: Lovenox 120 mg BID Awaiting radiology to overread venous doppler on 03/15, if still negative will discontinue full dose lovenox 03/17: Radiologist's report, patent right lower extremity veins. No evidence of deep venous thrombosis. Change Lovenox from therapeutic dose to DVT prophylaxis does (4) Hypertension: Qualifiers: Hypertension type: unspecified Qualified Code(s): I10 - Essential (p rimary) hypertension Code(s): I10 - Essential (primary) hypertension Status: Acute Assessment and Plan: Chronic - Continue with metoprolol 200 mg daily - Amlodipine increased to 10 mg daily - Monitor (5) Chronic hypercapnic respiratory failure: Code(s): J96.12 - Chronic respiratory failure with hypercapnia Status: Acute Assessment and Plan: Patient has COPD with chronic hypercarbic respiratory failure with an ABG of 7.36/52.7/75 on room air, overnight oximetry on 2 L with time of saturation less than or equal to 88% 16 minutes. Apnea link reviewed by pulmonology and recommended nighttime BiPAP 15/5 with 2 liters oxygen bleed in at night pulmonology following (6) COPD (chronic obstructive pulmonary disease): Onset Date: ~08/24/21 Qualifiers: COPD type: unspecified COPD Qualified Code(s): J44.9 - Chronic obstructive pulmonary disease, unspecified Code(s): J44.9 - Chronic obstructive pulmonary disease, unspecified Status: Chronic Assessment and Plan: Chronic, no acute exacerbation. Patient was transferred to [facility] in [place] Before transfer patient condition was stable Time Spent with Patient Time attestation: Total time spent providing and/or coordinating transfer services: Exam Narrative: GENERAL: in no acute distress. Well-nourished. - EYES: EOMI. Anicteric. - HENT: Moist mucous membranes. - LUNGS: Clear to auscultation bilateral ly, no wheezing, rhonchi, or rales. - CARDIOVASCULAR: Regular rate and rhyth m. No murmur. No JVD. - ABDOMEN: Soft, non-tender and non-dist ended. No palpable masses. - EXTREMITIES: No edema. Peripheral puls es 2+. Non-tender. - NEUROLOGIC: No focal neurological defi cits. CN II-XII grossly intact. - PSYCHIATRIC: Awake, Alert and oriented x 3. Appropriate mood and affect. - SKIN: Redness, swelling, tender of ri ght lower extremity, cellulitis improvin g based on the marker - LYMPH: No cervical lymphadenopathy. DS: Data Data Completed and Pending Labs on day of discharge: Labs from last 24 hours 03/17/24 17:39 Synovial Crystals None seen Preliminary micro results at discharge 03/17/24 17:39 Anaerobic Culture - Preliminary Knee Right
[2024-03-19 17:27] LABS: West Nile Virus, IgM <0.90 index
== END 2024-03-17 21:25 | disposition short-term general hospital (02) | DRG 603 ==
LOC: ANHED 03-12 03:07 → ANH3MEDSUR 03-12 04:17
PROVIDERS: Internal Medicine; Internal Medicine Pulmonary Disease; Orthopaedic Surgery; Radiology Diagnostic Radiology; Admitting Provider Internal Medicine; Emergency Provider Physician Assistant; PCP Nurse Practitioner Family; Visit Provider Hospitalist
DX: L03.115 Cellulitis of right lower limb (principal); J96.12 Chronic respiratory failure with hypercapnia; Z68.41 Body mass index [BMI] 40.0-44.9, adult; I82.411 Acute embolism and thrombosis of right femoral vein; E66.01 Morbid (severe) obesity due to excess calories; Z96.653 Presence of artificial knee joint, bilateral; J44.9 Chronic obstructive pulmonary disease, unspecified; I10 Essential (primary) hypertension; E78.2 Mixed hyperlipidemia; G47.33 Obstructive sleep apnea (adult) (pediatric); L30.9 Dermatitis, unspecified; E87.6 Hypokalemia; Z86.16 Personal history of COVID-19; Z79.01 Long term (current) use of anticoagulants
CPT/HCPCS: 20611; 36415; 36569; 36600; 70450; 71045; 71046; 71275; 73701; 73706; 74177; 76882; 80048; 80053; 80202; 81001; 82375; 82565; 82805; 83050; 83605; 83690; 83735; 84145; 85018; 85025; 85027; 85049; 85610; 85652; 85730; 86140; 86788; 87040; 87070; 87075; 87205; 87636; 87641; 89060; 93005; 93308; 93971; 94002; 94003; 94640; 94762; 96361; 96365; 96367; 96372; 96375; 99285; A9270; C1751; C8924; G0378; J0290; J0692; J0696; J1644; J1650; J1836; J1885; J2270; J2543; J3370; J7042; J7120; Q9957; Q9967

== ENCOUNTER 2024-04-27 12:16 | Outpatient (CLI) | payer OTHER, SELFPAY ==
--- OUTSIDE RECORDS SUMMARY | 2024-04-27 12:55 | XMS_ITS | Referral Summary ---
Author Organization [facility] Address [address] [place] [address] Care Team Providers Care Calf Skinner Name Role Phone Juanito Moralez MD Primary Care Provider [phone] Arianne Jhaveri Unavailable [phone] Encounters Date Type Department Care Team Description 03/17/2024 10:14 PM DIRECTOR OF EXHIBIT DEVELOPMENT - 03/20/2024 5:52 PM DIRECTOR OF EXHIBIT DEVELOPMENT Hospital Encounter [address] [address] [place], [place] Nima Oshea, MD Donna Santizo, Ismael Remy MD Cellulitis of right lower extremity (Primary Dx); Bradycardia Discharge Disposition: Discharge to home or self care 03/17/2024 5:05 AM DIRECTOR OF EXHIBIT DEVELOPMENT - 03/17/2024 11:59 PM DIRECTOR OF EXHIBIT DEVELOPMENT Hospital Encounter [facility] Outside [address] [place] [address] Discharge Disposition: Discharge to home or self care 03/15/2024 11:45 AM DIRECTOR OF EXHIBIT DEVELOPMENT - 03/15/2024 11:59 PM DIRECTOR OF EXHIBIT DEVELOPMENT Hospital Encounter [facility] Outside [address] [place] [id number] Discharge Disposition: Discharge to home or self care 03/15/2024 2:00 PM DIRECTOR OF EXHIBIT DEVELOPMENT - 03/15/2024 11:59 PM DIRECTOR OF EXHIBIT DEVELOPMENT Hospital Encounter [facility] Outside [address] [place] [address] Discharge Disposition: Discharge to home or self care 03/15/2024 6:05 AM DIRECTOR OF EXHIBIT DEVELOPMENT - 03/15/2024 11:59 PM DIRECTOR OF EXHIBIT DEVELOPMENT Hospital Encounter [facility] Outside [employer] [address] [place] [address] [id number] Discharge Disposition: Discharge to home or self care 03/13/2024 2:20 PM DIRECTOR OF EXHIBIT DEVELOPMENT - 03/13/2024 11:59 PM DIRECTOR OF EXHIBIT DEVELOPMENT Hospital Encounter [facility] [employer] [address] [place] [address] [id number] Discharge Disposition: Discharge to home or self care 03/13/2024 4:05 PM DIRECTOR OF EXHIBIT DEVELOPMENT - 03/13/2024 11:59 PM DIRECTOR OF EXHIBIT DEVELOPMENT Hospital Encounter [facility] [employer] [address] [place] [address] [id number] Discharge Disposition: Discharge to home or self care 03/13/2024 4:20 PM DIRECTOR OF EXHIBIT DEVELOPMENT - 03/13/2024 11:59 PM DIRECTOR OF EXHIBIT DEVELOPMENT Hospital Encounter [facility] [employer] [address] [place] [address] [id number] Discharge Disposition: Discharge to home or self care 03/12/2024 12:20 PM DIRECTOR OF EXHIBIT DEVELOPMENT - 03/12/2024 11:59 PM DIRECTOR OF EXHIBIT DEVELOPMENT Hospital Encounter [facility] [employer] [address] [place] [address] [id number] Discharge Disposition: Discharge to home or self care 03/12/2024 12:25 PM DIRECTOR OF EXHIBIT DEVELOPMENT - 03/12/2024 11:59 PM DIRECTOR OF EXHIBIT DEVELOPMENT Hospital Encounter [facility] [employer] [address] [place] [id number] Discharge Disposition: Discharge to home or self care 03/12/2024 1:30 PM DIRECTOR OF EXHIBIT DEVELOPMENT - 03/12/2024 11:59 PM DIRECTOR OF EXHIBIT DEVELOPMENT Hospital Encounter [facility] [employer] [address] [place] [address] Discharge Disposition: Discharge to home or self care 03/12/2024 1:25 PM DIRECTOR OF EXHIBIT DEVELOPMENT - 03/12/2024 11:59 PM DIRECTOR OF EXHIBIT DEVELOPMENT Hospital Encounter [facility] [employer] [address] [place] [address] [id number] Discharge Disposition: Discharge to home or self care 03/11/2024 10:15 AM DIRECTOR OF EXHIBIT DEVELOPMENT - 03/11/2024 11:59 PM DIRECTOR OF EXHIBIT DEVELOPMENT Hospital Encounter [facility] [employer] [address] [place] [address] [id number] Discharge Disposition: Discharge to home or self care 03/11/2024 10:25 AM DIRECTOR OF EXHIBIT DEVELOPMENT - 03/11/2024 11:59 PM DIRECTOR OF EXHIBIT DEVELOPMENT Hospital Encounter [facility] Outside [employer] [address] [place] [address] [id number] Discharge Disposition: Discharge to home or self care from Last 3 Months Allergies No known active allergies Medications budesonide-glyc opyr-formoterol (Breztri Aerosphere) 160-9-4.8 mcg/actuation inhaler Inhale 2 puffs 2 (two) times a day Active furosemide (LASIX) 40 mg tablet Take 1 tablet (40 mg total) by mouth daily Active amLODIPine (NORVASC) 5 mg tablet Take 2 tablets (10 mg total) by mouth daily 60 tablet 03/20/2024 Active oxyCODONE (ROXICODONE) 5 mg immediate release tabletIndicatio ns:Pain Take 1 tablet (5 mg total) by mouth every 8 (eight) hours as needed for pain 10 tablet 03/20/2024 Active Active Problems Problem Noted Date Diagnosed Date Cellulitis 03/18/2024 COPD (chronic obstructive pulmonary disease) Hypokalemia 03/18/2024 Hypertension 03/18/2024 Social History Tobacco Use Types Packs/Day Years Used Date Smoking Tobacco: Former Cigarettes Smokeless Tobacco: Never Comments:Mary Ann jacobs AUDIT-C Answer Date Recorded Q1: How often do you have a drink containing alcohol? Never 03/18/2024 Q2: How many drinks containi ng alcohol do you have on a typical day when you are drinking? Patient does not drink Q3: How often do you have si x or more drinks on one occasion? Never 03/18/2024 Personal Safety Answer Date Recorded Have you ever been in or are you currently in a harmful physical or emotional relationship or is someone making you feel afraid or unsafe? Denies 03/17/2024 Sex and Gender Information Value Date Recorded Sex Assigned at Not on file Legal Sex Male 1:49 PM DIRECTOR OF EXHIBIT DEVELOPMENT Gender Identity Not on file Sexual Orientation Not on file Last Filed Vital Signs Vital Sign Reading Time Taken Comments Blood Pressure 166/77 03/20/2024 3:51 PM DIRECTOR OF EXHIBIT DEVELOPMENT Pulse 89 03/20/2024 3:51 PM DIRECTOR OF EXHIBIT DEVELOPMENT Temperature 36.8 ??C (98.2 ??F) 03/20/2024 3:51 PM CS T Respiratory Rate 18 03/20/2024 3:51 PM DIRECTOR OF EXHIBIT DEVELOPMENT Oxygen Saturation 100% 03/20/2024 3:51 PM DIRECTOR OF EXHIBIT DEVELOPMENT Inhaled Oxygen Concentration - - Weight 113.4 kg (250 lb) 03/19/2024 4:00 PM DIRECTOR OF EXHIBIT DEVELOPMENT Height 165.1 cm (5' 5 ) 03/19/2024 4:00 PM DIRECTOR OF EXHIBIT DEVELOPMENT Body Mass Index 41.6 03/19/2024 4:00 PM DIRECTOR OF EXHIBIT DEVELOPMENT Plan of Treatment Not on file Procedures Procedure Name Priority Date/Time Associated Diagnosis Comments TRANSTHORACIC ECHO (TTE) COMPLETE W DOPPLER/CF W CONTRAST Routine 03/20/2024 1:47 PM DIRECTOR OF EXHIBIT DEVELOPMENT HOME O2 EVAL (DESATURATION SCREEN) Routine 03/20/2024 1:42 PM DIRECTOR OF EXHIBIT DEVELOPMENT EGFR Routine 03/20/2024 10:33 AM DIRECTOR OF EXHIBIT DEVELOPMENT DIFFERENTIAL AUTO Routine 03/20/2024 10: 33 AM DIRECTOR OF EXHIBIT DEVELOPMENT BASIC METABOLIC PANEL Routine 03/20/2024 10:33 AM DIRECTOR OF EXHIBIT DEVELOPMENT CBC WITH AUTO DIFFERENTIAL Routine 03/20/2024 10:33 AM DIRECTOR OF EXHIBIT DEVELOPMENT XR CHEST 1 VIEW IP Routine 03/19/2024 1:00 PM DIRECTOR OF EXHIBIT DEVELOPMENT LACTATE Timed 03/19/2024 8:53 AM DIRECTOR OF EXHIBIT DEVELOPMENT US VEIN DUPLEX LOWER EXTREMITY RIGHT LIMITED IP Routine 03/19/2024 8:26 AM DIRECTOR OF EXHIBIT DEVELOPMENT ECG 12-LEAD Routine 03/18/2024 6:33 PM DIRECTOR OF EXHIBIT DEVELOPMENT POTASSIUM LEVEL Routine 03/18/2024 6:30 PM DIRECTOR OF EXHIBIT DEVELOPMENT MAGNESIUM Routine 03/18/2024 6:30 PM DIRECTOR OF EXHIBIT DEVELOPMENT EGFR Routine 03/18/2024 12:35 PM DIRECTOR OF EXHIBIT DEVELOPMENT DIFFERENTIAL AUTO Routine 03/18/2024 12: 35 PM DIRECTOR OF EXHIBIT DEVELOPMENT CBC WITH AUTO DIFFERENTIAL Routine 03/18/2024 12:35 PM DIRECTOR OF EXHIBIT DEVELOPMENT BASIC METABOLIC PANEL Routine 03/18/2024 12:35 PM DIRECTOR OF EXHIBIT DEVELOPMENT BLOOD CULTURE STAT 03/18/2024 1:44 AM DIRECTOR OF EXHIBIT DEVELOPMENT EGFR STAT 03/18/2024 1:40 AM DIRECTOR OF EXHIBIT DEVELOPMENT LIPID PANEL STAT 03/18/2024 1:40 AM DIRECTOR OF EXHIBIT DEVELOPMENT DIFFERENTIAL AUTO STAT 03/18/2024 1:4 0 AM DIRECTOR OF EXHIBIT DEVELOPMENT HEMOGLOBIN A1C Routine 03/18/2024 1:40 AM DIRECTOR OF EXHIBIT DEVELOPMENT ERYTHROCYTE SEDIMENTATION RATE STAT 03/18/2024 1:40 AM DIRECTOR OF EXHIBIT DEVELOPMENT CRP (ACUTE PHASE) STAT 03/18/2024 1:4 0 AM DIRECTOR OF EXHIBIT DEVELOPMENT PHOSPHORUS STAT 03/18/2024 1:40 AM DIRECTOR OF EXHIBIT DEVELOPMENT MAGNESIUM STAT 03/18/2024 1:40 AM DIRECTOR OF EXHIBIT DEVELOPMENT CREATINE KINASE (CK), TOTAL STAT 03/18/2024 1:40 AM DIRECTOR OF EXHIBIT DEVELOPMENT COMPREHENSIVE METABOLIC PANEL STAT 03/18/2024 1:40 AM DIRECTOR OF EXHIBIT DEVELOPMENT CBC WITH AUTO DIFFERENTIAL STAT 03/18/2024 1:40 AM DIRECTOR OF EXHIBIT DEVELOPMENT BLOOD CULTURE STAT 03/18/2024 1:40 AM DIRECTOR OF EXHIBIT DEVELOPMENT US TRANSFER OF OUTSIDE FILMS Routine 03/17/2024 5:05 AM DIRECTOR OF EXHIBIT DEVELOPMENT CT BODY OUTSIDE REFERENCE Routine 03/15/2024 2:00 PM DIRECTOR OF EXHIBIT DEVELOPMENT US TRANSFER OF OUTSIDE FILMS Routine 03/15/2024 11:45 AM DIRECTOR OF EXHIBIT DEVELOPMENT US TRANSFER OF OUTSIDE FILMS Routine 03/15/2024 6:05 AM DIRECTOR OF EXHIBIT DEVELOPMENT XR TRANSFER OF OUTSIDE FILMS Routine 03/13/2024 4:20 PM DIRECTOR OF EXHIBIT DEVELOPMENT US TRANSFER OF OUTSIDE FILMS Routine 03/13/2024 4:05 PM DIRECTOR OF EXHIBIT DEVELOPMENT US TRANSFER OF OUTSIDE FILMS Routine 03/13/2024 2:20 PM DIRECTOR OF EXHIBIT DEVELOPMENT NEURO CT OUTSIDE REFERENCE Routine 03/12/2024 1:30 PM DIRECTOR OF EXHIBIT DEVELOPMENT CT BODY OUTSIDE REFERENCE Routine 03/12/2024 1:25 PM DIRECTOR OF EXHIBIT DEVELOPMENT CT BODY OUTSIDE REFERENCE Routine 03/12/2024 12:25 PM DIRECTOR OF EXHIBIT DEVELOPMENT CT BODY OUTSIDE REFERENCE Routine 03/12/2024 12:20 PM DIRECTOR OF EXHIBIT DEVELOPMENT US TRANSFER OF OUTSIDE FILMS Routine 03/11/2024 10:25 AM DIRECTOR OF EXHIBIT DEVELOPMENT XR TRANSFER OF OUTSIDE FILMS Routine 03/11/2024 10:15 AM DIRECTOR OF EXHIBIT DEVELOPMENT from Last 3 Months Results * TRANSTHORACIC ECHO (TTE) COMPLETE W DOPPLER/CF W CONTRAST (03/20/2024 1:47 PM DIRECTOR OF EXHIBIT DEVELOPMENT) Anatomical Region Laterality Modality Ultrasound 03/20/2024 1:29 PM DIRECTOR OF EXHIBIT DEVELOPMENT Narrative 03/20/2024 7:34 PM DIRECTOR OF EXHIBIT DEVELOPMENT ? Adult Echocardiogram + ----- + :Name: ARMAAN HURST ?Study Date: 03/20/2024 ?Status: [facility] ?: : ?Patient Location: [facility]^[id number]^Height: 65 in ?: : ?Weight: 250 lbBP: 142/77 mmHg: :: 1970 ? Gender: Male ?BSA: 2.2 m2 ?: :Reason For Study: cardiac arrhythmia ? : :Ordering Physician: KACEY, ? : :LOYDA ?: :Referring Physician: ? : :[facility] ? : :Performed By: Momo Carter, ?: :RCS, RVT ? : + ----- + Procedure A two-dimensional transthoracic echocardiogram with color flow and Doppler was performed. The study was technically difficult due to patient's 'body habitus'. A contrast injection of Definity was performed to improve assessment of LV function. lot#[id number]. Left Ventricle The left ventricle is normal in size. There is normal left ventricular wall thickness. Ejection Fraction = 70-75%. No obvious regional wall motion abnormalities noted. Right Ventricle The right ventricle is not well visualized. Atria The left atrial size is normal. Right atrium not well visualized. Atrial septum not well seen. Mitral Valve The mitral valve is not well visualized. No significant mitral valve stenosis. There is trace mitral regurgitation. Tricuspid Valve The tricuspid valve is not well visualized. There is trace tricuspid regurgitation. Aortic Valve Difficult to assess number of leaflets. Mild valvular aortic stenosis. Aortic valve velocity is 231 cm/s. No significant aortic regurgitation noted. Pulmonic Valve The pulmonic valve is not well visualized. Trace pulmonic valvular regurgitation. Great Vessels The aortic root is normal size. IVC not well seen. Diastology No abnormal diastolic relaxation abnormalities. Interpretation Summary The study was technically difficult due to patient's 'body habitus'. Ejection Fraction = 70-75%. No abnormal diastolic relaxation abnormalities. There is trace mitral regurgitation. There is trace tricuspid regurgitation. Mild valvular aortic stenosis. Aortic valve velocity is 231 cm/s. Trace pulmonic valvular regurgitation. + + :Measurements with Normals ?: :IVSd: ?(0.6-1.2 ?? LVIDd: ?(3.5-5.7 ?? Ao root diam: ?(2.0-3.7 ?? : :0.79 cm ?cm) ?4.7 cm ?cm) ?2.7 cm ? cm) ?: :LVPWd: ? (0.6-1.1 ?? LVIDs: ?(3.1-4.6 ?? LA dimension: ?(1.9-4.0 ?? : :0.89 cm ?cm) ?2.9 cm ?cm) ?3.2 cm ? cm) ?: + + MMode/2D Measurements & Calculations FS: 38.1 % EDV(Teich): 103.4 ml ?Ao root area: 5.7 cm2 ESV(Teich): 32.8 ml Doppler Measurements & Calculations MV E max carmelina: ?MV dec time: ?Ao V2 max: ?LV V1 max P.8 cm/sec ?0.21 sec ?233.5 cm/sec ?12.0 mmHg MV A max carmelina: ?Ao max PG: ?LV V1 max: 77.1 cm/sec ?21.8 mmHg ? 173.0 cm/sec MV E/A: 1.3 ?Ao V2 mean: ? 152.0 cm/sec ? Ao mean PG: ? 11.0 mmHg ? Ao V2 VTI: 39.9 cm ? PA V2 max: ? RV V1 max: ?TR max carmelina: ? RAP systole: 138.0 cm/sec ? 83.6 cm/sec ? 162.0 cm/sec ?3.0 mmHg PA max P.6 mmHg ?TR max PG: ? 10.5 mmHg ? RVSP(TR): 13.5 mmHg Electronically signed by: Loyda Leyva MD 03/20/2024 07:34 PM Procedure Note Loyda Leyva MD - 03/20/2024 Adult Echocardiogram + ----- + :Name: ARMAAN HURST Study Date: 03/20/2024Status: B : : Patient Location: [address]^[id number]^Height: 65 in : : : 250 lbBP: 142/77 mmHg: :: 1970 Gender: MaleBSA: 2.2 m2 : :Reason For Study: cardiac arrhythmia: :Ordering Physician: KACEY,: :LOYDA: :Referring Physician:: :ZEINA VAZQUEZ: :Performed By: Momo Carter,: :PREETHI MABRYT: + ----- + Procedure A two-dimensional transthoracic echocardiogram with color flow and Dopplerwas performed. The study was technically difficult due to patient's 'body habitus'. A contrast injection of Definity was performed to improveassessment of LV function. lot#[id number]. Left Ventricle The left ventricle is normal in size. There is normal left ventricularwall thickness. Ejection Fraction = 70-75%. No obvious regional wall motion abnormalities noted. Right Ventricle The right ventricle is not well visualized. Atria The left atrial size is normal. Right atrium not well visualized. Atrial septum not well seen. Mitral Valve The mitral valve is not well visualized. No significant mitral valvestenosis. There is trace mitral regurgitation. Tricuspid Valve The tricuspid valve is not well visualized. There is trace tricuspid regurgitation. Aortic Valve Difficult to assess number of leaflets. Mild valvular aortic stenosis.Aortic valve velocity is 231 cm/s. No significant aortic regurgitation noted. Pulmonic Valve The pulmonic valve is not well visualized. Trace pulmonic valvular regurgitation. Great Vessels The aortic root is normal size. IVC not well seen. Diastology No abnormal diastolic relaxation abnormalities. Interpretation Summary The study was technically difficult due to patient's 'body habitus'. Ejection Fraction = 70-75%. No abnormal diastolic relaxation abnormalities. There is trace mitral regurgitation. There is trace tricuspid regurgitation. Mild valvular aortic stenosis. Aortic valve velocity is 231 cm/s. Trace pulmonic valvular regurgitation. + + :Measurements with Normals: :IVSd: (0.6-1.2 LVIDd: (3.5-5.7 Ao root diam:(2.0-3.7 : :0.79 cm cm) 4.7 cm cm) 2.7 cm cm): :LVPWd: (0.6-1.1 LVIDs: (3.1-4.6 LA dimension:(1.9-4.0 : :0.89 cm cm) 2.9 cm cm) 3.2 cm cm): + + MMode/2D Measurements & Calculations FS: 38.1 % EDV(Teich): 103.4 ml Ao root area: 5.7 cm2 ESV(Teich): 32.8 ml Doppler Measurements & Calculations MV E max carmelina: MV dec time: Ao V2 max: LV V1 max P.8 cm/sec 0.21 sec 233.5 cm/sec 12.0 mmHg MV A max carmelina: Ao max PG: LV V1 max: 77.1 cm/sec 21.8 mmHg 173.0 cm/sec MV E/A: 1.3 Ao V2 mean: 152.0 cm/sec Ao mean P.0 mmHg Ao V2 VTI: 39.9 cm PA V2 max: RV V1 max: TR max carmelina: RAP systole: 138.0 cm/sec 83.6 cm/sec 162.0 cm/sec 3.0 mmHg PA max P.6 mmHg TR max P.5 mmHg RVSP(TR): 13.5 mmHg Electronically signed by: Loyda Leyva MD 03/20/2024 07:34 PM us Loyda Leyva Jr., MD CV ECHO PROCEDURES Fi nal Result * eGFR (03/20/2024 10:33 AM DIRECTOR OF EXHIBIT DEVELOPMENT) eGFR >90 >=60 mL/min/1. 73 m2 Comment: Interpretive Data Reference Interval Normal ?>/= 90 mL/min/1.73m2 Mildly decreased* ? 60 - 89 mL/min/1.73m2 Mildly to moderately decreased ?45 - 59 mL/min/1.73m2 Moderately to severely decreased ??30 - 44 mL/min/1.73m2 Severely decreased ?15 - 29 mL/min/1.73m2 Kidney Failure ?< 15 ??mL/min/1.73m2 *Relative to young adult level Estimated glomerular filtration rate is determined by the 2020 CKD-EPI equation recommended by the National Kidney [employer] (A Unifying Approach to GFR Estimation: Recommendations of the NKF-ASK Task Force on Reassessing the Inclusion of Race in Diagnosing Kidney Disease, JASN 2020). The CKD-EPI equation should not be used for patients with unstable renal function and has not been validated in children and those over 70. Current interpretive data was last reviewed 2021. Blood 03/20/2024 10:3 3 AM DIRECTOR OF EXHIBIT DEVELOPMENT 03/20/2024 11:09 AM DIRECTOR OF EXHIBIT DEVELOPMENT us Darlyn Herring MD LAB BLOOD ORDERABLES Final Result Performing Organization Address City/State/[facility] Co de Phone Number [facility] [address] [facility] Department [place] [address] * (ABNORMAL) Differential, auto (03/20/2024 10:33 AM DIRECTOR OF EXHIBIT DEVELOPMENT) Pathologist [facility] Neutrophil abs 7.0(H) 1.5 - 6.5 K/cumm Imm gran abs 0.3(H) 0.0 - 0.1 K/cumm [facility] Lymphocyte abs 1.3 0.8 - 3.3 K/cumm [facility] Monocyte abs 0.6 0.2 - 0.8 K/cumm [facility] Eosinophil abs 0.4 0.0 - 0.5 K/cumm [facility] Basophil abs 0.0 0.0 - 0.1 K/cumm [facility] Neutrophil pct 73.0 % [facility] Comment: Interpretive Data Percent cell count reference ranges are not reported, since discordance with absolute values may lead to misinterpretation of CBC data. Current Interpretive Data was last revised on 2017. Imm gran pct 2.8 % [facility] Comment: Interpretive Data Percent cell count reference ranges are not reported, since discordance with absolute values may lead to misinterpretation of CBC data. Current Interpretive Data was last revised on 2017. Lymphocyte pct 13.1 % [facility] Comment: Interpretive Data Percent cell count reference ranges are not reported, since discordance with absolute values may lead to misinterpretation of CBC data. Current Interpretive Data was last revised on 2017. Monocyte pct 6.7 % [facility] Comment: Interpretive Data Percent cell count reference ranges are not reported, since discordance with absolute values may lead to misinterpretation of CBC data. Current Interpretive Data was last revised on 2017. Eosinophil pct 4.0 % [facility] Comment: Interpretive Data Percent cell count reference ranges are not reported, since discordance with absolute values may lead to misinterpretation of CBC data. Current Interpretive Data was last revised on 2017. Basophil pct 0.4 % [facility] Comment: Interpretive Data Percent cell count reference ranges are not reported, since discordance with absolute values may lead to misinterpretation of CBC data. Current Interpretive Data was last revised on 2017. Blood 03/20/2024 10:3 3 AM DIRECTOR OF EXHIBIT DEVELOPMENT 03/20/2024 11:09 AM DIRECTOR OF EXHIBIT DEVELOPMENT Darlyn Herring MD LAB BLOOD ORDERABLES Final Result [facility] [address] [facility] Department [place] [address] * (ABNORMAL) CBC with auto differential (03/20/2024 10:33 AM DIRECTOR OF EXHIBIT DEVELOPMENT) WBC 9.6 3.8 - 9.9 K/cumm Hgb 10.0(L) 13.0 - 17.5 g/dL [facility] Hct 33.2(L) 38.9 - 50.3 % [facility] Plt 373 150 - 400 K/cumm [facility] MPV 11.6 9.1 - 12.3 fL [facility] RBC 3.69(L) 4.30 - 5.80 M/cumm [facility] MCV 90.0 81.3 - 96.4 fL [facility] MCH 27.1 27.1 - 33.3 pg [facility] MCHC 30.1(L) 32.3 - 35.7 g/dL [facility] RDW CV 14.4 11.1 - 14.9 % [facility] RDW SD 47.1 35.7 - 48.1 fL [facility] NRBC abs 0.00 0.00 - 0.01 K/cumm [facility] Blood 03/20/2024 10:3 3 AM DIRECTOR OF EXHIBIT DEVELOPMENT 03/20/2024 11:09 AM DIRECTOR OF EXHIBIT DEVELOPMENT us Darlyn Herring MD LAB BLOOD ORDERABLES Final Result Performing Organization Address City/State/[facility] Co de Phone Number [place] [id number] [facility] Department [place] [address] * (ABNORMAL) Basic metabolic panel (03/20/2024 10:33 AM DIRECTOR OF EXHIBIT DEVELOPMENT) Sodium 138 135 - 145 mmol/L Potassium, pl 3.4 3.3 - 4.9 mmol/L [facility] Chloride 96(L) 97 - 110 mmol/L [facility] CO2 35(H) 22 - 32 mmol/L [facility] Anion gap 7 2 - 15 mmol/L [facility] BUN 7 6 - 25 mg/dL [facility] Creatinine 0.83 0.80 - 1.30 mg/dL [facility] Glucose 170 70 - 199 mg/dL [facility] Comment: Interpretive Data Fasting glucose >/= 126 mg/dl is diagnostic for diabetes. ?? Fasting is defined as no caloric intake for at least 8 hours. Fasting glucose between 100 mg/dl to 125 mg/dl is diagnostic of prediabetes. In a patient with classic symptoms of hyperglycemia or hyperglycemic crisis, a random glucose >/= 200 mg/dl is diagnostic for diabetes. In the absence of unequivocal hyperglycemia, results should be confirmed by repeat testing. The classification and Diagnosis of Diabetes Diabetes Care 202; 46: S19-S40. Current interpretive data was last revised 2022. Calcium 8.8 8.5 - 10.3 mg/dL [facility] Blood 03/20/2024 10:3 3 AM DIRECTOR OF EXHIBIT DEVELOPMENT 03/20/2024 11:09 AM DIRECTOR OF EXHIBIT DEVELOPMENT us Darlyn Herring MD LAB BLOOD ORDERABLES Final Result [facility] [address] [facility] Department [place] [address] * XR Chest 1 View (03/19/2024 1:00 PM DIRECTOR OF EXHIBIT DEVELOPMENT) Anatomical Region Laterality Modality Body, Chest N/A Computed Radiogr aphy 03/19/2024 3:40 PM DIRECTOR OF EXHIBIT DEVELOPMENT Narrative 03/19/2024 3:41 PM DIRECTOR OF EXHIBIT DEVELOPMENT EXAM DESCRIPTION: XR CHEST 1 VIEW REASON FOR STUDY: hypoxia ?? Transfer from [facility] PMH/o COPD, chronic hypercarbic respiratory failure on 2 L home oxygen/wears at , HTN, HLD, mild diastolic dysfunction, ??and hx of DVT that initially presented to the ED at [facility] on 03/11/24 with c/o subjective fever, ?? chills, swollen/painful lymph nodes in groin and right knee pain. Pt endorsed having similar symptoms about 3 months ago with his left knee/cellulitis and abscess; and was treated for possible meningitis until CSF/culture negative. Hx of bilateral knee ?? replacement around 2019; endorsed having revision to right knee due to infection years ago. ? Today's xray for hypoxia ?? TECHNIQUE: 1 ??radiographic view(s) of the chest. COMPARISON: None FINDINGS: LUNGS: ??No focal opacity, pleural effusion, or pneumothorax. ?? HEART/MEDIASTINUM: ??Cardiac silhouette normal in size. Mediastinal and hilar contours appear normal. LINES/TUBES: ??None. BONES: ??No acute osseous abnormality. IMPRESSION: No acute cardiopulmonary abnormality. THIS IS AN ELECTRONICALLY VERIFIED FINAL REPORT 03/19/2024 3:41 PM - Electronically signed by ??Ramesh Zamora.D. KR D: ??03/19/2024 3:41 PM T: Report ID: [id number] Reading Location: ??[id number] Procedure Note Ramesh Ramirez MD - 03/19/2024 EXAM DESCRIPTION: XR CHEST 1 VIEW REASON FOR STUDY: hypoxia Transfer from OSH PMH/o COPD, chronic hypercarbic respiratory failure on 2L home oxygen/wears at , HTN, HLD, mild diastolic dysfunction, and hx ofDVT that initially presented to the ED at [facility] on 03/11/24 withc/o subjective fever, chills, swollen/painful lymph nodes in groin and right knee pain. Pt endorsed having similar symptoms about 3 months ago with his left knee/cellulitis and abscess; and was treated for possible meningitis until CSF/culture negative. Hx of bilateral knee replacement [id number]; endorsed having revision to right knee due to infection years ago. Today's xray for hypoxia TECHNIQUE: 1 radiographic view(s) of the chest. COMPARISON: None FINDINGS: LUNGS: No focal opacity, pleural effusion, or pneumothorax. HEART/MEDIASTINUM: Cardiac silhouette normal in size. Mediastinal andhilar contours appear normal. LINES/TUBES: None. BONES: No acute osseous abnormality. IMPRESSION: No acute cardiopulmonary abnormality. THIS IS AN ELECTRONICALLY VERIFIED FINAL REPORT 03/19/2024 3:41 PM - Electronically signed by Ramesh PETER T: Report ID: [id number] Reading Location: [id number] Darlyn Herring MD IMG XR PROCEDURES Final Re sult * Lactate (03/19/2024 8:53 AM DIRECTOR OF EXHIBIT DEVELOPMENT) Lactate 1.3 0.7 - 2.0 mmol/L Blood 03/19/2024 8:53 AM DIRECTOR OF EXHIBIT DEVELOPMENT 03/19/2024 9:01 AM DIRECTOR OF EXHIBIT DEVELOPMENT Darlyn Herring MD LAB BLOOD ORDERABLES Final Result [facility] [address] [facility] Department [place] [address] * US VEIN DUPLEX LOWER EXTREMITY RIGHT LIMITED, UNILATERAL (03/19/2024 8:26 AM DIRECTOR OF EXHIBIT DEVELOPMENT) Anatomical Region Laterality Modality Vascular Right Ultrasound 03/19/2024 Narrative 03/25/2024 1:28 PM DIRECTOR OF EXHIBIT DEVELOPMENT Ask[employer]ion Job ID: [id number] Amphion Document ID: [id number] Dictated date/time: [id number] LOWER EXTREMITY VENOUS DUPLEX REASON FOR EXAM Pain. FINDINGS The veins throughout the right lower extremity show spontaneous and phasic flow with normal augmentation. ??All veins are competent and compressible. ?? The left common femoral vein show normal flow compressibility as well. OVERALL IMPRESSION Negative for deep venous thrombosis, right lower extremity and left common femoral vein. Job ID/Internal Job ID: ??[id number] Shivani Metcalf MD IMG US PROCEDURES Final Result * ECG 12 lead (03/18/2024 6:33 PM DIRECTOR OF EXHIBIT DEVELOPMENT) Ventricular Rate EKG/Min 71 BPM [facility] Atrial Rate 71 BPM [facility] AZ-Interval (MSEC) 176 ms [facility] QRS-Interval (MSEC) 94 ms [facility] QT-Interval (MSEC) 408 ms [facility] QTc 443 ms [facility] P Burke 22 degrees [facility] R Burke 24 degrees [facility] T Burke 13 degrees [facility] Diagnosis Normal sinus rhythm Normal ECG No previous ECGs available Confirmed by AZEEM POLLARD M.D. ([id number]) on 03/22/2024 9:40:22 AM [facility] 03/18/2024 6:33 PM DIRECTOR OF EXHIBIT DEVELOPMENT 03/22/2024 9:40 AM DIRECTOR OF EXHIBIT DEVELOPMENT aDrlyn Herring MD ECG ORDERABLES Final Resu lt [facility] * Potassium (03/18/2024 6:30 PM DIRECTOR OF EXHIBIT DEVELOPMENT) Potassium, pl 3.6 3.3 - 4.9 mmol/L Blood 03/18/2024 6:30 PM DIRECTOR OF EXHIBIT DEVELOPMENT 03/18/2024 6:38 PM DIRECTOR OF EXHIBIT DEVELOPMENT Darlyn Herring MD LAB BLOOD ORDERABLES Final Result Performing Organization Address [facility] de Phone Number [address] [address] * Magnesium (03/18/2024 6:30 PM DIRECTOR OF EXHIBIT DEVELOPMENT) [facility] Magnesium 2.3 1.4 - 2.5 mg/dL Blood 03/18/2024 6:30 PM DIRECTOR OF EXHIBIT DEVELOPMENT 03/18/2024 6:38 PM DIRECTOR OF EXHIBIT DEVELOPMENT Result [facility] Darlyn Herring MD LAB BLOOD ORDERABLES Final Result Performing Organization Address [facility] de Phone Number [address] [address] * eGFR (03/18/2024 12:35 PM DIRECTOR OF EXHIBIT DEVELOPMENT) [facility] eGFR >90 >=60 mL/min/1. 73 m2 Comment: Interpretive Data Reference Interval Normal ?>/= 90 mL/min/1.73m2 Mildly decreased* ? 60 - 89 mL/min/1.73m2 Mildly to moderately decreased ?45 - 59 mL/min/1.73m2 Moderately to severely decreased ??30 - 44 mL/min/1.73m2 Severely decreased ?15 - 29 mL/min/1.73m2 Kidney Failure ?< 15 ??mL/min/1.73m2 *Relative to young adult level Estimated glomerular filtration rate is determined by the 2020 CKD-EPI equation recommended by the National Kidney Foundation (A Unifying Approach to GFR Estimation: Recommendations of the NKF-ASK Task Force on Reassessing the Inclusion of Race in Diagnosing Kidney Disease, JASN 2020). The CKD-EPI equation should not be used for patients with unstable renal function and has not been validated in children and those over 70. Current interpretive data was last reviewed 2021. Blood 03/18/2024 12:3 5 PM DIRECTOR OF EXHIBIT DEVELOPMENT 03/18/2024 1:09 PM DIRECTOR OF EXHIBIT DEVELOPMENT us Darlyn Herring MD LAB BLOOD ORDERABLES Final Result [place] [id number] [facility] Department [place] [address] * (ABNORMAL) Differential, auto (03/18/2024 12:35 PM DIRECTOR OF EXHIBIT DEVELOPMENT) Neutrophil abs 6.4 1.5 - 6.5 K/cumm Imm gran abs 0.3(H) 0.0 - 0.1 K/cumm [facility] Lymphocyte abs 1.7 0.8 - 3.3 K/cumm [facility] Monocyte abs 1.0(H) 0.2 - 0.8 K/cumm [facility] Eosinophil abs 0.3 0.0 - 0.5 K/cumm [facility] Basophil abs 0.1 0.0 - 0.1 K/cumm [facility] Neutrophil pct 66.1 % [facility] Comment: Interpretive Data Percent cell count reference ranges are not reported, since discordance with absolute values may lead to misinterpretation of CBC data. Current Interpretive Data was last revised on 2017. Imm gran pct 2.7 % [facility] Comment: Interpretive Data Percent cell count reference ranges are not reported, since discordance with absolute values may lead to misinterpretation of CBC data. Current Interpretive Data was last revised on 2017. Lymphocyte pct 17.0 % [facility] Comment: Interpretive Data Percent cell count reference ranges are not reported, since discordance with absolute values may lead to misinterpretation of CBC data. Current Interpretive Data was last revised on 2017. Monocyte pct 10.5 % [facility] Comment: Interpretive Data Percent cell count reference ranges are not reported, since discordance with absolute values may lead to misinterpretation of CBC data. Current Interpretive Data was last revised on 2017. Eosinophil pct 3.2 % [facility] Comment: Interpretive Data Percent cell count reference ranges are not reported, since discordance with absolute values may lead to misinterpretation of CBC data. Current Interpretive Data was last revised on 2017. Basophil pct 0.5 % [facility] Comment: Interpretive Data Percent cell count reference ranges are not reported, since discordance with absolute values may lead to misinterpretation of CBC data. Current Interpretive Data was last revised on 2017. Blood 03/18/2024 12:3 5 PM DIRECTOR OF EXHIBIT DEVELOPMENT 03/18/2024 1:09 PM DIRECTOR OF EXHIBIT DEVELOPMENT us Darlyn Herring MD LAB BLOOD ORDERABLES Final Result [place] [address] [facility] [place] [address] * (ABNORMAL) CBC with auto differential (03/18/2024 12:35 PM DIRECTOR OF EXHIBIT DEVELOPMENT) WBC 9.7 3.8 - 9.9 K/cumm Hgb 9.9(L) 13.0 - 17.5 g/dL [facility] Hct 31.3(L) 38.9 - 50.3 % [facility] Plt 287 150 - 400 K/cumm [facility] MPV 11.4 9.1 - 12.3 fL [facility] RBC 3.56(L) 4.30 - 5.80 M/cumm [facility] MCV 87.9 81.3 - 96.4 fL [facility] MCH 27.8 27.1 - 33.3 pg [facility] MCHC 31.6(L) 32.3 - 35.7 g/dL [facility] RDW CV 14.3 11.1 - 14.9 % [facility] RDW SD 46.2 35.7 - 48.1 fL [facility] NRBC abs 0.02(H) 0.00 - 0.01 K/cumm [facility] Blood 03/18/2024 12:3 5 PM DIRECTOR OF EXHIBIT DEVELOPMENT 03/18/2024 1:09 PM DIRECTOR OF EXHIBIT DEVELOPMENT Darlyn Herring MD LAB BLOOD ORDERABLES Final Result [facility] [address] Department [place] [address] * (ABNORMAL) Basic metabolic panel (03/18/2024 12:35 PM DIRECTOR OF EXHIBIT DEVELOPMENT) Pathologist [facility] Sodium 139 135 - 145 mmol/L Potassium, pl 3.5 3.3 - 4.9 mmol/L [facility] Chloride 98 97 - 110 mmol/L [facility] CO2 35(H) 22 - 32 mmol/L [facility] Anion gap 6 2 - 15 mmol/L [facility] BUN 9 6 - 25 mg/dL [facility] Creatinine 0.96 0.80 - 1.30 mg/dL [facility] Glucose 96 70 - 199 mg/dL [facility] Comment: Interpretive Data Fasting glucose >/= 126 mg/dl is diagnostic for diabetes. ?? Fasting is defined as no caloric intake for at least 8 hours. Fasting glucose between 100 mg/dl to 125 mg/dl is diagnostic of prediabetes. In a patient with classic symptoms of hyperglycemia or hyperglycemic crisis, a random glucose >/= 200 mg/dl is diagnostic for diabetes. In the absence of unequivocal hyperglycemia, results should be confirmed by repeat testing. The classification and Diagnosis of Diabetes Diabetes Care 2021; 46: S19-S40. Current interpretive data was last revised 2022. Calcium 9.1 8.5 - 10.3 mg/dL [facility] Blood 03/18/2024 12:3 5 PM DIRECTOR OF EXHIBIT DEVELOPMENT 03/18/2024 1:09 PM DIRECTOR OF EXHIBIT DEVELOPMENT Darlyn Herring MD LAB BLOOD ORDERABLES Final Result [facility] [address] [facility] Department [place] [address] * Blood culture Blood (03/18/2024 1:44 AM DIRECTOR OF EXHIBIT DEVELOPMENT) Pathologist [facility] Report Final Report: No growth Comment:Testing performed by : [facility], [address] [facility], [place]., [address] Blood 03/18/2024 1:44 AM DIRECTOR OF EXHIBIT DEVELOPMENT 03/18/2024 4:03 AM DIRECTOR OF EXHIBIT DEVELOPMENT Narrative [facility] - 03/22/2024 7:00 AM DIRECTOR OF EXHIBIT DEVELOPMENT From a different site than #1. Collection->Peripheral 1. ?Blood cultures are incubated for 4 days on a continuously monitored blood culture system. The first report of a negative culture is issued within 24 hours of receipt of the specimen in the laboratory. 2. ?Positive culture results are reported as soon as they are detected. 3. ?The most important factor for detection of microbes in the setting of bloodstream infection is the volume of blood submitted for culture. Failure to collect an optimal blood volume can result in false negative blood cultures. 4. ? For pediatric patients, the recommended blood volume to collect follows a weight based strategy. See the electronic test catalog for collection instructions. 5. ?For positive blood cultures, a rapid molecular test may be performed for organism identification using the keli ePlex blood culture identification panel for gram positive (BCID-GP) and gram negative (BCID-GN) organisms. This nucleic acid amplification test detects microbial DNA in positive blood culture broth. This assay has been cleared by the [place] Food and Drug Administration and its performance characteristics have been verified by the [facility] Microbiology Laboratory. For questions about this culture, contact the Microbiology Laboratory at [phone]. Interpretive data was last revised on 24. Cony Mcgill NP LAB MICROBIOLOGY - GENE [facility] ORDERABLES Final Result [facility] [address] [facility] Department [place] [address] * eGFR (03/18/2024 1:40 AM DIRECTOR OF EXHIBIT DEVELOPMENT) [facility] eGFR 85 >=60 mL/min/1. 73 m2 Comment: Interpretive Data Reference Interval Normal ?>/= 90 mL/min/1.73m2 Mildly decreased* ? 60 - 89 mL/min/1.73m2 Mildly to moderately decreased ?45 - 59 mL/min/1.73m2 Moderately to severely decreased ??30 - 44 mL/min/1.73m2 Severely decreased ?15 - 29 mL/min/1.73m2 Kidney Failure ?< 15 ??mL/min/1.73m2 *Relative to young adult level Estimated glomerular filtration rate is determined by the 2020 CKD-EPI equation recommended by the National Kidney Foundation (A Unifying Approach to GFR Estimation: Recommendations of the NKF-ASK Task Force on Reassessing the Inclusion of Race in Diagnosing Kidney Disease, JASN 2020). The CKD-EPI equation should not be used for patients with unstable renal function and has not been validated in children and those over 70. Current interpretive data was last reviewed 2021. Blood 03/18/2024 1:40 AM DIRECTOR OF EXHIBIT DEVELOPMENT 03/18/2024 2:23 AM DIRECTOR OF EXHIBIT DEVELOPMENT Cony Mcgill [employer] LAB BLOOD ORDERABLES nal Result [place] [address] [facility] Department [place] [address] * (ABNORMAL) Differential, auto (03/18/2024 1:40 AM DIRECTOR OF EXHIBIT DEVELOPMENT) Neutrophil abs 7.5(H) 1.5 - 6.5 K/cumm Imm gran abs 0.3(H) 0.0 - 0.1 K/cumm [facility] Lymphocyte abs 1.8 0.8 - 3.3 K/cumm [facility] Monocyte abs 0.9(H) 0.2 - 0.8 K/cumm [facility] Eosinophil abs 0.4 0.0 - 0.5 K/cumm [facility] Basophil abs 0.1 0.0 - 0.1 K/cumm [facility] Neutrophil pct 68.4 % [facility] Comment: Interpretive Data Percent cell count reference ranges are not reported, since discordance with absolute values may lead to misinterpretation of CBC data. Current Interpretive Data was last revised on 2017. Imm gran pct 2.6 % [facility] Comment: Interpretive Data Percent cell count reference ranges are not reported, since discordance with absolute values may lead to misinterpretation of CBC data. Current Interpretive Data was last revised on 2017. Lymphocyte pct 16.3 % [facility] Comment: Interpretive Data Percent cell count reference ranges are not reported, since discordance with absolute values may lead to misinterpretation of CBC data. Current Interpretive Data was last revised on 2017. Monocyte pct 8.3 % [facility] Comment: Interpretive Data Percent cell count reference ranges are not reported, since discordance with absolute values may lead to misinterpretation of CBC data. Current Interpretive Data was last revised on 2017. Eosinophil pct 3.9 % [facility] Comment: Interpretive Data Percent cell count reference ranges are not reported, since discordance with absolute values may lead to misinterpretation of CBC data. Current Interpretive Data was last revised on 2017. Basophil pct 0.5 % [facility] Comment: Interpretive Data Percent cell count reference ranges are not reported, since discordance with absolute values may lead to misinterpretation of CBC data. Current Interpretive Data was last revised on 2017. Blood 03/18/2024 1:40 AM DIRECTOR OF EXHIBIT DEVELOPMENT 03/18/2024 2:23 AM DIRECTOR OF EXHIBIT DEVELOPMENT Cony Mcgill [employer] LAB BLOOD ORDERABLES Fi nal Result [facility] [address] [facility] Department [place] [address] * (ABNORMAL) CBC with auto differential (03/18/2024 1:40 AM DIRECTOR OF EXHIBIT DEVELOPMENT) WBC 10.9(H) 3.8 - 9.9 K/cumm Hgb 9.8(L) 13.0 - 17.5 g/dL [facility] Hct 31.2(L) 38.9 - 50.3 % [facility] Plt 277 150 - 400 K/cumm [facility] MPV 12.3 9.1 - 12.3 fL [facility] RBC 3.53(L) 4.30 - 5.80 M/cumm [facility] MCV 88.4 81.3 - 96.4 fL [facility] MCH 27.8 27.1 - 33.3 pg [facility] MCHC 31.4(L) 32.3 - 35.7 g/dL [facility] RDW CV 14.4 11.1 - 14.9 % [facility] RDW SD 46.1 35.7 - 48.1 fL [facility] NRBC abs 0.06(H) 0.00 - 0.01 K/cumm [facility] Blood 03/18/2024 1:40 AM DIRECTOR OF EXHIBIT DEVELOPMENT 03/18/2024 2:23 AM DIRECTOR OF EXHIBIT DEVELOPMENT Cony Mcgill [employer] LAB BLOOD ORDERABLES nal Result Performing Organization Address City/State/[facility] Co de Phone Number [facility] Department [place] [address] * Blood culture Blood (03/18/2024 1:40 AM DIRECTOR OF EXHIBIT DEVELOPMENT) Report Final Report: No growth Comment:Testing performed by : [facility], [address] [place]., [address] Blood 03/18/2024 1:40 AM DIRECTOR OF EXHIBIT DEVELOPMENT 03/18/2024 4:03 AM DIRECTOR OF EXHIBIT DEVELOPMENT Narrative [facility] - 03/22/2024 7:00 AM DIRECTOR OF EXHIBIT DEVELOPMENT Collection->Peripheral 1. ?Blood cultures are incubated for 4 days on a continuously monitored blood culture system. The first report of a negative culture is issued within 24 hours of receipt of the specimen in the laboratory. 2. ?Positive culture results are reported as soon as they are detected. 3. ?The most important factor for detection of microbes in the setting of bloodstream infection is the volume of blood submitted for culture. Failure to collect an optimal blood volume can result in false negative blood cultures. 4. ? For pediatric patients, the recommended blood volume to collect follows a weight based strategy. See the electronic test catalog for collection instructions. 5. ?For positive blood cultures, a rapid molecular test may be performed for organism identification using the keli ePlex blood culture identification panel for gram positive (BCID-GP) and gram negative (BCID-GN) organisms. This nucleic acid amplification test detects microbial DNA in positive blood culture broth. This assay has been cleared by the [place] Food and Drug Administration and its performance characteristics have been verified by the [facility] Microbiology Laboratory. For questions about this culture, contact the Microbiology Laboratory at [phone]. Interpretive data was last revised on 24. us Cony Mcgill NP LAB MICROBIOLOGY - GENE [place] ORDERABLES Final Result Performing Organization Address [facility] Co de Phone Number [address] [place] [address] * (ABNORMAL) Erythrocyte sedimentation rate (03/18/2024 1:40 AM DIRECTOR OF EXHIBIT DEVELOPMENT) Erythrocyte sedimentation rate 79(H) 1 - 20 mm/hr Blood 03/18/2024 1:40 AM DIRECTOR OF EXHIBIT DEVELOPMENT 03/18/2024 2:23 AM DIRECTOR OF EXHIBIT DEVELOPMENT Cony Mcgill NP LAB BLOOD ORDERABLES Fi nal Result Performing Organization Address [facility] de Phone Number [address] [place] [address] * (ABNORMAL) CRP (acute phase) (03/18/2024 1:40 AM DIRECTOR OF EXHIBIT DEVELOPMENT) CRP 134.0(H) <=10.0 mg/L Blood 03/18/2024 1:40 AM DIRECTOR OF EXHIBIT DEVELOPMENT 03/18/2024 2:23 AM DIRECTOR OF EXHIBIT DEVELOPMENT us Cony Mcgill NP LAB BLOOD ORDERABLES Fi nal Result Performing Organization Address [facility] Co de Phone Number [address] [place] [address] * Phosphorus (03/18/2024 1:40 AM DIRECTOR OF EXHIBIT DEVELOPMENT) Phosphorus, pl 2.8 2.3 - 4.5 mg/dL Blood 03/18/2024 1:40 AM DIRECTOR OF EXHIBIT DEVELOPMENT 03/18/2024 2:23 AM DIRECTOR OF EXHIBIT DEVELOPMENT us Cony Mcgill [employer] LAB BLOOD ORDERABLES Fi nal Result Performing Organization Address [facility] de Phone Number [address] [place] [address] * Magnesium (03/18/2024 1:40 AM DIRECTOR OF EXHIBIT DEVELOPMENT) Pathologist [facility] Magnesium 2.1 1.4 - 2.5 mg/dL Blood 03/18/2024 1:40 AM DIRECTOR OF EXHIBIT DEVELOPMENT 03/18/2024 2:23 AM DIRECTOR OF EXHIBIT DEVELOPMENT us Cony Mcgill [employer] LAB BLOOD ORDERABLES Fi nal Result Performing Organization Address [facility] de Phone Number [address] [place] [address] * (ABNORMAL) Hemoglobin A1c (03/18/2024 1:40 AM DIRECTOR OF EXHIBIT DEVELOPMENT) [facility] Hgb A1C 6.2(H) 4.0 - 5.6 % Estimated Average Glucose 131 mg/dL [facility] Comment: The ADA recommends reporting an estimated Average Glucose (eAG) with all Hemoglobin A1c results using the equation derived from a study of 507 normal and diabetic adults. ??Minority populations were underrepresented and children were not included. ?? (Diabetes Care 31:5372-0467, 2008). ??The eAG is not equivalent to a fasting glucose. Blood 03/18/2024 1:40 AM DIRECTOR OF EXHIBIT DEVELOPMENT 03/18/2024 2:23 AM DIRECTOR OF EXHIBIT DEVELOPMENT us Cony Mgcill [employer] LAB BLOOD ORDERABLES Fi nal Result Performing Organization Address [facility] de Phone Number [address] [place] [address] * Creatine kinase (CK), total (03/18/2024 1:40 AM DIRECTOR OF EXHIBIT DEVELOPMENT) Pathologist [facility] CK 60 40 - 300 Units/L Blood 03/18/2024 1:40 AM DIRECTOR OF EXHIBIT DEVELOPMENT 03/18/2024 2:23 AM DIRECTOR OF EXHIBIT DEVELOPMENT Cony Mcgill [employer] LAB BLOOD ORDERABLES Fi nal Result [facility] [address] [facility] [place] [address] * (ABNORMAL) Lipid panel (03/18/2024 1:40 AM DIRECTOR OF EXHIBIT DEVELOPMENT) Pathologist [facility] Cholesterol 142 30 - 199 mg/dL Comment: Interpretive Data Ages < or = 19 years ??Acceptable: ? <170 mg/dL ??Borderline high: ??170-199 mg/dL ??High: ? >or= 200 mg/dL Ages > or = 20 years ??Desirable: ?<200 mg/dL ??Borderline high: ??200-239 mg/dL ??High: ? >or= 240 mg/dL Literature References: 1. Expert Panel on Integrated Guidelines for Cardiovascular Health and Risk Reduction in Children and Adolescents. Pediatrics 2011;128:S213 2. NCEP Expert Panel. Circulation 2004;110:227 Current Interpretive Data was last revised on 2017. Triglycerides 96 <=149 mg/dL [facility] Comment: Interpretive Data Ages < or = 9 years ??Acceptable: ? <75 mg/dL ??Borderline high: ??75-99 mg/dL ??High: ? >or= 100 mg/dL Ages 10 to 20 years ??Acceptable: ? <90 mg/dL ??Borderline high: ??90-129 mg/dL ??High: ? >or= 130 mg/dL Ages > or = 20 years ??Desirable: ?<150 mg/dL ??Borderline high: ??150-199 mg/dL ??High: ? 200-499 mg/dL ?Very high: ?? >or= 499 mg/dL Literature References: 1. Expert Panel on Integrated Guidelines for Cardiovascular Health and Risk Reduction in Children and Adolescents. Pediatrics 2011;128:S213 2. NCEP Expert Panel. Circulation 2004;110:227 Current Interpretive Data was last revised on 2017. HDL 22(L) >=40 mg/dL [facility] Comment: Interpretive Data Ages < or = 19 years ??Acceptable: ? >45 mg/dL ??Borderline low: ?? 40-45 mg/dL ??Low: ? <40 mg/dL Ages > or = 20 years ??Desirable: ?>or= 60 mg/dL ??Low: ? <40 mg/dL Literature References: 1. Expert Panel on Integrated Guidelines for Cardiovascular Health and Risk Reduction in Children and Adolescents. Pediatrics 2011;128:S213 2. NCEP Expert Panel. Circulation 2004;110:227 Current Interpretive Data was last revised on 2017. LDL, calculated 102 <=129 mg/dL [facility] Comment: Interpretive Data Ages < or = 19 years ??Acceptable: ? <110 mg/dL ??Borderline high: ??110-129 mg/dL ??High: ?>or= 130 mg/dL Ages > or = 20 years ??Optimal: ? <100 mg/dL ??Near optimal: ?100-129 mg/dL ??Borderline high: ?? 130-159 mg/dL ??High: ?>160 mg/dL Calculated using the [place] LDL-C estimating equation. This equation was implemented on 2023. Prior to this date LDL-C was estimated using the [place] equation. Literature References: 1. Expert Panel on Integrated Guidelines for Cardiovascular Health and Risk Reduction in Children and Adolescents. Pediatrics 2011;128:S213 2. NCEP Expert Panel. Circulation 2004;110:227 3. Pablito M et al. MABLE Cardiol. 2020 July 30;5(5):540-548. doi: 10.1001/jamacardio.2020.0013 Current Interpretive Data was last revised on 2023. Non-HDL Cholesterol 120 mg/dL [facility] Comment: Interpretive Data Ages < or = 19 years ??Acceptable: ?<120 mg/dL ??Borderline high: ??120-144 mg/dL ??High: ?>145 mg/dL Ages > or = 20 years ??When triglycerides are >200 mg/dL, Non-HDL cholesterol is a secondary target of ? therapy with treatment goals that are 30 mg/dL greater than the LDL cholesterol target. ? Literature References: 1. Expert Panel on Integrated Guidelines for Cardiovascular Health and Risk Reduction in Children and Adolescents. Pediatrics 2011;128:S213 2. NCEP Expert Panel. Circulation 2004;110:227 Current Interpretive Data was last revised on 2017. Chol/HDL ratio 6 [facility] Blood 03/18/2024 1:40 AM DIRECTOR OF EXHIBIT DEVELOPMENT 03/18/2024 2:23 AM DIRECTOR OF EXHIBIT DEVELOPMENT Cony Mcgill [employer] BLOOD ORDERABLES Fi nal Result [facility] [address] Department [place] [address] * (ABNORMAL) Comprehensive metabolic panel (03/18/2024 1:40 AM DIRECTOR OF EXHIBIT DEVELOPMENT) Sodium 141 135 - 145 mmol/L Potassium, pl 3.0(L) 3.3 - 4.9 mmol/L [facility] Chloride 96(L) 97 - 110 mmol/L [facility] CO2 35(H) 22 - 32 mmol/L [facility] Anion gap 10 2 - 15 mmol/L [facility] BUN 9 6 - 25 mg/dL [facility] Creatinine 1.05 0.80 - 1.30 mg/dL [facility] Glucose 106 70 - 199 mg/dL [facility] Comment: Interpretive Data Fasting glucose >/= 126 mg/dl is diagnostic for diabetes. ?? Fasting is defined as no caloric intake for at least 8 hours. Fasting glucose between 100 mg/dl to 125 mg/dl is diagnostic of prediabetes. In a patient with classic symptoms of hyperglycemia or hyperglycemic crisis, a random glucose >/= 200 mg/dl is diagnostic for diabetes. In the absence of unequivocal hyperglycemia, results should be confirmed by repeat testing. The classification and Diagnosis of Diabetes Diabetes Care 2021; 46: S19-S40. Current interpretive data was last revised 2022. Calcium 9.0 8.5 - 10.3 mg/dL [facility] Bilirubin, total 0.2 0.1 - 1.2 mg/dL [facility] Protein, pl 7.2 6.5 - 8.5 g/dL [facility] Albumin 3.4(L) 3.5 - 5.0 g/dL [facility] Alk phos 81 40 - 130 Units/L [facility] ALT 31 7 - 55 Units/L [facility] AST 25 10 - 50 Units/L [facility] Blood 03/18/2024 1:40 AM DIRECTOR OF EXHIBIT DEVELOPMENT 03/18/2024 2:23 AM DIRECTOR OF EXHIBIT DEVELOPMENT Cony Mcgill [employer] BLOOD ORDERABLES Fi nal Result [facility] [address] Department of Laboratories [place], [place] [id number] * US Outside Reference (03/17/2024 5:05 AM DIRECTOR OF EXHIBIT DEVELOPMENT) Narrative [email or web address] - 04/02/2024 2:34 PM DIRECTOR OF EXHIBIT DEVELOPMENT This order has been auto-finalized and does not contain a result. us Provider Transcribed Order IMG US PROCEDURES Fin al Result [email or web address] * CT Body Outside Reference (03/15/2024 2:00 PM DIRECTOR OF EXHIBIT DEVELOPMENT) Narrative RAD_[email or web address]_MHE - 04/02/2024 2:34 PM DIRECTOR OF EXHIBIT DEVELOPMENT This order has been auto-finalized and does not contain a result. us Provider Transcribed Order IMG CT PROCEDURES Fin al Result Performing Organization Address [facility] de Phone Number [email or web address] * US Outside Reference (03/15/2024 11:45 AM DIRECTOR OF EXHIBIT DEVELOPMENT) Narrative RAD_[email or web address]_MHE - 04/02/2024 2:34 PM DIRECTOR OF EXHIBIT DEVELOPMENT This order has been auto-finalized and does not contain a result. us Provider Transcribed Order IMG US PROCEDURES Fin al Result Performing Organization Address [facility] de Phone Number RADLUIS_[email or web address] * US Outside Reference (03/15/2024 6:05 AM DIRECTOR OF EXHIBIT DEVELOPMENT) Narrative RAD_[email or web address]_MHE - 04/02/2024 2:34 PM DIRECTOR OF EXHIBIT DEVELOPMENT This order has been auto-finalized and does not contain a result. us Provider Transcribed Order IMG US PROCEDURES Fin al Result Performing Organization Address [facility] de Phone Number [email or web address] * XR Outside Reference (03/13/2024 4:20 PM DIRECTOR OF EXHIBIT DEVELOPMENT) Narrative RAD_[email or web address] - 04/02/2024 2:34 PM DIRECTOR OF EXHIBIT DEVELOPMENT This order has been auto-finalized and does not contain a result. us Provider Transcribed Order IMG XR PROCEDURES Fin al Result Performing Organization Address [facility] de Phone Number [email or web address] * US Outside Reference (03/13/2024 4:05 PM DIRECTOR OF EXHIBIT DEVELOPMENT) Narrative RAD_[email or web address]_MHE - 04/02/2024 2:34 PM DIRECTOR OF EXHIBIT DEVELOPMENT This order has been auto-finalized and does not contain a result. us Provider Transcribed Order IMG US PROCEDURES Fin al Result Performing Organization Address [facility] de Phone Number SOFYA_JESSENIA_JAYNEE * US Outside Reference (03/13/2024 2:20 PM DIRECTOR OF EXHIBIT DEVELOPMENT) Narrative RAD_[email or web address] - 04/02/2024 3:02 PM DIRECTOR OF EXHIBIT DEVELOPMENT This order has been auto-finalized and does not contain a result. us Provider Transcribed Order IMG US PROCEDURES Fin al Result Performing Organization Address [facility] de Phone Number SOFYA_JESSENIA_JAYNEE * Neuro CT Outside Reference (03/12/2024 1:30 PM DIRECTOR OF EXHIBIT DEVELOPMENT) Narrative RAD_MAIK_JAYNEB_JAYNEE - 04/02/2024 2:34 PM DIRECTOR OF EXHIBIT DEVELOPMENT This order has been auto-finalized and does not contain a result. us Provider Transcribed Order IMG CT PROCEDURES Fin al Result Performing Organization Address [facility] de Phone Number SOFYA_JESSENIA_JAYNEE * CT Body Outside Reference (03/12/2024 1:25 PM DIRECTOR OF EXHIBIT DEVELOPMENT) Narrative RAD_[email or web address]_JAYNEE - 04/02/2024 2:34 PM DIRECTOR OF EXHIBIT DEVELOPMENT This order has been auto-finalized and does not contain a result. us Provider Transcribed Order IMG CT PROCEDURES Fin al Result Performing Organization Address [facility] de Phone Number RADLUIS_JESSENIA_JAYNEE * CT Body Outside Reference (03/12/2024 12:25 PM DIRECTOR OF EXHIBIT DEVELOPMENT) Narrative RAD_[email or web address]_MHE - 04/02/2024 2:34 PM DIRECTOR OF EXHIBIT DEVELOPMENT This order has been auto-finalized and does not contain a result. us Provider Transcribed Order IMG CT PROCEDURES Fin al Result Performing Organization Address [facility] de Phone Number ELMER_[email or web address] * CT Body Outside Reference (03/12/2024 12:20 PM DIRECTOR OF EXHIBIT DEVELOPMENT) Narrative MARLEY_HEMA - 04/02/2024 2:34 PM DIRECTOR OF EXHIBIT DEVELOPMENT This order has been auto-finalized and does not contain a result. us Provider Transcribed Order IMG CT PROCEDURES Fin al Result Performing Organization Address [facility] de Phone Number [email or web address] * US Outside Reference (03/11/2024 10:25 AM DIRECTOR OF EXHIBIT DEVELOPMENT) Narrative MARLEY_HEMA - 04/02/2024 2:34 PM DIRECTOR OF EXHIBIT DEVELOPMENT This order has been auto-finalized and does not contain a result. us Provider Transcribed Order IMG US PROCEDURES Fin al Result Performing Organization Address [facility] de Phone Number [email or web address] * XR Outside Reference (03/11/2024 10:15 AM DIRECTOR OF EXHIBIT DEVELOPMENT) Narrative MARLEY_HEMA - 04/02/2024 2:34 PM DIRECTOR OF EXHIBIT DEVELOPMENT This order has been auto-finalized and does not contain a result. us Provider Transcribed Order IMG XR PROCEDURES Fin al Result Performing Organization Address [facility] de Phone Number ELMER_[email or web address]_MHE from Last 3 Months Insurance [facility] H[facility]/PPO Address: [place] [address] Advance Directives For more information, please contact: [phone] * Full Code (Latest Code Status on File) Date Activated Date Inactivated Comments 03/18/2024 12:08 AM 03/20/2024 9:57 PM Care Teams Calf Skinner Relationship Specialty Start Date End Date Juanito Moralez MD [address] [address] PCP - General Family Medicine 03/18/24 Arianne Jhaveri [address] [place] [address] Cardiothoracic Surgery 03/20/24
--- OUTSIDE RECORDS SUMMARY | 2024-04-27 12:55 | XMS_ITS | CONTINUITY OF CARE DOCUMENT ---
Author Name wilian cedeno Address Unknown Organization [facility] Address [address] [place] [address] Phone [phone] Care Team Providers Care Crank Hand Name Role Phone Jeremy SONG, Samantha Unavailable [phone] WILLIE OLSON MD Unavailable [phone] INSURANCE PROVIDERS Payer name Policy type / Coverage type Laura [employer] party ID [id number]
--- OUTSIDE RECORDS SUMMARY | 2024-04-27 12:55 | XMS_ITS | Clinical Summary ---
Author Organization [facility] Address [address] [place] [address] Care Team Providers Care Manager Drilling Name Role Phone Juanito Moralez MD Primary Care Provider [phone] Arianne Jhaveri Unavailable [phone] Allergies No known active allergies Medications budesonide-glyc [...] obstructive pulmonary disease) Hypokalemia 03/18/2024 Hypertension 03/18/2024 Encounters Date Type Department Care Team Description 03/17/2024 10:14 PM SHELLAC POLISHER - 03/20/2024 5:52 PM SHELL[employer] POLISHER [place] [address] Candi Gamez MD Chowdhury, Farhanaz, MD [facility]mael Remy MD Cellulitis of right lower extremity (Primary Dx); Bradycardia Discharge Disposition: Discharge to home or self care 03/17/2024 5:05 AM SHELLAC POLISHER - 03/17/2024 11:59 PM SHELLAC POLISHER Hospital Encounter [facility] [address] [place] [address] Discharge Disposition: Discharge to home or self care 03/15/2024 2:00 PM SHELLAC POLISHER - 03/15/2024 11:59 PM SHELLAC POLISHER Hospital Encounter [facility] [address] [facility] [place] [address] Discharge Disposition: Discharge to home or self care 03/15/2024 11:45 AM SHELLAC POLISHER - 03/15/2024 11:59 PM SHELLAC POLISHER Hospital Encounter [facility] [address] [place] [address] Discharge Disposition: Discharge to home or self care 03/15/2024 6:05 AM SHELLAC POLISHER - 03/15/2024 11:59 PM SHELLAC POLISHER Hospital Encounter [facility] [address] [place] [address] Discharge Disposition: Discharge to home or self care 03/13/2024 4:20 PM SHELLAC POLISHER - 03/13/2024 11:59 PM SHELLAC POLISHER Hospital Encounter [facility] [address] [place] [address] Discharge Disposition: Discharge to home or self care 03/13/2024 4:05 PM SHELLAC POLISHER - 03/13/2024 11:59 PM SHELLAC POLISHER Hospital Encounter [facility] [address] [place] [address] [place] [address] Discharge Disposition: Discharge to home or self care 03/13/2024 2:20 PM SHELLAC POLISHER - 03/13/2024 11:59 PM SHELLAC POLISHER Hospital Encounter [facility] [address] [place] [address] Discharge Disposition: Discharge to home or self care 03/12/2024 1:30 PM SHELLAC POLISHER - 03/12/2024 11:59 PM SHELLAC POLISHER Hospital Encounter [facility] [address] [place] [address] Discharge Disposition: Discharge to home or self care 03/12/2024 1:25 PM SHELLAC POLISHER - 03/12/2024 11:59 PM SHELLAC POLISHER Hospital Encounter [facility] [address] [place] [address] Discharge Disposition: Discharge to home or self care 03/12/2024 12:25 PM SHELLAC POLISHER - 03/12/2024 11:59 PM SHELLAC POLISHER Hospital Encounter [facility] [address] [facility] [place] [address] Discharge Disposition: Discharge to home or self care 03/12/2024 12:20 PM SHELLAC POLISHER - 03/12/2024 11:59 PM SHELLAC POLISHER Hospital Encounter [facility] [address] [place] [address] [place] [address] Discharge Disposition: Discharge to home or self care 03/11/2024 10:25 AM SHELLAC POLISHER - 03/11/2024 11:59 PM SHELLAC POLISHER Hospital Encounter [facility] [address] [place] [address] [place] [address] Discharge Disposition: Discharge to home or self care 03/11/2024 10:15 AM SHELLAC POLISHER - 03/11/2024 11:59 PM SHELLAC POLISHER Hospital Encounter [facility] [address] [place] [address] [place] [address] Discharge Disposition: Discharge to home or self care from Last 3 Months Medical History Medical History Date Comments COPD (chronic obstructive pulmonary disease) (HC C) Hypertension On home oxygen therapy 2LNC History of DVT (deep vein thrombosis) Family History Medical History Relation Name Comments No Known Problems Father COPD Mother Relation Name Status Comments Father Mother Social History Tobacco Use Types Packs/Day Years [...] on file Legal Sex Male 1:49 PM SHELLAC POLISHER Gender Identity Not on file Sexual Orientation Not on file Obstetrics History Last Filed Vital Signs Vital Sign Reading Time Taken Comments Blood Pressure 166/77 03/20/2024 3:51 PM SHELLAC POLISHER Pulse 89 03/20/2024 3:51 PM SHELLAC POLISHER Temperature 36.8 ??C (98.2 ??F) 03/20/2024 3:51 PM CS T Respiratory Rate 18 03/20/2024 3:51 PM SHELLAC POLISHER Oxygen Saturation 100% 03/20/2024 3:51 PM SHELLAC POLISHER Inhaled Oxygen Concentration - - Weight 113.4 kg (250 lb) 03/19/2024 4:00 PM SHELLAC POLISHER Height 165.1 cm (5' 5 ) 03/19/2024 4:00 PM SHELLAC POLISHER Body Mass Index 41.6 03/19/2024 4:00 PM SHELLAC POLISHER Plan of Treatment Health Maintenance Due Date Last Done Comments Colon Cancer Screening-Colonoscopy 1970 Depression Screening 1970 Hepatitis C Screening 1971 Prostate Cancer Screening-PSA 1971 Pneumococcal vaccine <65 (1 of 2 - PCV) 1977 DTaP/Tdap/Td Vaccine (1 - Tdap) 1982 Hepatitis B Screening 1989 Regular Well Visit/Exam 18-64 1989 Zoster Vaccine (1 of 2) 2021 Covid-19 Vaccine (2 - season) 12/01/202306/2020 Influenza Vaccine (#1) 2023 Procedures Procedure Name Priority Date/Time Associated Diagnosis Comments TRANSTHORACIC ECHO (TTE) COMPLETE W DOPPLER/CF W CONTRAST Routine 03/20/2024 1:47 PM SHELLAC POLISHER HOME O2 EVAL (DESATURATION SCREEN) Routine 03/20/2024 1:42 PM SHELLAC POLISHER EGFR Routine 03/20/2024 10:33 AM SHELLAC POLISHER DIFFERENTIAL AUTO Routine 03/20/2024 10: 33 AM SHELLAC POLISHER BASIC METABOLIC PANEL Routine 03/20/2024 10:33 AM SHELLAC POLISHER CBC WITH AUTO DIFFERENTIAL Routine 03/20/2024 10:33 AM SHELLAC POLISHER XR CHEST 1 VIEW IP Routine 03/19/2024 1:00 PM SHELLAC POLISHER LACTATE Timed 03/19/2024 8:53 AM SHELLAC POLISHER US VEIN DUPLEX LOWER EXTREMITY RIGHT LIMITED IP Routine 03/19/2024 8:26 AM SHELLAC POLISHER ECG 12-LEAD Routine 03/18/2024 6:33 PM SHELLAC POLISHER POTASSIUM LEVEL Routine 03/18/2024 6:30 PM SHELLAC POLISHER MAGNESIUM Routine 03/18/2024 6:30 PM SHELLAC POLISHER EGFR Routine 03/18/2024 12:35 PM SHELLAC POLISHER DIFFERENTIAL AUTO Routine 03/18/2024 12: 35 PM SHELLAC POLISHER CBC WITH AUTO DIFFERENTIAL Routine 03/18/2024 12:35 PM SHELLAC POLISHER BASIC METABOLIC PANEL Routine 03/18/2024 12:35 PM SHELLAC POLISHER BLOOD CULTURE STAT 03/18/2024 1:44 AM SHELLAC POLISHER EGFR STAT 03/18/2024 1:40 AM SHELLAC POLISHER LIPID PANEL STAT 03/18/2024 1:40 AM SHELLAC POLISHER DIFFERENTIAL AUTO STAT 03/18/2024 1: 40 AM SHELLAC POLISHER HEMOGLOBIN A1C Routine 03/18/2024 1:40 AM SHELLAC POLISHER ERYTHROCYTE SEDIMENTATION RATE STAT 03/18/2024 1:40 AM SHELLAC POLISHER CRP (ACUTE PHASE) STAT 03/18/2024 1:4 0 AM SHELLAC POLISHER PHOSPHORUS STAT 03/18/2024 1:40 AM SHELLAC POLISHER MAGNESIUM STAT 03/18/2024 1:40 AM SHELLAC POLISHER CREATINE KINASE (CK), TOTAL STAT 03/18/2024 1:40 AM SHELLAC POLISHER COMPREHENSIVE METABOLIC PANEL STAT 03/18/2024 1:40 AM SHELLAC POLISHER CBC WITH AUTO DIFFERENTIAL STAT 03/18/2024 1:40 AM SHELLAC POLISHER BLOOD CULTURE STAT 03/18/2024 1:40 AM SHELLAC POLISHER US TRANSFER OF OUTSIDE FILMS Routine 03/17/2024 5:[address] BODY OUTSIDE REFERENCE Routine 03/15/2024 2:00 PM SHELLAC POLISHER US TRANSFER OF OUTSIDE FILMS Routine 03/15/2024 11:45 AM SHELLAC POLISHER US TRANSFER OF OUTSIDE FILMS Routine 03/15/2024 6:05 AM SHELLAC POLISHER XR TRANSFER OF OUTSIDE FILMS Routine 03/13/2024 4:20 PM SHELLAC POLISHER US TRANSFER OF OUTSIDE FILMS Routine 03/13/2024 4:05 PM SHELLAC POLISHER US TRANSFER OF OUTSIDE FILMS Routine 03/13/2024 2:20 PM SHELLAC POLISHER NEURO CT OUTSIDE REFERENCE Routine 03/12/2024 1:[address] BODY OUTSIDE REFERENCE Routine 03/12/2024 1:[address] BODY OUTSIDE REFERENCE Routine 03/12/2024 12:[address] BODY OUTSIDE REFERENCE Routine 03/12/2024 12:20 PM SHELLAC POLISHER US TRANSFER OF OUTSIDE FILMS Routine 03/11/2024 10:25 AM SHELLAC POLISHER XR TRANSFER OF OUTSIDE FILMS Routine 03/11/2024 10:15 AM SHELLAC POLISHER from Last 3 Months Results * TRANSTHORACIC ECHO (TTE) COMPLETE W DOPPLER/CF W CONTRAST (03/20/2024 1:47 PM SHELLAC POLISHER) Anatomical Region Laterality Modality Ultrasound 03/20/2024 1:29 PM SHELLAC POLISHER Narrative 03/20/2024 7:34 PM SHELLAC POLISHER ? Adult Echocardiogram + ----- + :Name: ARMAAN HURST ?Study Date: 03/20/2024 ?Status: MHB ?: : ?Patient Location: [facility]HB 2 [facility]^[id number]^Height: 65 in ?: : ?Weight: 250 lbBP: 142/77 mmHg: :: 1970 ? Gender: Male ?BSA: 2.2 m2 ?: :Reason For Study: cardiac arrhythmia ? : :Ordering Physician: BROWN, ? : :LOYDA ?: :Referring Physician: ? : :NNANNA, ONYEMA ? : :Performed By: Momo Carter, ?: :RCS, RVT ? : + ----- + Procedure A two-dimensional transthoracic echocardiogram with color flow and Doppler was performed. The study was technically difficult due to patient's 'body habitus'. A contrast injection of Definity was performed to improve assessment of LV function. lot#[id number]. Left Ventricle The left ventricle is normal [...] + :Name: ARMAAN HURST Study Date: 03/20/2024Status: MHB : : Patient Location: [facility]^[id number]^Height: 65 in : : : 250 lbBP: [...] nal Result * eGFR (03/20/2024 10:33 AM SHELLAC POLISHER) eGFR >90 >=60 mL/min/1. 73 m2 Comment: [...] reviewed 2021. Blood 03/20/2024 10:3 3 AM SHELLAC POLISHER 03/20/2024 11:09 AM SHELLAC POLISHER us Darlyn Herring MD LAB BLOOD ORDERABLES Final Result [facility] [address] [facility] Department [place] [address] * (ABNORMAL) Differential, auto (03/20/2024 10:33 AM SHELLAC POLISHER) Neutrophil abs 7.0(H) 1.5 - 6.5 K/cumm Imm gran abs 0.3(H) 0.0 - 0.1 K/cumm [facility] Lymphocyte abs 1.3 0.8 - 3.3 K/cumm [facility] Monocyte abs 0.6 0.2 - 0.8 K/cumm [facility] Eosinophil abs 0.4 0.0 - 0.5 K/cumm [facility] Basophil abs 0.0 0.0 - 0.1 K/cumm [facility] Neutrophil pct 73.0 % [facility] Comment: Interpretive Data Percent cell count reference ranges are not reported, since discordance with absolute values may lead to misinterpretation of CBC data. Current Interpretive Data was last revised on 2017. Imm gran pct 2.8 % [facility] Comment: Interpretive Data Percent cell count reference ranges are not reported, since discordance with absolute values may lead to misinterpretation of CBC data. Current Interpretive Data was last revised on 2017. Lymphocyte pct 13.1 % [facility] Comment: Interpretive Data Percent cell count reference ranges are not reported, since discordance with absolute values may lead to misinterpretation of CBC data. Current Interpretive Data was last revised on 2017. Monocyte pct 6.7 % [facility] Comment: Interpretive Data Percent cell count reference ranges are not reported, since discordance with absolute values may lead to misinterpretation of CBC data. Current Interpretive Data was last revised on 2017. Eosinophil pct 4.0 % [facility] Comment: Interpretive Data Percent cell count reference ranges are not reported, since discordance with absolute values may lead to misinterpretation of CBC data. Current Interpretive Data was last revised on 2017. Basophil pct 0.4 % [facility] Comment: Interpretive Data Percent cell count reference ranges are not reported, since discordance with absolute values may lead to misinterpretation of CBC data. Current Interpretive Data was last revised on 2017. Blood 03/20/2024 10:3 3 AM SHELLAC POLISHER 03/20/2024 11:09 AM SHELLAC POLISHER Darlyn Herring MD LAB BLOOD ORDERABLES Final Result Performing Organization Address City/[facility] Co de Phone Number [facility] [address] [address] * (ABNORMAL) CBC with auto differential (03/20/2024 10:33 AM SHELLAC POLISHER) WBC 9.6 3.8 - 9.9 K/cumm Hgb 10.0(L) 13.0 - 17.5 g/dL [facility] Hct 33.2(L) 38.9 - 50.3 % [facility] Plt 373 150 - 400 K/cumm [facility] MPV 11.6 9.1 - 12.3 fL [facility] RBC 3.69(L) 4.30 - 5.80 M/cumm [facility] MCV 90.0 81.3 - 96.4 fL [facility] MCH 27.1 27.1 - 33.3 pg [facility] MCHC 30.1(L) 32.3 - 35.7 g/dL [facility] RDW CV 14.4 11.1 - 14.9 % [facility] RDW SD 47.1 35.7 - 48.1 fL [facility] NRBC abs 0.00 0.00 - 0.01 K/cumm [facility] Blood 03/20/2024 10:3 3 AM SHELLAC POLISHER 03/20/2024 11:09 AM SHELLAC POLISHER Darlyn Herring MD LAB BLOOD ORDERABLES Final Result Performing Organization Address City/[facility] Co de Phone Number [facility] [address] [place] [address] * (ABNORMAL) Basic metabolic panel (03/20/2024 10:33 AM SHELLAC POLISHER) Pathologist [facility] Sodium 138 135 - 145 mmol/L Potassium, pl 3.4 3.3 - 4.9 mmol/L [facility] Chloride 96(L) 97 - 110 mmol/L [facility] CO2 35(H) 22 - 32 mmol/L [facility] Anion gap 7 2 - 15 mmol/L [facility] BUN 7 6 - 25 mg/dL [facility] Creatinine 0.83 0.80 - 1.30 mg/dL [facility] Glucose 170 70 - 199 mg/dL [facility] Comment: Interpretive Data Fasting glucose >/= 126 [...] 2022. Calcium 8.8 8.5 - 10.3 mg/dL [facility] Blood 03/20/2024 10:3 3 AM SHELLAC POLISHER 03/20/2024 11:09 AM SHELLAC POLISHER Darlyn Herring MD LAB BLOOD ORDERABLES Final Result Performing Organization Address City/State/[facility] Co de Phone Number [facility] [address] [facility] Department [place] [address] * XR Chest 1 View (03/19/2024 1:00 PM SHELLAC POLISHER) Anatomical Region Laterality Modality Body, Chest N/A Computed Radiogr aphy 03/19/2024 3:40 PM SHELLAC POLISHER Narrative 03/19/2024 3:41 PM SHELLAC POLISHER EXAM DESCRIPTION: XR CHEST 1 VIEW REASON FOR STUDY: hypoxia ?? Transfer from [facility] PMH/o COPD, chronic hypercarbic respiratory failure on 2 L home oxygen/wears at HS, HTN, HLD, mild diastolic dysfunction, ??and hx of DVT that initially presented to the ED at [facility] on 03/11/24 with c/o subjective fever, [...] 3:41 PM - Electronically signed by ??Ramesh Ramirez M.D. KR D: ??03/19/2024 3:41 PM T: Report ID: [id number] Reading Location: ??[id number] Procedure Note Ramesh Ramirez MD - 03/19/2024 EXAM DESCRIPTION: XR CHEST 1 VIEW REASON FOR STUDY: hypoxia Transfer from OSH PMH/o COPD, chronic hypercarbic respiratory failure on 2L home oxygen/wears at HS, HTN, HLD, mild diastolic dysfunction, and hx ofDVT that initially presented to the ED at [facility] on 03/11/24 withc/o subjective fever, chills, swollen/painful lymph nodes in groin and right knee pain. Pt endorsed having similar symptoms about 3 months ago with his left knee/cellulitis and abscess; and was treated for possible meningitis until CSF/culture negative. Hx of bilateral knee replacement [id number]; endorsed having revision to right knee due [...] 3:41 PM - Electronically signed by Ramesh Ramirez M.D. KR T: Report ID: [id number] Reading Location: [id number] Darlyn Herring MD IMG XR PROCEDURES Final Re sult * Lactate (03/19/2024 8:53 AM SHELLAC POLISHER) Pathologist [facility] Lactate 1.3 0.7 - 2.0 mmol/L Blood 03/19/2024 8:53 AM SHELLAC POLISHER 03/19/2024 9:01 AM SHELLAC POLISHER Darlyn Herring MD LAB BLOOD ORDERABLES Final Result [place] [address] [facility] Department [place] [address] * US VEIN DUPLEX LOWER EXTREMITY RIGHT LIMITED, UNILATERAL (03/19/2024 8:26 AM SHELLAC POLISHER) Anatomical Region Laterality Modality Vascular Right Ultrasound 03/19/2024 Narrative 03/25/2024 1:28 PM SHELLAC POLISHER [employer]ibly Job ID: [id number] [employer]ibly Document ID: [id number] Dictated date/time: [id number] LOWER EXTREMITY VENOUS DUPLEX REASON FOR EXAM Pain. FINDINGS The veins throughout the right lower extremity show spontaneous and phasic flow with normal augmentation. ??All veins are competent and compressible. ?? The left common femoral vein show normal flow compressibility as well. OVERALL IMPRESSION Negative for deep venous thrombosis, right lower extremity and left common femoral vein. Job ID/Internal Job ID: ??[id number] Shivani Metcalf MD IMG US PROCEDURES Final Result * ECG 12 lead (03/18/2024 6:33 PM SHELLAC POLISHER) Ventricular Rate EKG/Min 71 BPM [facility] Atrial Rate 71 BPM [facility] NH-Interval (MSEC) 176 ms [facility] QRS-Interval (MSEC) 94 ms [facility] QT-Interval (MSEC) 408 ms [facility] QTc 443 ms [facility] P [employer] 22 degrees [facility] R [employer] 24 degrees [facility] T [employer] 13 degrees [facility] Diagnosis Normal sinus rhythm Normal ECG No previous ECGs available Confirmed by AZEEM POLLARD M.D. ([id number]) on 03/22/2024 9:40:22 AM [facility] 03/18/2024 6:33 PM SHELLAC POLISHER 03/22/2024 9:40 AM SHELLAC POLISHER Darlyn Herring MD ECG ORDERABLES Final Resu lt Performing Organization Address [facility] de Phone Number [facility] * Potassium (03/18/2024 6:30 PM SHELLAC POLISHER) [facility] Potassium, pl 3.6 3.3 - 4.9 mmol/L Blood 03/18/2024 6:30 PM SHELLAC POLISHER 03/18/2024 6:38 PM SHELLAC POLISHER Darlyn Herring MD LAB BLOOD ORDERABLES Final Result Performing Organization Address [facility] de Phone Number [address] [place] [address] * Magnesium (03/18/2024 6:30 PM SHELLAC POLISHER) [facility] Magnesium 2.3 1.4 - 2.5 mg/dL Blood 03/18/2024 6:30 PM SHELLAC POLISHER 03/18/2024 6:38 PM SHELLAC POLISHER Darlyn Herring MD LAB BLOOD ORDERABLES Final Result Performing Organization Address [facility] de Phone Number [address] [employer] [address] * eGFR (03/18/2024 12:35 PM SHELLAC POLISHER) [facility] eGFR >90 >=60 mL/min/1. 73 m2 Comment: [...] reviewed 2021. Blood 03/18/2024 12:3 5 PM SHELLAC POLISHER 03/18/2024 1:09 PM SHELLAC POLISHER us Darlyn Herring MD LAB BLOOD ORDERABLES Final Result Performing Organization Address City/State/[facility] Co de Phone Number [facility] [address] [facility] Department [place] [address] * (ABNORMAL) Differential, auto (03/18/2024 12:35 PM SHELLAC POLISHER) Pathologist [facility] Neutrophil abs 6.4 1.5 - 6.5 K/cumm Imm gran abs 0.3(H) 0.0 - 0.1 K/cumm [facility] Lymphocyte abs 1.7 0.8 - 3.3 K/cumm [facility] Monocyte abs 1.0(H) 0.2 - 0.8 K/cumm [facility] Eosinophil abs 0.3 0.0 - 0.5 K/cumm [facility] Basophil abs 0.1 0.0 - 0.1 K/cumm [facility] Neutrophil pct 66.1 % [facility] Comment: Interpretive Data Percent cell count reference ranges are not reported, since discordance with absolute values may lead to misinterpretation of CBC data. Current Interpretive Data was last revised on 2017. Imm gran pct 2.7 % [facility] Comment: Interpretive Data Percent cell count reference ranges are not reported, since discordance with absolute values may lead to misinterpretation of CBC data. Current Interpretive Data was last revised on 2017. Lymphocyte pct 17.0 % [facility] Comment: Interpretive Data Percent cell count reference ranges are not reported, since discordance with absolute values may lead to misinterpretation of CBC data. Current Interpretive Data was last revised on 2017. Monocyte pct 10.5 % [facility] Comment: Interpretive Data Percent cell count reference ranges are not reported, since discordance with absolute values may lead to misinterpretation of CBC data. Current Interpretive Data was last revised on 2017. Eosinophil pct 3.2 % [facility] Comment: Interpretive Data Percent cell count reference ranges are not reported, since discordance with absolute values may lead to misinterpretation of CBC data. Current Interpretive Data was last revised on 2017. Basophil pct 0.5 % [facility] Comment: Interpretive Data Percent cell count reference ranges are not reported, since discordance with absolute values may lead to misinterpretation of CBC data. Current Interpretive Data was last revised on 2017. Blood 03/18/2024 12:3 5 PM SHELLAC POLISHER 03/18/2024 1:09 PM SHELLAC POLISHER us Darlyn Herring MD LAB BLOOD ORDERABLES Final Result [facility] [address] [facility] Department [place] [address] * (ABNORMAL) CBC with auto differential (03/18/2024 12:35 PM SHELLAC POLISHER) WBC 9.7 3.8 - 9.9 K/cumm Hgb 9.9(L) 13.0 - 17.5 g/dL [facility] Hct 31.3(L) 38.9 - 50.3 % [facility] Plt 287 150 - 400 K/cumm [facility] MPV 11.4 9.1 - 12.3 fL [facility] RBC 3.56(L) 4.30 - 5.80 M/cumm [facility] MCV 87.9 81.3 - 96.4 fL [facility] MCH 27.8 27.1 - 33.3 pg [facility] MCHC 31.6(L) 32.3 - 35.7 g/dL [facility] RDW CV 14.3 11.1 - 14.9 % [facility] RDW SD 46.2 35.7 - 48.1 fL [facility] NRBC abs 0.02(H) 0.00 - 0.01 K/cumm [facility] Blood 03/18/2024 12:3 5 PM SHELLAC POLISHER 03/18/2024 1:09 PM SHELLAC POLISHER Darlyn Herring MD LAB BLOOD ORDERABLES Final Result [facility] [address] [facility] Department of Laboratories [place], [place] [id number] * (ABNORMAL) Basic metabolic panel (03/18/2024 12:35 PM SHELLAC POLISHER) Sodium 139 135 - 145 mmol/L Potassium, pl 3.5 3.3 - 4.9 mmol/L [facility] Chloride 98 97 - 110 mmol/L [facility] CO2 35(H) 22 - 32 mmol/L [facility] Anion gap 6 2 - 15 mmol/L [facility] BUN 9 6 - 25 mg/dL [facility] Creatinine 0.96 0.80 - 1.30 mg/dL [facility] Glucose 96 70 - 199 mg/dL [facility] Comment: Interpretive Data Fasting glucose >/= 126 [...] 2022. Calcium 9.1 8.5 - 10.3 mg/dL [facility] Blood 03/18/2024 12:3 5 PM SHELLAC POLISHER 03/18/2024 1:09 PM SHELLAC POLISHER Darlyn Herring MD LAB BLOOD ORDERABLES Final Result [facility] [address] [facility] Department [place] [address] * Blood culture Blood (03/18/2024 1:44 AM SHELLAC POLISHER) Report Final Report: No growth Comment:Testing performed by : [facility], [address] [facility] [place] [address] Blood 03/18/2024 1:44 AM SHELLAC POLISHER 03/18/2024 4:03 AM SHELLAC POLISHER Narrative [facility] - 03/22/2024 7:00 AM SHELLAC POLISHER From a different site than #1. Collection->Peripheral [...] performance characteristics have been verified by the [facility] Microbiology Laboratory. For questions about this culture, contact the Microbiology Laboratory at [phone]. Interpretive data was last revised on 24. Cony Mcgill NP LAB MICROBIOLOGY - GENE RAL ORDERABLES Final Result [facility] [address] [facility] Department of Laboratories [place], [place] [id number] * eGFR (03/18/2024 1:40 AM SHELLAC POLISHER) eGFR 85 >=60 mL/min/1. 73 m2 Comment: [...] last reviewed 2021. Blood 03/18/2024 1:40 AM SHELLAC POLISHER 03/18/2024 2:23 AM SHELLAC POLISHER Cony Mcgill NP LAB BLOOD ORDERABLES Fi nal Result [facility] [address] [facility] Department [place] [address] * (ABNORMAL) Differential, auto (03/18/2024 1:40 AM SHELLAC POLISHER) Neutrophil abs 7.5(H) 1.5 - 6.5 K/cumm Imm gran abs 0.3(H) 0.0 - 0.1 K/cumm [facility] Lymphocyte abs 1.8 0.8 - 3.3 K/cumm [facility] Monocyte abs 0.9(H) 0.2 - 0.8 K/cumm [facility] Eosinophil abs 0.4 0.0 - 0.5 K/cumm [facility] Basophil abs 0.1 0.0 - 0.1 K/cumm [facility] Neutrophil pct 68.4 % [facility] Comment: Interpretive Data Percent cell count reference ranges are not reported, since discordance with absolute values may lead to misinterpretation of CBC data. Current Interpretive Data was last revised on 2017. Imm gran pct 2.6 % [facility] Comment: Interpretive Data Percent cell count reference ranges are not reported, since discordance with absolute values may lead to misinterpretation of CBC data. Current Interpretive Data was last revised on 2017. Lymphocyte pct 16.3 % [facility] Comment: Interpretive Data Percent cell count reference ranges are not reported, since discordance with absolute values may lead to misinterpretation of CBC data. Current Interpretive Data was last revised on 2017. Monocyte pct 8.3 % [facility] Comment: Interpretive Data Percent cell count reference ranges are not reported, since discordance with absolute values may lead to misinterpretation of CBC data. Current Interpretive Data was last revised on 2017. Eosinophil pct 3.9 % [facility] Comment: Interpretive Data Percent cell count reference ranges are not reported, since discordance with absolute values may lead to misinterpretation of CBC data. Current Interpretive Data was last revised on 2017. Basophil pct 0.5 % [facility] Comment: Interpretive Data Percent cell count reference ranges are not reported, since discordance with absolute values may lead to misinterpretation of CBC data. Current Interpretive Data was last revised on 2017. Blood 03/18/2024 1:40 AM [employer]LL[employer]ISHER 03/18/2024 2:23 AM SHELLAC POLISHER Cony Mcgill BARREL DRILLER LAB BLOOD ORDERABLES Fi nal Result Performing Organization Address City/[facility] Co de Phone Number DAYO [address] [place] [address] * (ABNORMAL) CBC with auto differential (03/18/2024 1:40 AM SHELLAC POLISHER) WBC 10.9(H) 3.8 - 9.9 K/cumm Hgb 9.8(L) 13.0 - 17.5 g/dL [facility] Hct 31.2(L) 38.9 - 50.3 % [facility] Plt 277 150 - 400 K/cumm [facility] MPV 12.3 9.1 - 12.3 fL [facility] RBC 3.53(L) 4.30 - 5.80 M/cumm [facility] MCV 88.4 81.3 - 96.4 fL [facility] MCH 27.8 27.1 - 33.3 pg [facility] MCHC 31.4(L) 32.3 - 35.7 g/dL [facility] RDW CV 14.4 11.1 - 14.9 % [facility] RDW SD 46.1 35.7 - 48.1 fL [facility] NRBC abs 0.06(H) 0.00 - 0.01 K/cumm [facility] Blood 03/18/2024 1:40 AM SHE[employer] POLISHER 03/18/2024 2:23 AM [employer]LL[employer] POLISHER us Cony Mcgill [employer] LAB BLOOD ORDERABLES Fi nal Result Performing Organization Address City/[facility]/ZIP Co de Phone Number DAYO [address] [place] [address] [place] [address] * Blood culture Blood (03/18/2024 1:40 AM SHELLAC POLISHER) Report Final Report: No growth Comment:Testing performed by : [facility], [address] [facility], [place]., [address] Blood 03/18/2024 1:40 AM SHELLAC POLISHER 03/18/2024 4:03 AM SHELLAC POLISHER Narrative DAYO - 03/22/2024 7:00 AM SHELLAC POLISHER Collection->Peripheral 1. ?Blood cultures are incubated for [...] performance characteristics have been verified by the [facility] Microbiology Laboratory. For questions about this culture, contact the Microbiology Laboratory at [phone]. Interpretive data was last revised on 24. us Cony Mcgill LAB MICROBIOLOGY - [facility] ORDERABLES Final Result DAYO [address] [facility] Department [place] [address] * (ABNORMAL) Erythrocyte sedimentation rate (03/18/2024 1:40 AM SHELLAC POLISHER) Erythrocyte sedimentation rate 79(H) 1 - 20 mm/hr Blood 03/18/2024 1:40 AM SHELLAC POLISHER 03/18/2024 2:23 AM SHELLAC POLISHER us Cony Mcgill [employer] D[employer]LL[employer] LAB BLOOD ORDERABLES Fi nal Result Performing Organization Address City/[facility] Co de Phone Number [address] [place] [address] * (ABNORMAL) CRP (acute phase) (03/18/2024 1:40 AM SHELLAC POLISHER) Pathologist [facility] CRP 134.0(H) <=10.0 mg/L Blood 03/18/2024 1:40 AM SHELLAC POLISHER 03/18/2024 2:23 AM SHELLAC POLISHER Cony Mcgill [employer]REL D[employer]LLER LAB BLOOD ORDERABLES Fi nal Result Performing Organization Address [facility] de Phone Number [address] [place] [address] * Phosphorus (03/18/2024 1:40 AM SHELLAC POLISHER) Pathologist [facility] Phosphorus, pl 2.8 2.3 - 4.5 mg/dL Blood 03/18/2024 1:40 AM SHELLAC POLISHER 03/18/2024 2:23 AM SHELLAC POLISHER us Cony Mcgill [employer] LAB BLOOD ORDERABLES Fi nal Result Performing Organization Address [facility] Co de Phone Number [address] [place] [address] * Magnesium (03/18/2024 1:40 AM SHELLAC POLISHER) [facility] Magnesium 2.1 1.4 - 2.5 mg/dL Blood 03/18/2024 1:40 AM SHELLAC POLISHER 03/18/2024 2:23 AM SHELLAC POLISHER us Cony Mcgill BARREL D[employer]LLER LAB BLOOD ORDERABLES Fi nal Result Performing Organization Address City/[facility]/ZIP Co de Phone Number [address] [place], [place] [id number] * (ABNORMAL) Hemoglobin A1c (03/18/2024 1:40 AM SHELLAC POLISHER) [facility] Hgb A1C 6.2(H) 4.0 - 5.6 % Estimated Average Glucose 131 mg/dL [facility] Comment: The ADA recommends reporting an estimated Average Glucose (eAG) with all Hemoglobin A1c results using the equation derived from a study of 507 normal and diabetic adults. ??Minority populations were underrepresented and children were not included. ?? (Diabetes Care 31:5340-1033, 2008). ??The eAG is not equivalent to a fasting glucose. Blood 03/18/2024 1:40 AM SHELLAC POLISHER 03/18/2024 2:23 AM SHELLAC POLISHER Cony Mcgill BARREL DRILLER LAB BLOOD ORDERABLES Fi nal Result Performing Organization Address [facility] de Phone Number [address] [place] [address] * Creatine kinase (CK), total (03/18/2024 1:40 AM SHELLAC POLISHER) [facility] CK 60 40 - 300 Units/L Blood 03/18/2024 1:40 AM SHELLAC POLISHER 03/18/2024 2:23 AM SHELLAC POLISHER Cony Mcgill BARREL DRILLER LAB BLOOD ORDERABLES Fi nal Result Performing Organization Address [facility] de Phone Number [address] [place] [address] * (ABNORMAL) Lipid panel (03/18/2024 1:40 AM SHELLAC POLISHER) [facility] Cholesterol 142 30 - 199 mg/dL Comment: [...] mg/dL ??High: ?>160 mg/dL Calculated using the Pablito LDL-C estimating equation. This equation was implemented on 2023. Prior to this date LDL-C was estimated using the Friedewald equation. Literature References: 1. Expert Panel on Integrated Guidelines for Cardiovascular Health and Risk Reduction in Children and Adolescents. Pediatrics 2011;128:S213 2. NCEP Expert Panel. Circulation 2004;110:227 3. Pablito Zamora et al. MABLE Cardiol. 2020 July 30;5(5):540-548. doi: 10.1001/jamacardio.2020.0013 Current Interpretive Data was last revised on 2023. Non-HDL Cholesterol 120 mg/dL [facility] Comment: Interpretive Data Ages < [...] last revised on 2017. Chol/HDL ratio 6 [facility] Blood 03/18/2024 1:40 AM SHELLAC POLISHER 03/18/2024 2:23 AM SHELLAC POLISHER Cony Mcgill BARREL D[employer] LAB BLOOD ORDERABLES Fi nal Result DAYO [address] [facility] [place] [address] * (ABNORMAL) Comprehensive metabolic panel (03/18/2024 1:40 AM SHELLAC POLISHER) Sodium 141 135 - 145 mmol/L Potassium, pl 3.0(L) 3.3 - 4.9 mmol/L [facility] Chloride 96(L) 97 - 110 mmol/L [facility] CO2 35(H) 22 - 32 mmol/L [facility] Anion gap 10 2 - 15 mmol/L [facility] BUN 9 6 - 25 mg/dL [facility] Creatinine 1.05 0.80 - 1.30 mg/dL [facility] Glucose 106 70 - 199 mg/dL [facility] Comment: Interpretive Data Fasting glucose >/= 126 [...] 2022. Calcium 9.0 8.5 - 10.3 mg/dL [facility] Bilirubin, total 0.2 0.1 - 1.2 mg/dL [facility] Protein, pl 7.2 6.5 - 8.5 g/dL [facility] Albumin 3.4(L) 3.5 - 5.0 g/dL [facility] Alk phos 81 40 - 130 Units/L [facility] ALT 31 7 - 55 Units/L [facility] AST 25 10 - 50 Units/L [facility] Blood 03/18/2024 1:40 AM SHELLAC POLISHER 03/18/2024 2:23 AM SHELLAC POLISHER Cony Mcgill BARREL DRILLER LAB BLOOD ORDERABLES Fi nal Result Performing Organization Address City/[facility]/ZIP Co de Phone Number DAYO [address] [facility] [place] [address] * [place] Outside Reference (03/17/2024 5:05 AM SHELLAC POLISHER) Narrative RAD_CLARSARAHB_MHE - 04/02/2024 2:34 PM SHELLAC POLISHER This order has been auto-finalized and does not contain a result. us Provider Transcribed Order IMG US PROCEDURES Fin al Result Performing Organization Address [facility] Co de Phone Number [email or web address] * CT Body Outside Reference (03/15/2024 2:00 PM SHELLAC POLISHER) Narrative RAD_CLARIO_MHB_MHE - 04/02/2024 2:34 PM SHELLAC POLISHER This order has been auto-finalized and does not contain a result. us Provider Transcribed Order IMG CT PROCEDURES Fin al Result Performing Organization Address [facility] Co de Phone Number [email or web address] * [place] Outside Reference (03/15/2024 11:45 AM SHELLAC POLISHER) Narrative RAD_CLARIO_MHB_MHE - 04/02/2024 2:34 PM SHELLAC POLISHER This order has been auto-finalized and does not contain a result. us Provider Transcribed Order IMG US PROCEDURES Fin al Result Performing Organization Address [facility] Co de Phone Number RADLUIS_[email or web address] * [place] Outside Reference (03/15/2024 6:05 AM SHELLAC POLISHER) Narrative RAD_CLARIO_MHB_MHE - 04/02/2024 2:34 PM SHELLAC POLISHER This order has been auto-finalized and does not contain a result. us Provider Transcribed Order IMG US PROCEDURES Fin al Result Performing Organization Address [facility] de Phone Number [email or web address] * XR Outside Reference (03/13/2024 4:20 PM SHELLAC POLISHER) Narrative RAD_CLARROSA ISELA_MHB_MHE - 04/02/2024 2:34 PM SHELLAC POLISHER This order has been auto-finalized and does not contain a result. us Provider Transcribed Order IMG XR PROCEDURES Fin al Result Performing Organization Address [facility] de Phone Number [email or web address] * [place] Outside Reference (03/13/2024 4:05 PM SHELLAC POLISHER) Narrative RAD_CLARIO_MHB_MHE - 04/02/2024 2:34 PM SHELLAC POLISHER This order has been auto-finalized and does not contain a result. us Provider Transcribed Order IMG US PROCEDURES Fin al Result Performing Organization Address [facility] de Phone Number [email or web address] * [place] Outside Reference (03/13/2024 2:20 PM SHELLAC POLISHER) Narrative RAD_CLARIO_MHB_MHE - 04/02/2024 3:02 PM SHELLAC POLISHER This order has been auto-finalized and does not contain a result. us Provider Transcribed Order IMG US PROCEDURES Fin al Result Performing Organization Address [facility] de Phone Number RAD_[email or web address] * Neuro CT Outside Reference (03/12/2024 1:30 PM SHELLAC POLISHER) Narrative RAD_CLARIO_MHB_MHE - 04/02/2024 2:34 PM SHELLAC POLISHER This order has been auto-finalized and does not contain a result. us Provider Transcribed Order IMG CT PROCEDURES Fin al Result Performing Organization Address [facility] de Phone Number [email or web address] * CT Body Outside Reference (03/12/2024 1:25 PM SHELLAC POLISHER) Narrative RADANDERSON_JAYNEE - 04/02/2024 2:34 PM SHELLAC POLISHER This order has been auto-finalized and does not contain a result. us Provider Transcribed Order IMG CT PROCEDURES Fin al Result Performing Organization Address [facility] de Phone Number [email or web address] * CT Body Outside Reference (03/12/2024 12:25 PM SHELLAC POLISHER) Narrative RADANDERSON_JAYNEE - 04/02/2024 2:34 PM SHELLAC POLISHER This order has been auto-finalized and does not contain a result. us Provider Transcribed Order IMG CT PROCEDURES Fin al Result Performing Organization Address [facility] Phone Number [email or web address] * CT Body Outside Reference (03/12/2024 12:20 PM SHELLAC POLISHER) Narrative RADANDERSON_JAYNEE - 04/02/2024 2:34 PM SHELLAC POLISHER This order has been auto-finalized and does not contain a result. us Provider Transcribed Order IMG CT PROCEDURES Fin al Result Performing Organization Address [facility] de Phone Number [email or web address] * [place] Outside Reference (03/11/2024 10:25 AM SHELLAC POLISHER) Narrative RADANDERSON_JAYNEE - 04/02/2024 2:34 PM SHELLAC POLISHER This order has been auto-finalized and does not contain a result. us Provider Transcribed Order IMG US PROCEDURES Fin al Result Performing Organization Address [facility] de Phone Number [email or web address] * XR Outside Reference (03/11/2024 10:15 AM SHELLAC POLISHER) Narrative NIELS - 04/02/2024 2:34 PM SHELLAC POLISHER This order has been auto-finalized and does not contain a result. us Provider Transcribed Order IMG XR PROCEDURES Fin al Result SOFYA_JESSENIA_HEMA from Last 3 Months Insurance CHOICE PLUS Advance Directives For more information, please contact: [phone] * Full Code (Latest Code Status on File) Date Activated Date Inactivated Comments 03/18/2024 12:08 AM 03/20/2024 9:57 PM Care Teams Manager Drilling Relationship Specialty Start Date End Date Juanito Moralez MD [address] [address] [address] PCP - General Family Medicine 03/18/24 Arianne Jhaveri [address] [place] [address] Cardiothoracic Surgery 03/20/24
--- OUTSIDE RECORDS SUMMARY | 2024-04-27 12:55 | XMS_ITS | Continuity of Care Document ---
Author Organization [facility] Address [address] [place] [address] [address] [place] [address] Phone Care Team Providers Care Architectural Renderer Name Role Phone Angela Solares Unavailable Unavailable Procedures Procedure Date Eye Exam, New Patient Advance Directives Directive Yes / No Effective Date File Name No Information Encounters Encounter Description Practice Location Reason(s) For Visit Diagnoses Date Provider Providers Copied on Encounter [facility], [address] [place] [address] [address], [place], [place], [id number], [place] tel:[phone] [facility] No Information [phone] Sujatha Miller. [address] [facility] , [address], [place], [address], [place]. tel:[phone] Family History Family Member Type Diagnosis Age At Onset No Information Payers Payer name Insurance type Covered green party ID Authoriza tion(s) SHERLEY Coles [id number] Social History Type Description Quantity Date Captured [...]
[2024-04-27 13:17] LABS: Alveolar/Arterial O2 Gradient 63.4 mmHg; Base Excess ABG 5.3 mEq/l (+/-2.0); Carboxyhemoglobin 0.1 % THb (0-2.0); Fractional Inspired Oxygen 28 %; Methemoglobin ABG 0.3 %THb (0-1.5); Oxygen Saturation ABG 96.6 % (95.0-100.0); Oxyhemoglobin 96.2 % THb (90.0-100.0); PCO2 ABG 44.7 mmHg (35.0-45.0); PO2 ABG 83.5 mmHg (80.0-100.0); PO2 FiO2 Ratio Arterial Blood 2.98 %; Reduced Hemoglobin 3.4 %THb (0-5.0); Total Hemoglobin 10.3 g/dL (12.0-18.0); pH ABG 7.445 (7.350-7.450)
[2024-04-27 13:18] LABS: Device NASAL CANNULA; Modified Allen's Test Pass; Site Drawn LEFT RADIAL
== END 2024-04-27 12:17 | disposition home or self-care (01) ==
LOC: ANHPFT 12:17
PROVIDERS: PCP Nurse Practitioner Family; Visit Provider Internal Medicine Pulmonary Disease
DX: J44.9 Chronic obstructive pulmonary disease, unspecified (principal)
CPT/HCPCS: 36600; 82375; 82805; 83050; 85018

== ENCOUNTER 2024-05-15 09:54 | Outpatient (CLI) | payer OTHER, SELFPAY ==
--- OUTSIDE RECORDS SUMMARY | 2024-05-15 10:06 | XMS_ITS | Clinical Summary ---
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 Role Phone Juanito Moralez MD Primary Care Provider [phone] Arianne Jhaveri Unavailable [phone] Allergies No known active allergies Medications [...] Department Care Team Description 03/17/2024 10:14 PM INVESTMENT CONSULTANT - 03/20/2024 5:52 PM INVESTMENT CONSULTANT [place] [address] Candi Gamez MD Chowdhury, Farhanaz, MD [facility]el Remy MD Cellulitis of right lower extremity (Primary Dx); Bradycardia Discharge Disposition: Discharge to home or self care 03/17/2024 5:05 AM INVESTMENT CONSULTANT - 03/17/2024 11:59 PM INVESTMENT CONSULTANT Hospital Encounter [facility] [employer] [address] [place] [address] Discharge Disposition: Discharge to home or self care 03/15/2024 2:00 PM INVESTMENT CONSULTANT - 03/15/2024 11:59 PM INVESTMENT CONSULTANT Hospital Encounter [facility] [employer] [address] [place] [address] Discharge Disposition: Discharge to home or self care 03/15/2024 11:45 AM INVESTMENT CONSULTANT - 03/15/2024 11:59 PM INVESTMENT CONSULTANT Hospital Encounter [facility] [employer] [address] [place] [address] Discharge Disposition: Discharge to home or self care 03/15/2024 6:05 AM INVESTMENT CONSULTANT - 03/15/2024 11:59 PM INVESTMENT CONSULTANT Hospital Encounter [facility] [employer] [address] [place] [address] Discharge Disposition: Discharge to home or self care 03/13/2024 4:20 PM INVESTMENT CONSULTANT - 03/13/2024 11:59 PM INVESTMENT CONSULTANT Hospital Encounter [facility] [employer] [address] [place] [address] Discharge Disposition: Discharge to home or self care 03/13/2024 4:05 PM INVESTMENT CONSULTANT - 03/13/2024 11:59 PM INVESTMENT CONSULTANT Hospital Encounter [facility] [employer] [address] [place] [address] [place] [address] Discharge Disposition: Discharge to home or self care 03/13/2024 2:20 PM INVESTMENT CONSULTANT - 03/13/2024 11:59 PM INVESTMENT CONSULTANT Hospital Encounter [facility] [employer] [address] [place] [address] Discharge Disposition: Discharge to home or self care 03/12/2024 1:30 PM INVESTMENT CONSULTANT - 03/12/2024 11:59 PM INVESTMENT CONSULTANT Hospital Encounter [facility] [employer] [address] [place] [address] Discharge Disposition: Discharge to home or self care 03/12/2024 1:25 PM INVESTMENT CONSULTANT - 03/12/2024 11:59 PM INVESTMENT CONSULTANT Hospital Encounter [facility] [employer] [address] [place] [address] Discharge Disposition: Discharge to home or self care 03/12/2024 12:25 PM INVESTMENT CONSULTANT - 03/12/2024 11:59 PM INVESTMENT CONSULTANT Hospital Encounter [facility] [employer] [address] [place] [address] Discharge Disposition: Discharge to home or self care 03/12/2024 12:20 PM INVESTMENT CONSULTANT - 03/12/2024 11:59 PM INVESTMENT CONSULTANT Hospital Encounter [facility] [employer] [address] [address] [place] [address] Discharge Disposition: Discharge to home or self care 03/11/2024 10:25 AM INVESTMENT CONSULTANT - 03/11/2024 11:59 PM INVESTMENT CONSULTANT Hospital Encounter [facility] [employer] [address] [address] [place] [address] Discharge Disposition: Discharge to home or self care 03/11/2024 10:15 AM INVESTMENT CONSULTANT - 03/11/2024 11:59 PM INVESTMENT CONSULTANT Hospital Encounter [facility] [employer] [address] [place] [address] [place] [address] Discharge Disposition: Discharge to home or self [...] on file Legal Sex Male 1:49 PM INVESTMENT CONSULTANT Gender Identity Not on file Sexual Orientation Not on file Obstetrics History Last Filed Vital Signs Vital Sign Reading Time Taken Comments Blood Pressure 166/77 03/20/2024 3:51 PM INVESTMENT CONSULTANT Pulse 89 03/20/2024 3:51 PM INVESTMENT CONSULTANT Temperature 36.8 C (98.2 F) 03/20/2024 3:51 PM INVESTMENT CONSULTANT Respiratory Rate 18 03/20/2024 3:51 PM INVESTMENT CONSULTANT Oxygen Saturation 100% 03/20/2024 3:51 PM INVESTMENT CONSULTANT Inhaled Oxygen Concentration - - Weight 113.4 kg (250 lb) 03/19/2024 4:00 PM INVESTMENT CONSULTANT Height 165.1 cm (5' 5 ) 03/19/2024 4:00 PM INVESTMENT CONSULTANT Body Mass Index 41.6 03/19/2024 4:00 PM INVESTMENT CONSULTANT Plan of Treatment Health Maintenance Due Date [...] DOPPLER/CF W CONTRAST Routine 03/20/2024 1:47 PM INVESTMENT CONSULTANT HOME O2 EVAL (DESATURATION SCREEN) Routine 03/20/2024 1:42 PM INVESTMENT CONSULTANT EGFR Routine 03/20/2024 10:33 AM INVESTMENT CONSULTANT DIFFERENTIAL AUTO Routine 03/20/2024 10: 33 AM INVESTMENT CONSULTANT BASIC METABOLIC PANEL Routine 03/20/2024 10:33 AM INVESTMENT CONSULTANT CBC WITH AUTO DIFFERENTIAL Routine 03/20/2024 10:33 AM INVESTMENT CONSULTANT XR CHEST 1 VIEW IP Routine 03/19/2024 1:00 PM INVESTMENT CONSULTANT LACTATE Timed 03/19/2024 8:53 AM INVESTMENT CONSULTANT US VEIN DUPLEX LOWER EXTREMITY RIGHT LIMITED IP Routine 03/19/2024 8:26 AM INVESTMENT CONSULTANT ECG 12-LEAD Routine 03/18/2024 6:33 PM INVESTMENT CONSULTANT POTASSIUM LEVEL Routine 03/18/2024 6:30 PM INVESTMENT CONSULTANT MAGNESIUM Routine 03/18/2024 6:30 PM INVESTMENT CONSULTANT EGFR Routine 03/18/2024 12:35 PM INVESTMENT CONSULTANT DIFFERENTIAL AUTO Routine 03/18/2024 12: 35 PM INVESTMENT CONSULTANT CBC WITH AUTO DIFFERENTIAL Routine 03/18/2024 12:35 PM INVESTMENT CONSULTANT BASIC METABOLIC PANEL Routine 03/18/2024 12:35 PM INVESTMENT CONSULTANT BLOOD CULTURE STAT 03/18/2024 1:44 AM INVESTMENT CONSULTANT EGFR STAT 03/18/2024 1:40 AM INVESTMENT CONSULTANT LIPID PANEL STAT 03/18/2024 1:40 AM INVESTMENT CONSULTANT DIFFERENTIAL AUTO STAT 03/18/2024 1: 40 AM INVESTMENT CONSULTANT HEMOGLOBIN A1C Routine 03/18/2024 1:40 AM INVESTMENT CONSULTANT ERYTHROCYTE SEDIMENTATION RATE STAT 03/18/2024 1:40 AM INVESTMENT CONSULTANT CRP (ACUTE PHASE) STAT 03/18/2024 1:4 0 AM INVESTMENT CONSULTANT PHOSPHORUS STAT 03/18/2024 1:40 AM INVESTMENT CONSULTANT MAGNESIUM STAT 03/18/2024 1:40 AM INVESTMENT CONSULTANT CREATINE KINASE (CK), TOTAL STAT 03/18/2024 1:40 AM INVESTMENT CONSULTANT COMPREHENSIVE METABOLIC PANEL STAT 03/18/2024 1:40 AM INVESTMENT CONSULTANT CBC WITH AUTO DIFFERENTIAL STAT 03/18/2024 1:40 AM INVESTMENT CONSULTANT BLOOD CULTURE STAT 03/18/2024 1:40 AM INVESTMENT CONSULTANT US TRANSFER OF OUTSIDE FILMS Routine 03/17/2024 5:[address] BODY OUTSIDE REFERENCE Routine 03/15/2024 2:00 PM INVESTMENT CONSULTANT US TRANSFER OF OUTSIDE FILMS Routine 03/15/2024 11:45 AM INVESTMENT CONSULTANT US TRANSFER OF OUTSIDE FILMS Routine 03/15/2024 6:05 AM INVESTMENT CONSULTANT XR TRANSFER OF OUTSIDE FILMS Routine 03/13/2024 4:20 PM INVESTMENT CONSULTANT US TRANSFER OF OUTSIDE FILMS Routine 03/13/2024 4:05 PM INVESTMENT CONSULTANT US TRANSFER OF OUTSIDE FILMS Routine 03/13/2024 2:20 PM INVESTMENT CONSULTANT NEURO CT OUTSIDE REFERENCE Routine 03/12/2024 1:[address] BODY OUTSIDE REFERENCE Routine 03/12/2024 1:[address] BODY OUTSIDE REFERENCE Routine 03/12/2024 12:[address] BODY OUTSIDE REFERENCE Routine 03/12/2024 12:20 PM INVESTMENT CONSULTANT US TRANSFER OF OUTSIDE FILMS Routine 03/11/2024 10:25 AM INVESTMENT CONSULTANT XR TRANSFER OF OUTSIDE FILMS Routine 03/11/2024 10:15 AM INVESTMENT CONSULTANT from Last 3 Months Results * TRANSTHORACIC ECHO (TTE) COMPLETE W DOPPLER/CF W CONTRAST (03/20/2024 1:47 PM INVESTMENT CONSULTANT) Anatomical Region Laterality Modality Ultrasound 03/20/2024 1:29 PM INVESTMENT CONSULTANT Narrative 03/20/2024 7:34 PM INVESTMENT CONSULTANT Adult Echocardiogram + ----- + :Name: ARMAAN HURST Study Date: 03/20/2024 Status: [facility] : : Patient Location: [address]^[id number]^Height: 65 in : : Weight: 250 lbBP: 142/77 mmHg: :: 1970 Gender: Male BSA: 2.2 m2 : :Reason For Study: cardiac arrhythmia : :Ordering Physician: KACEY, : :LOYAD : :Referring Physician: : :ZEINA VAZQUEZ : :Performed By: Momo Carter, : :CLOTILDE, RVT : + ----- + Procedure A two-dimensional transthoracic echocardiogram with color flow and Doppler was performed. The study was technically difficult due to patient's 'body habitus'. A contrast injection of Definity was performed to improve assessment of LV function. lot#[id number]. Left Ventricle The [...] valvular regurgitation. + + :Measurements with Normals : :IVSd: (0.6-1.2 LVIDd: (3.5-5.7 Ao root diam: (2.0-3.7 : :0.79 cm cm) 4.7 cm cm) 2.7 cm cm) : :LVPWd: (0.6-1.1 LVIDs: (3.1-4.6 LA dimension: (1.9-4.0 : :0.89 cm cm) 2.9 cm cm) 3.2 cm cm) : + + MMode/2D Measurements & Calculations FS: [...] Date: 03/20/2024Status: [facility]HB : : Patient Location: [address]^[id number]^Height: 65 in : : : 250 lbBP: 142/77 mmHg: :: 1970 Gender: MaleBSA: 2.2 m2 : :Reason For Study: cardiac arrhythmia: :Ordering Physician: KACEY,: :LOYDA: :Referring Physician:: :ZEINA VAZQUEZ: :Performed By: Momo Carter,: :RCS, RVT: + ----- + Procedure A two-dimensional transthoracic [...] Doppler Measurements & Calculations MV E max caremlina: MV dec time: Ao V2 max: LV [...] nal Result * eGFR (03/20/2024 10:33 AM INVESTMENT CONSULTANT) eGFR >90 >=60 mL/min/1. 73 m2 Comment: Interpretive Data Reference Interval Normal >/= 90 mL/min/1.73m2 Mildly decreased* 60 - 89 mL/min/1.73m2 Mildly to moderately decreased 45 - 59 mL/min/1.73m2 Moderately to severely decreased 30 - 44 mL/min/1.73m2 Severely decreased 15 - 29 mL/min/1.73m2 Kidney Failure < 15 mL/min/1.73m2 *Relative to young adult level Estimated glomerular [...] reviewed 2021. Blood 03/20/2024 10:3 3 AM INVESTMENT CONSULTANT 03/20/2024 11:09 AM INVESTMENT CONSULTANT us Darlyn Herring MD LAB BLOOD ORDERABLES Final Result [id number] [facility] Department [place] [address] * (ABNORMAL) Differential, auto (03/20/2024 10:33 AM INVESTMENT CONSULTANT) Pathologist [facility] Neutrophil abs 7.0(H) 1.5 - 6.5 K/cumm Imm gran abs 0.3(H) 0.0 - 0.1 K/cumm [facility] Lymphocyte abs 1.3 0.8 - 3.3 K/cumm [facility] Monocyte abs 0.6 0.2 - 0.8 K/cumm [facility] Eosinophil abs 0.4 0.0 - 0.5 K/cumm [facility] Basophil abs 0.0 0.0 - 0.1 K/cumm [facility] Neutrophil pct 73.0 % [facility] Comment: Interpretive Data Percent cell count reference ranges are not reported, since discordance with absolute values may lead to misinterpretation of CBC data. Current Interpretive Data was last revised on 2017. Imm gran pct 2.8 % [facility] Comment: Interpretive Data Percent cell count reference ranges are not reported, since discordance with absolute values may lead to misinterpretation of CBC data. Current Interpretive Data was last revised on 2017. Lymphocyte pct 13.1 % [facility] Comment: Interpretive Data Percent cell count reference ranges are not reported, since discordance with absolute values may lead to misinterpretation of CBC data. Current Interpretive Data was last revised on 2017. Monocyte pct 6.7 % [facility] Comment: Interpretive Data Percent cell count reference ranges are not reported, since discordance with absolute values may lead to misinterpretation of CBC data. Current Interpretive Data was last revised on 2017. Eosinophil pct 4.0 % [facility] Comment: Interpretive Data Percent cell count reference ranges are not reported, since discordance with absolute values may lead to misinterpretation of CBC data. Current Interpretive Data was last revised on 2017. Basophil pct 0.4 % [facility] Comment: Interpretive Data Percent cell count reference ranges are not reported, since discordance with absolute values may lead to misinterpretation of CBC data. Current Interpretive Data was last revised on 2017. Blood 03/20/2024 10:3 3 AM INVESTMENT CONSULTANT 03/20/2024 11:09 AM INVESTMENT CONSULTANT Darlyn Herring MD LAB BLOOD ORDERABLES Final Result Performing Organization Address [facility] Phone Number DAYO [address] [address] * (ABNORMAL) CBC with auto differential (03/20/2024 10:33 AM INVESTMENT CONSULTANT) [facility] WBC 9.6 3.8 - 9.9 K/cumm Hgb 10.0(L) 13.0 - 17.5 g/dL [facility] Hct 33.2(L) 38.9 - 50.3 % [facility] Plt 373 150 - 400 K/cumm [facility] MPV 11.6 9.1 - 12.3 fL [facility] RBC 3.69(L) 4.30 - 5.80 M/cumm [facility] MCV 90.0 81.3 - 96.4 fL [facility] MCH 27.1 27.1 - 33.3 pg [facility] MCHC 30.1(L) 32.3 - 35.7 g/dL [facility] RDW CV 14.4 11.1 - 14.9 % [facility] RDW SD 47.1 35.7 - 48.1 fL [facility] NRBC abs 0.00 0.00 - 0.01 K/cumm [facility] Blood 03/20/2024 10:3 3 AM INVESTMENT CONSULTANT 03/20/2024 11:09 AM INVESTMENT CONSULTANT Darlyn Herring MD LAB BLOOD ORDERABLES Final Result Performing Organization Address [facility] Co de Phone Number [address] [address] * (ABNORMAL) Basic metabolic panel (03/20/2024 10:33 AM INVESTMENT CONSULTANT) [facility] Sodium 138 135 - 145 mmol/L Potassium, pl 3.4 3.3 - 4.9 mmol/L [facility] Chloride 96(L) 97 - 110 mmol/L [facility] CO2 35(H) 22 - 32 mmol/L [facility] Anion gap 7 2 - 15 mmol/L [facility] BUN 7 6 - 25 mg/dL [facility] Creatinine 0.83 0.80 - 1.30 mg/dL [facility] Glucose 170 70 - 199 mg/dL [facility] Comment: Interpretive Data Fasting glucose >/= 126 mg/dl is diagnostic for diabetes. Fasting is defined as no caloric intake [...] 2022. Calcium 8.8 8.5 - 10.3 mg/dL [facility] Blood 03/20/2024 10:3 3 AM INVESTMENT CONSULTANT 03/20/2024 11:09 AM INVESTMENT CONSULTANT Darlyn Herring MD LAB BLOOD ORDERABLES Final Result Performing Organization Address City/State/[facility] Co de Phone Number [facility] [address] [facility] Department [place] [address] * XR Chest 1 View (03/19/2024 1:00 PM INVESTMENT CONSULTANT) Anatomical Region Laterality Modality Body, Chest N/A Computed Radiogr aphy 03/19/2024 3:40 PM INVESTMENT CONSULTANT Narrative 03/19/2024 3:41 PM INVESTMENT CONSULTANT EXAM DESCRIPTION: XR CHEST 1 VIEW REASON FOR STUDY: hypoxia Transfer from OSH PMH/o COPD, chronic hypercarbic respiratory failure on 2 L home oxygen/wears at , HTN, HLD, mild diastolic dysfunction, and hx of DVT that initially presented to the ED at [facility] on 03/11/24 with c/o subjective fever, chills, swollen/painful lymph nodes in groin and right knee pain. Pt endorsed having similar symptoms about 3 months ago with his left knee/cellulitis and abscess; and was treated for possible meningitis until CSF/culture negative. Hx of bilateral knee replacement around 2019; endorsed having revision to right knee due to infection years ago. Today's xray for hypoxia TECHNIQUE: 1 radiographic view(s) of the chest. COMPARISON: None FINDINGS: LUNGS: No focal opacity, pleural effusion, or pneumothorax. HEART/MEDIASTINUM: Cardiac silhouette normal in size. Mediastinal and hilar contours appear normal. LINES/TUBES: None. BONES: No acute osseous abnormality. IMPRESSION: No acute cardiopulmonary abnormality. THIS IS AN ELECTRONICALLY VERIFIED FINAL REPORT 03/19/2024 3:41 PM - Electronically signed by Ramesh PETER T: Report ID: [id number] Reading Location: [id number] Procedure Note Ramesh Ramirez MD - 03/19/2024 EXAM DESCRIPTION: XR CHEST 1 VIEW REASON FOR STUDY: hypoxia Transfer from OSH PMH/o COPD, chronic hypercarbic respiratory failure on 2L home oxygen/wears at HS, HTN, HLD, mild diastolic dysfunction, and hx ofDVT that initially presented to the ED at [facility] on 03/11/24 withc/o subjective fever, chills, swollen/painful lymph nodes in groin and right knee pain. Pt endorsed having similar symptoms about 3 months ago with his left knee/cellulitis and abscess; and was treated for possible meningitis until CSF/culture negative. Hx of bilateral knee replacement [id number]; endorsed having revision to right knee due [...] signed by Ramesh PETER T: Report ID: [id number] Reading Location: [id number] us Darlyn Herring MD IMG XR PROCEDURES Final Re sult * Lactate (03/19/2024 8:53 AM INVESTMENT CONSULTANT) Pathologist [facility] Lactate 1.3 0.7 - 2.0 mmol/L Blood 03/19/2024 8:53 AM INVESTMENT CONSULTANT 03/19/2024 9:01 AM INVESTMENT CONSULTANT us Darlyn Herring MD LAB BLOOD ORDERABLES Final Result [facility] [address] [facility] Department [place] [address] * US VEIN DUPLEX LOWER EXTREMITY RIGHT LIMITED, UNILATERAL (03/19/2024 8:26 AM INVESTMENT CONSULTANT) Anatomical Region Laterality Modality Vascular Right Ultrasound 03/19/2024 Narrative 03/25/2024 1:28 PM INVESTMENT CONSULTANT [employer] Job ID: [id number] [employer] Document ID: [id number] Dictated date/time: [id number] LOWER EXTREMITY VENOUS DUPLEX REASON FOR EXAM Pain. FINDINGS The veins throughout the right lower extremity show spontaneous and phasic flow with normal augmentation. All veins are competent and compressible. The left common femoral vein show normal flow compressibility as well. OVERALL IMPRESSION Negative for deep venous thrombosis, right lower extremity and left common femoral vein. Job ID/Internal Job ID: [id number] us Shivani Metcalf MD IMG US PROCEDURES Final Result * ECG 12 lead (03/18/2024 6:33 PM INVESTMENT CONSULTANT) Ventricular Rate EKG/Min 71 BPM [facility] Atrial Rate 71 BPM [facility] MA-Interval (MSEC) 176 ms [facility] QRS-Interval (MSEC) 94 ms [facility] QT-Interval (MSEC) 408 ms [facility] QTc 443 ms [facility] P [place] 22 degrees [facility] R [place] 24 degrees [facility] T [place] 13 degrees [facility] Diagnosis Normal sinus rhythm Normal ECG No previous ECGs available Confirmed by AZEEM POLLARD M.D. ([id number]) on 03/22/2024 9:40:22 AM [facility] 03/18/2024 6:33 PM INVESTMENT CONSULTANT 03/22/2024 9:40 AM INVESTMENT CONSULTANT us Darlyn Herring MD ECG ORDERABLES Final Resu lt Performing Organization Address City/[facility] Co de Phone Number [facility] * Potassium (03/18/2024 6:30 PM INVESTMENT CONSULTANT) Potassium, pl 3.6 3.3 - 4.9 mmol/L Blood 03/18/2024 6:30 PM INVESTMENT CONSULTANT 03/18/2024 6:38 PM INVESTMENT CONSULTANT us Darlyn Herring MD LAB BLOOD ORDERABLES Final Result Performing Organization Address City/[facility] Co de Phone Number DAYO [address] [place] [address] * Magnesium (03/18/2024 6:30 PM INVESTMENT CONSULTANT) Pathologist [facility] Magnesium 2.3 1.4 - 2.5 mg/dL Blood 03/18/2024 6:30 PM INVESTMENT CONSULTANT 03/18/2024 6:38 PM INVESTMENT CONSULTANT us Darlyn Herring MD LAB BLOOD ORDERABLES Final Result Performing Organization Address [facility] Phone Number [address] [place] [address] * eGFR (03/18/2024 12:35 PM INVESTMENT CONSULTANT) eGFR >90 >=60 mL/min/1. 73 m2 Comment: Interpretive Data Reference Interval Normal >/= 90 mL/min/1.73m2 Mildly decreased* 60 - 89 mL/min/1.73m2 Mildly to moderately decreased 45 - 59 mL/min/1.73m2 Moderately to severely decreased 30 - 44 mL/min/1.73m2 Severely decreased 15 - 29 mL/min/1.73m2 Kidney Failure < 15 mL/min/1.73m2 *Relative to young adult level Estimated glomerular [...] reviewed 2021. Blood 03/18/2024 12:3 5 PM INVESTMENT CONSULTANT 03/18/2024 1:09 PM INVESTMENT CONSULTANT us Darlyn Herring MD LAB BLOOD ORDERABLES Final Result [facility] [address] [facility] Department [place] [address] * (ABNORMAL) Differential, auto (03/18/2024 12:35 PM INVESTMENT CONSULTANT) Neutrophil abs 6.4 1.5 - 6.5 K/cumm Imm gran abs 0.3(H) 0.0 - 0.1 K/cumm [facility] Lymphocyte abs 1.7 0.8 - 3.3 K/cumm [facility] Monocyte abs 1.0(H) 0.2 - 0.8 K/cumm [facility] Eosinophil abs 0.3 0.0 - 0.5 K/cumm [facility] Basophil abs 0.1 0.0 - 0.1 K/cumm [facility] Neutrophil pct 66.1 % [facility] Comment: Interpretive Data Percent cell count reference ranges are not reported, since discordance with absolute values may lead to misinterpretation of CBC data. Current Interpretive Data was last revised on 2017. Imm gran pct 2.7 % [facility] Comment: Interpretive Data Percent cell count reference ranges are not reported, since discordance with absolute values may lead to misinterpretation of CBC data. Current Interpretive Data was last revised on 2017. Lymphocyte pct 17.0 % [facility] Comment: Interpretive Data Percent cell count reference ranges are not reported, since discordance with absolute values may lead to misinterpretation of CBC data. Current Interpretive Data was last revised on 2017. Monocyte pct 10.5 % [facility] Comment: Interpretive Data Percent cell count reference ranges are not reported, since discordance with absolute values may lead to misinterpretation of CBC data. Current Interpretive Data was last revised on 2017. Eosinophil pct 3.2 % [facility] Comment: Interpretive Data Percent cell count reference ranges are not reported, since discordance with absolute values may lead to misinterpretation of CBC data. Current Interpretive Data was last revised on 2017. Basophil pct 0.5 % [facility] Comment: Interpretive Data Percent cell count reference ranges are not reported, since discordance with absolute values may lead to misinterpretation of CBC data. Current Interpretive Data was last revised on 2017. Blood 03/18/2024 12:3 5 PM INVESTMENT CONSULTANT 03/18/2024 1:09 PM INVESTMENT CONSULTANT us Darlyn Herring MD LAB BLOOD ORDERABLES Final Result [place] [id number] [facility] Department [place] [address] * (ABNORMAL) CBC with auto differential (03/18/2024 12:35 PM INVESTMENT CONSULTANT) WBC 9.7 3.8 - 9.9 K/cumm Hgb 9.9(L) 13.0 - 17.5 g/dL [facility] Hct 31.3(L) 38.9 - 50.3 % [facility] Plt 287 150 - 400 K/cumm [facility] MPV 11.4 9.1 - 12.3 fL [facility] RBC 3.56(L) 4.30 - 5.80 M/cumm [facility] MCV 87.9 81.3 - 96.4 fL [facility] MCH 27.8 27.1 - 33.3 pg [facility] MCHC 31.6(L) 32.3 - 35.7 g/dL [facility] RDW CV 14.3 11.1 - 14.9 % [facility] RDW SD 46.2 35.7 - 48.1 fL [facility] NRBC abs 0.02(H) 0.00 - 0.01 K/cumm [facility] Blood 03/18/2024 12:3 5 PM INVESTMENT CONSULTANT 03/18/2024 1:09 PM INVESTMENT CONSULTANT Darlyn Herring MD LAB BLOOD ORDERABLES Final Result Performing Organization Address City/State/[facility] Co de Phone Number DAYO [address] [facility] [place] [address] * (ABNORMAL) Basic metabolic panel (03/18/2024 12:35 PM INVESTMENT CONSULTANT) Pathologist [facility] Sodium 139 135 - 145 mmol/L Potassium, pl 3.5 3.3 - 4.9 mmol/L [facility] Chloride 98 97 - 110 mmol/L [facility] CO2 35(H) 22 - 32 mmol/L [facility] Anion gap 6 2 - 15 mmol/L [facility] BUN 9 6 - 25 mg/dL [facility] Creatinine 0.96 0.80 - 1.30 mg/dL [facility] Glucose 96 70 - 199 mg/dL [facility] Comment: Interpretive Data Fasting glucose >/= 126 mg/dl is diagnostic for diabetes. Fasting is defined as no caloric intake [...] 2022. Calcium 9.1 8.5 - 10.3 mg/dL [facility] Blood 03/18/2024 12:3 5 PM INVESTMENT CONSULTANT 03/18/2024 1:09 PM INVESTMENT CONSULTANT Darlyn Herring MD LAB BLOOD ORDERABLES Final Result Performing Organization Address City/[facility] Co de Phone Number [facility] [address] [facility] [place] [address] * Blood culture Blood (03/18/2024 1:44 AM INVESTMENT CONSULTANT) Pathologist [facility] Report Final Report: No growth Comment:Testing performed by : [facility], [address] [facility], [place]., [address] Blood 03/18/2024 1:44 AM INVESTMENT CONSULTANT 03/18/2024 4:03 AM INVESTMENT CONSULTANT Yasir GODOY - 03/22/2024 7:00 AM INVESTMENT CONSULTANT From a different site than #1. Collection->Peripheral 1. Blood cultures are incubated for 4 days on a continuously monitored blood culture system. The first report of a negative culture is issued within 24 hours of receipt of the specimen in the laboratory. 2. Positive culture results are reported as soon as they are detected. 3. The most important factor for detection of microbes in the setting of bloodstream infection is the volume of blood submitted for culture. Failure to collect an optimal blood volume can result in false negative blood cultures. 4. For pediatric patients, the recommended blood volume to collect follows a weight based strategy. See the electronic test catalog for collection instructions. 5. For positive blood cultures, a rapid molecular test [...] performance characteristics have been verified by the [facility]. For questions about this culture, contact the Microbiology Laboratory at [phone]. Interpretive data was last revised on 24. Cony Mcgill NP LAB MICROBIOLOGY - [facility] ORDERABLES Final Result [facility] GODOY [address] [facility] Department [place] [address] * eGFR (03/18/2024 1:40 AM INVESTMENT CONSULTANT) eGFR 85 >=60 mL/min/1. 73 m2 Comment: Interpretive Data Reference Interval Normal >/= 90 mL/min/1.73m2 Mildly decreased* 60 - 89 mL/min/1.73m2 Mildly to moderately decreased 45 - 59 mL/min/1.73m2 Moderately to severely decreased 30 - 44 mL/min/1.73m2 Severely decreased 15 - 29 mL/min/1.73m2 Kidney Failure < 15 mL/min/1.73m2 *Relative to young adult level Estimated glomerular filtration rate is determined by the 2020 CKD-EPI equation recommended by the National Kidney Foundation (A Unifying Approach to GFR Estimation: Recommendations of the NKF-ASK Task Force on Reassessing the Inclusion of Race in Diagnosing Kidney Disease, JASN 202). The CKD-EPI equation should not be used for patients with unstable renal function and has not been validated in children and those over 70. Current interpretive data was last reviewed 2021. Blood 03/18/2024 1:40 AM INVESTMENT CONSULTANT 03/18/2024 2:23 AM INVESTMENT CONSULTANT Cony Mcgill NP LAB BLOOD ORDERABLES Fi nal Result [place] [id number] [facility] Department [place] [address] * (ABNORMAL) Differential, auto (03/18/2024 1:40 AM INVESTMENT CONSULTANT) Neutrophil abs 7.5(H) 1.5 - 6.5 K/cumm Imm gran abs 0.3(H) 0.0 - 0.1 K/cumm [facility] Lymphocyte abs 1.8 0.8 - 3.3 K/cumm [facility] Monocyte abs 0.9(H) 0.2 - 0.8 K/cumm [facility] Eosinophil abs 0.4 0.0 - 0.5 K/cumm [facility] Basophil abs 0.1 0.0 - 0.1 K/cumm [facility] Neutrophil pct 68.4 % [facility] Comment: Interpretive Data Percent cell count reference ranges are not reported, since discordance with absolute values may lead to misinterpretation of CBC data. Current Interpretive Data was last revised on 2017. Imm gran pct 2.6 % [facility] Comment: Interpretive Data Percent cell count reference ranges are not reported, since discordance with absolute values may lead to misinterpretation of CBC data. Current Interpretive Data was last revised on 2017. Lymphocyte pct 16.3 % [facility] Comment: Interpretive Data Percent cell count reference ranges are not reported, since discordance with absolute values may lead to misinterpretation of CBC data. Current Interpretive Data was last revised on 2017. Monocyte pct 8.3 % [facility] Comment: Interpretive Data Percent cell count reference ranges are not reported, since discordance with absolute values may lead to misinterpretation of CBC data. Current Interpretive Data was last revised on 2017. Eosinophil pct 3.9 % [facility] Comment: Interpretive Data Percent cell count reference ranges are not reported, since discordance with absolute values may lead to misinterpretation of CBC data. Current Interpretive Data was last revised on 2017. Basophil pct 0.5 % [facility] Comment: Interpretive Data Percent cell count reference ranges are not reported, since discordance with absolute values may lead to misinterpretation of CBC data. Current Interpretive Data was last revised on 2017. Blood 03/18/2024 1:40 AM INVESTMENT CONSULTANT 03/18/2024 2:23 AM INVESTMENT CONSULTANT us Cony Mcgill CHIEF DIGITAL MEDIA OFFICER LAB BLOOD ORDERABLES [facility] Result [place] [id number] [facility] Department [place] [address] * (ABNORMAL) CBC with auto differential (03/18/2024 1:40 AM INVESTMENT CONSULTANT) WBC 10.9(H) 3.8 - 9.9 K/cumm Hgb 9.8(L) 13.0 - 17.5 g/dL [facility] Hct 31.2(L) 38.9 - 50.3 % [facility] Plt 277 150 - 400 K/cumm [facility] MPV 12.3 9.1 - 12.3 fL [facility] RBC 3.53(L) 4.30 - 5.80 M/cumm [facility] MCV 88.4 81.3 - 96.4 fL [facility] MCH 27.8 27.1 - 33.3 pg [facility] MCHC 31.4(L) 32.3 - 35.7 g/dL [facility] RDW CV 14.4 11.1 - 14.9 % BUTCHAMANDA RDW SD 46.1 35.7 - 48.1 fL [facility] NRBC abs 0.06(H) 0.00 - 0.01 K/cumm [facility] Blood 03/18/2024 1:40 AM INVESTMENT CONSULTANT 03/18/2024 2:23 AM INVESTMENT CONSULTANT Cony Mcgill CHIEF DIGITAL MEDIA OFFICER LAB BLOOD ORDERABLES Fi nal Result [place] [address] [facility] Department [place] [address] * Blood culture Blood (03/18/2024 1:40 AM INVESTMENT CONSULTANT) Report Final Report: No growth Comment:Testing performed by : [facility], [address] [facility] [place] [address] Blood 03/18/2024 1:40 AM INVESTMENT CONSULTANT 03/18/2024 4:03 AM INVESTMENT CONSULTANT Narrative [facility] - 03/22/2024 7:00 AM INVESTMENT CONSULTANT Collection->Peripheral 1. Blood cultures are incubated for 4 days on a continuously monitored blood culture system. The first report of a negative culture is issued within 24 hours of receipt of the specimen in the laboratory. 2. Positive culture results are reported as soon as they are detected. 3. The most important factor for detection of microbes in the setting of bloodstream infection is the volume of blood submitted for culture. Failure to collect an optimal blood volume can result in false negative blood cultures. 4. For pediatric patients, the recommended blood volume to collect follows a weight based strategy. See the electronic test catalog for collection instructions. 5. For positive blood cultures, a rapid molecular test [...] performance characteristics have been verified by the [facility]. For questions about this culture, contact the Microbiology Laboratory at [phone]. Interpretive data was last revised on 24. us Cony Mcgill NP LAB MICROBIOLOGY - GENE RAL ORDERABLES Final Result Performing Organization Address City/[facility] Co de Phone Number [address] [place] [address] * (ABNORMAL) Erythrocyte sedimentation rate (03/18/2024 1:40 AM INVESTMENT CONSULTANT) Erythrocyte sedimentation rate 79(H) 1 - 20 mm/hr Blood 03/18/2024 1:40 AM INVESTMENT CONSULTANT 03/18/2024 2:23 AM INVESTMENT CONSULTANT us Cony Mcgill NP LAB BLOOD ORDERABLES Fi nal Result Performing Organization Address [facility] de Phone Number [address] [place] [address] * (ABNORMAL) CRP (acute phase) (03/18/2024 1:40 AM INVESTMENT CONSULTANT) CRP 134.0(H) <=10.0 mg/L Blood 03/18/2024 1:40 AM INVESTMENT CONSULTANT 03/18/2024 2:23 AM INVESTMENT CONSULTANT us Cony Mcgill NP LAB BLOOD ORDERABLES Fi nal Result Performing Organization Address [facility] de Phone Number [address] [place] [address] * Phosphorus (03/18/2024 1:40 AM INVESTMENT CONSULTANT) Phosphorus, pl 2.8 2.3 - 4.5 mg/dL Blood 03/18/2024 1:40 AM INVESTMENT CONSULTANT 03/18/2024 2:23 AM INVESTMENT CONSULTANT us Cony Mcgill NP LAB BLOOD ORDERABLES Fi nal Result Performing Organization Address [facility] Co de Phone Number CERNER [address] [address] * Magnesium (03/18/2024 1:40 AM INVESTMENT CONSULTANT) Pathologist [facility] Magnesium 2.1 1.4 - 2.5 mg/dL Blood 03/18/2024 1:40 AM INVESTMENT CONSULTANT 03/18/2024 2:23 AM INVESTMENT CONSULTANT us Cony Mcgill CHIEF DIGITAL MEDIA OFFICER LAB BLOOD ORDERABLES Fi nal Result Performing Organization Address [facility] de Phone Number [address] [address] * (ABNORMAL) Hemoglobin A1c (03/18/2024 1:40 AM INVESTMENT CONSULTANT) [facility] Hgb A1C 6.2(H) 4.0 - 5.6 % Estimated Average Glucose 131 mg/dL [facility] Comment: The ADA recommends reporting an estimated Average Glucose (eAG) with all Hemoglobin A1c results using the equation derived from a study of 507 normal and diabetic adults. Minority populations were underrepresented and children were not included. (Diabetes Care 31:6304-0149, 2008). The eAG is not equivalent to a fasting glucose. Blood 03/18/2024 1:40 AM INVESTMENT CONSULTANT 03/18/2024 2:23 AM INVESTMENT CONSULTANT us Cony Mcgill CHIEF DIGITAL MEDIA OFFICER LAB BLOOD ORDERABLES Fi nal Result Performing Organization Address [facility] de Phone Number [address] [address] * Creatine kinase (CK), total (03/18/2024 1:40 AM INVESTMENT CONSULTANT) [facility] CK 60 40 - 300 Units/L Blood 03/18/2024 1:40 AM INVESTMENT CONSULTANT 03/18/2024 2:23 AM INVESTMENT CONSULTANT us Cony Mcgill CHIEF DIGITAL MEDIA OFFICER LAB BLOOD ORDERABLES Fi nal Result Performing Organization Address [facility]/State/ZIP Co de Phone Number [facility] [address] [facility] Department [place] [address] * (ABNORMAL) Lipid panel (03/18/2024 1:40 AM INVESTMENT CONSULTANT) Cholesterol 142 30 - 199 mg/dL Comment: Interpretive Data Ages < or = 19 years Acceptable: <170 mg/dL Borderline high: 170-199 mg/dL High: >or= 200 mg/dL Ages > or = 20 years Desirable: <200 mg/dL Borderline high: 200-239 mg/dL High: >or= 240 mg/dL Literature References: 1. Expert Panel on Integrated Guidelines for Cardiovascular Health and Risk Reduction in Children and Adolescents. Pediatrics 2011;128:S213 2. NCEP Expert Panel. Circulation 2004;110:227 Current Interpretive Data was last revised on 2017. Triglycerides 96 <=149 mg/dL [facility] Comment: Interpretive Data Ages < or = 9 years Acceptable: <75 mg/dL Borderline high: 75-99 mg/dL High: >or= 100 mg/dL Ages 10 to 20 years Acceptable: <90 mg/dL Borderline high: 90-129 mg/dL High: >or= 130 mg/dL Ages > or = 20 years Desirable: <150 mg/dL Borderline high: 150-199 mg/dL High: 200-499 mg/dL Very high: >or= 499 mg/dL Literature References: 1. Expert Panel on Integrated Guidelines for Cardiovascular Health and Risk Reduction in Children and Adolescents. Pediatrics 2011;128:S213 2. NCEP Expert Panel. Circulation 2004;110:227 Current Interpretive Data was last revised on 2017. HDL 22(L) >=40 mg/dL [facility] Comment: Interpretive Data Ages < or = 19 years Acceptable: >45 mg/dL Borderline low: 40-45 mg/dL Low: <40 mg/dL Ages > or = 20 years Desirable: >or= 60 mg/dL Low: <40 mg/dL Literature References: 1. Expert Panel on Integrated Guidelines for Cardiovascular Health and Risk Reduction in Children and Adolescents. Pediatrics 2011;128:S213 2. NCEP Expert Panel. Circulation 2004;110:227 Current Interpretive Data was last revised on 2017. LDL, calculated 102 <=129 mg/dL CER[facility]ANDA [facility]OY Comment: Interpretive Data Ages < or = 19 years Acceptable: <110 mg/dL Borderline high: 110-129 mg/dL High: >or= 130 mg/dL Ages > or = 20 years Optimal: <100 mg/dL Near optimal: 100-129 mg/dL Borderline high: 130-159 mg/dL High: >160 mg/dL Calculated using the [place] LDL-C estimating [...] on 2023. Non-HDL Cholesterol 120 mg/dL [place] [facility] Comment: Interpretive Data Ages < or = 19 years Acceptable: <120 mg/dL Borderline high: 120-144 mg/dL High: >145 mg/dL Ages > or = 20 years When triglycerides are >200 mg/dL, Non-HDL cholesterol is a secondary target of therapy with treatment goals that are 30 mg/dL greater than the LDL cholesterol target. Literature References: 1. Expert Panel on Integrated Guidelines for Cardiovascular Health and Risk Reduction in Children and Adolescents. Pediatrics 2011;128:S213 2. NCEP Expert Panel. Circulation 2004;110:227 Current Interpretive Data was last revised on 2017. Chol/HDL ratio 6 [place] [facility] Blood 03/18/2024 1:40 AM INVESTMENT CONSULTANT 03/18/2024 2:23 AM INVESTMENT CONSULTANT us Cony Mcgill NP LAB BLOOD ORDERABLES [facility] Result [place] [address] [facility] Department [place] [address] * (ABNORMAL) Comprehensive metabolic panel (03/18/2024 1:40 AM INVESTMENT CONSULTANT) Sodium 141 135 - 145 mmol/L Potassium, pl 3.0(L) 3.3 - 4.9 mmol/L [facility] Chloride 96(L) 97 - 110 mmol/L [facility] CO2 35(H) 22 - 32 mmol/L [facility] Anion gap 10 2 - 15 mmol/L [facility] BUN 9 6 - 25 mg/dL [facility] Creatinine 1.05 0.80 - 1.30 mg/dL [facility] Glucose 106 70 - 199 mg/dL [facility] Comment: Interpretive Data Fasting glucose >/= 126 mg/dl is diagnostic for diabetes. Fasting is defined as no caloric intake [...] 2022. Calcium 9.0 8.5 - 10.3 mg/dL [facility] Bilirubin, total 0.2 0.1 - 1.2 mg/dL [facility] Protein, pl 7.2 6.5 - 8.5 g/dL [facility] Albumin 3.4(L) 3.5 - 5.0 g/dL [facility] Alk phos 81 40 - 130 Units/L [facility] ALT 31 7 - 55 Units/L [facility] AST 25 10 - 50 Units/L [facility] Blood 03/18/2024 1:40 AM INVESTMENT CONSULTANT 03/18/2024 2:23 AM INVESTMENT CONSULTANT us Cony Mcgill NP LAB BLOOD ORDERABLES Fi nal Result [place] [address] [facility] Department [place] [address] * US Outside Reference (03/17/2024 5:05 AM INVESTMENT CONSULTANT) Narrative [email or web address] - 04/02/2024 2:34 PM INVESTMENT CONSULTANT This order has been auto-finalized and does not contain a result. us Provider Transcribed Order IMG US PROCEDURES Fin al Result Performing Organization Address [facility] de Phone Number [email or web address] * CT Body Outside Reference (03/15/2024 2:00 PM INVESTMENT CONSULTANT) Narrative RAD_[email or web address] - 04/02/2024 2:34 PM INVESTMENT CONSULTANT This order has been auto-finalized and does not contain a result. us Provider Transcribed Order IMG CT PROCEDURES Fin al Result Performing Organization Address [facility] de Phone Number [email or web address] * US Outside Reference (03/15/2024 11:45 AM INVESTMENT CONSULTANT) Narrative RAD_ELIZABETHB_JAYNEE - 04/02/2024 2:34 PM INVESTMENT CONSULTANT This order has been auto-finalized and does not contain a result. us Provider Transcribed Order IMG US PROCEDURES Fin al Result Performing Organization Address [facility] de Phone Number [email or web address] * US Outside Reference (03/15/2024 6:05 AM INVESTMENT CONSULTANT) Narrative RAD_ELIZABETHB_JAYNEE - 04/02/2024 2:34 PM INVESTMENT CONSULTANT This order has been auto-finalized and does not contain a result. us Provider Transcribed Order IMG US PROCEDURES Fin al Result Performing Organization Address [facility] de Phone Number [email or web address] * XR Outside Reference (03/13/2024 4:20 PM INVESTMENT CONSULTANT) Narrative RAD_[email or web address] - 04/02/2024 2:34 PM INVESTMENT CONSULTANT This order has been auto-finalized and does not contain a result. us Provider Transcribed Order IMG XR PROCEDURES Fin al Result Performing Organization Address [facility] Co de Phone Number [email or web address] * US Outside Reference (03/13/2024 4:05 PM INVESTMENT CONSULTANT) Narrative RAD_ELIZABETHB_MHE - 04/02/2024 2:34 PM INVESTMENT CONSULTANT This order has been auto-finalized and does not contain a result. us Provider Transcribed Order IMG US PROCEDURES Fin al Result Performing Organization Address [facility] de Phone Number [email or web address] * US Outside Reference (03/13/2024 2:20 PM INVESTMENT CONSULTANT) Narrative RAD_[email or web address]_MHE - 04/02/2024 3:02 PM INVESTMENT CONSULTANT This order has been auto-finalized and does not contain a result. us Provider Transcribed Order IMG US PROCEDURES Fin al Result Performing Organization Address [facility] Co de Phone Number [email or web address] * Neuro CT Outside Reference (03/12/2024 1:30 PM INVESTMENT CONSULTANT) Narrative RAD_[email or web address]_MHE - 04/02/2024 2:34 PM INVESTMENT CONSULTANT This order has been auto-finalized and does not contain a result. us Provider Transcribed Order IMG CT PROCEDURES Fin al Result Performing Organization Address [facility] Co de Phone Number [email or web address] * CT Body Outside Reference (03/12/2024 1:25 PM INVESTMENT CONSULTANT) Narrative RAD_[email or web address]_MHE - 04/02/2024 2:34 PM INVESTMENT CONSULTANT This order has been auto-finalized and does not contain a result. us Provider Transcribed Order IMG CT PROCEDURES Fin al Result Performing Organization Address [facility] de Phone Number [email or web address] * CT Body Outside Reference (03/12/2024 12:25 PM INVESTMENT CONSULTANT) Narrative RADANDERSON_JAYNEE - 04/02/2024 2:34 PM INVESTMENT CONSULTANT This order has been auto-finalized and does not contain a result. us Provider Transcribed Order IMG CT PROCEDURES Fin al Result Performing Organization Address [facility] de Phone Number RAD_[email or web address] * CT Body Outside Reference (03/12/2024 12:20 PM INVESTMENT CONSULTANT) Narrative RAD_KADY_MHE - 04/02/2024 2:34 PM INVESTMENT CONSULTANT This order has been auto-finalized and does not contain a result. us Provider Transcribed Order IMG CT PROCEDURES Fin al Result Performing Organization Address [facility] de Phone Number RADLUIS_[email or web address] * US Outside Reference (03/11/2024 10:25 AM INVESTMENT CONSULTANT) Narrative RAD_MAIK_JESSENIA_JAYNEE - 04/02/2024 2:34 PM INVESTMENT CONSULTANT This order has been auto-finalized and does not contain a result. us Provider Transcribed Order IMG US PROCEDURES Fin al Result Performing Organization Address [facility] de Phone Number [email or web address] * XR Outside Reference (03/11/2024 10:15 AM INVESTMENT CONSULTANT) Narrative RAD_[email or web address]_MHE - 04/02/2024 2:34 PM INVESTMENT CONSULTANT This order has been auto-finalized and does not contain a result. us Provider Transcribed Order IMG XR PROCEDURES Fin al Result RAD_[email or web address] from Last 3 Months Insurance [facility] CHO[employer] [facility] HMO/PPO Address: [facility] [address] [place] [address] Advance Directives For more information, please contact: [phone] * Full Code (Latest Code Status on File) Date Activated Date Inactivated Comments 03/18/2024 12:08 AM 03/20/2024 9:57 PM Care Teams Dry Cleaning Counter Clerk Relationship Specialty Start Date End Date Juanito Moralez MD [address] [address] PCP - General Family Medicine 03/18/24 Arianne Jhaveri [address] [place] [id number] Cardiothoracic Surgery 03/20/24
--- OUTSIDE RECORDS SUMMARY | 2024-05-15 10:06 | XMS_ITS | Continuity of Care Document ---
Author Organization [facility] Address [address] [place] [address] [address] [place] [address] Phone Care Team Providers Care Java Developer Name Role Phone Angela Solares Unavailable Unavailable Procedures Procedure Date Eye Exam, New Patient Advance Directives Directive Yes / No Effective Date File Name No Information Encounters Encounter Description Practice Location Reason(s) For Visit Diagnoses Date Provider Providers Copied on Encounter [facility], [address] [place] [address] [address], [place], [place], [id number], [place] tel:[phone] [facility] No Information [address] Sujatha Miller. [address] , [address], [place], [address], [place]. tel:[phone] Family History Family Member Type Diagnosis Age At Onset No Information Payers Payer name Insurance type Covered republican ID Authoriza tion(s) SHERLEY Coles [id number] Social History Type Description Quantity Date Captured [...]
--- OUTSIDE RECORDS SUMMARY | 2024-05-15 10:06 | XMS_ITS | Referral Summary ---
Author Organization [facility], formerly [facility] Address [address] [place] [address] Care Team Providers Care Global Marketing Intern Name Role Phone Juanito Moralez MD Primary Care Provider [phone] Arianne Jhaveri Unavailable [phone] Encounters Date Type Department Care Team Description 03/17/2024 10:14 PM DIGESTER CAPPER - 03/20/2024 5:52 PM DIGESTER CAPPER Hospital Encounter [address] [address] [place], [place] Nima Oshea, MD Donna Santizo, Ismael Remy MD Cellulitis of right lower extremity (Primary Dx); Bradycardia Discharge Disposition: Discharge to home or self care 03/17/2024 5:05 AM DIGESTER CAPPER - 03/17/2024 11:59 PM DIGESTER CAPPER Hospital Encounter [facility] Outside [address] [place] [address] Discharge Disposition: Discharge to home or self care 03/15/2024 11:45 AM DIGESTER CAPPER - 03/15/2024 11:59 PM DIGESTER CAPPER Hospital Encounter [facility] Outside [address] [place] [address] Discharge Disposition: Discharge to home or self care 03/15/2024 2:00 PM DIGESTER CAPPER - 03/15/2024 11:59 PM DIGESTER CAPPER Hospital Encounter [facility] Outside [address] [place] [address] Discharge Disposition: Discharge to home or self care 03/15/2024 6:05 AM DIGESTER CAPPER - 03/15/2024 11:59 PM DIGESTER CAPPER Hospital Encounter [facility] Outside [place] [address] [place] [address] [address] Discharge Disposition: Discharge to home or self care 03/13/2024 2:20 PM DIGESTER CAPPER - 03/13/2024 11:59 PM DIGESTER CAPPER Hospital Encounter [facility] [employer] [address] [place] [address] [address] Discharge Disposition: Discharge to home or self care 03/13/2024 4:05 PM DIGESTER CAPPER - 03/13/2024 11:59 PM DIGESTER CAPPER Hospital Encounter [facility] [employer] [address] [place] [address] [address] Discharge Disposition: Discharge to home or self care 03/13/2024 4:20 PM DIGESTER CAPPER - 03/13/2024 11:59 PM DIGESTER CAPPER Hospital Encounter [facility] [employer] [address] [address] [address] Discharge Disposition: Discharge to home or self care 03/12/2024 12:20 PM DIGESTER CAPPER - 03/12/2024 11:59 PM DIGESTER CAPPER Hospital Encounter [facility] [employer] [address] [place] [address] [address] Discharge Disposition: Discharge to home or self care 03/12/2024 12:25 PM DIGESTER CAPPER - 03/12/2024 11:59 PM DIGESTER CAPPER Hospital Encounter [facility] [employer] [address] [place] [address] [address] Discharge Disposition: Discharge to home or self care 03/12/2024 1:30 PM DIGESTER CAPPER - 03/12/2024 11:59 PM DIGESTER CAPPER Hospital Encounter [facility] [employer] [address] [place] [address] Discharge Disposition: Discharge to home or self care 03/12/2024 1:25 PM DIGESTER CAPPER - 03/12/2024 11:59 PM DIGESTER CAPPER Hospital Encounter [facility] [employer] [address] [place] [address] [id number] Discharge Disposition: Discharge to home or self care 03/11/2024 10:15 AM DIGESTER CAPPER - 03/11/2024 11:59 PM DIGESTER CAPPER Hospital Encounter [facility] [employer] [address] [place] [address] [address] Discharge Disposition: Discharge to home or self care 03/11/2024 10:25 AM DIGESTER CAPPER - 03/11/2024 11:59 PM DIGESTER CAPPER Hospital Encounter [facility] [employer] [address] [place] [address] Discharge Disposition: Discharge to home or self [...] on file Legal Sex Male 1:49 PM DIGESTER CAPPER Gender Identity Not on file Sexual Orientation Not on file Last Filed Vital Signs Vital Sign Reading Time Taken Comments Blood Pressure 166/77 03/20/2024 3:51 PM DIGESTER CAPPER Pulse 89 03/20/2024 3:51 PM DIGESTER CAPPER Temperature 36.8 C (98.2 F) 03/20/2024 3:51 PM DIGESTER CAPPER Respiratory Rate 18 03/20/2024 3:51 PM DIGESTER CAPPER Oxygen Saturation 100% 03/20/2024 3:51 PM DIGESTER CAPPER Inhaled Oxygen Concentration - - Weight 113.4 kg (250 lb) 03/19/2024 4:00 PM DIGESTER CAPPER Height 165.1 cm (5' 5 ) 03/19/2024 4:00 PM DIGESTER CAPPER Body Mass Index 41.6 03/19/2024 4:00 PM DIGESTER CAPPER Plan of Treatment Not on file Procedures Procedure Name Priority Date/Time Associated Diagnosis Comments TRANSTHORACIC ECHO (TTE) COMPLETE W DOPPLER/CF W CONTRAST Routine 03/20/2024 1:47 PM DIGESTER CAPPER HOME O2 EVAL (DESATURATION SCREEN) Routine 03/20/2024 1:42 PM DIGESTER CAPPER EGFR Routine 03/20/2024 10:33 AM DIGESTER CAPPER DIFFERENTIAL AUTO Routine 03/20/2024 10: 33 AM DIGESTER CAPPER BASIC METABOLIC PANEL Routine 03/20/2024 10:33 AM DIGESTER CAPPER CBC WITH AUTO DIFFERENTIAL Routine 03/20/2024 10:33 AM DIGESTER CAPPER XR CHEST 1 VIEW IP Routine 03/19/2024 1:00 PM DIGESTER CAPPER LACTATE Timed 03/19/2024 8:53 AM DIGESTER CAPPER US VEIN DUPLEX LOWER EXTREMITY RIGHT LIMITED IP Routine 03/19/2024 8:26 AM DIGESTER CAPPER ECG 12-LEAD Routine 03/18/2024 6:33 PM DIGESTER CAPPER POTASSIUM LEVEL Routine 03/18/2024 6:30 PM DIGESTER CAPPER MAGNESIUM Routine 03/18/2024 6:30 PM DIGESTER CAPPER EGFR Routine 03/18/2024 12:35 PM DIGESTER CAPPER DIFFERENTIAL AUTO Routine 03/18/2024 12: 35 PM DIGESTER CAPPER CBC WITH AUTO DIFFERENTIAL Routine 03/18/2024 12:35 PM DIGESTER CAPPER BASIC METABOLIC PANEL Routine 03/18/2024 12:35 PM DIGESTER CAPPER BLOOD CULTURE STAT 03/18/2024 1:44 AM DIGESTER CAPPER EGFR STAT 03/18/2024 1:40 AM DIGESTER CAPPER LIPID PANEL STAT 03/18/2024 1:40 AM DIGESTER CAPPER DIFFERENTIAL AUTO STAT 03/18/2024 1:4 0 AM DIGESTER CAPPER HEMOGLOBIN A1C Routine 03/18/2024 1:40 AM DIGESTER CAPPER ERYTHROCYTE SEDIMENTATION RATE STAT 03/18/2024 1:40 AM DIGESTER CAPPER CRP (ACUTE PHASE) STAT 03/18/2024 1:4 0 AM DIGESTER CAPPER PHOSPHORUS STAT 03/18/2024 1:40 AM DIGESTER CAPPER MAGNESIUM STAT 03/18/2024 1:40 AM DIGESTER CAPPER CREATINE KINASE (CK), TOTAL STAT 03/18/2024 1:40 AM DIGESTER CAPPER COMPREHENSIVE METABOLIC PANEL STAT 03/18/2024 1:40 AM DIGESTER CAPPER CBC WITH AUTO DIFFERENTIAL STAT 03/18/2024 1:40 AM DIGESTER CAPPER BLOOD CULTURE STAT 03/18/2024 1:40 AM DIGESTER CAPPER US TRANSFER OF OUTSIDE FILMS Routine 03/17/2024 5:[address] BODY OUTSIDE REFERENCE Routine 03/15/2024 2:00 PM DIGESTER CAPPER US TRANSFER OF OUTSIDE FILMS Routine 03/15/2024 11:45 AM DIGESTER CAPPER US TRANSFER OF OUTSIDE FILMS Routine 03/15/2024 6:05 AM DIGESTER CAPPER XR TRANSFER OF OUTSIDE FILMS Routine 03/13/2024 4:20 PM DIGESTER CAPPER US TRANSFER OF OUTSIDE FILMS Routine 03/13/2024 4:05 PM DIGESTER CAPPER US TRANSFER OF OUTSIDE FILMS Routine 03/13/2024 2:20 PM DIGESTER CAPPER NEURO CT OUTSIDE REFERENCE Routine 03/12/2024 1:[address] BODY OUTSIDE REFERENCE Routine 03/12/2024 1:[address] BODY OUTSIDE REFERENCE Routine 03/12/2024 12:[address] BODY OUTSIDE REFERENCE Routine 03/12/2024 12:20 PM DIGESTER CAPPER US TRANSFER OF OUTSIDE FILMS Routine 03/11/2024 10:25 AM DIGESTER CAPPER XR TRANSFER OF OUTSIDE FILMS Routine 03/11/2024 10:15 AM DIGESTER CAPPER from Last 3 Months Results * TRANSTHORACIC ECHO (TTE) COMPLETE W DOPPLER/CF W CONTRAST (03/20/2024 1:47 PM DIGESTER CAPPER) Anatomical Region Laterality Modality Ultrasound 03/20/2024 1:29 PM DIGESTER CAPPER Narrative 03/20/2024 7:34 PM DIGESTER CAPPER Adult Echocardiogram + ----- + :Name: ARMAAN HURST Study Date: 03/20/2024 Status: B : : Patient Location: [address]^[id number]^Height: 65 in : : Weight: 250 lbBP: 142/77 mmHg: :: 1970 Gender: Male BSA: 2.2 m2 : :Reason For Study: cardiac arrhythmia : :Ordering Physician: KACEY, : :LOYDA : :Referring Physician: : :ZEINA VAZQUEZ : [...] Date: 03/20/2024Status: B : : Patient Location: [address]^[id number]^Height: 65 in : : : 250 lbBP: 142/77 mmHg: :: 1970 Gender: MaleBSA: 2.2 m2 : :Reason For Study: cardiac arrhythmia: :Ordering Physician: KACEY,: :LOYDA: :Referring Physician:: :ZEINA VAZQUEZ: :Performed By: Momo Carter,: :CLOTILDE RVT: + ----- + Procedure A two-dimensional [...] nal Result * eGFR (03/20/2024 10:33 AM DIGESTER CAPPER) eGFR >90 >=60 mL/min/1. 73 m2 Comment: [...] reviewed 2021. Blood 03/20/2024 10:3 3 AM DIGESTER CAPPER 03/20/2024 11:09 AM DIGESTER CAPPER Darlyn Herring MD LAB BLOOD ORDERABLES Final Result [facility] [address] [facility] Department [place] [address] * (ABNORMAL) Differential, auto (03/20/2024 10:33 AM DIGESTER CAPPER) Neutrophil abs 7.0(H) 1.5 - 6.5 K/cumm Imm gran abs 0.3(H) 0.0 - 0.1 K/cumm [facility] Lymphocyte abs 1.3 0.8 - 3.3 K/cumm [facility] Monocyte abs 0.6 0.2 - 0.8 K/cumm [facility] Eosinophil abs 0.4 0.0 - 0.5 K/cumm [facility] Basophil abs 0.0 0.0 - 0.1 K/cumm [facility] Neutrophil pct 73.0 % [facility] Comment: Interpretive Data Percent cell count reference ranges are not reported, since discordance with absolute values may lead to misinterpretation of CBC data. Current Interpretive Data was last revised on 2017. Imm gran pct 2.8 % [facility] Comment: Interpretive Data Percent cell count reference ranges are not reported, since discordance with absolute values may lead to misinterpretation of CBC data. Current Interpretive Data was last revised on 2017. Lymphocyte pct 13.1 % [facility] Comment: Interpretive Data Percent cell count reference ranges are not reported, since discordance with absolute values may lead to misinterpretation of CBC data. Current Interpretive Data was last revised on 2017. Monocyte pct 6.7 % [facility] Comment: Interpretive Data Percent cell count reference ranges are not reported, since discordance with absolute values may lead to misinterpretation of CBC data. Current Interpretive Data was last revised on 2017. Eosinophil pct 4.0 % [facility] Comment: Interpretive Data Percent cell count reference ranges are not reported, since discordance with absolute values may lead to misinterpretation of CBC data. Current Interpretive Data was last revised on 2017. Basophil pct 0.4 % [facility] Comment: Interpretive Data Percent cell count reference ranges are not reported, since discordance with absolute values may lead to misinterpretation of CBC data. Current Interpretive Data was last revised on 2017. Blood 03/20/2024 10:3 3 AM DIGESTER CAPPER 03/20/2024 11:09 AM DIGESTER CAPPER Darlyn Hrering MD LAB BLOOD ORDERABLES Final Result [facility] [address] [facility] Department [place] [address] * (ABNORMAL) CBC with auto differential (03/20/2024 10:33 AM DIGESTER CAPPER) WBC 9.6 3.8 - 9.9 K/cumm Hgb 10.0(L) 13.0 - 17.5 g/dL [facility] Hct 33.2(L) 38.9 - 50.3 % [facility] Plt 373 150 - 400 K/cumm [facility] MPV 11.6 9.1 - 12.3 fL [facility] RBC 3.69(L) 4.30 - 5.80 M/cumm [facility] MCV 90.0 81.3 - 96.4 fL [facility] MCH 27.1 27.1 - 33.3 pg [facility] MCHC 30.1(L) 32.3 - 35.7 g/dL [facility] RDW CV 14.4 11.1 - 14.9 % [facility] RDW SD 47.1 35.7 - 48.1 fL [facility] NRBC abs 0.00 0.00 - 0.01 K/cumm [facility] Blood 03/20/2024 10:3 3 AM DIGESTER CAPPER 03/20/2024 11:09 AM DIGESTER CAPPER us Darlyn Herring MD LAB BLOOD ORDERABLES Final Result [facility] [address] [facility] Department [place] [address] * (ABNORMAL) Basic metabolic panel (03/20/2024 10:33 AM DIGESTER CAPPER) Sodium 138 135 - 145 mmol/L Potassium, pl 3.4 3.3 - 4.9 mmol/L [facility] Chloride 96(L) 97 - 110 mmol/L [facility] CO2 35(H) 22 - 32 mmol/L [facility] Anion gap 7 2 - 15 mmol/L [facility] BUN 7 6 - 25 mg/dL [facility] Creatinine 0.83 0.80 - 1.30 mg/dL [facility] Glucose 170 70 - 199 mg/dL [facility] Comment: Interpretive Data Fasting glucose [...] 2022. Calcium 8.8 8.5 - 10.3 mg/dL [facility] Blood 03/20/2024 10:3 3 AM DIGESTER CAPPER 03/20/2024 11:09 AM DIGESTER CAPPER us Darlyn Herring MD LAB BLOOD ORDERABLES Final Result [facility] [address] [facility] Department [place] [address] * XR Chest 1 View (03/19/2024 1:00 PM DIGESTER CAPPER) Anatomical Region Laterality Modality Body, Chest N/A Computed Radiogr aphy 03/19/2024 3:40 PM DIGESTER CAPPER Narrative 03/19/2024 3:41 PM DIGESTER CAPPER EXAM DESCRIPTION: XR CHEST 1 VIEW REASON FOR STUDY: hypoxia Transfer from [facility] PMH/o COPD, chronic hypercarbic respiratory failure on 2 L home oxygen/wears at , HTN, HLD, mild diastolic dysfunction, and hx of DVT that initially presented to the ED at [facility] on 03/11/24 with c/o subjective fever, chills, [...] Ramesh Ramirez M.D. KR T: Report ID: [id number] Reading Location: [id number] Procedure Note Ramesh Ramirez MD - 03/19/2024 EXAM DESCRIPTION: XR CHEST 1 VIEW REASON FOR STUDY: hypoxia Transfer from OSH PMH/o COPD, chronic hypercarbic respiratory failure on 2L home oxygen/wears at HS, HTN, HLD, mild diastolic dysfunction, and hx ofDVT that initially presented to the ED at [facility] on 03/11/24 withc/o subjective fever, chills, swollen/painful lymph nodes in groin and right knee pain. Pt endorsed having similar symptoms about 3 months ago with his left knee/cellulitis and abscess; and was treated for possible meningitis until CSF/culture negative. Hx of bilateral knee replacement [id number]; endorsed having revision to right knee due [...] Ramesh Ramirez M.D. KR T: Report ID: [id number] Reading Location: [place] [address] Darlyn Herring MD IMG XR PROCEDURES Final Re sult * Lactate (03/19/2024 8:53 AM DIGESTER CAPPER) Lactate 1.3 0.7 - 2.0 mmol/L Blood 03/19/2024 8:53 AM DIGESTER CAPPER 03/19/2024 9:01 AM DIGESTER CAPPER Darlyn Herring MD LAB BLOOD ORDERABLES Final Result [facility] [address] [facility] Department [place] [address] * US VEIN DUPLEX LOWER EXTREMITY RIGHT LIMITED, UNILATERAL (03/19/2024 8:26 AM DIGESTER CAPPER) Anatomical Region Laterality Modality Vascular Right Ultrasound 03/19/2024 Narrative 03/25/2024 1:28 PM DIGESTER CAPPER [employer] Job ID: [id number] [employer] Document ID: [id number] Dictated date/time: LOWER EXTREMITY VENOUS DUPLEX REASON FOR EXAM Pain. FINDINGS The veins throughout the right lower extremity show spontaneous and phasic flow with normal augmentation. All veins are competent and compressible. The left common femoral vein show normal flow compressibility as well. OVERALL IMPRESSION Negative for deep venous thrombosis, right lower extremity and left common femoral vein. Job ID/Internal Job ID: [id number] Shivani Metcalf MD IMG US PROCEDURES Final Result * ECG 12 lead (03/18/2024 6:33 PM DIGESTER CAPPER) Pathologist [facility] Ventricular Rate EKG/Min 71 BPM [facility] Atrial Rate 71 BPM [facility] AL-Interval (MSEC) 176 ms [facility] QRS-Interval (MSEC) 94 ms [facility] QT-Interval (MSEC) 408 ms [facility] QTc 443 ms [facility] P Sherrill 22 degrees [facility] R [place]rill 24 degrees [facility] T Sherrill 13 degrees [facility] Diagnosis Normal sinus rhythm Normal ECG No previous ECGs available Confirmed by AZEEM POLLARD M.D. ([id number]) on 03/22/2024 9:40:22 AM [facility] 03/18/2024 6:33 PM DIGESTER CAPPER 03/22/2024 9:40 AM DIGESTER CAPPER Darlyn Herring MD ECG ORDERABLES Final Resu lt Performing Organization Address City/[facility] Co de Phone Number [facility] * Potassium (03/18/2024 6:30 PM DIGESTER CAPPER) Pathologist [facility] Potassium, pl 3.6 3.3 - 4.9 mmol/L Blood 03/18/2024 6:30 PM DIGESTER CAPPER 03/18/2024 6:38 PM DIGESTER CAPPER Darlyn Herring MD LAB BLOOD ORDERABLES Final Result Performing Organization Address City/[facility]/ZIP Co de Phone Number [facility] [address] [place] [address] * Magnesium (03/18/2024 6:30 PM DIGESTER CAPPER) Pathologist [facility] Magnesium 2.3 1.4 - 2.5 mg/dL Blood 03/18/2024 6:30 PM DIGESTER CAPPER 03/18/2024 6:38 PM DIGESTER CAPPER Darlyn Herring MD LAB BLOOD ORDERABLES Final Result Performing Organization Address [facility] Co de Phone Number [facility] [place] [address] * eGFR (03/18/2024 12:35 PM DIGESTER CAPPER) Pathologist [facility] eGFR >90 >=60 mL/min/1. 73 m2 Comment: [...] reviewed 2021. Blood 03/18/2024 12:3 5 PM DIGESTER CAPPER 03/18/2024 1:09 PM DIGESTER CAPPER us Darlyn Herring MD LAB BLOOD ORDERABLES Final Result Performing Organization Address [facility] Co de Phone Number [facility] [address] [place] [address] * (ABNORMAL) Differential, auto (03/18/2024 12:35 PM DIGESTER CAPPER) Pathologist [facility] Neutrophil abs 6.4 1.5 - 6.5 K/cumm Imm gran abs 0.3(H) 0.0 - 0.1 K/cumm [facility] Lymphocyte abs 1.7 0.8 - 3.3 K/cumm [facility] Monocyte abs 1.0(H) 0.2 - 0.8 K/cumm [facility] Eosinophil abs 0.3 0.0 - 0.5 K/cumm [facility] Basophil abs 0.1 0.0 - 0.1 K/cumm [facility] Neutrophil pct 66.1 % [facility] Comment: Interpretive Data Percent cell count reference ranges are not reported, since discordance with absolute values may lead to misinterpretation of CBC data. Current Interpretive Data was last revised on 2017. Imm gran pct 2.7 % [facility] Comment: Interpretive Data Percent cell count reference ranges are not reported, since discordance with absolute values may lead to misinterpretation of CBC data. Current Interpretive Data was last revised on 2017. Lymphocyte pct 17.0 % [facility] Comment: Interpretive Data Percent cell count reference ranges are not reported, since discordance with absolute values may lead to misinterpretation of CBC data. Current Interpretive Data was last revised on 2017. Monocyte pct 10.5 % [facility] Comment: Interpretive Data Percent cell count reference ranges are not reported, since discordance with absolute values may lead to misinterpretation of CBC data. Current Interpretive Data was last revised on 2017. Eosinophil pct 3.2 % [facility] Comment: Interpretive Data Percent cell count reference ranges are not reported, since discordance with absolute values may lead to misinterpretation of CBC data. Current Interpretive Data was last revised on 2017. Basophil pct 0.5 % [facility] Comment: Interpretive Data Percent cell count reference ranges are not reported, since discordance with absolute values may lead to misinterpretation of CBC data. Current Interpretive Data was last revised on 2017. Blood 03/18/2024 12:3 5 PM DIGESTER CAPPER 03/18/2024 1:09 PM DIGESTER CAPPER Darlyn Herring MD LAB BLOOD ORDERABLES Final Result Performing Organization Address [facility] de Phone Number [address] [address] * (ABNORMAL) CBC with auto differential (03/18/2024 12:35 PM DIGESTER CAPPER) [facility] WBC 9.7 3.8 - 9.9 K/cumm Hgb 9.9(L) 13.0 - 17.5 g/dL [facility] Hct 31.3(L) 38.9 - 50.3 % [facility] Plt 287 150 - 400 K/cumm [facility] MPV 11.4 9.1 - 12.3 fL [facility] RBC 3.56(L) 4.30 - 5.80 M/cumm [facility] MCV 87.9 81.3 - 96.4 fL [facility] MCH 27.8 27.1 - 33.3 pg [facility] MCHC 31.6(L) 32.3 - 35.7 g/dL [facility] RDW CV 14.3 11.1 - 14.9 % [facility] RDW SD 46.2 35.7 - 48.1 fL [facility] NRBC abs 0.02(H) 0.00 - 0.01 K/cumm [facility] Blood 03/18/2024 12:3 5 PM DIGESTER CAPPER 03/18/2024 1:09 PM DIGESTER CAPPER Darlyn Herring MD LAB BLOOD ORDERABLES Final Result Performing Organization Address [facility] Co de Phone Number [address] [address] * (ABNORMAL) Basic metabolic panel (03/18/2024 12:35 PM DIGESTER CAPPER) [facility] Sodium 139 135 - 145 mmol/L Potassium, pl 3.5 3.3 - 4.9 mmol/L [facility] Chloride 98 97 - 110 mmol/L [facility] CO2 35(H) 22 - 32 mmol/L [facility] Anion gap 6 2 - 15 mmol/L [facility] BUN 9 6 - 25 mg/dL [facility] Creatinine 0.96 0.80 - 1.30 mg/dL [facility] Glucose 96 70 - 199 mg/dL [facility] Comment: Interpretive Data Fasting glucose [...] Calcium 9.1 8.5 - 10.3 mg/dL [facility] Blood 03/18/2024 12:3 5 PM DIGESTER CAPPER 03/18/2024 1:09 PM DIGESTER CAPPER Darlyn Herring MD LAB BLOOD ORDERABLES Final Result [facility] [address] [facility] Department [place] [address] * Blood culture Blood (03/18/2024 1:44 AM DIGESTER CAPPER) Report Final Report: No growth Comment:Testing performed by : [facility], [address] [facility], [place]., [address] Blood 03/18/2024 1:44 AM DIGESTER CAPPER 03/18/2024 4:03 AM DIGESTER CAPPER Narrative [facility] - 03/22/2024 7:00 AM DIGESTER CAPPER From a different site than #1. Collection->Peripheral [...] characteristics have been verified by the [facility] Microbiology Laboratory. For questions about this culture, contact the Microbiology Laboratory at [phone]. Interpretive data was last revised on 24. us Cony Mcgill NP LAB MICROBIOLOGY - GENE RAL ORDERABLES Final Result [facility] [address] [facility] Department of Laboratories [place], [place] [id number] * eGFR (03/18/2024 1:40 AM DIGESTER CAPPER) eGFR 85 >=60 mL/min/1. 73 m2 Comment: [...] last reviewed 2021. Blood 03/18/2024 1:40 AM DIGESTER CAPPER 03/18/2024 2:23 AM DIGESTER CAPPER us Cony L. Kustermann LOOM FIXER SUPERVISOR LAB BLOOD ORDERABLES Fi nal Result [facility] [address] [facility] Department [place] [address] * (ABNORMAL) Differential, auto (03/18/2024 1:40 AM DIGESTER CAPPER) Neutrophil abs 7.5(H) 1.5 - 6.5 K/cumm Imm gran abs 0.3(H) 0.0 - 0.1 K/cumm [facility] Lymphocyte abs 1.8 0.8 - 3.3 K/cumm [facility] Monocyte abs 0.9(H) 0.2 - 0.8 K/cumm [facility] Eosinophil abs 0.4 0.0 - 0.5 K/cumm [facility] Basophil abs 0.1 0.0 - 0.1 K/cumm [facility] Neutrophil pct 68.4 % [facility] Comment: Interpretive Data Percent cell count reference ranges are not reported, since discordance with absolute values may lead to misinterpretation of CBC data. Current Interpretive Data was last revised on 2017. Imm gran pct 2.6 % [facility] Comment: Interpretive Data Percent cell count reference ranges are not reported, since discordance with absolute values may lead to misinterpretation of CBC data. Current Interpretive Data was last revised on 2017. Lymphocyte pct 16.3 % [facility] Comment: Interpretive Data Percent cell count reference ranges are not reported, since discordance with absolute values may lead to misinterpretation of CBC data. Current Interpretive Data was last revised on 2017. Monocyte pct 8.3 % [facility] Comment: Interpretive Data Percent cell count reference ranges are not reported, since discordance with absolute values may lead to misinterpretation of CBC data. Current Interpretive Data was last revised on 2017. Eosinophil pct 3.9 % [facility] Comment: Interpretive Data Percent cell count reference ranges are not reported, since discordance with absolute values may lead to misinterpretation of CBC data. Current Interpretive Data was last revised on 2017. Basophil pct 0.5 % [facility] Comment: Interpretive Data Percent cell count reference ranges are not reported, since discordance with absolute values may lead to misinterpretation of CBC data. Current Interpretive Data was last revised on 2017. Blood 03/18/2024 1:40 AM DIGESTER CAPPER 03/18/2024 2:23 AM DIGESTER CAPPER Cony Mcgill LOOM FIXER SUPERVISOR LAB BLOOD ORDERABLES Fi nal Result Performing Organization Address City/[facility] Co de Phone Number [facility] [address] [place] [address] * (ABNORMAL) CBC with auto differential (03/18/2024 1:40 AM DIGESTER CAPPER) WBC 10.9(H) 3.8 - 9.9 K/cumm Hgb 9.8(L) 13.0 - 17.5 g/dL [facility] Hct 31.2(L) 38.9 - 50.3 % [facility] Plt 277 150 - 400 K/cumm [facility] MPV 12.3 9.1 - 12.3 fL [facility] RBC 3.53(L) 4.30 - 5.80 M/cumm [facility] MCV 88.4 81.3 - 96.4 fL [facility] MCH 27.8 27.1 - 33.3 pg [facility] MCHC 31.4(L) 32.3 - 35.7 g/dL [facility] RDW CV 14.4 11.1 - 14.9 % [facility] RDW SD 46.1 35.7 - 48.1 fL [facility] NRBC abs 0.06(H) 0.00 - 0.01 K/cumm [facility] Blood 03/18/2024 1:40 AM DIGESTER CAPPER 03/18/2024 2:23 AM DIGESTER CAPPER us Cony Mcgill LOOM FIXER SUPERVISOR LAB BLOOD ORDERABLES Fi nal Result Performing Organization Address City/[facility]/ZIP Co de Phone Number DAYO [address] [place] [address] * Blood culture Blood (03/18/2024 1:40 AM DIGESTER CAPPER) Report Final Report: No growth Comment:Testing performed by : [facility], [address] [facility], [place]., [address] Blood 03/18/2024 1:40 AM DIGESTER CAPPER 03/18/2024 4:03 AM DIGESTER CAPPER Narrative DAYO - 03/22/2024 7:00 AM DIGESTER CAPPER Collection->Peripheral 1. Blood cultures are incubated for [...] characteristics have been verified by the [facility] Microbiology Laboratory. For questions about this culture, contact the Microbiology Laboratory at [phone]. Interpretive data was last revised on 24. Cony Mcgill NP LAB MICROBIOLOGY - GENE RAL ORDERABLES Final Result Performing Organization Address City/[facility]/ZIP Co de Phone Number DAYO [address] [facility] Department [place] [address] * (ABNORMAL) Erythrocyte sedimentation rate (03/18/2024 1:40 AM DIGESTER CAPPER) Pathologist [facility] Erythrocyte sedimentation rate 79(H) 1 - 20 mm/hr Blood 03/18/2024 1:40 AM DIGESTER CAPPER 03/18/2024 2:23 AM DIGESTER CAPPER Cony Mcgill NP LAB BLOOD ORDERABLES Fi nal Result Performing Organization Address [facility] Co de Phone Number [facility]ER[address] [address] * (ABNORMAL) CRP (acute phase) (03/18/2024 1:40 AM DIGESTER CAPPER) [facility] CRP 134.0(H) <=10.0 mg/L Blood 03/18/2024 1:40 AM DIGESTER CAPPER 03/18/2024 2:23 AM DIGESTER CAPPER us Cony Mcgill LOOM FIXER SUPERVISOR LAB BLOOD ORDERABLES Fi nal Result Performing Organization Address [facility] de Phone Number [address] [address] * Phosphorus (03/18/2024 1:40 AM DIGESTER CAPPER) [facility] Phosphorus, pl 2.8 2.3 - 4.5 mg/dL Blood 03/18/2024 1:40 AM DIGESTER CAPPER 03/18/2024 2:23 AM DIGESTER CAPPER us Cony Mcgill LOOM FIXER SUPERVISOR LAB BLOOD ORDERABLES Fi nal Result Performing Organization Address [facility] de Phone Number [address] [place] [address] * Magnesium (03/18/2024 1:40 AM DIGESTER CAPPER) [facility] Magnesium 2.1 1.4 - 2.5 mg/dL Blood 03/18/2024 1:40 AM DIGESTER CAPPER 03/18/2024 2:23 AM DIGESTER CAPPER us Cony Mcgill LOOM FIXER SUPERVISOR LAB BLOOD ORDERABLES Fi nal Result Performing Organization Address [facility] Co de Phone Number [address] [place] [address] * (ABNORMAL) Hemoglobin A1c (03/18/2024 1:40 AM DIGESTER CAPPER) [facility] Hgb A1C 6.2(H) 4.0 - 5.6 % Estimated Average Glucose 131 mg/dL DAYO Comment: The ADA recommends reporting an estimated Average Glucose (eAG) with all Hemoglobin A1c results using the equation derived from a study of 507 normal and diabetic adults. Minority populations were underrepresented and children were not included. (Diabetes Care 31:3510-9266, 2008). The eAG is not equivalent to a fasting glucose. Blood 03/18/2024 1:40 AM DIGESTER CAPPER 03/18/2024 2:23 AM DIGESTER CAPPER Cony Mcgill LOOM FIXER SUPERVISOR LAB BLOOD ORDERABLES Fi nal Result Performing Organization Address [facility] Co de Phone Number [address] [place] [address] * Creatine kinase (CK), total (03/18/2024 1:40 AM DIGESTER CAPPER) CK 60 40 - 300 Units/L Blood 03/18/2024 1:40 AM DIGESTER CAPPER 03/18/2024 2:23 AM DIGESTER CAPPER Cony Mcgill LOOM FIXER SUPERVISOR LAB BLOOD ORDERABLES nal Result Performing Organization Address [facility] de Phone Number [address] [address] * (ABNORMAL) Lipid panel (03/18/2024 1:40 AM DIGESTER CAPPER) Cholesterol 142 30 - 199 mg/dL Comment: [...] NCEP Expert Panel. Circulation 2004;110:227 3. Pablito Doyle al. MABLE Cardiol. 2019July 30;5(5):540-548. doi: 10.1001/jamacardio.2020.0013 Current Interpretive Data was last revised on 2023. Non-HDL Cholesterol 120 mg/dL [facility] Comment: Interpretive Data Ages < or = [...] last revised on 2017. Chol/HDL ratio 6 [facility] Blood 03/18/2024 1:40 AM DIGESTER CAPPER 03/18/2024 2:23 AM DIGESTER CAPPER Cony Mcgill LOOM FIXER SUPERVISOR LAB BLOOD ORDERABLES Fi nal Result [facility] [address] [facility] Department [place] [address] * (ABNORMAL) Comprehensive metabolic panel (03/18/2024 1:40 AM DIGESTER CAPPER) Sodium 141 135 - 145 mmol/L Potassium, pl 3.0(L) 3.3 - 4.9 mmol/L [facility] Chloride 96(L) 97 - 110 mmol/L [facility] CO2 35(H) 22 - 32 mmol/L [facility] Anion gap 10 2 - 15 mmol/L [facility] BUN 9 6 - 25 mg/dL [facility] Creatinine 1.05 0.80 - 1.30 mg/dL [facility] Glucose 106 70 - 199 mg/dL [facility] Comment: Interpretive Data Fasting glucose [...] 2022. Calcium 9.0 8.5 - 10.3 mg/dL [facility] Bilirubin, total 0.2 0.1 - 1.2 mg/dL [facility] Protein, pl 7.2 6.5 - 8.5 g/dL [facility] Albumin 3.4(L) 3.5 - 5.0 g/dL [facility] Alk phos 81 40 - 130 Units/L [facility] ALT 31 7 - 55 Units/L [facility] AST 25 10 - 50 Units/L [facility] Blood 03/18/2024 1:40 AM DIGESTER CAPPER 03/18/2024 2:23 AM DIGESTER CAPPER Cony Mcgill LOOM FIXER SUPERVISOR LAB BLOOD ORDERABLES Fi nal Result Performing Organization Address [facility] Co de Phone Number [facility] [address] [facility] [place] [address] * [place] Outside Reference (03/17/2024 5:05 AM DIGESTER CAPPER) Narrative [email or web address] - 04/02/2024 2:34 PM DIGESTER CAPPER This order has been auto-finalized and does not contain a result. Provider Transcribed Order IMG US PROCEDURES Fin al Result Performing Organization Address [facility] Co de Phone Number [email or web address] * CT Body Outside Reference (03/15/2024 2:00 PM DIGESTER CAPPER) Narrative RAD_[email or web address]_MHE - 04/02/2024 2:34 PM DIGESTER CAPPER This order has been auto-finalized and does not contain a result. us Provider Transcribed Order IMG CT PROCEDURES Fin al Result Performing Organization Address [facility] Co de Phone Number [email or web address] * [place] Outside Reference (03/15/2024 11:45 AM DIGESTER CAPPER) Narrative RAD_CLARIO_MHB_MHE - 04/02/2024 2:34 PM DIGESTER CAPPER This order has been auto-finalized and does not contain a result. us Provider Transcribed Order IMG US PROCEDURES Fin al Result Performing Organization Address [facility] Co de Phone Number [email or web address] * [place] Outside Reference (03/15/2024 6:05 AM DIGESTER CAPPER) Narrative RAD_[email or web address]_MHE - 04/02/2024 2:34 PM DIGESTER CAPPER This order has been auto-finalized and does not contain a result. us Provider Transcribed Order IMG US PROCEDURES Fin al Result Performing Organization Address [facility] Co de Phone Number [email or web address] * XR Outside Reference (03/13/2024 4:20 PM DIGESTER CAPPER) Narrative RAD_CLARIO_MHB_MHE - 04/02/2024 2:34 PM DIGESTER CAPPER This order has been auto-finalized and does not contain a result. us Provider Transcribed Order IMG XR PROCEDURES Fin al Result Performing Organization Address [facility] de Phone Number [email or web address] * [place] Outside Reference (03/13/2024 4:05 PM DIGESTER CAPPER) Narrative RAD_[email or web address]_MHE - 04/02/2024 2:34 PM DIGESTER CAPPER This order has been auto-finalized and does not contain a result. us Provider Transcribed Order IMG US PROCEDURES Fin al Result Performing Organization Address [facility] Co de Phone Number [email or web address] * [place] Outside Reference (03/13/2024 2:20 PM DIGESTER CAPPER) Narrative RAD_[email or web address]_MHE - 04/02/2024 3:02 PM DIGESTER CAPPER This order has been auto-finalized and does not contain a result. us Provider Transcribed Order IMG US PROCEDURES Fin al Result Performing Organization Address [facility] de Phone Number [email or web address] * Neuro CT Outside Reference (03/12/2024 1:30 PM DIGESTER CAPPER) Narrative RADMARSHALLE - 04/02/2024 2:34 PM DIGESTER CAPPER This order has been auto-finalized and does not contain a result. us Provider Transcribed Order IMG CT PROCEDURES Fin al Result Performing Organization Address [facility] de Phone Number [email or web address] * CT Body Outside Reference (03/12/2024 1:25 PM DIGESTER CAPPER) Narrative RADMARSHALLE - 04/02/2024 2:34 PM DIGESTER CAPPER This order has been auto-finalized and does not contain a result. us Provider Transcribed Order IMG CT PROCEDURES Fin al Result Performing Organization Address [facility] de Phone Number [email or web address] * CT Body Outside Reference (03/12/2024 12:25 PM DIGESTER CAPPER) Narrative RADANDERSON_JAYNEE - 04/02/2024 2:34 PM DIGESTER CAPPER This order has been auto-finalized and does not contain a result. us Provider Transcribed Order IMG CT PROCEDURES Fin al Result Performing Organization Address [facility] de Phone Number SOFYA_[email or web address] * CT Body Outside Reference (03/12/2024 12:20 PM DIGESTER CAPPER) Narrative RADSHAKIRAB_JAYNEE - 04/02/2024 2:34 PM DIGESTER CAPPER This order has been auto-finalized and does not contain a result. us Provider Transcribed Order IMG CT PROCEDURES Fin al Result Performing Organization Address [facility] de Phone Number [email or web address] * [place] Outside Reference (03/11/2024 10:25 AM DIGESTER CAPPER) Narrative MARLEY_HEMA - 04/02/2024 2:34 PM DIGESTER CAPPER This order has been auto-finalized and does not contain a result. us Provider Transcribed Order IMG US PROCEDURES Fin al Result Performing Organization Address [facility] de Phone Number [email or web address] * XR Outside Reference (03/11/2024 10:15 AM DIGESTER CAPPER) Narrative MARLEY_HEMA - 04/02/2024 2:34 PM DIGESTER CAPPER This order has been auto-finalized and does not contain a result. us Provider Transcribed Order IMG XR PROCEDURES Fin al Result Performing Organization Address [facility] de Phone Number [email or web address] from Last 3 Months Insurance CHOICE PLUS Advance Directives For more information, please contact: [phone] * Full Code (Latest Code Status on File) Date Activated Date Inactivated Comments 03/18/2024 12:08 AM 03/20/2024 9:57 PM Care Teams Global Marketing Intern Relationship Specialty Start Date End Date Juanito Moralez MD [address] [address] PCP - General Family Medicine 03/18/24 Arianne Jhaveri [address] [place] [address] Cardiothoracic Surgery 03/20/24
--- NOTE | 2024-05-25 14:07 | WPDSLEEPSTUD ---
Sleep Study Date of Study: 05/15/24 Ordering Provider: Terrence Cuevas MD Interpreting Physician: Luisa Metcalf DO Sleep Study Type: Split Polysomnogram Height: 1.65 m Weight: 111.13 kg Body Mass Index: 40.7 Neck Circumference (inches): 19.5 [place]: 14 Reason for Sleep Study Daytime hypersomnia Sleep History The patient had a sleep study ordered by his fiscal accounting clerk for evaluation of sleep apnea. The patient occasionally awakens from sleep short of breath. He occasionally awakens at night with heartburn, belching or cough. He frequently snores and is constantly loud enough that others complain. He occasionally has trouble sleeping when he has a cold. He constantly wakes up gasping for air throughout the night. He constantly has breathing problems at night observed by himself or others. He rarely sweats excessively at night. He rarely has heart palpitations or irregular heartbeats during the night. He frequently falls asleep during the day and frequently falls asleep while driving. He denies cataplexy. He denies having trouble at school or work due to sleepiness. He rarely feels unable to move while waking up or falling asleep. He occasionally experiences vivid dreamlike scenes upon awakening or falling asleep. He denies feeling afraid of going to sleep. He denies having nightmares. He occasionally remembers his dreams. He rarely has thoughts racing through his mind. He denies feeling sad or depressed. He frequently has anxiety. He occasionally has muscular tension. He frequently notices parts of his body jerk. He rarely kicks during the night. He occasionally has crawling and aching feelings in his legs and constantly has leg pain during the night. He denies grinding his teeth during sleep and denies awakening with morning jaw pain. He is occasionally bothered by pain during the day and occasionally awakened by pain during the night. He occasionally wakes up feeling stiff in the morning. He occasionally wakes up with sore or achy muscles. He occasionally wakes up with pain in the neck, spine and other joints. He goes to bed at 8:30 p.m. on both weekdays and weekends. It takes him 10 minutes to fall asleep. He wakes up 3-5 times throughout the night to urinate and is able to fall back asleep within a few minutes. He wakes up at 5:00 a.m. on weekdays and at 5:30 a.m. on the weekends. He typically gets 8 hours of sleep per night. He does not stay in bed after waking up morning. He currently lives with his and 2 adult children. He denies consuming any caffeinated beverages within 2 hours of bedtime. He denies engaging in physical exercise before bedtime. He denies reading watching television before falling asleep. He will take naps in the afternoon or the evening and they are occasionally refreshing. He consumes 3 caffeinated beverages per day. He quit smoking cigarettes 5 years ago. He denies alcohol and recreational drug use. [facility] Past Medical History Medical History Nocturnal hypoxemia Pulmonary hypertension Mild diastolic dysfunction Cellulitis and abscess of left leg (~12/23/23) Bacterial meningitis Sepsis Leg pain, left Febrile illness Inguinal adenopathy Headache Hand eczema COPD exacerbation SOB (shortness of breath) Cough Morbid obesity with BMI of 40.0-44.9, adult Acute conjunctivitis of left eye Dyshidrotic eczema Tinea pedis Pain in joints of both feet x-rays of both feet on 05/07/2022 reveals diffuse mild osteoarthritis of both feet. Rash and nonspecific skin eruption Adult BMI 39.0-39.9 kg/sq m Obesity (BMI 30-39.9) COVID-19 (~08/2021) 2nd episode with mild symptoms for 2 or 3 days. Candidiasis of other urogenital sites (10/31/21) Low iron (08/24/21) iron 49 with 13% saturation and hemoglobin 14.1 on 08/24/2021. Iron 50 with 12% saturation and ferritin 31 on 11/13/2022. COPD (chronic obstructive pulmonary disease) (~08/24/21) PFT on 08/24/2021 with moderate obstructive defect with significant improvement with bronchodilator. Dyspnea on exertion exercise stress test on 08/24/2021 was negative for ischemia. EKG revealed sinus rhythm with borderline R-wave progression. Chronic nonallergic rhinitis BMI 37.0-37.9, adult Hearing loss chronic worse on left than right Encounter for wellness examination in adult COVID-19 (02/14/21) fully vaccinated and COVID BMI 36.0-36.9,adult Insomnia Acute low back pain Mixed hyperlipidemia total cholesterol 217, triglycerides 403, HDL 30 and LDL 106 with AST 22 and ALT 26 on 03/11/2020. Cholesterol 207, HDL 40, triglycerides 111, LDL 142 on 08/24/2021. Cholesterol 226, triglycerides 169, HDL 36, LDL 159 on 11/13/2022. Abnormal fasting glucose fasting glucose normal at 95 on 03/11/2020. Glucose 110 with hemoglobin A1c 5.5 on 08/24/2021. Glucose 95 with hemoglobin A1c 5.8 on 11/13/2022 Chronic pain of both knees chronic bilateral knee pain after multiple surgeries. Degenerative changes. Permanent handicap placard 06/29/2021 Tonsillar hypertrophy Encounter for prostate cancer screening PSA 0.6 on 03/11/2020. PSA 1.0 on 08/24/2021. Lip cyst Tobacco use disorder, continuous patient quit smoking cigarettes Jul, 2021 but continues to chew tobacco 1/2 can daily. Obstructive sleep apnea Hypertension Surgical History Surgical History H/O shoulder surgery left shoulder History of neck surgery History of right knee surgery (~2017) H/O left knee surgery (~2013) Family History Family History Mother Parkinson disease Father Accident Social History Social History Smoking packs per day: 1 Smoking cigarettes per day: 20.0 Smoking status: Former smoker Tobacco type: cigarettes Smokeless tobacco user: chewing tobacco Second hand tobacco smoke exposure: No Smoking end date: 04/01/19 Alcohol intake: never Substance use: never Substance use type: does not use Do You Feel Safe in your Home?: Yes Lack of Transportation: YES Lack of Food: Never True Current Housing: I Have Housing Concerned About Future Housing: No Difficulty Paying Gas/Electric Bills: No Difficulty Paying for Meds: No Currently Unemployed: No Education: High School Diploma/GED Difficulty w/ Childcare or Family Care: No Living arrangements: with family Occupation/Education: occupation Gender identity (if verbalized by the patient): Male Spiritual care concerns: No Medications Home Medications ?Medication ?Instructions ?Recorded ?Confirmed ?Type ibuprofen 800 mg tablet 800 mg PO TID PRN pain #90 tabs 10/02/23 03/12/24 Rx budesonide 160 mcg-glycopyr 9 2 inh inhalation BID #10.7 grams 12/31/23 03/12/24 Rx mcg-formot 4.8 mcg/actuation HFA inhaler (Breztri Aerosphere) furosemide 40 mg tablet (Lasix) 40 mg PO QAM #90 tabs 01/22/24 03/12/24 Rx linezolid 600 mg tablet (Zyvox) 600 mg PO Q12H 03/24/24 History amlodipine 10 mg tablet 10 mg PO DAILY #90 tabs 05/07/24 Rx Sleep Procedure A full night split study using the OutSystems multi-channel system recorded the standard physiologic parameters including EEG, EOG, submentalis EMG, anterior tibialis EMG, EKG, body position, nasal and oral airflow using nasal pressure sensor and thermistor.? Respiratory parameters of chest and abdominal movements were recorded with Respiratory Inductance Plethysmography belts. Oxygen saturation was recorded by pulse oximetry. Video monitoring was also performed. Sleep stages, periodic limb movements, and EEG arousals were scored in 30 second epochs according to the criteria of the AASM Scoring Manual. The Apnea-Hypopnea Index was calculated using CMS guidelines for definition of hypopnea with 4% O2 desaturations while scoring respiratory events. Sleep Architecture During the diagnostic portion of the study, the total recording time was 313.3 minutes. The total sleep time was 121.0 minutes. Sleep latency was 7.7 minutes.? REM sleep was not achieved during this portion of the study. Sleep Efficiency was 38.6%. The patient had 88 awakenings for an awakening index of 43.6. Wake after sleep onset time was 184.5 minutes. The patient spent 102.0 minutes, 84.3% of total sleep time in Stage N1. The patient spent 19.0 minutes, 15.7% in Stage N2. The patient spent 0.0 minutes, 0.0% in Stage N3. The patient spent 0.0 minutes, 0.0% in Stage REM sleep. At 02:24:45 AM the patient was placed on PAP treatment and was titrated at pressures ranging from 5 cm H20 up to 17 cm H20. During the treatment portion of the study, the total recording time was 210.6 minutes.? The total sleep time was 150.0 minutes. Sleep latency was 38.5 minutes. REM latency was 41.5 minutes. Sleep Efficiency was 71.2%. Wake after Sleep Onset time was 22.5 minutes. The patient spent 31.5 minutes, 21.0% of total sleep time in Stage N1. The patient spent 71.0 minutes, 47.3% in Stage N2. The patient spent 0.0 minutes, 0.0% in Stage N3. The patient spent 47.5 minutes, 31.7% in Stage REM. Respiratory Analysis During the diagnostic portion of the study, the patient had 176 hypopneas, 88 obstructive apneas, 1 mixed apnea and 3 central apneas for an overall Apnea Hypopnea Index of 130.9 events per hour. The REM Apnea Hypopnea Index was 0. The NREM Apnea Hypopnea Index was 130.9. The patient had a Central Apnea Hypopnea Index of 1.5. There was no evidence of Anibal-Gonsales Respirations. During the treatment portion of the study, the patient had 75 hypopneas, 14 obstructive apneas and 1 mixed apnea for an overall Apnea Hypopnea Index of 36.0 events per hour. The REM Apnea Hypopnea Index was 21.5. The NREM Apnea Hypopnea Index was 42.7. The patient had a Central Apnea Hypopnea Index of 0. There was no evidence of Anibal-Gonsales Respirations. The patient was started on CPAP 5 cm H2O and titrated to CPAP 17 cm H2O due to hypopneas. The patient was able to fall asleep starting on CPAP 7 cm H2O. The patient was able to achieve REM sleep starting on CPAP 9 cm H2O. The patient was able to achieve a residual AHI less than 5 with both NREM and REM sleep in the supine position on 11 cm H2O. On CPAP 11 cm H2O, the patient spent 3.5 minutes in NREM and 33 minutes in REM with 2 hypopneas, resulting in an AHI of 3.3. The patient had a sleep efficiency of 94.8% on this pressure setting. Despite the patient's sleep apnea being controlled on 11 cm H2O, his SpO2 remained around 87%. Arousals During the diagnostic portion of the study, there were a total of 272 arousals for an arousal index of 134.9.? There were 200 respiratory arousals for an index of 99.2. There were 0 periodic limb movement arousals for an index of 0.? There were 0 isolated limb movement arousals for an index of 0. There were 72 spontaneous arousals for an index of 35.7. During the treatment portion of the study, there were a total of 61 arousals for an index of 24.4.? There were 27 respiratory arousals for an index of 10.8. There were 0 periodic limb movement arousals for an index of 0.? There was 1 isolated limb movement arousal for an index of 0.4. There were 33 spontaneous arousals for an index of 13.2. Periodic Limb Movements During the diagnostic portion of the study, the patient had 0 isolated limb movements with an index of 0. The patient had 10 periodic limb movements with an index of 5.0. The patient had a total of 10 limb movements with a total limb movement index of 5.0. During the treatment portion of the study, the patient had 3 isolated limb movements with an index of 1.2. The patient had 19 periodic limb movements with an index of 7.6. The patient had a total of 22 limb movements with a total limb movement index of 8.8. Oximetry Data During the diagnostic portion of the study, the patient had an average oxygen saturation of 91.1% in wake with a minimum oxygen saturation of 72% and a maximum oxygen saturation of 99%. The patient had an average oxygen saturation of 89.3% in sleep with a minimum oxygen saturation of 72.0% and a maximum oxygen saturation of 100.0%. The patient had 340 oxygen desaturations resulting in an Oxygen Desaturation Index of 168.6. The patient spent 98.2 minutes, 31.7% of total sleep time with an oxygen saturation less than 88%. During the treatment portion of the study, the patient had an average oxygen saturation of 92.1% in wake with a minimum oxygen saturation of 78.0% and a maximum oxygen saturation of 99.0%. The patient had an average oxygen saturation of 89.5% in sleep with a minimum oxygen saturation of 74.0% and a maximum oxygen saturation of 98.0%. The patient had 155 oxygen desaturations resulting in an Oxygen Desaturation Index of 62.4. The patient spent 55.8 minutes, 27.3% of total sleep time with an oxygen saturation less than 88%. Snoring Profile Loud snoring was present during the baseline portion of the study. The snoring never fully resolved. Cardiac Profile The EKG lead showed normal sinus rhythm with tachycardia (HR>90 bpm) present predominantly during the baseline portion of the study. During the diagnostic portion of the study, the average pulse rate was 95.8 bpm.? The minimum pulse rate was 77.0 bpm. The maximum pulse rate was 114.0 bpm. During the treatment portion of the study, the average pulse rate was 88.4 bpm.? The minimum pulse rate was 69.0 bpm. The maximum pulse rate was 114.0 bpm. EEG Profile No signs of seizure activity seen. Assessment and Plan Assessment and Plan (1) HARLAN and COPD overlap syndrome: Code(s): G47.33 - Obstructive sleep apnea (adult) (pediatric); J44.9 - Chronic obstructive pulmonary disease, unspecified Status: Acute Assessment and Plan: In the baseline portion of the study, the patient had an overall AHI of 131.6 with desaturation down to 72%. This is consistent with severe sleep apnea. The patient was started on CPAP 5 cm H2O and titrated to CPAP 17 cm H2O due to hypopneas. We were ble to find a pressure setting that resolved the patient's sleep apnea but his SpO2<90% for the majority of it. Due to time constraints, supplemental oxygen was not started during this study. I recommend that the patient be prescribed Resmed CPAP at 13 cm H2O with 1 lpm of supplemental O2, size medium Resmed N30i mask, CPAP filters/tubing and heated humidity. I recommend that the patient have nocturnal oximetry done 2 weeks after starting CPAP to ensure his SpO2>90%. This should be used with all episodes of sleep.? Compliance should be reviewed within 31-90 days of starting therapy for usage greater than 4 hours per night greater than 70% of the nights. The patient should be asked about symptoms such as?excessive daytime sleepiness, quality of sleep, decreased nocturia, increased?mental functioning such as memory, mood, and concentration. Data The data obtained during this sleep study is adequate for interpretation. Certification This sleep study has been reviewed by a board certified sleep medicine physician.
[2024-05-25 14:20] VITALS: BMI 40.7
== END 2024-05-16 06:41 | disposition home or self-care (01) ==
PROVIDERS: PCP Nurse Practitioner Family; Visit Provider Internal Medicine Pulmonary Disease
DX: G47.33 Obstructive sleep apnea (adult) (pediatric) (principal); J44.9 Chronic obstructive pulmonary disease, unspecified; G47.10 Hypersomnia, unspecified
CPT/HCPCS: 95811

== ENCOUNTER → 2024-07-20 14:29 | Outpatient (CLI) | payer OTHER, SELFPAY ==
--- NOTE | ~2024-07-20 | XR_ITS ---
EXAM: XR wrist RT min 3V, XR hand RT min 3V DATE: 07/20/2024 14:43 HISTORY: M25.531 - Pain in right wrist . COMPARISON: None available. FINDINGS: Normal mineralization. No fracture or dislocation. No lytic or blastic lesion. Very mild s cattered degenerative changes, most notably at the DRUJ, radiocarpal joint, first MTP joint, and the DIP joints of the fingers. Ulnar positive variance. No erosion or periosteal change. Soft tissues wit hin normal limits. 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 Reviewed, dictated and finalized at location K. 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
--- OUTSIDE RECORDS SUMMARY | 2024-07-20 16:22 | XMS_ITS | Referral Summary ---
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 Gender Identity Not on file Sexual Orientation Not on file Last Filed Vital Signs Vital Sign Reading Time Taken Comments Blood Pressure 166/77 03/20/2024 3:51 PM LAY OUT MACHINE OPERATOR Pulse 89 03/20/2024 3:51 PM LAY OUT MACHINE OPERATOR Temperature 36.8 C (98.2 F) 03/20/2024 3:51 PM LAY OUT MACHINE OPERATOR Respiratory Rate 18 03/20/2024 3:51 PM LAY OUT MACHINE OPERATOR Oxygen Saturation 100% 03/20/2024 3:51 PM LAY OUT MACHINE OPERATOR Inhaled Oxygen Concentration - - Weight 113.4 kg (250 lb) 03/19/2024 4:00 PM LAY OUT MACHINE OPERATOR Height 165.1 cm (5' 5 ) 03/19/2024 4:00 PM LAY OUT MACHINE OPERATOR Body Mass Index 41.6 03/19/2024 4:00 PM LAY OUT MACHINE OPERATOR Plan of Treatment Not on file Insurance [facility] H[facility]PP[facility] Address: [facility] [address] [place] [address] Advance Directives For more information, please contact: [phone] * Full Code (Latest Code Status on File) Date Activated Date Inactivated Comments 03/18/2024 12:08 AM 03/20/2024 9:57 PM Care Teams Surgical Appliances Salesperson Relationship Specialty Start Date End Date Juanito Moralez MD [address] [address] PCP - General Family Medicine 03/18/24 Arianne Jhaveri [address] [place] [address] Cardiothoracic Surgery 03/20/24
--- OUTSIDE RECORDS SUMMARY | 2024-07-20 16:22 | XMS_ITS | Clinical Summary ---
Author Organization [facility] Address [address] [place] [address] Care Team Providers Care Development Representative Name Role Phone Juanito Moralez MD Primary Care Provider [phone] Arianne Jhaveri Unavailable [phone] Allergies No known active allergies Medications [...] obstructive pulmonary disease) Hypokalemia 03/18/2024 Hypertension 03/18/2024 Medical History Medical History Date Comments COPD [...] on file Legal Sex Male 1:49 PM SQE Gender Identity Not on file Sexual Orientation Not on file Obstetrics History Last Filed Vital Signs Vital Sign Reading Time Taken Comments Blood Pressure 166/77 03/20/2024 3:51 PM SQE Pulse 89 03/20/2024 3:51 PM SQE Temperature 36.8 C (98.2 F) 03/20/2024 3:51 PM SQE Respiratory Rate 18 03/20/2024 3:51 PM SQE Oxygen Saturation 100% 03/20/2024 3:51 PM SQE Inhaled Oxygen Concentration - - Weight 113.4 kg (250 lb) 03/19/2024 4:00 PM SQE Height 165.1 cm (5' 5 ) 03/19/2024 4:00 PM SQE Body Mass Index 41.6 03/19/2024 4:00 PM SQE Plan of Treatment Health Maintenance Due Date Last Done Comments Colon Cancer Screening-Colonoscopy 1971 Depression Screening 1971 Hepatitis C Screening 1971 Prostate Cancer Screening-PSA 1971 DTaP/Tdap/Td Vaccine (1 - Tdap) 1982 Hepatitis B Screening 1989 Regular Well Visit/Exam 18-64 1989 Pneumococcal vaccine <65 (1 of 2 - PCV) 1990 Zoster Vaccine (1 of 2) 2021 Covid-19 Vaccine (2 - season) 12/01/202306/2020 Influenza Vaccine (Season Ended) [address] [place] [address] Advance Directives For more information, please contact: [phone] * Full Code (Latest Code Status on File) Date Activated Date Inactivated Comments 03/18/2024 12:08 AM 03/20/2024 9:57 PM Care Teams Development Representative Relationship Specialty Start Date End Date Juanito Moralez MD [address] [address] PCP - General Family Medicine 03/18/24 Arianne Jhaveri [address] [place] [address] Cardiothoracic Surgery 03/20/24
--- OUTSIDE RECORDS SUMMARY | 2024-07-20 16:23 | XMS_ITS | Continuity of Care Document ---
Author Organization [facility] Address [address] [place] [address] [address] [place] [address] Phone Care Team Providers Care Harpooner Name Role Phone Angela Sloares Unavailable Unavailable Procedures Procedure Date Eye Exam, New Patient Advance Directives Directive Yes / No Effective Date File Name No Information Encounters Encounter Description Practice Location Reason(s) For Visit Diagnoses Date Provider Providers Copied on Encounter [facility], [address] [place] [address] [address], [place], [place], [id number], [place] tel:[phone] [facility] No Information [address] Sujatha Miller. [address] [facility] , [address], [place], [address], [place]. tel:[phone] Family History Family Member Type Diagnosis Age At Onset No Information Payers Payer name Insurance type Covered democrat ID Authoriza tion(s) SHERLEY Coles [id number] Social History Type Description Quantity Date Captured [...]
--- OUTSIDE RECORDS SUMMARY | 2024-07-20 16:23 | XMS_ITS | CONTINUITY OF CARE DOCUMENT ---
Author Name wilian cedeno Address Unknown Organization [facility] Address [address] [facility] [address] [place] [address] Phone [phone] Care Team Providers Care Prototype Sewer Name Role Phone Jeremy SONG, Samantha Unavailable WILLIE OLSON MD Unavailable [phone] INSURANCE PROVIDERS Payer name Policy type / Coverage type Speculator red republican ID [employer] [id number]
== END ==
LOC: EXPTRAD 14:30
PROVIDERS: PCP Nurse Practitioner Family; Visit Provider Nurse Practitioner Family
DX: M19.041 Primary osteoarthritis, right hand (principal); M19.031 Primary osteoarthritis, right wrist
CPT/HCPCS: 73110; 73130

== ENCOUNTER 2024-11-21 09:05 | Outpatient (CLI) | payer OTHER, SELFPAY ==
--- OUTSIDE RECORDS SUMMARY | 2024-11-21 09:07 | XMS_ITS | Clinical Summary ---
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 Gender Identity Not on file Sexual Orientation Not on file Obstetrics History Last Filed Vital Signs Vital Sign Reading Time Taken Comments Blood Pressure 166/77 03/20/2024 3:51 PM KAPOK AND COTTON MACHINE OPERATOR Pulse 89 03/20/2024 3:51 PM KAPOK AND COTTON MACHINE OPERATOR Temperature 36.8 C (98.2 F) 03/20/2024 3:51 PM KAPOK AND COTTON MACHINE OPERATOR Respiratory Rate 18 03/20/2024 3:51 PM KAPOK AND COTTON MACHINE OPERATOR Oxygen Saturation 100% 03/20/2024 3:51 PM KAPOK AND COTTON MACHINE OPERATOR Inhaled Oxygen Concentration - - Weight 113.4 kg (250 lb) 03/19/2024 4:00 PM KAPOK AND COTTON MACHINE OPERATOR Height 165.1 cm (5' 5) 03/19/2024 4:00 PM KAPOK AND COTTON MACHINE OPERATOR Body Mass Index 41.6 03/19/2024 4:00 PM KAPOK AND COTTON MACHINE OPERATOR Plan of Treatment Health Maintenance Due Date [...] (2 - season) 12/01/202306/2020 Influenza Vaccine (#1) 2024 Insurance Advance Directives For more information, please contact: [phone] * Full Code (Latest Code Status on File) Date Activated Date Inactivated Comments 03/18/2024 12:08 AM 03/20/2024 9:57 PM Care Teams Bullet Slugs Inspector Relationship Specialty Start Date End Date Juanito Moralez MD [address] [address] PCP - General Family Medicine 03/18/24 Arianne Jhaveri [address] [place] [address] Cardiothoracic Surgery 03/20/24
[2024-11-21 09:34] LABS: Hematocrit 24.2 % (42.0-52.0); Immature Granulocyte Percent A 0.3 % (0-0.5); Lymphocytes Absolute Auto 1.78 K/mm3 (0.9-3.2); Mean Corpuscular HGB Conc 26.0 g/dl (32-36); Mean Corpuscular Hemoglobin 17.2 pg (26-34); Mean Corpuscular Volume 65.9 fl (80-100); Nucleated Red Blood Cells Absolute Auto 0.000 K/mm3 (0.0-0.012); Nucleated Red Blood Cells Perc 0.0 % (0.0-0.2); Platelet Count Result 404 k/mm3 (150-375); Red Blood Count 3.67 M/mm3 (4.6-6.20)
[2024-11-21 09:57] LABS: Iron < 10 ug/dL (49-181)
[2024-11-21 10:05] LABS: Percent Iron Saturation 2 % (20-50)
[2024-11-21 10:16] LABS: Hypochromasia 2+; Microcytosis 2+ (NORMAL); Ovalocytes 1+; Polychromasia 1+; Schistocytes Occasional; Stomatocytes 1+
[2024-11-21 10:29] LABS: White Blood Count 10.4 K/mm3 (4.5-10.0)
[2024-11-21 10:30] LABS: Hemoglobin 6.3 g/dL (14.0-18.0)
[2024-11-21 10:37] LABS: Ferritin 4.30 ng/mL (11.1-264)
== END 2024-11-21 09:06 | disposition home or self-care (01) ==
LOC: ANHLAB 09:06
PROVIDERS: PCP Family Medicine; Visit Provider Nurse Practitioner Family
DX: D64.9 Anemia, unspecified (principal)
CPT/HCPCS: 36415; 82728; 83540; 83550; 85025

== ENCOUNTER 2024-11-23 13:39 | Observation (INO) | payer OTHER, SELFPAY ==
--- OUTSIDE RECORDS SUMMARY | 2007-07-03 03:26 | XMS_ITS | Continuity of Care Document ---
Author Organization [facility] Address [address] [place] [address] [address] [place] [address] Phone Care Team Providers Care Divinity Teacher Name Role Phone Angela Solares Unavailable Unavailable Procedures Procedure Date Eye Exam, New Patient Advance Directives Directive Yes / No Effective Date File Name No Information Encounters Encounter Description Practice Location Reason(s) For Visit Diagnoses Date Provider Providers Copied on Encounter Located within [facility], [address] [place] [address] [address], [place], [place], [id number], [place] tel:[phone] [facility] No Information [address] Sujatha Miller. [address] [facility] , [address], [place], [address], [place]. tel:[phone] Family History Family Member Type Diagnosis Age At Onset No Information Payers Payer name Insurance type Covered alliance party ID Authoriza tion(s) SHERLEY Coles [id number] Social History Type Description Quantity Date Captured [...]
--- OUTSIDE RECORDS SUMMARY | 2007-07-03 03:26 | XMS_ITS | Continuity of Care Document ---
Author Organization [facility] Address [address] [place] [address] [address] [place] [address] Phone Care Team Providers Care Member Service Representative Name Role Phone Angela Solares Unavailable Unavailable Procedures Procedure Date Eye Exam, New Patient Advance Directives Directive Yes / No Effective Date File Name No Information Encounters Encounter Description Practice Location Reason(s) For Visit Diagnoses Date Provider Providers Copied on Encounter [facility], [address] [place] [address] [address], [place], [place], [id number], [place] tel:[phone] [facility] No Information [address] Sujatha Miller. [address] [facility] , [address], [place], [address], [place]. tel:[phone] Family History Family Member Type Diagnosis Age At Onset No Information Payers Payer name Insurance type Covered republican ID Authoriza tion(s) SHERLEY Coles [id number] Social History Type Description Quantity Date Captured [...]
[2024-11-23] VITALS (31 sets, daily range): BP systolic 106–155; BP diastolic 60–94; PULSE 83–100; RESP 18–30; TEMP 36.4–37.1; O2SAT 96–100; BMI 35.2
--- NOTE | ~2024-11-23 | CT_ITS ---
EXAMINATION: CT abdomen pelvis wo con DATE: 11/23/2024 21:39 INDICATION: Diarrhea. Anemia. TECHNIQUE: Computed tomography (CT) of the abdomen and pelvis was performed without intravenous contrast. The dose-length product was 863.52 mGy-cm. Automated exposure control and iterative reconstruction technique were employed. COMPARISON: No prior studies for comparison. FINDINGS: Lung bases are unremarkable. Heart size normal. The liver, spleen, pancreas, adrenal glands and left kidney are unremarkable. There is nonobstructing punctate right renal stone. Gallbladder is collapsed. Nonobstructive bowel gas pattern. No free air or free fluid. No significant vascular abnormality. No lymphadenopathy. IMPRESSION: 1. No acute abdominal abnormality. 2: Nonobstructing right nephrolithiasis. Reviewed, dictated and finalized at location O.
--- OUTSIDE RECORDS SUMMARY | 2024-11-23 13:42 | XMS_ITS | Clinical Summary ---
Author Organization [facility] Address [address] [place] [address] Care Team Providers Care Licensed Practical Vocational Nurse Name Role Phone Juanito Moralez MD Primary Care Provider [phone] Arianne Jhaveri Unavailable [phone] Allergies No known active allergies Medications [...] on file Legal Sex Male 1:49 PM TRANSLATION DIRECTOR Gender Identity Not on file Sexual Orientation Not on file Obstetrics History Last Filed Vital Signs Vital Sign Reading Time Taken Comments Blood Pressure 166/77 03/20/2024 3:51 PM TRANSLATION DIRECTOR Pulse 89 03/20/2024 3:51 PM TRANSLATION DIRECTOR Temperature 36.8 C (98.2 F) 03/20/2024 3:51 PM TRANSLATION DIRECTOR Respiratory Rate 18 03/20/2024 3:51 PM TRANSLATION DIRECTOR Oxygen Saturation 100% 03/20/2024 3:51 PM TRANSLATION DIRECTOR Inhaled Oxygen Concentration - - Weight 113.4 kg (250 lb) 03/19/2024 4:00 PM TRANSLATION DIRECTOR Height 165.1 cm (5' 5) 03/19/2024 4:00 PM TRANSLATION DIRECTOR Body Mass Index 41.6 03/19/2024 4:00 PM TRANSLATION DIRECTOR Plan of Treatment Health Maintenance Due Date [...] season) 12/01/202306/2020 Influenza Vaccine (#1) 2024 [place] [address] Advance Directives For more information, please contact: [phone] * Full Code (Latest Code Status on File) Date Activated Date Inactivated Comments 03/18/2024 12:08 AM 03/20/2024 9:57 PM Care Teams Licensed Practical Vocational Nurse Relationship Specialty Start Date End Date Juanito Moralez MD [address] [address] PCP - General Family Medicine 03/18/24 Arianne Jhaveri [address] [place] [address] Cardiothoracic Surgery 03/20/24
--- NOTE | 2024-11-23 13:48 | ED.GENADULT ---
HPI - General Adult General Chief complaint: Recheck/Abnormal Lab/Rx Stated complaint: sent by PCP- hgb low 6.3 Time Seen by Provider: 11/23/24 13:47 History of Present Illness HPI narrative: 54-year-old male presents ER complaining of shortness of breath, dizziness, generalized weakness. Patient states of last week he had routine labs drawn, showing hemoglobin of 6.4. Patient was instructed to come to the ER at that time for transfusion. Patient refused. Patient states he had a repeat the CBC drawn on Saturday which showed hemoglobin of 6.3. Patient admits to taking 4000 mg of ibuprofen daily for knee pain. States he has been experiencing some diarrhea for 1 month. Patient reports just started oral iron replacement therapy 3 days ago. Related Data Home Medications ?Medication ?Instructions ?Recorded ?Confirmed ?Last Taken ?Type spironolactone 50 mg tablet 50 mg PO QAM 11/10/24 11/10/24 Unknown History ascorbic acid (vitamin C) 500 mg 500 mg PO . daily 11/21/24 Unknown History capsule ferrous sulfate 325 mg (65 mg 325 mg PO BID 11/21/24 Unknown History iron) tablet,delayed release Allergies Allergy/AdvReac Type Severity Reaction Status Date / Time chlorpheniramine (From AdvReac CHILE- Verified 11/23/24 13:41 Actifed Cold-Allergy) UNKNOWN REACTION phenylephrine (From Actifed AdvReac CHILD- Verified 11/23/24 13:41 Cold-Allergy) UNKNOWN REACTION pseudoephedrine (From AdvReac CHILD- Verified 11/23/24 13:41 Actifed Cold-Allergy) UNKNOWN REACTION triprolidine (From Actifed AdvReac CHILD- Verified 11/23/24 13:41 Cold-Allergy) UNKNOWN REACTION Review of Systems Review of Systems: All systems reviewed & are unremarkable except as noted in HPI and below [facility] Past Medical History Medical History (Updated 11/23/24 @ 14:49 by [employer] Diallo, DARBY) Gastritis Anemia Hemoglobin 9.8 on 03/16/2024. Hemoglobin 6.4 on 11/14/2024. Hemoglobin 6.3 on 11/21/2024 with iron less than 10 with 2% saturation and ferritin COPD exacerbation Cellulitis of right anterior lower leg Cellulitis and abscess of left leg (~12/23/23) Sepsis DVT (deep venous thrombosis) Benign paroxysmal positional vertigo due to bilateral vestibular disorder Male erectile dysfunction, unspecified Right wrist pain Right hand pain Acute pain of right wrist (07/15/24) work injury Aortic stenosis (~03/20/24) mild aortic stenosis on echo 03/20/2024. Nocturnal hypoxemia Pulmonary hypertension Mild diastolic dysfunction Bacterial meningitis Sepsis Leg pain, left Febrile illness Inguinal adenopathy Headache Hand eczema SOB (shortness of breath) Cough Morbid obesity with BMI of 40.0-44.9, adult Acute conjunctivitis of left eye Dyshidrotic eczema Tinea pedis Pain in joints of both feet x-rays of both feet on 05/07/2022 reveals diffuse mild osteoarthritis of both feet. Rash and nonspecific skin eruption Adult BMI 39.0-39.9 kg/sq m Obesity (BMI 30-39.9) COVID-19 (~08/2021) 2nd episode with mild symptoms for 2 or 3 days. Candidiasis of other urogenital sites (10/31/21) Low iron (08/24/21) iron 49 with 13% saturation and hemoglobin 14.1 on 08/24/2021. Iron 50 with 12% saturation and ferritin 31 on 11/13/2022. iron less than 10 with 2% saturation and ferritin with hemoglobin 6.3 on 11/21/2024. COPD (chronic obstructive pulmonary disease) (~08/24/21) PFT on 08/24/2021 with moderate obstructive defect with significant improvement with bronchodilator. Dyspnea on exertion exercise stress test on 08/24/2021 was negative for ischemia. EKG revealed sinus rhythm with borderline R-wave progression. PT/ id PI/ Lexiscan stress test and calcium CT on 06/11/2024 with no evidence of ischemia. Ejection fraction 67%, calcium score of 3. Testosterone 355.7 with free testosterone 3.17 on 11/14/2024. Chronic nonallergic rhinitis BMI 37.0-37.9, adult Hearing loss chronic worse on left than right Encounter for wellness examination in adult COVID-19 (02/14/21) fully vaccinated and COVID BMI 36.0-36.9,adult Insomnia Acute low back pain Mixed hyperlipidemia total cholesterol 217, triglycerides 403, HDL 30 and LDL 106 with AST 22 and ALT 26 on 03/11/2020. Cholesterol 207, HDL 40, triglycerides 111, LDL 142 on 08/24/2021. Cholesterol 226, triglycerides 169, HDL 36, LDL 159 on 11/13/2022.Cholesterol 131, triglycerides 120, HDL 33, LDL 76 on 11/14/2024. Abnormal fasting glucose fasting glucose normal at 95 on 03/11/2020. Glucose 110 with hemoglobin A1c 5.5 on 08/24/2021. Glucose 95 with hemoglobin A1c 5.8 on 11/13/2022. Glucose 88 with hemoglobin A1c 5.7 and GFR 95 on 11/14/2024. Chronic pain of both knees chronic bilateral knee pain after multiple surgeries. Degenerative changes. Permanent handicap placard 06/29/2021 Tonsillar hypertrophy Encounter for prostate cancer screening PSA 0.6 on 03/11/2020. PSA 1.0 on 08/24/2021. PSA 1.1 on 11/14/2024. Lip cyst Tobacco use disorder, continuous patient quit smoking cigarettes Jul, 2021 but continues to chew tobacco 1/2 can daily. Obstructive sleep apnea very severe HARLAN with AHI of 131 Hypertension Surgical History Surgical History H/O shoulder surgery left shoulder History of neck surgery History of right knee surgery (~2017) H/O left knee surgery (~2013) Family History Family History Mother Parkinson disease Father Accident Social History Social History Smoking packs per day: 1 Smoking cigarettes per day: 20.0 Smoking status: Former smoker Tobacco type: cigarettes Smokeless tobacco user: chewing tobacco Second hand tobacco smoke exposure: No Smoking end date: 04/01/19 Alcohol intake: never Substance use: never Substance use type: does not use Do You Feel Safe in your Home?: Yes Lack of Transportation: YES Lack of Food: Never True Current Housing: I Have Housing Concerned About Future Housing: No Difficulty Paying Gas/Electric Bills: No Difficulty Paying for Meds: No Currently Unemployed: No Education: High School Diploma/GED Difficulty w/ Childcare or Family Care: No Living arrangements: with family Occupation/Education: occupation Gender identity (if verbalized by the patient): Male Spiritual care concerns: No Exam Const: General: healthy appearing and alert Nutritional Appearance: obese Orientation/consciousness: patient oriented x3 Limitations: no limitations HENMT: Head: normal to inspection Eyes: Conjunctivae: conjunctival abnormality (Pale) Neck: Neck: normal visual inspection Chest: Chest palpation & inspection: normal inspection of the chest Resp: Effort & Inspection: normal respiratory effort Auscultation: clear to auscultation bilaterally Cardio: Rate: tachycardic Rhythm: regular rhythm GI: GI Palp: Yes Soft to palpation Auscultation: normal bowel sounds Back/Spine/Pelvis: Back: no CVA tenderness Skin: General skin exam: pallor Rashes: no rashes Wounds: no wounds Neuro: General: patient oriented x3, moves all extremities and CN's II-XI intact bilaterally Speech: normal speech Gait exam (Neuro): Normal gait present Psych: Mental Status: mental status grossly normal Affect: normal affect Attitude: cooperative Course Vital Signs Vital signs: Vital Signs Temperature 36.4 C 11/23/24 13:43 Pulse Rate 100 11/23/24 13:43 Respiratory Rate 20 11/23/24 13:43 Blood Pressure 122/66 11/23/24 13:43 Pulse Oximetry 98 11/23/24 13:43 Oxygen Delivery Room Air 11/23/24 13:43 Temperature 36.4 C 11/23/24 13:43 Pulse Rate 100 11/23/24 13:43 Respiratory Rate 20 11/23/24 13:43 Blood Pressure 122/66 11/23/24 13:43 Pulse Oximetry 98 11/23/24 13:43 Oxygen Delivery Room Air 11/23/24 13:43 Medical Decision Making Vital Signs Vital Signs: Vital Signs Temperature 36.4 C 11/23/24 13:43 Pulse Rate 100 11/23/24 13:43 Respiratory Rate 20 11/23/24 13:43 Blood Pressure 122/66 11/23/24 13:43 Pulse Oximetry 98 11/23/24 13:43 Oxygen Delivery Room Air 11/23/24 13:43 Temperature 36.4 C 11/23/24 13:43 Pulse Rate 100 11/23/24 13:43 Respiratory Rate 20 11/23/24 13:43 Blood Pressure 122/66 11/23/24 13:43 Pulse Oximetry 98 11/23/24 13:43 Oxygen Delivery Room Air 11/23/24 13:43 Discharge Plan Discharge Clinical Impression: Anemia, terminal gauger (current) use of non-steroidal anti-inflammatories (nsaid) Patient Disposition: Still a Patient Condition: Stable Patient Language: Sami Prescriptions: No Action Vinh Aerosphere 160-9-4.8 mcg/actuation HFA aerosol inhaler 2 inh inhalation BID Qty: 10.7 11RF Rx Instructions: sample started 12/31/2023. spironolactone 50 mg tablet 50 mg PO QAM Patient Comments: prescribed by mirror fabrication supervisor Vandana 10 mg/0.5 mL pen injector 10 mg subcut WEEKLY Qty: 2 11RF Rx Instructions: started at 2.5 mg weekly and titrated to 10 mg weekly through [facility] furosemide [Lasix] 40 mg tablet 40 mg PO QAM Qty: 90 3RF amlodipine 10 mg tablet 10 mg PO DAILY Qty: 90 3RF ferrous sulfate 325 mg (65 mg iron) tablet,delayed release (DR/EC) 325 mg PO BID ascorbic acid (vitamin C) 500 mg capsule 500 mg PO . daily pantoprazole [Protonix] 40 mg tablet,delayed release (DR/EC) 40 mg PO QAM Qty: 30 11RF Follow-up/Referrals: Juanito Moralez MD [Primary Care Provider, Family Practice] Time of Disposition: 14:49
--- OUTSIDE RECORDS SUMMARY | 2024-11-23 14:13 | XMS_ITS | Clinical Summary ---
Author Organization [facility] Address [address] [place] [address] Care Team Providers Care Requirements Analyst Name Role Phone Juanito Moralez MD Primary Care Provider [phone] Arianne Jhaveri Unavailable [phone] Allergies No known active allergies Medications [...] on file Legal Sex Male 1:49 PM PHERESIS NURSE Gender Identity Not on file Sexual Orientation Not on file Obstetrics History Last Filed Vital Signs Vital Sign Reading Time Taken Comments Blood Pressure 166/77 03/20/2024 3:51 PM PHERESIS NURSE Pulse 89 03/20/2024 3:51 PM PHERESIS NURSE Temperature 36.8 C (98.2 F) 03/20/2024 3:51 PM PHERESIS NURSE Respiratory Rate 18 03/20/2024 3:51 PM PHERESIS NURSE Oxygen Saturation 100% 03/20/2024 3:51 PM PHERESIS NURSE Inhaled Oxygen Concentration - - Weight 113.4 kg (250 lb) 03/19/2024 4:00 PM PHERESIS NURSE Height 165.1 cm (5' 5) 03/19/2024 4:00 PM PHERESIS NURSE Body Mass Index 41.6 03/19/2024 4:00 PM PHERESIS NURSE Plan of Treatment Health Maintenance Due Date [...] season) 12/01/202306/2020 Influenza Vaccine (#1) 2024 Insurance [facility] H[facility]/PPO Address: [facility] [address] [place] [address] Advance Directives For more information, please contact: [phone] * Full Code (Latest Code Status on File) Date Activated Date Inactivated Comments 03/18/2024 12:08 AM 03/20/2024 9:57 PM Care Teams Requirements Analyst Relationship Specialty Start Date End Date Juanito Moralez MD [address] [address] PCP - General Family Medicine 03/18/24 Arianne Jhaveri [address] [place] [address] Cardiothoracic Surgery 03/20/24
[2024-11-23 14:21] LABS: Alanine Aminotransferase 24 U/L (6-50); Albumin Level 4.9 g/dL (3.5-5.1); Alkaline Phosphatase 85 U/L (38-126); Anion Gap 13 mmol/L (4-12); Aspartate Amino Transferase 51 U/L (17-59); Bilirubin,Total 0.5 mg/dL (0.2-1.3); Blood Urea Nitrogen 11 mg/dL (9-20); Calcium 9.9 mg/dL (8.4-10.2); Carbon Dioxide 19 mmol/L (22-30); Chloride 103 mmol/L (98-107); Estimated CRCL calculation 76 ml/min; Estimated Glomerular Filt Rate > 60; Glucose 80 mg/dL (65-110); Potassium 4.1 mmol/L (3.4-5.0); Sodium 135 mmol/L (137-145); Total Protein 8.8 g/dL (6.3-8.2)
[2024-11-23 14:30] LABS: Hematocrit 25.1 % (42.0-52.0); Immature Granulocyte Percent A 0.7 % (0-0.5); Lymphocytes Absolute Auto 2.91 K/mm3 (0.9-3.2); Mean Corpuscular HGB Conc 26.3 g/dl (32-36); Mean Corpuscular Hemoglobin 17.4 pg (26-34); Mean Corpuscular Volume 66.2 fl (80-100); Nucleated Red Blood Cells Absolute Auto 0.080 K/mm3 (0.0-0.012); Nucleated Red Blood Cells Perc 0.5 % (0.0-0.2); Platelet Count Result 454 k/mm3 (150-375); Red Blood Count 3.79 M/mm3 (4.6-6.20); White Blood Count 16.6 K/mm3 (4.5-10.0)
[2024-11-23 14:34] LABS: Hemoglobin 6.6 g/dL (14.0-18.0)
[2024-11-23 14:46] LABS: Anisocytosis 1+; Giant Platelets Present; Hypochromasia 2+; Microcytosis 2+ (NORMAL)
[2024-11-23 14:47] LABS: Stomatocytes 1+
[2024-11-23 14:48] LABS: Ovalocytes Occasional
[2024-11-23 14:49] LABS: Schistocytes None Seen
[2024-11-23] MEDS: PANTOPRAZOLE SODIUM IV 40 MG VIAL IV PUSH (15:20)
[2024-11-23] MEDS: SODIUM CHLORIDE 0.9% IV 1,000 ML 125 ML IV CONT (15:20)
--- NOTE | 2024-11-23 17:52 | ADMGEN ---
This patient, Armaan Hurst, was admitted to [facility] Surg Room 313-01. Patient/family oriented to hospital policies and general routines including ID bracelet, bed and alarms, visiting hours, pain management, procedures, bathroom and other care routines, personal items, smoking policy, room service/diet, and visiting hours. Information on how to activate the Rapid Response Team has been discussed. Patient/Family are encouraged to report perceived risks to care and to ask questions if they do not understand what they are told or what they should do.
[2024-11-23] MEDS: SODIUM CHLORIDE 0.9% IV 250 ML 30 ML IV CONT (18:11)
--- NOTE | 2024-11-23 18:24 | PCRCNOTE ---
Patient wears home cpap but did not want to use one of the hospital units for the night Stated he has lost weight and sometimes doesnt use his own at night
--- NOTE | 2024-11-23 18:31 | PM.IMHP ---
H&P: HPI History of Present Illness Date/Time: 11/23/24 18:31 Chief Complaint: Abnormal Lab Narrative: 54 y/o M with PMH of DVT, benign paroxysmal positional vertigo, aortic stenosis, pulmonary hypertension, mild diastolic dysfunction, previous low iron in 2021, COPD, hyperlipidemia, hypertension, and HARLAN presents here with abnormal outpatient lab work. The patient presents here from home on 11/23 for further evaluation of outpatient abnormal lab work. He reports he had blood drawn on Saturday, 11/21, which showed a hemoglobin of 6.3. He was directed to the emergency department at that time, however he elected not to seek treatment and was subsequently started on oral iron replacement therapy. Per review of the patient's PCP note from 11/10 he reported positional vertigo symptoms that worsened with bending and standing up and exertional shortness of breath. Patient continues to report the symptoms as well as generalized weakness. He denies any previous history of lower or upper GI bleed. He does report he has had ongoing diarrhea for the past month and currently takes 4000 mg of ibuprofen daily for knee pain. States there was previously blood in his stool for around a month but resolved without intervention in the last few weeks. Has developed dark/tarry stool but did not start until after he started the iron supplement. Denies abdominal pain, nausea, vomiting, or body aches. Endorses chills. Last colonoscopy done in [place] (unsure exactly where) when he was around 49 years old due to a GI bleed, had been regularly taking NSAIDs then for orthopedic reasons. States it did not show anything significant. Initial VS at presentation: 97.6? F, HR 100, R 20, 122/66, and 98% on RA. ED workup showed: WBC 16.6, hemoglobin 6.3, sodium 135, creatinine 1.07 and GFR >60. Review of Systems Review of Systems: All systems reviewed & are unremarkable except as noted in HPI and below PMFSH Past Medical History Medical History Gastritis Anemia Hemoglobin 9.8 on 03/16/2024. Hemoglobin 6.4 on 11/14/2024. Hemoglobin 6.3 on 11/21/2024 with iron less than 10 with 2% saturation and ferritin COPD exacerbation Cellulitis of right anterior lower leg Cellulitis and abscess of left leg (~12/23/23) Sepsis DVT (deep venous thrombosis) Benign paroxysmal positional vertigo due to bilateral vestibular disorder Male erectile dysfunction, unspecified Right wrist pain Right hand pain Acute pain of right wrist (07/15/24) work injury Aortic stenosis (~03/20/24) mild aortic stenosis on echo 03/20/2024. Nocturnal hypoxemia Pulmonary hypertension Mild diastolic dysfunction Bacterial meningitis Sepsis Leg pain, left Febrile illness Inguinal adenopathy Headache Hand eczema SOB (shortness of breath) Cough Morbid obesity with BMI of 40.0-44.9, adult Acute conjunctivitis of left eye Dyshidrotic eczema Tinea pedis Pain in joints of both feet x-rays of both feet on 05/07/2022 reveals diffuse mild osteoarthritis of both feet. Rash and nonspecific skin eruption Adult BMI 39.0-39.9 kg/sq m Obesity (BMI 30-39.9) COVID-19 (~08/2021) 2nd episode with mild symptoms for 2 or 3 days. Candidiasis of other urogenital sites (10/31/21) Low iron (08/24/21) iron 49 with 13% saturation and hemoglobin 14.1 on 08/24/2021. Iron 50 with 12% saturation and ferritin 31 on 11/13/2022. iron less than 10 with 2% saturation and ferritin with hemoglobin 6.3 on 11/21/2024. COPD (chronic obstructive pulmonary disease) (~08/24/21) PFT on 08/24/2021 with moderate obstructive defect with significant improvement with bronchodilator. Dyspnea on exertion exercise stress test on 08/24/2021 was negative for ischemia. EKG revealed sinus rhythm with borderline R-wave progression. PT/ id PI/ Lexiscan stress test and calcium CT on 06/11/2024 with no evidence of ischemia. Ejection fraction 67%, calcium score of 3. Testosterone 355.7 with free testosterone 3.17 on 11/14/2024. Chronic nonallergic rhinitis BMI 37.0-37.9, adult Hearing loss chronic worse on left than right Encounter for wellness examination in adult COVID-19 (02/14/21) fully vaccinated and COVID BMI 36.0-36.9,adult Insomnia Acute low back pain Mixed hyperlipidemia total cholesterol 217, triglycerides 403, HDL 30 and LDL 106 with AST 22 and ALT 26 on 03/11/2020. Cholesterol 207, HDL 40, triglycerides 111, LDL 142 on 08/24/2021. Cholesterol 226, triglycerides 169, HDL 36, LDL 159 on 11/13/2022.Cholesterol 131, triglycerides 120, HDL 33, LDL 76 on 11/14/2024. Abnormal fasting glucose fasting glucose normal at 95 on 03/11/2020. Glucose 110 with hemoglobin A1c 5.5 on 08/24/2021. Glucose 95 with hemoglobin A1c 5.8 on 11/13/2022. Glucose 88 with hemoglobin A1c 5.7 and GFR 95 on 11/14/2024. Chronic pain of both knees chronic bilateral knee pain after multiple surgeries. Degenerative changes. Permanent handicap placard 06/29/2021 Tonsillar hypertrophy Encounter for prostate cancer screening PSA 0.6 on 03/11/2020. PSA 1.0 on 08/24/2021. PSA 1.1 on 11/14/2024. Lip cyst Tobacco use disorder, continuous patient quit smoking cigarettes Jul, 2021 but continues to chew tobacco 1/2 can daily. Obstructive sleep apnea very severe HARLAN with AHI of 131 Hypertension Surgical History Surgical History H/O shoulder surgery left shoulder History of neck surgery History of right knee surgery (~2017) H/O left knee surgery (~2013) Family History Family History Mother Parkinson disease Father Accident Social History Social History Smoking packs per day: 1 Smoking cigarettes per day: 20.0 Smoking status: Former smoker Smokeless tobacco user: chewing tobacco Second hand tobacco smoke exposure: No Alcohol intake: current Drinks per week: 3 Substance use: never Substance use type: does not use Do You Feel Safe in your Home?: Yes Lack of Transportation: No Lack of Food: Never True Current Housing: I Have Housing Concerned About Future Housing: No Difficulty Paying Gas/Electric Bills: No Difficulty Paying for Meds: No Currently Unemployed: No Education: High School Diploma/GED Difficulty w/ Childcare or Family Care: No Living arrangements: with family Occupation/Education: occupation Gender identity (if verbalized by the patient): Male Spiritual care concerns: No Meds Home Medications and Allergies Home Medications ?Medication ?Instructions ?Recorded ?Confirmed ?Type budesonide 160 mcg-glycopyr 9 2 inh inhalation BID #10.7 grams 12/31/23 11/23/24 Rx mcg-formot 4.8 mcg/actuation HFA inhaler (Breztri Aerosphere) furosemide 40 mg tablet (Lasix) 40 mg PO QAM #90 tabs 01/22/24 11/23/24 Rx amlodipine 10 mg tablet 10 mg PO DAILY #90 tabs 05/07/24 11/23/24 Rx spironolactone 50 mg tablet 50 mg PO QAM 11/10/24 11/23/24 History tirzepatide 10 mg/0.5 mL 10 mg (0.5 mL) subcut WEEKLY #2 mL 11/10/24 11/23/24 Rx subcutaneous pen injector (Eloyunallegraro) ascorbic acid (vitamin C) 500 mg 500 mg PO . daily 11/21/24 11/23/24 History capsule ferrous sulfate 325 mg (65 mg 325 mg PO BID 11/21/24 11/23/24 History iron) tablet,delayed release pantoprazole 40 mg tablet,delayed 40 mg PO QAM #30 tabs 11/21/24 11/23/24 Rx release (Protonix) atorvastatin 10 mg tablet 10 mg PO DAILY 11/23/24 11/23/24 History Allergies Allergy/AdvReac Type Severity Reaction Status Date / Time chlorpheniramine (From AdvReac CHILE- Verified 11/23/24 18:16 Actifed Cold-Allergy) UNKNOWN REACTION phenylephrine (From Actifed AdvReac CHILD- Verified 11/23/24 18:16 Cold-Allergy) UNKNOWN REACTION pseudoephedrine (From AdvReac CHILD- Verified 11/23/24 18:16 Actifed Cold-Allergy) UNKNOWN REACTION triprolidine (From Actifed AdvReac CHILD- Verified 11/23/24 18:16 Cold-Allergy) UNKNOWN REACTION Vital Signs Vital Signs - 24 hr 11/23/24 13:43 11/23/24 13:57 11/23/24 14:00 Temperature 97.6 F Pulse Rate 100 89 86 Respiratory Rate 20 30 H 28 H Blood Pressure 122/66 Pulse Oximetry 98 100 99 Oxygen Delivery Room Air 11/23/24 14:01 11/23/24 14:25 11/23/24 14:30 Temperature Pulse Rate 89 87 84 Respiratory Rate 23 H 28 H 24 H Blood Pressure 132/75 Pulse Oximetry 98 99 99 Oxygen Delivery 11/23/24 14:45 11/23/24 15:03 11/23/24 15:41 Temperature Pulse Rate 86 83 92 Respiratory Rate 24 H 27 H 29 H Blood Pressure Pulse Oximetry 96 96 96 Oxygen Delivery 11/23/24 16:18 11/23/24 16:30 11/23/24 16:32 Temperature Pulse Rate 85 94 92 Respiratory Rate 25 H 22 H 26 H Blood Pressure 117/72 Pulse Oximetry 97 96 97 Oxygen Delivery 11/23/24 16:45 11/23/24 16:46 11/23/24 17:00 Temperature Pulse Rate 88 89 95 Respiratory Rate 26 H 20 24 H Blood Pressure 146/81 H Pulse Oximetry 97 99 97 Oxygen Delivery 11/23/24 17:02 11/23/24 17:15 11/23/24 17:16 Temperature Pulse Rate 87 90 88 Respiratory Rate 26 H 21 H 26 H Blood Pressure 147/73 H 155/65 H Pulse Oximetry 96 96 97 Oxygen Delivery 11/23/24 17:30 11/23/24 17:32 11/23/24 17:45 Temperature Pulse Rate 85 86 84 Respiratory Rate 25 H 25 H 28 H Blood Pressure 152/77 H Pulse Oximetry 97 98 96 Oxygen Delivery 11/23/24 17:47 11/23/24 18:01 11/23/24 18:04 Temperature 97.7 F Pulse Rate 91 91 Respiratory Rate 18 18 Blood Pressure 138/94 H 155/77 H Pulse Oximetry 99 99 Oxygen Delivery Room Air Exam Const: General: comfortable and no acute distress Other: , male, nontoxic appearance HENMT: Face/Nose/Sinus: Normal nares present Mouth: Yes moist mucous membranes Eyes: General: appearance normal, both eyes and all related structures Sclera: sclerae normal Pupils: Equal, round and reactive pupils present EOM: EOMs intact bilaterally Resp: Effort & Inspection: normal respiratory effort Auscultation: clear to auscultation bilaterally Cardio: Rate: regular rate Rhythm: regular rhythm Other: S1-S2 present without murmur, rub, ectopy GI: Other: Abdomen soft, nondistended, nontender. Normoactive bowel sounds in all quadrants. Skin: General skin exam: normal color and no rashes or lesions noted Wounds: no wounds Neuro: Speech: normal speech Motor exam (neuro): 5/5 motor strength present throughout Sensory Exam: normal sensation Other: A&O x4 Extrem: General: normal to inspection Psych: Mental Status: mental status grossly normal Affect: normal affect Other: Good insight and judgment, pleasant H&P: Results Labs Labs: Short CBC 11/23/24 Range/Units 14:23 WBC 16.6 H (4.5-10.0) K/mm3 Hgb 6.6 L* (14.0-18.0) g/dL Hct 25.1 L (42.0-52.0) % Plt Count 454 H (150-375) k/mm3 BMP 11/23/24 14:05 Sodium 135 L Potassium 4.1 Chloride 103 Carbon Dioxide 19 L BUN 11 Creatinine 1.07 Glucose 80 Calcium 9.9 Liver Function 11/23/24 Range/Units 14:05 Total Bilirubin 0.5 (0.2-1.3) mg/dL AST 51 (17-59) U/L ALT 24 (6-50) U/L Alkaline Phosphatase 85 (38-126) U/L Albumin 4.9 (3.5-5.1) g/dL Assessment and Plan Assessment and plan (1) Anemia: Qualifiers: Anemia type: unspecified type Qualified Code(s): D64.9 - Anemia, unspecified Code(s): D64.9 - Anemia, unspecified Status: Acute Assessment and Plan: - Hgb 6.6, MCV low at 66.2, MCHC also low at 26.3 upon admission plan for transfusion of 2u PRBC on 11/23 - Hx of iron deficiency - check iron, TIBC, ferritin, B12, folic acid, stool occult, and TSH - transfuse if <7 - trend H&H - continue oral iron b.i.d. - may need GI evaluation dependent on CT results and occult stool. start PPI IV and clear liquid diet while awaiting results. Likely had recent GI bleed secondary to NSAID use, denies active bleeding. (2) Diarrhea: Qualifiers: Diarrhea type: unspecified type Qualified Code(s): R19.7 - Diarrhea, unspecified Code(s): R19.7 - Diarrhea, unspecified Status: Acute Assessment and Plan: - check CT abd/pelvis - check stool culture and c. diff - IV fluids: 125 mL/hr - monitor renal function Infectious versus functional diarrhea, does have a leukocytosis of 16.6. Ongoing for the past month. No colonoscopy on file, does report he has had 1 in the last 5-10 years which was normal. (3) Hypertension: Qualifiers: Hypertension type: unspecified Qualified Code(s): I10 - Essential (primary) hypertension Code(s): I10 - Essential (primary) hypertension Status: Chronic Assessment and Plan: - chronic, currently 139/76 - continue home medications: Amlodipine, spironolactone - monitor (4) Obstructive sleep apnea: Code(s): G47.33 - Obstructive sleep apnea (adult) (pediatric) Status: Chronic Assessment and Plan: - continue home CPAP Plan Diet: Clear liquid GI Prophylaxis: PPI IV DVT Prophylaxis: SCD IV fluids: 125 mL/hour Lines/Tubes: Peripheral IV Code Status: Full code Quality VTE Prophylaxis VTE prophylaxis: mechanical ordered Hospitalist MIPS Advance Care Plan I have confirmed that the patient's Advanced Care Plan is present, code status is documented, or surrogate decision maker is listed in patient medical record.: Yes Medication Reconciliation I have utilized all available resources to obtain, update and review the patients current medications (includes all prescriptions, OTC, herbals, cannabis, and nutritional supplements).: Yes
[2024-11-23] MEDS: ASCORBIC ACID 500 MG TABLET PO (22:30)
[2024-11-23] MEDS: HYDROcodone/acetaminophen (*CRX) 5-325 MG TABLET 1 TAB PO (22:31)
--- NOTE | 2024-11-23 22:41 | PCRCNOTE ---
Pt refused CPAP S9 is on stand by
[2024-11-24] VITALS (7 sets, daily range): BP systolic 103–130; BP diastolic 54–79; PULSE 79–92; RESP 16–20; TEMP 36.1–36.8; O2SAT 95–100
[2024-11-24] MEDS: SODIUM CHLORIDE 0.9% IV 1,000 ML 125 ML IV CONT (01:34)
[2024-11-24 01:35] LABS: Hematocrit 27.9 % (42.0-52.0); Hemoglobin 7.9 g/dL (14.0-18.0)
[2024-11-24 01:48] LABS: Iron 45 ug/dL (49-181)
[2024-11-24 01:58] LABS: Percent Iron Saturation 10 % (20-50)
[2024-11-24 02:20] LABS: Thyroid Stimulating Hormone Reflex 2.170 uIU/mL (0.465-4.68)
[2024-11-24 02:24] LABS: Ferritin 6.22 ng/mL (11.1-264)
[2024-11-24 02:56] LABS: Vitamin B12 806.0 pg/mL (239-931)
[2024-11-24 06:24] LABS: Hematocrit 28.6 % (42.0-52.0); Hemoglobin 8.0 g/dL (14.0-18.0); Immature Granulocyte Percent A 0.5 % (0-0.5); Lymphocytes Absolute Auto 2.43 K/mm3 (0.9-3.2); Mean Corpuscular HGB Conc 28.0 g/dl (32-36); Mean Corpuscular Hemoglobin 20.1 pg (26-34); Mean Corpuscular Volume 71.7 fl (80-100); Nucleated Red Blood Cells Absolute Auto 0.030 K/mm3 (0.0-0.012); Nucleated Red Blood Cells Perc 0.2 % (0.0-0.2); Platelet Count Result 372 k/mm3 (150-375); Red Blood Count 3.99 M/mm3 (4.6-6.20); White Blood Count 13.2 K/mm3 (4.5-10.0)
[2024-11-24 06:53] LABS: Alanine Aminotransferase 20 U/L (6-50); Albumin Level 4.0 g/dL (3.5-5.1); Alkaline Phosphatase 74 U/L (38-126); Anion Gap 11 mmol/L (4-12); Aspartate Amino Transferase 35 U/L (17-59); Bilirubin,Total 0.4 mg/dL (0.2-1.3); Blood Urea Nitrogen 11 mg/dL (9-20); Calcium 8.6 mg/dL (8.4-10.2); Carbon Dioxide 21 mmol/L (22-30); Chloride 106 mmol/L (98-107); Estimated CRCL calculation 77 ml/min; Estimated Glomerular Filt Rate > 60; Glucose 101 mg/dL (65-110); Potassium 3.7 mmol/L (3.4-5.0); Sodium 138 mmol/L (137-145); Total Protein 7.1 g/dL (6.3-8.2)
[2024-11-24 06:58] LABS: Hypochromasia 2+; Microcytosis 1+ (NORMAL); Polychromasia Occasional; Stomatocytes 1+
[2024-11-24 06:59] LABS: Burr Cells 1+; Schistocytes None Seen
--- NOTE | 2024-11-24 09:00 | P.PNIM_ITS ---
Progress Note: A&P Assessment and Plan (1) Anemia: Qualifiers: Anemia type: unspecified type Qualified Code(s): D64.9 - Anemia, unspecified Code(s): D64.9 - Anemia, unspecified Status: Acute Assessment and Plan: He reports he had blood drawn on Saturday, 11/21, which showed a hemoglobin of 6.3. He was directed to the ED at that time, however he elected not to seek treatment and was subsequently started on oral iron replacement therapy. Admits to taking 4000 mg ibuprofen daily for knee pain. Likely had recent GI bleed secondary to NSAID use. Educated on risks of GI bleed with heavy NSAID use and encouraged cessation. Previously endorsing melena, however denies active bleeding since admission. - Hgb 6.6, MCV low at 66.2, MCHC also low at 26.3 upon admission Received transfusion of 2u PRBC on 11/23. H/H responded appropriately at 11/26.6. - Hx of iron deficiency - Iron panel showing iron deficiency anemia: Iron 45, TIBC 472, % sat 10, and ferritin 6.22. Remains on oral iron supplementation BID - B12 and folic acid WNL. TSH WNL. - Stool occult ordered - PPI - DVT ppx: SCD - Monitor serum electrolytes, CBC, hemoglobin/hematocrit q.8 hours. If hemoglobin drops below 7 transfuse packed red blood cells - Monitor for bloody bowel movements,chest pain,SOB or dizziness/lightheadedness - GI consulted Discussed with Dr. Lagunas. Plan for possible EGD tomorrow. (2) Diarrhea: Qualifiers: Diarrhea type: unspecified type Qualified Code(s): R19.7 - Diarrhea, unspecified Code(s): R19.7 - Diarrhea, unspecified Status: Acute Assessment and Plan: Infectious versus functional diarrhea, does have a leukocytosis of 16.6. Ongoing for the past month. No colonoscopy on file, does report he has had 1 in the last 5-10 years [address] was normal. CT abd/pelvis: No acute abdominal abnormality - check stool culture and c. diff - IV fluids: 125 mL/hr - monitor renal function No longer endorsing diarrhea. WBC downtrending without antibiotic intervention. (3) Hypertension: Qualifiers: Hypertension type: unspecified Qualified Code(s): I10 - Essential (primary) hypertension Code(s): I10 - Essential (primary) hypertension Status: Chronic Assessment and Plan: - chronic, continue home medications - Amlodipine 10 mg daily - Spironolactone 50 mg daily - blood pressures remain stable, continue to monitor (4) Obstructive sleep apnea: Code(s): G47.33 - Obstructive sleep apnea (adult) (pediatric) Status: Chronic Assessment and Plan: - continue home CPAP Time Spent With Patient Time with patient: 25 - 35 minutes Subjective Date/time seen: 11/24/24 09:00 Interval history: 54 year old male with PMH of DVT, benign paroxysmal positional vertigo, aortic stenosis, pulmonary hypertension, mild diastolic dysfunction, previous low iron in 2021, COPD, hyperlipidemia, hypertension, and HARLAN presents here with abnormal outpatient lab work. Patient is pleasant sitting up comfortably in chair. Patient no longer endorsing diarrhea or melena. Patient does state that he had previous melena prior to admission and was taking around 4000 mg ibuprofen daily. Educated on risks of GI bleed with heavy NSAID use and encouraged cessation. Discussed with Dr. Lagunas. Plan for possible EGD tomorrow. Patient has no other complaints de nying chest pain, palpitations, nausea/vomiting and abdominal pain. Review of Systems Review of Systems: All systems reviewed & are unremarkable except as noted in HPI and below Exam Narrative: AF HR 81 RR 16 Spo2 100 BP 130/79 General: male in no acute respiratory distress who is nontoxic appearing, sitting up in chair HEENT: Normocephalic. Atraumatic. Extraocular movement intact. Sclera clear and anicteric. No facial asymmetry. Chest: Lungs are clear to auscultation bilaterally. No wheezes or crackles. CV: Heart was regular rate and rhythm. S1/S2. No murmurs, gallops, or rubs. Abd: Abdomen was soft. Nontender. Nondistended. Positive bowel sounds. Ext: No clubbing, cyanosis, or edema. DP pulses bilaterally. Brace to left hand. Neuro: Patient is alert. Speech is clear. Objective Data Vital Signs Vital Signs: Vital Signs - 24 hr 11/23/24 13:43 11/23/24 13:57 11/23/24 14:00 Temperature 97.6 F Pulse Rate 100 89 86 Respiratory Rate 20 30 H 28 H Blood Pressure 122/66 Pulse Oximetry 98 100 99 Oxygen Delivery Room Air Fraction of Inspired Oxygen 11/23/24 14:01 11/23/24 14:25 11/23/24 14:30 Temperature Pulse Rate 89 87 84 Respiratory Rate 23 H 28 H 24 H Blood Pressure 132/75 Pulse Oximetry 98 99 99 Oxygen Delivery Fraction of Inspired Oxygen 11/23/24 14:45 11/23/24 15:03 11/23/24 15:41 Temperature Pulse Rate 86 83 92 Respiratory Rate 24 H 27 H 29 H Blood Pressure Pulse Oximetry 96 96 96 Oxygen Delivery Fraction of Inspired Oxygen 11/23/24 16:18 11/23/24 16:30 11/23/24 16:32 Temperature Pulse Rate 85 94 92 Respiratory Rate 25 H 22 H 26 H Blood Pressure 117/72 Pulse Oximetry 97 96 97 Oxygen Delivery Fraction of Inspired Oxygen 11/23/24 16:45 11/23/24 16:46 11/23/24 17:00 Temperature Pulse Rate 88 89 95 Respiratory Rate 26 H 20 24 H Blood Pressure 146/81 H Pulse Oximetry 97 99 97 Oxygen Delivery Fraction of Inspired Oxygen 11/23/24 17:02 11/23/24 17:15 11/23/24 17:16 Temperature Pulse Rate 87 90 88 Respiratory Rate 26 H 21 H 26 H Blood Pressure 147/73 H 155/65 H Pulse Oximetry 96 96 97 Oxygen Delivery Fraction of Inspired Oxygen 11/23/24 17:30 11/23/24 17:32 11/23/24 17:45 Temperature Pulse Rate 85 86 84 Respiratory Rate 25 H 25 H 28 H Blood Pressure 152/77 H Pulse Oximetry 97 98 96 Oxygen Delivery Fraction of Inspired Oxygen 11/23/24 17:47 11/23/24 18:01 11/23/24 18:04 Temperature 97.7 F Pulse Rate 91 91 Respiratory Rate 18 18 Blood Pressure 138/94 H 155/77 H Pulse Oximetry 99 99 Oxygen Delivery Room Air Fraction of Inspired Oxygen 11/23/24 18:35 11/23/24 18:49 11/23/24 20:00 Temperature 98.3 F 98.1 F Pulse Rate 89 99 Respiratory Rate 20 20 Blood Pressure 121/68 139/76 Pulse Oximetry 99 97 Oxygen Delivery Room Air Fraction of Inspired Oxygen 11/23/24 20:00 11/23/24 20:00 11/23/24 21:18 Temperature 98.3 F 98.3 F Pulse Rate 85 85 90 Respiratory Rate 20 20 20 Blood Pressure 140/80 140/80 Pulse Oximetry 100 100 99 Oxygen Delivery Room Air Fraction of Inspired Oxygen 21 11/23/24 22:02 11/23/24 22:20 11/23/24 23:20 Temperature 98.8 F 98.2 F 98.1 F Pulse Rate 83 98 83 Respiratory Rate 18 18 20 Blood Pressure 114/91 H 126/76 106/60 Pulse Oximetry 98 99 98 Oxygen Delivery Fraction of Inspired Oxygen 11/24/24 00:00 11/24/24 00:31 11/24/24 00:36 Temperature 98.0 F 98 F 98.0 F Pulse Rate 79 79 79 Respiratory Rate 20 20 20 Blood Pressure 103/54 L 103/54 L 103/54 L Pulse Oximetry 96 99 96 Oxygen Delivery Fraction of Inspired Oxygen 11/24/24 04:00 Temperature 97.7 F Pulse Rate 82 Respiratory Rate 20 Blood Pressure 127/64 Pulse Oximetry 98 Oxygen Delivery Fraction of Inspired Oxygen Intake/Output Intake/Output: Intake & Output 11/21/24 11/22/24 11/23/24 11/24/24 23:59 23:59 23:59 23:59 Intake Total 1350 890 Balance 1350 890 Meds/Results Medications: Active Medications Generic Name Dose Route Start Last Admin Trade Name Freq PRN Reason Stop Dose Admin Acetaminophen 500 mg 11/23/24 20:58 Acetaminophen 500 Mg Tablet PO Q6H PRN Mild Pain (1-3) or Fever Hydrocodone Bitart/Acetaminophen 1 tab 11/23/24 20:58 11/23/24 22:31 Hydrocodone/Acetaminophen (*Crx) 5-325 Mg Tablet PO 1 tab Q8H PRN Administration Pain Rated 4-6 Amlodipine Besylate 10 mg 11/24/24 09:00 Amlodipine Besylate 10 Mg Tablet PO DAILY CHRISTINA Ascorbic Acid 500 mg 11/23/24 21:05 11/23/24 22:30 Ascorbic Acid 500 Mg Tablet PO 500 mg DAILY CHRISTINA Administration Atorvastatin Calcium 10 mg 11/24/24 09:00 Atorvastatin 10 Mg Tablet PO DAILY CHRISTINA Ferrous Sulfate 325 mg 11/24/24 09:00 Ferrous Sulfate [address] PO BID CHRISTINA Fluticasone/Umeclidinium/Vilanterol 1 puff 11/24/24 08:00 Fluticasone/Umeclidin/Vilanter 100-62.5-25 Mcg Ellipta INHALATION [facility]ILY[facility] Furosemide 40 mg 11/24/24 09:00 Furosemide 40 Mg Tablet PO QAM [facility] Sodium Chloride 1,000 mls @ 125 mls/hr 11/23/24 14:50 11/24/24 01:34 Normal Saline Iv IV CONT 125 mls/hr .Q8H CHRISTINA Administration Pantoprazole Sodium 40 mg 11/24/24 09:00 Pantoprazole Sodium Iv 40 Mg Vial IV PUSH QAM [facility] Spironolactone 50 mg 11/24/24 09:00 Spironolactone 50 Mg Tablet PO QAM [facility] Radiology Results: ITS Impressions Abdomen/Pelvis CT 11/24/24 08:44 IMPRESSION: 1. No acute abdominal abnormality. 2: Nonobstructing right nephrolithiasis. Labs Labs: Laboratory Results - last 24 hr 11/23/24 11/23/24 11/24/24 14:05 14:23 01:09 WBC 16.6 H RBC 3.79 L Hgb 6.6 L* 7.9 L Hct 25.1 L 27.9 L MCV 66.2 L MCH 17.4 L MCHC 26.3 L RDW 19.4 H Plt Count 454 H MPV 10.0 Immature Gran % (Auto) 0.7 H Neut % (Auto) 68.5 Lymph % (Auto) 17.6 L Mcpherson % (Auto) 9.7 H Eos % (Auto) 2.3 Baso % (Auto) 1.2 Lymph # (Auto) 2.91 Mcpherson # (Auto) 1.6 H Eos # (Auto) 0.4 H Baso # (Auto) 0.2 H Abs Immat Gran (auto) 0.12 H Absolute Neuts (auto) 11.4 H Absolute Nucleated RBC 0.080 H Band Neutrophils % Not Reportable Nucleated RBC % 0.5 H Platelet Estimate Increased Large Platelets Present Giant Platelets Present Polychromasia Hypochromasia 2+ Hyperchromasia Occasional Anisocytosis 1+ Microcytosis 2+ Ovalocytes Occasional Stomatocytes 1+ Elly Cells Schistocytes None seen Sodium 135 L Potassium 4.1 Chloride 103 Carbon Dioxide 19 L Anion Gap 13 H BUN 11 Creatinine 1.07 Estim Creat Clear Calc 76 Estimated GFR > 60 Glucose 80 Calcium 9.9 Iron 45 L TIBC 472 % Saturation 10 L Ferritin 6.22 L Total Bilirubin 0.5 AST 51 ALT 24 Alkaline Phosphatase 85 Total Protein 8.8 H Albumin 4.9 Vitamin B12 806.0 Folate > 20.0 H TSH (Reflex) 2.170 Blood Type O Negative Antibody Screen Negative Crossmatch See Detail 11/24/24 05:30 WBC 13.2 H RBC 3.99 L Hgb 8.0 L Hct 28.6 L MCV 71.7 L D MCH 20.1 L D MCHC 28.0 L RDW 23.3 H Plt Count 372 MPV 11.2 H Immature Gran % (Auto) 0.5 Neut % (Auto) 65.2 Lymph % (Auto) 18.5 Mcpherson % (Auto) 10.0 H Eos % (Auto) 4.5 H Baso % (Auto) 1.3 H Lymph # (Auto) 2.43 Mcpherson # (Auto) 1.3 H Eos # (Auto) 0.6 H Baso # (Auto) 0.2 H Abs Immat Gran (auto) 0.07 H Absolute Neuts (auto) 8.6 H Absolute Nucleated RBC 0.030 H Band Neutrophils % Not Reportable Nucleated RBC % 0.2 Platelet Estimate Adequate Large Platelets Giant Platelets Polychromasia Occasional Hypochromasia 2+ Hyperchromasia Anisocytosis Microcytosis 1+ Ovalocytes Stomatocytes 1+ Elly Cells 1+ Schistocytes None seen Sodium 138 Potassium 3.7 Chloride 106 Carbon Dioxide 21 L Anion Gap 11 BUN 11 Creatinine 1.05 Estim Creat Clear Calc 77 Estimated GFR > 60 Glucose 101 Calcium 8.6 Iron TIBC % Saturation Ferritin Total Bilirubin 0.4 AST 35 ALT 20 Alkaline Phosphatase 74 Total Protein 7.1 Albumin 4.0 Vitamin B12 Folate TSH (Reflex) Blood Type Antibody Screen Crossmatch Quality VTE Prophylaxis VTE prophylaxis: mechanical ordered
[2024-11-24] MEDS: FERROUS SULFATE 325 MG TABLET DR PO ×2 (09:05→17:16)
[2024-11-24] MEDS: ATORVASTATIN 10 MG TABLET PO (09:05)
[2024-11-24] MEDS: FUROSEMIDE 40 MG TABLET PO (09:05)
[2024-11-24] MEDS: SPIRONOLACTONE 50 MG TABLET PO (09:05)
[2024-11-24] MEDS: ASCORBIC ACID 500 MG TABLET PO (09:05)
[2024-11-24] MEDS: PANTOPRAZOLE SODIUM IV 40 MG VIAL IV PUSH (09:06)
[2024-11-24] MEDS: HYDROcodone/acetaminophen (*CRX) 5-325 MG TABLET 1 TAB PO ×2 (09:08→20:17)
[2024-11-24 09:47] LABS: Hematocrit 32.2 % (42.0-52.0); Hemoglobin 9.0 g/dL (14.0-18.0)
[2024-11-24 16:45] LABS: IFOB Positive Control Positive; Immunochemical Fecal Occult Bl Negative (N)
--- NOTE | 2024-11-24 17:17 | WPDGICN ---
Assessment and Plan Assessment and plan (1) Iron deficiency anemia: Code(s): D50.9 - Iron deficiency anemia, unspecified Status: Acute Assessment and Plan: The most likely cause of this patient's severe anemia is chronic ibuprofen consumption, which can lead to blood loss through peptic ulcer disease or erosive gastritis. NSAIDs like ibuprofen can also cause bleeding throughout the entire gastrointestinal tract. An EGD will be performed to evaluate the upper GI tract for a source of bleeding. The patient has been educated on the risks of NSAIDs and understands that he should not use them for pain in the future. GI Consult Note Consult date/time: 11/24/24 17:17 Reason for consult: Iron deficiency anemia HPI: Armaan Hurst, a 54-year-old man with a history of aortic stenosis, was admitted on November 23, 2024, for severe anemia, presenting with shortness of breath, dizziness, and generalized weakness. A week earlier, a hemoglobin level of 6.4 was noted, but he did not seek immediate medical care. He finally presented to the emergency room yesterday with persistent symptoms, where his hemoglobin was 6.3. Of note, Mr. Hurst reports a history of chronic ibuprofen use for knee pain, often taking more than the recommended dose for several years (400 mg bid or tid) . He also reports a recent change in his bowel habits with a month of loose stools. His hemoglobin has significantly declined from 9.8 in March 2024. Labs from November 21, 2024, reveal severe iron deficiency, with an iron saturation of 2% and a ferritin of 4.3. After receiving a two-unit blood transfusion, his hemoglobin has improved to 9.0. He states he had a colonoscopy [address] [facility], and apparently an EGD as well, and was told that his anemia is due to his Ibuprofen consumption (we have no access to those records). Review of Systems Review of Systems: All systems reviewed & are unremarkable except as noted in HPI and below PMFSH Past Medical History Medical History Gastritis Anemia Hemoglobin 9.8 on 03/16/2024. Hemoglobin 6.4 on 11/14/2024. Hemoglobin 6.3 on 11/21/2024 with iron less than 10 with 2% saturation and ferritin COPD exacerbation Cellulitis of right anterior lower leg Cellulitis and abscess of left leg (~12/23/23) Sepsis DVT (deep venous thrombosis) Benign paroxysmal positional vertigo due to bilateral vestibular disorder Male erectile dysfunction, unspecified Right wrist pain Right hand pain Acute pain of right wrist (07/15/24) work injury Aortic stenosis (~03/20/24) mild aortic stenosis on echo 03/20/2024. Nocturnal hypoxemia Pulmonary hypertension Mild diastolic dysfunction Bacterial meningitis Sepsis Leg pain, left Febrile illness Inguinal adenopathy Headache Hand eczema SOB (shortness of breath) Cough Morbid obesity with BMI of 40.0-44.9, adult Acute conjunctivitis of left eye Dyshidrotic eczema Tinea pedis Pain in joints of both feet x-rays of both feet on 05/07/2022 reveals diffuse mild osteoarthritis of both feet. Rash and nonspecific skin eruption Adult BMI 39.0-39.9 kg/sq m Obesity (BMI 30-39.9) COVID-19 (~08/2021) 2nd episode with mild symptoms for 2 or 3 days. Candidiasis of other urogenital sites (10/31/21) Low iron (08/24/21) iron 49 with 13% saturation and hemoglobin 14.1 on 08/24/2021. Iron 50 with 12% saturation and ferritin 31 on 11/13/2022. iron less than 10 with 2% saturation and ferritin with hemoglobin 6.3 on 11/21/2024. COPD (chronic obstructive pulmonary disease) (~08/24/21) PFT on 08/24/2021 with moderate obstructive defect with significant improvement with bronchodilator. Dyspnea on exertion exercise stress test on 08/24/2021 was negative for ischemia. EKG revealed sinus rhythm with borderline R-wave progression. PT/ id PI/ Lexiscan stress test and calcium CT on 06/11/2024 with no evidence of ischemia. Ejection fraction 67%, calcium score of 3. Testosterone 355.7 with free testosterone 3.17 on 11/14/2024. Chronic nonallergic rhinitis BMI 37.0-37.9, adult Hearing loss chronic worse on left than right Encounter for wellness examination in adult COVID-19 (02/14/21) fully vaccinated and COVID BMI 36.0-36.9,adult Insomnia Acute low back pain Mixed hyperlipidemia total cholesterol 217, triglycerides 403, HDL 30 and LDL 106 with AST 22 and ALT 26 on 03/11/2020. Cholesterol 207, HDL 40, triglycerides 111, LDL 142 on 08/24/2021. Cholesterol 226, triglycerides 169, HDL 36, LDL 159 on 11/13/2022.Cholesterol 131, triglycerides 120, HDL 33, LDL 76 on 11/14/2024. Abnormal fasting glucose fasting glucose normal at 95 on 03/11/2020. Glucose 110 with hemoglobin A1c 5.5 on 08/24/2021. Glucose 95 with hemoglobin A1c 5.8 on 11/13/2022. Glucose 88 with hemoglobin A1c 5.7 and GFR 95 on 11/14/2024. Chronic pain of both knees chronic bilateral knee pain after multiple surgeries. Degenerative changes. Permanent handicap placard 06/29/2021 Tonsillar hypertrophy Encounter for prostate cancer screening PSA 0.6 on 03/11/2020. PSA 1.0 on 08/24/2021. PSA 1.1 on 11/14/2024. Lip cyst Tobacco use disorder, continuous patient quit smoking cigarettes Jul, 2021 but continues to chew tobacco 1/2 can daily. Obstructive sleep apnea very severe HARLAN with AHI of 131 Hypertension Surgical History Surgical History H/O shoulder surgery left shoulder History of neck surgery History of right knee surgery (~2017) H/O left knee surgery (~2013) Family History Family History Mother Parkinson disease Father Accident Social History Social History Smoking packs per day: 1 Smoking cigarettes per day: 20.0 Smoking status: Former smoker Smokeless tobacco user: chewing tobacco Second hand tobacco smoke exposure: No Alcohol intake: current Drinks per week: 3 Substance use: never Substance use type: does not use Do You Feel Safe in your Home?: Yes Lack of Transportation: No Lack of Food: Never True Current Housing: I Have Housing Concerned About Future Housing: No Difficulty Paying Gas/Electric Bills: No Difficulty Paying for Meds: No Currently Unemployed: No Education: High School Diploma/GED Difficulty w/ Childcare or Family Care: No Living arrangements: with family Occupation/Education: occupation Gender identity (if verbalized by the patient): Male Spiritual care concerns: No Meds Home Medications and Allergies Home Medications ?Medication ?Instructions ?Recorded ?Confirmed ?Type budesonide 160 mcg-glycopyr 9 2 inh inhalation BID #10.7 grams 12/31/23 11/23/24 Rx mcg-formot 4.8 mcg/actuation HFA inhaler (Breztri Aerosphere) furosemide 40 mg tablet (Lasix) 40 mg PO QAM #90 tabs 01/22/24 11/23/24 Rx amlodipine 10 mg tablet 10 mg PO DAILY #90 tabs 05/07/24 11/23/24 Rx spironolactone 50 mg tablet 50 mg PO QAM 11/10/24 11/23/24 History tirzepatide 10 mg/0.5 mL 10 mg (0.5 mL) subcut WEEKLY #2 mL 11/10/24 11/23/24 Rx subcutaneous pen injector (Mounjaro) ascorbic acid (vitamin C) 500 mg 500 mg PO . daily 11/21/24 11/23/24 History capsule ferrous sulfate 325 mg (65 mg 325 mg PO BID 11/21/24 11/23/24 History iron) tablet,delayed release pantoprazole 40 mg tablet,delayed 40 mg PO QAM #30 tabs 11/21/24 11/23/24 Rx release (Protonix) atorvastatin 10 mg tablet 10 mg PO DAILY 11/23/24 11/23/24 History Allergies Allergy/AdvReac Type Severity Reaction Status Date / Time chlorpheniramine (From AdvReac CHILE- Verified 11/23/24 18:16 Actifed Cold-Allergy) UNKNOWN REACTION phenylephrine (From Actifed AdvReac CHILD- Verified 11/23/24 18:16 Cold-Allergy) UNKNOWN REACTION pseudoephedrine (From AdvReac CHILD- Verified 11/23/24 18:16 Actifed Cold-Allergy) UNKNOWN REACTION triprolidine (From Actifed AdvReac CHILD- Verified 11/23/24 18:16 Cold-Allergy) UNKNOWN REACTION Vital Signs Vital Signs - 24 hr 11/23/24 17:30 11/23/24 17:32 11/23/24 17:45 Temperature Pulse Rate 85 86 84 Respiratory Rate 25 H 25 H 28 H Blood Pressure 152/77 H Pulse Oximetry 97 98 96 Oxygen Delivery Fraction of Inspired Oxygen 11/23/24 17:47 11/23/24 18:01 11/23/24 18:04 Temperature 97.7 F Pulse Rate 91 91 Respiratory Rate 18 18 Blood Pressure 138/94 H 155/77 H Pulse Oximetry 99 99 Oxygen Delivery Room Air Fraction of Inspired Oxygen 11/23/24 18:35 11/23/24 18:49 11/23/24 20:00 Temperature 98.3 F 98.1 F Pulse Rate 89 99 Respiratory Rate 20 20 Blood Pressure 121/68 139/76 Pulse Oximetry 99 97 Oxygen Delivery Room Air Fraction of Inspired Oxygen 11/23/24 20:00 11/23/24 20:00 11/23/24 21:18 Temperature 98.3 F 98.3 F Pulse Rate 85 85 90 Respiratory Rate 20 20 20 Blood Pressure 140/80 140/80 Pulse Oximetry 100 100 99 Oxygen Delivery Room Air Fraction of Inspired Oxygen 21 11/23/24 22:02 11/23/24 22:20 11/23/24 23:20 Temperature 98.8 F 98.2 F 98.1 F Pulse Rate 83 98 83 Respiratory Rate 18 18 20 Blood Pressure 114/91 H 126/76 106/60 Pulse Oximetry 98 99 98 Oxygen Delivery Fraction of Inspired Oxygen 11/24/24 00:00 11/24/24 00:31 11/24/24 00:36 Temperature 98.0 F 98 F 98.0 F Pulse Rate 79 79 79 Respiratory Rate 20 20 20 Blood Pressure 103/54 L 103/54 L 103/54 L Pulse Oximetry 96 99 96 Oxygen Delivery Fraction of Inspired Oxygen 11/24/24 04:00 11/24/24 13:50 Temperature 97.7 F 96.9 F L Pulse Rate 82 81 Respiratory Rate 20 16 Blood Pressure 127/64 130/79 Pulse Oximetry 98 100 Oxygen Delivery Fraction of Inspired Oxygen Exam Const: General: cooperative and healthy appearing Resp: Effort & Inspection: normal respiratory effort and able to speak in complete sentences Auscultation: clear to auscultation bilaterally Cardio: Rate: regular rate Rhythm: regular rhythm GI: Inspection: normal to inspection GI Palp: No No hepatosplenomegaly present Auscultation: normal bowel sounds Rectal Exam: deferred Skin: General skin exam: normal color Psych: Appearance: grossly normal Mental Status: mental status grossly normal Results Labs 11/24/24 09:31 11/24/24 05:30 Labs: Short CBC 11/24/24 11/24/24 11/24/24 Range/Units 01:09 05:30 09:31 WBC 13.2 H (4.5-10.0) K/mm3 Hgb 7.9 L 8.0 L 9.0 L (14.0-18.0) g/dL Hct 27.9 L 28.6 L 32.2 L (42.0-52.0) % Plt Count 372 (150-375) k/mm3 BMP 11/24/24 05:30 Sodium 138 Potassium 3.7 Chloride 106 Carbon Dioxide 21 L BUN 11 Creatinine 1.05 Glucose 101 Calcium 8.6 Liver Function 11/24/24 Range/Units 05:30 Total Bilirubin 0.4 (0.2-1.3) mg/dL AST 35 (17-59) U/L ALT 20 (6-50) U/L Alkaline Phosphatase 74 (38-126) U/L Albumin 4.0 (3.5-5.1) g/dL
[2024-11-24 17:21] LABS: Toxigenic C. Diff NEGATIVE (NEGATIVE)
[2024-11-25] VITALS (9 sets, daily range): BP systolic 120–137; BP diastolic 71–84; PULSE 76–91; RESP 16–24; TEMP 35.9–36.8; O2SAT 95–99
[2024-11-25 06:32] LABS: Hematocrit 32.0 % (42.0-52.0); Hemoglobin 8.9 g/dL (14.0-18.0); Immature Platelet Fraction Pct 9.5 % (0.9-11.2); Mean Corpuscular HGB Conc 27.8 g/dl (32-36); Mean Corpuscular Hemoglobin 20.2 pg (26-34); Mean Corpuscular Volume 72.6 fl (80-100); Platelet Count Result 311 k/mm3 (150-375); Red Blood Count 4.41 M/mm3 (4.6-6.20); White Blood Count 10.6 K/mm3 (4.5-10.0)
[2024-11-25 07:08] LABS: Alanine Aminotransferase 22 U/L (6-50); Albumin Level 4.4 g/dL (3.5-5.1); Alkaline Phosphatase 79 U/L (38-126); Anion Gap 10 mmol/L (4-12); Aspartate Amino Transferase 31 U/L (17-59); Bilirubin,Total 0.5 mg/dL (0.2-1.3); Blood Urea Nitrogen 8 mg/dL (9-20); Calcium 9.3 mg/dL (8.4-10.2); Carbon Dioxide 24 mmol/L (22-30); Chloride 105 mmol/L (98-107); Estimated CRCL calculation 84 ml/min; Estimated Glomerular Filt Rate > 60; Glucose 95 mg/dL (65-110); Potassium 4.2 mmol/L (3.4-5.0); Sodium 139 mmol/L (137-145); Total Protein 7.8 g/dL (6.3-8.2)
[2024-11-25] MEDS: SIMETHICONE ORAL SUSPENSION 20 MG/0.3 ML 30 ML BOTTLE 1.8 ML PO (08:18)
[2024-11-25] MEDS: LACTATED RINGERS 1,000 ML 150 ML IV CONT (08:18)
--- NOTE | 2024-11-25 08:27 | WPDANESEPPF ---
Anes - Initial Pre Proc Eval Procedure: Operation Date: 11/25/24 15:30 Proposed Procedures p Esophagogastroduodenoscopy - Nickolas Lagunas MD Date/Time: 11/25/24 08:27 Surgeon: Brady Anderson MD Pre Op Diagnosis: anemia Patient Data Age: 54 Gender: M Height: 1.65 m Weight: 96 kg Last Vital Signs Temp 97.7 F 11/25/24 08:15 Pulse 87 11/25/24 08:15 Resp 16 11/25/24 08:15 BP 137/78 11/25/24 08:15 Pulse Ox 97 11/25/24 08:15 O2 Del Method Room Air 11/25/24 08:15 FiO2 21 11/23/24 21:18 Allergies Allergy/AdvReac Type Severity Reaction Status Date / Time chlorpheniramine (From AdvReac CHILE- Verified 11/25/24 08:14 Actifed Cold-Allergy) UNKNOWN REACTION phenylephrine (From Actifed AdvReac CHILD- Verified 11/25/24 08:14 Cold-Allergy) UNKNOWN REACTION pseudoephedrine (From AdvReac CHILD- Verified 11/25/24 08:14 Actifed Cold-Allergy) UNKNOWN REACTION triprolidine (From Actifed AdvReac CHILD- Verified 11/25/24 08:14 Cold-Allergy) UNKNOWN REACTION Home Medications ?Medication ?Instructions ?Recorded ?Confirmed ?Type budesonide 160 mcg-glycopyr 9 2 inh inhalation BID #10.7 grams 12/31/23 11/23/24 Rx mcg-formot 4.8 mcg/actuation HFA inhaler (Breztri Aerosphere) furosemide 40 mg tablet (Lasix) 40 mg PO QAM #90 tabs 01/22/24 11/23/24 Rx amlodipine 10 mg tablet 10 mg PO DAILY #90 tabs 05/07/24 11/23/24 Rx spironolactone 50 mg tablet 50 mg PO QAM 11/10/24 11/23/24 History tirzepatide 10 mg/0.5 mL 10 mg (0.5 mL) subcut WEEKLY #2 mL 11/10/24 11/23/24 Rx subcutaneous pen injector (Vandana) ascorbic acid (vitamin C) 500 mg 500 mg PO . daily 11/21/24 11/23/24 History capsule ferrous sulfate 325 mg (65 mg 325 mg PO BID 11/21/24 11/23/24 History iron) tablet,delayed release pantoprazole 40 mg tablet,delayed 40 mg PO QAM #30 tabs 11/21/24 11/23/24 Rx release (Protonix) atorvastatin 10 mg tablet 10 mg PO DAILY 11/23/24 11/23/24 History Laboratory Tests 11/24/24 11/24/24 11/25/24 09:31 15:44 06:19 WBC 10.6 H K/mm3 (4.5-10.0) RBC 4.41 L M/mm3 (4.6-6.20) Hgb 9.0 L g/dL 8.9 L g/dL (14.0-18.0) (14.0-18.0) Hct 32.2 L % 32.0 L % (42.0-52.0) (42.0-52.0) MCV 72.6 L fl (80-100) MCH 20.2 L pg (26-34) MCHC 27.8 L g/dl (32-36) RDW 25.1 H % (11.5-14.5) Plt Count 311 k/mm3 (150-375) MPV TNP % Immature Plt Fraction 9.5 % (0.9-11.2) Sodium 139 mmol/L (137-145) Potassium 4.2 mmol/L (3.4-5.0) Chloride 105 mmol/L (98-107) Carbon Dioxide 24 mmol/L (22-30) Anion Gap 10 mmol/L (4-12) BUN 8 L mg/dL (9-20) Creatinine 0.96 mg/dL (0.7-1.3) Estim Creat Clear Calc 84 ml/min Estimated GFR > 60 (59 - ) Glucose 95 mg/dL (65-110) Calcium 9.3 mg/dL (8.4-10.2) Total Bilirubin 0.5 mg/dL (0.2-1.3) AST 31 U/L (17-59) ALT 22 U/L (6-50) Alkaline Phosphatase 79 U/L (38-126) Total Protein 7.8 g/dL (6.3-8.2) Albumin 4.4 g/dL (3.5-5.1) Stl Occult Blood (IFOB) Negative (N) C. difficile (PCR) Negative (NEGATIVE) Patient hx anesthesia problems: none Family hx anesthesia problems: none Results Review: All pre-operative results and documents have been reviewed as part of the pre-operative evaluation. [facility] [place] Past Medical History Medical History Gastritis Anemia Hemoglobin 9.8 on 03/16/2024. Hemoglobin 6.4 on 11/14/2024. Hemoglobin 6.3 on 11/21/2024 with iron less than 10 with 2% saturation and ferritin COPD exacerbation Cellulitis of right anterior lower leg Cellulitis and abscess of left leg (~12/23/23) Sepsis DVT (deep venous thrombosis) Benign paroxysmal positional vertigo due to bilateral vestibular disorder Male erectile dysfunction, unspecified Right wrist pain Right hand pain Acute pain of right wrist (07/15/24) work injury Aortic stenosis (~03/20/24) mild aortic stenosis on echo 03/20/2024. Nocturnal hypoxemia Pulmonary hypertension Mild diastolic dysfunction Bacterial meningitis Sepsis Leg pain, left Febrile illness Inguinal adenopathy Headache Hand eczema SOB (shortness of breath) Cough Morbid obesity with BMI of 40.0-44.9, adult Acute conjunctivitis of left eye Dyshidrotic eczema Tinea pedis Pain in joints of both feet x-rays of both feet on 05/07/2022 reveals diffuse mild osteoarthritis of both feet. Rash and nonspecific skin eruption Adult BMI 39.0-39.9 kg/sq m Obesity (BMI 30-39.9) COVID-19 (~08/2021) 2nd episode with mild symptoms for 2 or 3 days. Candidiasis of other urogenital sites (10/31/21) Low iron (08/24/21) iron 49 with 13% saturation and hemoglobin 14.1 on 08/24/2021. Iron 50 with 12% saturation and ferritin 31 on 11/13/2022. iron less than 10 with 2% saturation and ferritin with hemoglobin 6.3 on 11/21/2024. COPD (chronic obstructive pulmonary disease) (~08/24/21) PFT on 08/24/2021 with moderate obstructive defect with significant improvement with bronchodilator. Dyspnea on exertion exercise stress test on 08/24/2021 was negative for ischemia. EKG revealed sinus rhythm with borderline R-wave progression. PT/ id PI/ Lexiscan stress test and calcium CT on 06/11/2024 with no evidence of ischemia. Ejection fraction 67%, calcium score of 3. Testosterone 355.7 with free testosterone 3.17 on 11/14/2024. Chronic nonallergic rhinitis BMI 37.0-37.9, adult Hearing loss chronic worse on left than right Encounter for wellness examination in adult COVID-19 (02/14/21) fully vaccinated and COVID BMI 36.0-36.9,adult Insomnia Acute low back pain Mixed hyperlipidemia total cholesterol 217, triglycerides 403, HDL 30 and LDL 106 with AST 22 and ALT 26 on 03/11/2020. Cholesterol 207, HDL 40, triglycerides 111, LDL 142 on 08/24/2021. Cholesterol 226, triglycerides 169, HDL 36, LDL 159 on 11/13/2022.Cholesterol 131, triglycerides 120, HDL 33, LDL 76 on 11/14/2024. Abnormal fasting glucose fasting glucose normal at 95 on 03/11/2020. Glucose 110 with hemoglobin A1c 5.5 on 08/24/2021. Glucose 95 with hemoglobin A1c 5.8 on 11/13/2022. Glucose 88 with hemoglobin A1c 5.7 and GFR 95 on 11/14/2024. Chronic pain of both knees chronic bilateral knee pain after multiple surgeries. Degenerative changes. Permanent handicap placard 06/29/2021 Tonsillar hypertrophy Encounter for prostate cancer screening PSA 0.6 on 03/11/2020. PSA 1.0 on 08/24/2021. PSA 1.1 on 11/14/2024. Lip cyst Tobacco use disorder, continuous patient quit smoking cigarettes Jul, 2021 but continues to chew tobacco 1/2 can daily. Obstructive sleep apnea very severe HARLAN with AHI of 131 Hypertension Surgical History Surgical History H/O shoulder surgery left shoulder History of neck surgery History of right knee surgery (~2017) H/O left knee surgery (~2013) Family History Family History Mother Parkinson disease Father Accident Social History Social History Smoking packs per day: 1 Smoking cigarettes per day: 20.0 Smoking status: Former smoker Smokeless tobacco user: chewing tobacco Second hand tobacco smoke exposure: No Alcohol intake: current Drinks per week: 3 Substance use: never Substance use type: does not use Do You Feel Safe in your Home?: Yes Lack of Transportation: No Lack of Food: Never True Current Housing: I Have Housing Concerned About Future Housing: No Difficulty Paying Gas/Electric Bills: No Difficulty Paying for Meds: No Currently Unemployed: No Education: High School Diploma/GED Difficulty w/ Childcare or Family Care: No Living arrangements: with family Occupation/Education: occupation Gender identity (if verbalized by the patient): Male Spiritual care concerns: No Anes - Eval Final PreProcedure Day of Procedure 11/25/24 08:27 Patient weight: obese Heart: regular rate and rhythm Lungs: clear to auscultation Airway: Mallampati scale class III Neurological: alert and oriented Last oral intake: >/= 8 hours ASA classification: III Emergent: no Anesthetic plan: proceed Anesthesia type and monitoring: general GIVS and standard monitoring Results Review: All pre-operative results and documents have been reviewed as part of the pre-operative evaluation. Informed Consent: The patient's anesthetic plan and its attendant risks and benefits were discussed with the patient/family/POA. Questions were solicited and answers provided to the satisfaction of the patient/family/POA.
--- NOTE | 2024-11-25 08:53 | S_PTH ---
PATIENT: Armaan Hurst LOC: [id number] U#:[id number] AGE/SX: 54/M ROOM: 313 RE11/23/[address]: Thiago Gracia MD : 1970 BED: 01 DIS: 11/25/2024 SPEC #: [id number] RECD: 11/25/24 10:13 STATUS: SHANE OWENS #: [id number] ESTEBAN: 11/25/24 08:[address]: Nickolas Lagunas DEPT: [facility] Surgical RECD BY: Annie Garcia ENTERED: 11/25/24 10:14 SP TYPE: Surgical OTHR DR: MD Danelle Huber PA-C Amardeep Shrestha, MD Tissues: A - Gastric Biopsy B - Gastric Biopsy Procedures: Hematoxylin and Eosin Stain Gross and Microscopic Level 4
--- NOTE | 2024-11-25 09:00 | WPDGIPROGNO ---
Progress Note: A&P Assessment and Plan (1) Iron deficiency anemia: Code(s): D50.9 - Iron deficiency anemia, unspecified Status: Acute Assessment and Plan: See EGD report. Practically normal EGD, no erosions or ulcers. We will see him in GI clinic and will set him up for a colonoscopy, and if negative will proceed with capsule endoscopy study. No need for proton pump inhibitors either intravenously or orally. Patient encouraged to discontinue NSAID use which may be explaining some of the problems by causing microscopic bleeding in the small bowel or even in the colon. Subjective Date/time seen: 11/25/24 09:00 Objective Data Vital Signs Vital Signs: Vital Signs - 24 hr 11/24/24 13:50 11/24/24 21:10 11/24/24 23:10 Temperature 96.9 F L 98.3 F Pulse Rate 81 92 90 Respiratory Rate 16 18 Blood Pressure 130/79 129/65 Pulse Oximetry 100 98 95 Oxygen Delivery Autopap 11/25/24 01:32 11/25/24 05:28 11/25/24 08:15 Temperature 98.2 F 97.7 F Pulse Rate 88 77 87 Respiratory Rate 20 16 Blood Pressure 125/84 137/78 Pulse Oximetry 95 98 97 Oxygen Delivery Autopap Room Air 11/25/24 08:54 Temperature Pulse Rate 82 Respiratory Rate 24 H Blood Pressure 127/71 Pulse Oximetry 96 Oxygen Delivery Room Air Intake/Output Intake/Output: Intake & Output 11/22/24 11/23/24 11/24/24 11/25/24 23:59 23:59 23:59 23:59 Intake Total 1350 1370 0 Balance 1350 1370 0 Meds/Results Medications: Active Medications Generic Name Dose Route Start Last Admin Trade Name Freq PRN Reason Stop Dose Admin Acetaminophen 500 mg 11/23/24 20:58 Acetaminophen 500 Mg Tablet PO Q6H PRN Mild Pain (1-3) or Fever Hydrocodone Bitart/Acetaminophen 1 tab 11/23/24 20:58 11/24/24 20:17 Hydrocodone/Acetaminophen (*Crx) 5-325 Mg Tablet PO 1 tab Q8H PRN Administration Pain Rated 4-6 Amlodipine Besylate 10 mg 11/24/24 09:00 11/24/24 09:05 Amlodipine Besylate 10 Mg Tablet PO 10 mg DAILY CHRISTINA Administration Ascorbic Acid 500 mg 11/23/24 21:05 11/24/24 09:05 Ascorbic Acid 500 Mg Tablet PO 500 mg DAILY CHRISTINA Administration Atorvastatin Calcium 10 mg 11/24/24 09:00 11/24/24 09:05 Atorvastatin 10 Mg Tablet PO 10 mg DAILY CHRISTINA Administration Ferrous Sulfate 325 mg 11/24/24 09:00 11/24/24 17:16 Ferrous Sulfate [address] PO 325 mg BID CHRISTINA Administration Fluticasone/Umeclidinium/Vilanterol 1 puff 11/24/24 08:00 Fluticasone/Umeclidin/Vilanter 100-62.5-25 Mcg Ellipta INHALATION DAILYRT CHRISTINA Furosemide 40 mg 11/24/24 09:00 11/24/24 09:05 Furosemide 40 Mg Tablet PO 40 mg QAM CHRISTINA Administration Lactated Ringer's 1,000 mls @ 150 mls/hr 11/25/24 08:15 11/25/24 08:55 Lr - Lactated Ringers Iv IV CONT 150 mls/hr .Q6H40M CHRISTINA Infusion Spironolactone 50 mg 11/24/24 09:00 11/24/24 09:05 Spironolactone 50 Mg Tablet PO 50 mg QAM CHRISTINA Administration Radiology Results: ITS Impressions Abdomen/Pelvis CT 11/24/24 08:44 IMPRESSION: 1. No acute abdominal abnormality. 2: Nonobstructing right nephrolithiasis. Labs Labs: Laboratory Results - last 24 hr 11/24/24 11/24/24 11/25/24 09:31 15:44 06:19 WBC 10.6 H RBC 4.41 L Hgb 9.0 L 8.9 L Hct 32.2 L 32.0 L MCV 72.6 L MCH 20.2 L MCHC 27.8 L RDW 25.1 H Plt Count 311 MPV TNP % Immature Plt Fraction 9.5 Sodium 139 Potassium 4.2 Chloride 105 Carbon Dioxide 24 Anion Gap 10 BUN 8 L Creatinine 0.96 Estim Creat Clear Calc 84 Estimated GFR > 60 Glucose 95 Calcium 9.3 Total Bilirubin 0.5 AST 31 ALT 22 Alkaline Phosphatase 79 Total Protein 7.8 Albumin 4.4 Stl Occult Blood (IFOB) Negative C. difficile (PCR) Negative
[2024-11-25] MEDS: FLUTICASONE/UMECLIDIN/VILANTER 100-62.5-25 MCG ELLIPTA 1 PUFF INHALATION (09:34)
[2024-11-25] MEDS: HYDROcodone/acetaminophen (*CRX) 5-325 MG TABLET 1 TAB PO (09:52)
[2024-11-25] MEDS: ATORVASTATIN 10 MG TABLET PO (09:56)
[2024-11-25] MEDS: ASCORBIC ACID 500 MG TABLET PO (09:56)
[2024-11-25] MEDS: SPIRONOLACTONE 50 MG TABLET PO (09:56)
[2024-11-25] MEDS: FUROSEMIDE 40 MG TABLET PO (09:57)
[2024-11-25] MEDS: FERROUS SULFATE 325 MG TABLET DR PO (09:57)
--- NOTE | 2024-11-25 13:14 | P.DS_ITS ---
DS: Admitting Diagnosis Discharge Date 11/25 Admitting Diagnosis abd lab work DS: Discharge Diagnosis Discharge Diagnosis (1) Anemia: Qualifiers: Anemia type: unspecified type Qualified Code(s): D64.9 - Anemia, unspecified Code(s): D64.9 - Anemia, unspecified Status: Acute (2) Diarrhea: Qualifiers: Diarrhea type: unspecified type Qualified Code(s): R19.7 - Diarrhea, unspecified Code(s): R19.7 - Diarrhea, unspecified Status: Acute (3) Hypertension: Qualifiers: Hypertension type: unspecified Qualified Code(s): I10 - Essential (primary) hypertension Code(s): I10 - Essential (primary) hypertension Status: Chronic (4) Obstructive sleep apnea: Code(s): G47.33 - Obstructive sleep apnea (adult) (pediatric) Status: Chronic DS: Summary Hospital Course Hospital Course: 54 year old male with PMH of DVT, benign paroxysmal positional vertigo, aortic stenosis, pulmonary hypertension, mild diastolic dysfunction, previous low iron in 2021, COPD, hyperlipidemia, hypertension, and HARLAN presents here with abnormal outpatient lab work. # anemia He reports he had blood drawn on Saturday, 11/21, which showed a hemoglobin of 6.3. He was directed to the ED at that time, however he elected not to seek treatment and was subsequently started on oral iron replacement therapy. Admits to taking 4000 mg ibuprofen daily for knee pain. Likely had recent GI bleed secondary to NSAID use. Educated on risks of GI bleed with heavy NSAID use and encouraged cessation. Previously endorsing melena, however denies active bleeding since admission. - Hgb 6.6, MCV low at 66.2, MCHC also low at 26.3 upon admission Received transfusion of 2u PRBC on 11/23. H/H responded appropriately at 11/26.6. - Hx of iron deficiency - Iron panel showing iron deficiency anemia: Iron 45, TIBC 472, % sat 10, and ferritin 6.22. Remains on oral iron supplementation BID - B12 and folic acid WNL. TSH WNL. - Stool occult ordered - PPI - DVT ppx: SCD - Monitor serum electrolytes, CBC, hemoglobin/hematocrit q.8 hours. If hemoglobin drops below 7 transfuse packed red blood cells - Monitor for bloody bowel movements,chest pain,SOB or dizziness/lightheadedness - GI consulted, EGD is completed. Practically normal EGD, no erosions or ulcers. We will see him in GI clinic and will set him up for a colonoscopy, and if negative will proceed with capsule endoscopy study. No need for proton pump inhibitors either intravenously or orally. Patient encouraged to discontinue NSAID use which may be explaining some of the problems by causing microscopic bleeding in the small bowel or even in the colon. Time Spent with Patient Time attestation: Total time spent providing and/or coordinating discharge services: Exam Narrative: General: male in no acute respiratory distress who is nontoxic appearing, sitting up in chair HEENT: Normocephalic. Atraumatic. Extraocular movement intact. Sclera clear and anicteric. No facial asymmetry. Chest: Lungs are clear to auscultation bilaterally. No wheezes or crackles. CV: Heart was regular rate and rhythm. S1/S2. No murmurs, gallops, or rubs. Abd: Abdomen was soft. Nontender. Nondistended. Positive bowel sounds. Ext: No clubbing, cyanosis, or edema. DP pulses bilaterally. Brace to left hand. Neuro: Patient is alert. Speech is clear. Const: General: comfortable and no acute distress Other: , male, nontoxic appearance HENMT: Face/Nose/Sinus: Normal nares present Mouth: Yes moist mucous membranes Eyes: General: appearance normal, both eyes and all related structures Sclera: sclerae normal Pupils: Equal, round and reactive pupils present EOM: EOMs intact bilaterally Resp: Effort & Inspection: normal respiratory effort Auscultation: clear to auscultation bilaterally Cardio: Rate: regular rate Rhythm: regular rhythm Other: S1-S2 present without murmur, rub, ectopy GI: Other: Abdomen soft, nondistended, nontender. Normoactive bowel sounds in all quadrants. Skin: General skin exam: normal color and no rashes or lesions noted Wounds: no wounds Neuro: Cranial nerves: Yes Equal, round and reactive pupils present Speech: normal speech Motor exam (neuro): 5/5 motor strength present throughout Sensory Exam: normal sensation Other: A&O x4 Extrem: General: normal to inspection Psych: Mental Status: mental status grossly normal Affect: normal affect Other: Good insight and judgment, pleasant DS: Data Data Completed and Pending Pending studies at discharge: Pending at discharge 11/25/24 08:53 Surgical [PTH] Routine Labs on day of discharge: Labs from last 24 hours 11/25/24 11/24/24 06:19 15:44 WBC 10.6 H RBC 4.41 L Hgb 8.9 L Hct 32.0 L MCV 72.6 L MCH 20.2 L MCHC 27.8 L RDW 25.1 H Plt Count 311 MPV TNP % Immature Plt Fraction 9.5 Sodium 139 Potassium 4.2 Chloride 105 Carbon Dioxide 24 Anion Gap 10 BUN 8 L Creatinine 0.96 Estim Creat Clear Calc 84 Estimated GFR > 60 Glucose 95 Calcium 9.3 Total Bilirubin 0.5 AST 31 ALT 22 Alkaline Phosphatase 79 Total Protein 7.8 Albumin 4.4 Stl Occult Blood (IFOB) Negative C. difficile (PCR) Negative Discharge Plan Discharge Attending physician on discharge: Thiago Gracia Consulting providers: Danelle Henry Discharging Clinician: Patricia Mao Patient Disposition: Home Activity: may shower Diet: regular Discharge Instructions: You were admitted for abnormal labs. GI was consulted and you underwent EGD. ...normal EGD, no erosions or ulcers. We will see him in GI clinic and will set him up for a colonoscopy, and if negative will proceed with capsule endoscopy study. Please, discontinue NSAID use which may be explaining some of the problems by causing microscopic bleeding in the small bowel or even in the colon. Patient Instructions: Antibiotic Form Patient Language: Japanese Stand Alone Forms: General Discharge Information Follow-up/Referrals: Juanito Moralez MD [Primary Care Provider, Family Practice] - 2 Weeks Discharge Medications: Continued [employer] 160-9-4.8 mcg/actuation HFA aerosol inhaler 2 inh inhalation BID Qty: 10.7 11RF Rx Instructions: sample started 12/31/2023. spironolactone 50 mg tablet 50 mg PO QAM Patient Comments: prescribed by roving winder Vandana 10 mg/0.5 mL pen injector 10 mg subcut WEEKLY Qty: 2 11RF Rx Instructions: started at 2.5 mg weekly and titrated to 10 mg weekly through [employer] atorvastatin 10 mg tablet 10 mg PO DAILY furosemide [Lasix] 40 mg tablet 40 mg PO QAM Qty: 90 3RF amlodipine 10 mg tablet 10 mg PO DAILY Qty: 90 3RF ferrous sulfate 325 mg (65 mg iron) tablet,delayed release (DR/EC) 325 mg PO BID ascorbic acid (vitamin C) 500 mg capsule 500 mg PO . daily Discontinued pantoprazole [Protonix] 40 mg tablet,delayed release (DR/EC) 40 mg PO QAM Qty: 30 11RF Date of admission: 11/23/24 14:51 Primary Care Provider: Juanito Moralez Admitting Provider: Brady Anderson Attending physician on admission: Brady Anderson Condition: Stable Quality VTE Prophylaxis VTE prophylaxis: mechanical ordered Hospitalist MIPS Heart Failure (Exclusion) Patient has history of Heart Transplant or Left Ventricular Assistive Device?: No IF YES, STOP HERE Heart Failure (Qualifier) Patient has current or prior documentation of LVEF less than or equal to 40%, or mod/servere depressed LVSF?: No IF NO, STOP HERE
--- NOTE | 2024-11-26 09:38 | WPDANESPN ---
Anes - Prog Note Post-Op Date/Time: 11/26/24 09:38 Cardiovascular status: normal Respiratory status: normal Airway patency: baseline Mental status: baseline Post-Op hydration status: normal Vital Signs: Last Vital Signs Temp 35.9 C L 11/25/24 13:52 Pulse 91 11/25/24 13:52 Resp 18 11/25/24 13:52 BP 137/78 11/25/24 13:52 Pulse Ox 99 11/25/24 13:52 O2 Del Method Room Air 11/25/24 09:39 FiO2 21 11/23/24 21:18 Pain Score (VAS): 0 Laboratory Tests 11/25/24 06:19 11/25/24 06:19 Patient Feedback: Patient satisfied with anesthetic care.
== END 2024-11-25 15:05 | disposition home or self-care (01) ==
LOC: ANHED 14:49 → ANH3MEDSUR 11-24 06:48
PROVIDERS: Internal Medicine Gastroenterology; Student in an Organized Health Care Education/Training Program; Admitting Provider Internal Medicine; Emergency Provider Nurse Practitioner Family; PCP Family Medicine; Visit Provider General Practice
PROC: 0DJ08ZZ Inspection of Upper Intestinal Tract, Via Natural or Artificial Opening Endoscopic (ICD-10-PCS; CPT 43239; principal; 2024-11-25 15:30)
DX: D50.9 Iron deficiency anemia, unspecified (principal); R19.7 Diarrhea, unspecified; K29.30 Chronic superficial gastritis without bleeding; R79.89 Other specified abnormal findings of blood chemistry; E78.2 Mixed hyperlipidemia; G47.33 Obstructive sleep apnea (adult) (pediatric); I35.0 Nonrheumatic aortic (valve) stenosis; I50.30 Unspecified diastolic (congestive) heart failure; I11.0 Hypertensive heart disease with heart failure; N20.0 Calculus of kidney; E66.9 Obesity, unspecified; Z68.35 Body mass index [BMI] 35.0-35.9, adult; M25.562 Pain in left knee; M25.561 Pain in right knee; H91.93 Unspecified hearing loss, bilateral; H81.10 Benign paroxysmal vertigo, unspecified ear; J44.9 Chronic obstructive pulmonary disease, unspecified; J31.0 Chronic rhinitis; Z79.1 Long term (current) use of non-steroidal anti-inflammatories (NSAID); F17.220 Nicotine dependence, chewing tobacco, uncomplicated; Z79.85 Long-term (current) use of injectable non-insulin antidiabetic drugs; Z79.52 Long term (current) use of systemic steroids; Z79.899 Other long term (current) drug therapy; G89.28 Other chronic postprocedural pain; M25.572 Pain in left ankle and joints of left foot; M25.571 Pain in right ankle and joints of right foot; Z86.718 Personal history of other venous thrombosis and embolism; Z99.89 Dependence on other enabling machines and devices
CPT/HCPCS: 43239; 36415; 36430; 74176; 80053; 82274; 82607; 82728; 82746; 83540; 83550; 84443; 85014; 85018; 85025; 85027; 85055; 86850; 86900; 86901; 86923; 87045; 87046; 87427; 87493; 88305; 94640; 96361; 96374; 99285; A9270; G0378; J2470; J7030; J7050; J7120; P9016

== ENCOUNTER 2024-12-01 07:37 | Outpatient (CLI) | payer OTHER, SELFPAY ==
--- OUTSIDE RECORDS SUMMARY | 2007-07-03 03:26 | XMS_ITS | Continuity of Care Document ---
Author Organization [facility] Address [address] [place] [address] [address] [place] [address] Phone Care Team Providers Care Trimming Caser Name Role Phone Angela Solares Unavailable Unavailable Procedures Procedure Date Eye Exam, New Patient Advance Directives Directive Yes / No Effective Date File Name No Information Encounters Encounter Description Practice Location Reason(s) For Visit Diagnoses Date Provider Providers Copied on Encounter [facility], [address] [place] [address] [address], [place], [place], [id number], [place] tel:[phone] [facility] No Information 3[address] Sujatha Miller. [address] [facility] , [address], [place], [address], [place]. tel:[phone] Family History Family Member Type Diagnosis Age At Onset No Information Payers Payer name Insurance type Covered alliance party ID Authoriza tion(s) SHERLEY Coles [id number] Social History Type Description Quantity Date Captured Comments Sex Male Smoking Status No Information Chief Complaint And Reason For Visit No Information Reason For Referral Reason For Referral No Information History Of Present Illness Encounter Date Complaint History Of Prese nt Illness No Information Functional Status Date Functional Assessmen t No Information Instructions Date Instruction Additional Infor mation No Information Assessments Type Assessment Date No Information Patient Care Teams Name Effective Dates (start - stop) Status Members No Information
--- OUTSIDE RECORDS SUMMARY | 2024-12-01 07:43 | XMS_ITS | Clinical Summary ---
Author Organization [facility] Address [address] [place] [address] Care Team Providers Care Grinder Setup Operator Name Role Phone Juanito Moralez MD Primary Care Provider [phone] Arianne Jhaveri Unavailable Allergies No known active allergies Medications budesonide-glyc [...] on file Legal Sex Male 1:49 PM RADIOLOGY ASSISTANT Gender Identity Not on file Sexual Orientation Not on file Obstetrics History Last Filed Vital Signs Vital Sign Reading Time Taken Comments Blood Pressure 166/77 03/20/2024 3:51 PM RADIOLOGY ASSISTANT Pulse 89 03/20/2024 3:51 PM RADIOLOGY ASSISTANT Temperature 36.8 C (98.2 F) 03/20/2024 3:51 PM RADIOLOGY ASSISTANT Respiratory Rate 18 03/20/2024 3:51 PM RADIOLOGY ASSISTANT Oxygen Saturation 100% 03/20/2024 3:51 PM RADIOLOGY ASSISTANT Inhaled Oxygen Concentration - - Weight 113.4 kg (250 lb) 03/19/2024 4:00 PM RADIOLOGY ASSISTANT Height 165.1 cm (5' 5) 03/19/2024 4:00 PM RADIOLOGY ASSISTANT Body Mass Index 41.6 03/19/2024 4:00 PM RADIOLOGY ASSISTANT Plan of Treatment Health Maintenance Due Date [...] Advance Directives For more information, please contact: [phone] * Full Code (Latest Code Status on File) Date Activated Date Inactivated Comments 03/18/2024 12:08 AM 03/20/2024 9:57 PM Care Teams Grinder Setup Operator Relationship Specialty Start Date End Date Juanito Moralez MD [address] [address] PCP - General Family Medicine 03/18/24 Arianne Jhaveri [address] [place] [address] Cardiothoracic Surgery 03/20/24
[2024-12-01 08:15] LABS: Hematocrit 36.2 % (42.0-52.0); Hemoglobin 10.0 g/dL (14.0-18.0); Immature Platelet Fraction Pct 6.5 % (0.9-11.2); Mean Corpuscular HGB Conc 27.6 g/dl (32-36); Mean Corpuscular Hemoglobin 20.9 pg (26-34); Mean Corpuscular Volume 75.7 fl (80-100); Platelet Count Result 324 k/mm3 (150-375); Red Blood Count 4.78 M/mm3 (4.6-6.20); White Blood Count 10.4 K/mm3 (4.5-10.0)
== END 2024-12-01 07:38 | disposition home or self-care (01) ==
LOC: ANHLAB 07:38
PROVIDERS: PCP Family Medicine; Visit Provider Nurse Practitioner
DX: D50.9 Iron deficiency anemia, unspecified (principal)
CPT/HCPCS: 36415; 85027; 85055

== ENCOUNTER 2024-12-09 02:25 | Day surgery (SDC) | payer OTHER, SELFPAY ==
[2024-11-27 15:48] VITALS: BMI 35.2
--- OUTSIDE RECORDS SUMMARY | 2024-12-09 02:29 | XMS_ITS | Clinical Summary ---
Author Organization [facility] Address [address] [place] [address] Care Team Providers Care Auger Press Operator Name Role Phone Juanito Moralez MD Primary Care Provider [phone] Arianne Jhaveri Unavailable [phone] Allergies No known active allergies Medications [...] on file Legal Sex Male 1:49 PM STICK ROLLER Gender Identity Not on file Sexual Orientation Not on file Obstetrics History Last Filed Vital Signs Vital Sign Reading Time Taken Comments Blood Pressure 166/77 03/20/2024 3:51 PM STICK ROLLER Pulse 89 03/20/2024 3:51 PM STICK ROLLER Temperature 36.8 C (98.2 F) 03/20/2024 3:51 PM STICK ROLLER Respiratory Rate 18 03/20/2024 3:51 PM STICK ROLLER Oxygen Saturation 100% 03/20/2024 3:51 PM STICK ROLLER Inhaled Oxygen Concentration - - Weight 113.4 kg (250 lb) 03/19/2024 4:00 PM STICK ROLLER Height 165.1 cm (5' 5) 03/19/2024 4:00 PM STICK ROLLER Body Mass Index 41.6 03/19/2024 4:00 PM STICK ROLLER Plan of Treatment Health Maintenance Due Date Last Done Comments Colon Cancer Screening-Colonoscopy 1970 Depression Screening 1970 Hepatitis C Screening 1970 Prostate Cancer Screening-PSA 1971 DTaP/Tdap/Td Vaccine (1 - Tdap) 1982 Hepatitis B Screening 1989 Regular Well Visit/Exam 18-64 1989 Pneumococcal vaccine <65 (1 of 2 - PCV) 1990 Zoster Vaccine (1 of 2) 2021 Covid-19 Vaccine (2 - 2024- season) 11/30/202406/2020 Influenza Vaccine (#1) 2024 [place] [address] Advance Directives For more information, please contact: [phone] * Full Code (Latest Code Status on File) Date Activated Date Inactivated Comments 03/18/2024 12:08 AM 03/20/2024 9:57 PM Care Teams Auger Press Operator Relationship Specialty Start Date End Date Juanito Moralez MD [address] [address] PCP - General Family Medicine 03/18/24 Arianne Jhaveri [address] [place] [address] Cardiothoracic Surgery 03/20/24
[2024-12-09 08:37] VITALS: BP 106/76; PULSE 80; RESP 16; TEMP 36.4; O2SAT 98; BMI 34.5
--- NOTE | 2024-12-09 08:40 | WPDANESEPPF ---
Anes - Initial Pre Proc Eval Procedure: Operation Date: 12/09/24 10:00 Proposed Procedures p Diagnostic Colonoscopy - Nickolas Lagunas MD Date/Time: 12/09/24 08:40 Surgeon: Nickolas Lagunas MD Pre Op Diagnosis: Iron deficiency anemia, unspecified Patient Data Age: 54 Gender: M Height: 1.65 m Weight: 94.1 kg Last Vital Signs Temp 36.4 C L 12/09/24 08:37 Pulse 80 12/09/24 08:37 Resp 16 12/09/24 08:37 BP 106/76 12/09/24 08:37 Pulse Ox 98 12/09/24 08:37 O2 Del Method Room Air 12/09/24 08:37 Allergies Allergy/AdvReac Type Severity Reaction Status Date / Time chlorpheniramine (From AdvReac CHILE- Verified 12/23/24 11:04 Actifed Cold-Allergy) UNKNOWN REACTION phenylephrine (From Actifed AdvReac CHILD- Verified 12/23/24 11:04 Cold-Allergy) UNKNOWN REACTION pseudoephedrine (From AdvReac CHILD- Verified 12/23/24 11:04 Actifed Cold-Allergy) UNKNOWN REACTION triprolidine (From Actifed AdvReac CHILD- Verified 12/23/24 11:04 Cold-Allergy) UNKNOWN REACTION Home Medications ?Medication ?Instructions ?Recorded ?Confirmed ?Type budesonide 160 mcg-glycopyr 9 2 inh inhalation BID #10.7 grams 12/31/23 12/09/24 Rx mcg-formot 4.8 mcg/actuation HFA inhaler (Breztri Aerosphere) furosemide 40 mg tablet (Lasix) 40 mg PO QAM #90 tabs 01/22/24 12/09/24 Rx amlodipine 10 mg tablet 10 mg PO DAILY #90 tabs 05/07/24 12/09/24 Rx spironolactone 50 mg tablet 50 mg PO QAM 11/10/24 12/09/24 History ascorbic acid (vitamin C) 500 mg 500 mg PO . daily 11/21/24 12/09/24 History capsule atorvastatin 10 mg tablet 10 mg PO DAILY 11/23/24 12/09/24 History tirzepatide (weight loss) 10 10 mg subcut WEEKLY weight loss 11/27/24 12/23/24 History mg/0.5 mL subcutaneous pen injector (Zepbound) cyclobenzaprine 10 mg tablet 10 mg PO QHS PRN muscle spasm #30 12/03/24 12/09/24 Rx tabs ferrous sulfate 325 mg (65 mg 325 mg PO DAILY 12/03/24 12/23/24 History iron) tablet,delayed release hydrocodone 5 mg-acetaminophen 325 1 tablet PO Q12H PRN pain #60 tabs 12/17/24 Rx mg tablet tramadol 50 mg tablet 50 mg PO Q6H PRN pain #120 tabs 12/24/24 Rx Patient hx anesthesia problems: none Family hx anesthesia problems: none Results Review: All pre-operative results and documents have been reviewed as part of the pre-operative evaluation. [facility] Past Medical History Medical History (Updated 12/11/24 @ 08:06 by Juanito Moralez MD) Low iron (08/24/21) iron 49 with 13% saturation and hemoglobin 14.1 on 08/24/2021. Iron 50 with 12% saturation and ferritin 31 on 11/13/2022. iron less than 10 with 2% saturation and ferritin with hemoglobin 6.3 on 11/21/2024. Colon cancer screening normal colonoscopy with hemorrhoids 12/09/2024. Iron deficiency anemia iron 49 with 13% saturation and hemoglobin 14.1 on 08/24/2021. Iron 50 with 12% saturation and ferritin 31 on 11/13/2022. iron less than 10 with 2% saturation and ferritin with hemoglobin 6.3 on 11/21/2024. hemoglobin 10.0 on 12/01/2024 with MCV 75.7. Normal colonoscopy 12/09/2024. Thoracic back pain Gastritis gastritis on EGD 11/25/2024. COPD exacerbation Cellulitis of right anterior lower leg Cellulitis and abscess of left leg (~12/23/23) Sepsis DVT (deep venous thrombosis) Benign paroxysmal positional vertigo due to bilateral vestibular disorder Male erectile dysfunction, unspecified Right wrist pain Right hand pain Acute pain of right wrist (07/15/24) work injury Aortic stenosis (~03/20/24) mild aortic stenosis on echo 03/20/2024. Nocturnal hypoxemia Pulmonary hypertension Mild diastolic dysfunction Bacterial meningitis Sepsis Leg pain, left Febrile illness Inguinal adenopathy Headache Hand eczema SOB (shortness of breath) Cough Morbid obesity with BMI of 40.0-44.9, adult Acute conjunctivitis of left eye Dyshidrotic eczema Tinea pedis Pain in joints of both feet x-rays of both feet on 05/07/2022 reveals diffuse mild osteoarthritis of both feet. Rash and nonspecific skin eruption Adult BMI 39.0-39.9 kg/sq m Obesity (BMI 30-39.9) COVID-19 (~08/2021) 2nd episode with mild symptoms for 2 or 3 days. Candidiasis of other urogenital sites (10/31/21) COPD (chronic obstructive pulmonary disease) (~08/24/21) PFT on 08/24/2021 with moderate obstructive defect with significant improvement with bronchodilator. Dyspnea on exertion exercise stress test on 08/24/2021 was negative for ischemia. EKG revealed sinus rhythm with borderline R-wave progression. PT/ id PI/ Lexiscan stress test and calcium CT on 06/11/2024 with no evidence of ischemia. Ejection fraction 67%, calcium score of 3. Testosterone 355.7 with free testosterone 3.17 on 11/14/2024. Chronic nonallergic rhinitis BMI 37.0-37.9, adult Hearing loss chronic worse on left than right Encounter for wellness examination in adult COVID-19 (02/14/21) fully vaccinated and COVID BMI 36.0-36.9,adult Insomnia Acute low back pain Mixed hyperlipidemia total cholesterol 217, triglycerides 403, HDL 30 and LDL 106 with AST 22 and ALT 26 on 03/11/2020. Cholesterol 207, HDL 40, triglycerides 111, LDL 142 on 08/24/2021. Cholesterol 226, triglycerides 169, HDL 36, LDL 159 on 11/13/2022.Cholesterol 131, triglycerides 120, HDL 33, LDL 76 on 11/14/2024. Abnormal fasting glucose fasting glucose normal at 95 on 03/11/2020. Glucose 110 with hemoglobin A1c 5.5 on 08/24/2021. Glucose 95 with hemoglobin A1c 5.8 on 11/13/2022. Glucose 88 with hemoglobin A1c 5.7 and GFR 95 on 11/14/2024. Chronic pain of both knees chronic bilateral knee pain after multiple surgeries. Degenerative changes. Permanent handicap placard 06/29/2021 Tonsillar hypertrophy Encounter for prostate cancer screening PSA 0.6 on 03/11/2020. PSA 1.0 on 08/24/2021. PSA 1.1 on 11/14/2024. Lip cyst Tobacco use disorder, continuous patient quit smoking cigarettes Jul, 2021 but continues to chew tobacco 1/2 can daily. Obstructive sleep apnea very severe HARLAN with AHI of 131 Hypertension Surgical History Surgical History H/O shoulder surgery left shoulder History of neck surgery History of right knee surgery (~2017) H/O left knee surgery (~2013) Family History Family History Mother Parkinson disease Father Accident Social History Social History Smoking packs per day: 1 Smoking cigarettes per day: 20.0 Smoking status: Former smoker Smokeless tobacco user: chewing tobacco Second hand tobacco smoke exposure: No Alcohol intake: never Substance use: never Substance use type: does not use Do You Feel Safe in your Home?: Yes Lack of Transportation: No Lack of Food: Never True Current Housing: I Have Housing Concerned About Future Housing: No Difficulty Paying Gas/Electric Bills: No Difficulty Paying for Meds: No Currently Unemployed: No Education: High School Diploma/GED Difficulty w/ Childcare or Family Care: No Living arrangements: with family Occupation/Education: occupation Gender identity (if verbalized by the patient): Male Spiritual care concerns: No Anes - Eval Final PreProcedure Day of Procedure 12/09/24 08:40 Patient weight: obese Heart: regular rate and rhythm Lungs: clear to auscultation Airway: Mallampati scale class II Neurological: alert and oriented Last oral intake: >/= 8 hours ASA classification: III Emergent: no Anesthetic plan: proceed Anesthesia type and monitoring: general GIVS and standard monitoring Results Review: All pre-operative results and documents have been reviewed as part of the pre-operative evaluation. Informed Consent: The patient's anesthetic plan and its attendant risks and benefits were discussed with the patient/family/POA. Questions were solicited and answers provided to the satisfaction of the patient/family/POA.
[2024-12-09] MEDS: LACTATED RINGERS 1,000 ML 150 ML IV CONT (08:46)
--- NOTE | 2024-12-09 09:05 | PM.IMHP ---
H&P: HPI History of Present Illness Date/Time: 12/09/24 09:05 Chief Complaint: iron deficiency anemia Narrative: patient seen recently for the evaluation of iron deficiency anemia. An EGD was unremarkable. He is here for colonoscopy as part of the investigation. suspected related to NSAID use. Review of Systems Review of Systems: All systems reviewed & are unremarkable except as noted in HPI and below PMFSH Past Medical History Medical History (Updated 12/09/24 @ 09:06 by Nickolas Lagunas MD) Thoracic back pain Gastritis gastritis on EGD 11/25/2024. COPD exacerbation Cellulitis of right anterior lower leg Cellulitis and abscess of left leg (~12/23/23) Sepsis DVT (deep venous thrombosis) Benign paroxysmal positional vertigo due to bilateral vestibular disorder Male erectile dysfunction, unspecified Right wrist pain Right hand pain Acute pain of right wrist (07/15/24) work injury Aortic stenosis (~03/20/24) mild aortic stenosis on echo 03/20/2024. Nocturnal hypoxemia Pulmonary hypertension Mild diastolic dysfunction Bacterial meningitis Sepsis Leg pain, left Febrile illness Inguinal adenopathy Headache Hand eczema SOB (shortness of breath) Cough Morbid obesity with BMI of 40.0-44.9, adult Acute conjunctivitis of left eye Dyshidrotic eczema Tinea pedis Pain in joints of both feet x-rays of both feet on 05/07/2022 reveals diffuse mild osteoarthritis of both feet. Rash and nonspecific skin eruption Adult BMI 39.0-39.9 kg/sq m Obesity (BMI 30-39.9) COVID-19 (~08/2021) 2nd episode with mild symptoms for 2 or 3 days. Candidiasis of other urogenital sites (10/31/21) Low iron (08/24/21) iron 49 with 13% saturation and hemoglobin 14.1 on 08/24/2021. Iron 50 with 12% saturation and ferritin 31 on 11/13/2022. iron less than 10 with 2% saturation and ferritin with hemoglobin 6.3 on 11/21/2024. COPD (chronic obstructive pulmonary disease) (~08/24/21) PFT on 08/24/2021 with moderate obstructive defect with significant improvement with bronchodilator. Dyspnea on exertion exercise stress test on 08/24/2021 was negative for ischemia. EKG revealed sinus rhythm with borderline R-wave progression. PT/ id PI/ Lexiscan stress test and calcium CT on 06/11/2024 with no evidence of ischemia. Ejection fraction 67%, calcium score of 3. Testosterone 355.7 with free testosterone 3.17 on 11/14/2024. Chronic nonallergic rhinitis BMI 37.0-37.9, adult Hearing loss chronic worse on left than right Encounter for wellness examination in adult COVID-19 (02/14/21) fully vaccinated and COVID BMI 36.0-36.9,adult Insomnia Acute low back pain Mixed hyperlipidemia total cholesterol 217, triglycerides 403, HDL 30 and LDL 106 with AST 22 and ALT 26 on 03/11/2020. Cholesterol 207, HDL 40, triglycerides 111, LDL 142 on 08/24/2021. Cholesterol 226, triglycerides 169, HDL 36, LDL 159 on 11/13/2022.Cholesterol 131, triglycerides 120, HDL 33, LDL 76 on 11/14/2024. Abnormal fasting glucose fasting glucose normal at 95 on 03/11/2020. Glucose 110 with hemoglobin A1c 5.5 on 08/24/2021. Glucose 95 with hemoglobin A1c 5.8 on 11/13/2022. Glucose 88 with hemoglobin A1c 5.7 and GFR 95 on 11/14/2024. Chronic pain of both knees chronic bilateral knee pain after multiple surgeries. Degenerative changes. Permanent handicap placard 06/29/2021 Tonsillar hypertrophy Encounter for prostate cancer screening PSA 0.6 on 03/11/2020. PSA 1.0 on 08/24/2021. PSA 1.1 on 11/14/2024. Lip cyst Tobacco use disorder, continuous patient quit smoking cigarettes Jul, 2021 but continues to chew tobacco 1/2 can daily. Obstructive sleep apnea very severe HARLAN with AHI of 131 Hypertension Surgical History Surgical History H/O shoulder surgery left shoulder History of neck surgery History of right knee surgery (~2017) H/O left knee surgery (~2013) Family History Family History Mother Parkinson disease Father Accident Social History Social History Smoking packs per day: 1 Smoking cigarettes per day: 20.0 Smoking status: Former smoker Smokeless tobacco user: chewing tobacco Second hand tobacco smoke exposure: No Alcohol intake: never Substance use: never Substance use type: does not use Do You Feel Safe in your Home?: Yes Lack of Transportation: No Lack of Food: Never True Current Housing: I Have Housing Concerned About Future Housing: No Difficulty Paying Gas/Electric Bills: No Difficulty Paying for Meds: No Currently Unemployed: No Education: High School Diploma/GED Difficulty w/ Childcare or Family Care: No Living arrangements: with family Occupation/Education: occupation Gender identity (if verbalized by the patient): Male Spiritual care concerns: No Meds Home Medications and Allergies Home Medications ?Medication ?Instructions ?Recorded ?Confirmed ?Type budesonide 160 mcg-glycopyr 9 2 inh inhalation BID #10.7 grams 12/31/23 12/09/24 Rx mcg-formot 4.8 mcg/actuation HFA inhaler (Breztri Aerosphere) furosemide 40 mg tablet (Lasix) 40 mg PO QAM #90 tabs 01/22/24 12/09/24 Rx amlodipine 10 mg tablet 10 mg PO DAILY #90 tabs 05/07/24 12/09/24 Rx spironolactone 50 mg tablet 50 mg PO QAM 11/10/24 12/09/24 History ascorbic acid (vitamin C) 500 mg 500 mg PO . daily 11/21/24 12/09/24 History capsule atorvastatin 10 mg tablet 10 mg PO DAILY 11/23/24 12/09/24 History tirzepatide (weight loss) 10 10 mg subcut WEEKLY weight loss 11/27/24 12/03/24 History mg/0.5 mL subcutaneous pen injector (Zepbound) cyclobenzaprine 10 mg tablet 10 mg PO QHS PRN muscle spasm #30 12/03/24 12/09/24 Rx tabs ferrous sulfate 325 mg (65 mg 325 mg PO DAILY 12/03/24 12/09/24 History iron) tablet,delayed release hydrocodone 5 mg-acetaminophen 325 1 tablet PO Q12H PRN pain #60 tabs 12/03/24 12/09/24 Rx mg tablet Allergies Allergy/AdvReac Type Severity Reaction Status Date / Time chlorpheniramine (From AdvReac CHILE- Verified 12/03/24 10:59 Actifed Cold-Allergy) UNKNOWN REACTION phenylephrine (From Actifed AdvReac CHILD- Verified 12/03/24 10:59 Cold-Allergy) UNKNOWN REACTION pseudoephedrine (From AdvReac CHILD- Verified 12/03/24 10:59 Actifed Cold-Allergy) UNKNOWN REACTION triprolidine (From Actifed AdvReac CHILD- Verified 12/03/24 10:59 Cold-Allergy) UNKNOWN REACTION Vital Signs Vital Signs - 24 hr 12/09/24 08:37 Temperature 97.5 F L Pulse Rate 80 Respiratory Rate 16 Blood Pressure 106/76 Pulse Oximetry 98 Oxygen Delivery Room Air Exam Const: General: cooperative and healthy appearing Resp: Effort & Inspection: normal respiratory effort and able to speak in complete sentences Auscultation: clear to auscultation bilaterally Cardio: Rate: regular rate Rhythm: regular rhythm GI: Inspection: normal to inspection GI Palp: No No hepatosplenomegaly present Auscultation: normal bowel sounds Rectal Exam: deferred Skin: General skin exam: normal color Psych: Appearance: grossly normal Mental Status: mental status grossly normal Assessment and Plan Assessment and plan (1) Iron deficiency anemia: Code(s): D50.9 - Iron deficiency anemia, unspecified Status: Acute Assessment and Plan: The patient is deemed a good candidate for the procedure. Consent signed. Will proceed.
[2024-12-09 09:27] VITALS: BP 117/76; PULSE 78; RESP 16; O2SAT 94
[2024-12-09 09:37] VITALS: BP 113/70; PULSE 75; RESP 26; O2SAT 97
[2024-12-09 09:47] VITALS: BP 123/76; PULSE 72; RESP 21; O2SAT 97
== END 2024-12-09 09:56 | disposition home or self-care (01) ==
PROVIDERS: PCP Family Medicine; Referring Provider Internal Medicine Gastroenterology; Visit Provider Internal Medicine Gastroenterology
PROC: 0DJD8ZZ Inspection of Lower Intestinal Tract, Via Natural or Artificial Opening Endoscopic (ICD-10-PCS; CPT 45378; principal; 2024-12-09 10:00)
DX: D50.9 Iron deficiency anemia, unspecified (principal); K64.8 Other hemorrhoids; E78.2 Mixed hyperlipidemia; G47.33 Obstructive sleep apnea (adult) (pediatric); J44.1 Chronic obstructive pulmonary disease with (acute) exacerbation; N52.9 Male erectile dysfunction, unspecified; I35.0 Nonrheumatic aortic (valve) stenosis; R09.02 Hypoxemia; I27.20 Pulmonary hypertension, unspecified; I11.0 Hypertensive heart disease with heart failure; I50.30 Unspecified diastolic (congestive) heart failure; J31.0 Chronic rhinitis; G47.00 Insomnia, unspecified; G89.29 Other chronic pain; M25.562 Pain in left knee; M25.561 Pain in right knee; F17.220 Nicotine dependence, chewing tobacco, uncomplicated; E66.9 Obesity, unspecified; Z68.34 Body mass index [BMI] 34.0-34.9, adult; Z79.51 Long term (current) use of inhaled steroids; Z79.85 Long-term (current) use of injectable non-insulin antidiabetic drugs; Z79.891 Long term (current) use of opiate analgesic; Z98.890 Other specified postprocedural states; Z98.1 Arthrodesis status; Z86.718 Personal history of other venous thrombosis and embolism
CPT/HCPCS: 45378; J2704; J7120

== ENCOUNTER 2025-01-04 05:43 | Outpatient (CLI) | payer OTHER, SELFPAY ==
--- OUTSIDE RECORDS SUMMARY | 2007-07-03 03:26 | XMS_ITS | Continuity of Care Document ---
Author Organization [facility] Address [address] [place] [address] [address] [place] [address] Phone Care Team Providers Care Environmental Sciences Professor Name Role Phone Angela Solares Unavailable Unavailable Procedures Procedure Date Eye Exam, New Patient Advance Directives Directive Yes / No Effective Date File Name No Information Encounters Encounter Description Practice Location Reason(s) For Visit Diagnoses Date Provider Providers Copied on Encounter [facility], [address] [place] [address] [address], [place], [place], [id number], [place] tel:[phone] [facility] No Information [address] Sujatha Miller. [address] [facility] , [address], [place], [address], [place]. tel:[phone] Family History Family Member Type Diagnosis Age At Onset No Information Payers Payer name Insurance type Covered democrat ID Authoriza tion(s) SHERLEY Coles [id number] Social History Type Description Quantity Date Captured [...]
--- NOTE | 2024-12-23 11:13 | SUR.PREOP ---
Spoke with patient in regards to capsule endoscopy. Will send instructions via portal. Patient had no questions at this time.
--- NOTE | 2025-01-04 06:35 | SUR.OPER ---
Patient brought to GI Lab. Instructions for patient undergoing Capsule Endoscopy reviewed with patient. Consent form signed. Sensor array applied to patient's abdomen and connected to recorded. Patient swallowed capsule with 16 ozs of water infused with Simethicone. Patient instructed they may have clear liquids at 0830 this AM and eat or drink at 1030 this AM. Patient instructed to return to GI Lab at 1500 this afternoon for removal of recording device and to call [phone] or to return to the hospital if any nausea and vomiting or abdominal pain is experienced.
--- NOTE | 2025-01-04 15:16 | SUR.PREOP ---
Patient returned to the GI Lab at 1503 for recorder box removal. Patient voiced no complaints. States they have understanding of instructions. Patient left ambulatory.
== END 2025-01-04 05:44 | disposition home or self-care (01) ==
PROVIDERS: PCP Family Medicine; Referring Provider Internal Medicine Gastroenterology; Visit Provider Internal Medicine Gastroenterology
PROC: (CPT 91110; principal; 2025-01-04 07:00)
DX: Z01.812 Encounter for preprocedural laboratory examination (principal); D50.9 Iron deficiency anemia, unspecified
CPT/HCPCS: 91110

== ENCOUNTER 2025-01-28 09:36 | Outpatient (CLI) | payer OTHER, SELFPAY ==
--- OUTSIDE RECORDS SUMMARY | 2007-07-03 03:26 | XMS_ITS | Continuity of Care Document ---
Author Organization [facility] Address [address] [place] [address] [address] [place] [address] Phone Care Team Providers Care Cornice Upholsterer Name Role Phone Angela Solares Unavailable Unavailable Procedures Procedure Date Eye Exam, New Patient Advance Directives Directive Yes / No Effective Date File Name No Information Encounters Encounter Description Practice Location Reason(s) For Visit Diagnoses Date Provider Providers Copied on Encounter [facility], [address] [place] [address] [address], [place], [place], [id number], [place] tel:[phone] [facility] No Information [address] Sujatha Miller. [address] [facility] , [address], [place], [address], [place]. tel:[phone] Family History Family Member Type Diagnosis Age At Onset No Information Payers Payer name Insurance type Covered constitution party ID Authoriza tion(s) SHERLEY Coles [id number] Social History Type Description Quantity Date Captured [...]
[2025-01-28 10:06] LABS: Hematocrit 39.7 % (42.0-52.0); Hemoglobin 11.9 g/dL (14.0-18.0); Immature Granulocyte Percent A 0.9 % (0-0.5); Lymphocytes Absolute Auto 2.33 K/mm3 (0.9-3.2); Mean Corpuscular HGB Conc 30.0 g/dl (32-36); Mean Corpuscular Hemoglobin 23.2 pg (26-34); Mean Corpuscular Volume 77.2 fl (80-100); Nucleated Red Blood Cells Absolute Auto 0.000 K/mm3 (0.0-0.012); Nucleated Red Blood Cells Perc 0.0 % (0.0-0.2); Platelet Count Result 375 k/mm3 (150-375); Red Blood Count 5.14 M/mm3 (4.6-6.20); White Blood Count 15.1 K/mm3 (4.5-10.0)
--- OUTSIDE RECORDS SUMMARY | 2025-01-28 10:23 | XMS_ITS | Clinical Summary ---
Author Organization [facility] Address [address] [place] [address] Care Team Providers Care Cigarette Maker Name Role Phone Juanito Moralez MD Primary Care Provider [phone] Arianne Jhaveri Unavailable [phone] Allergies No known active allergies Medications [...] on file Legal Sex Male 1:49 PM WIRE DRAWER Gender Identity Not on file Sexual Orientation Not on file Obstetrics History Last Filed Vital Signs Vital Sign Reading Time Taken Comments Blood Pressure 166/77 03/20/2024 3:51 PM WIRE DRAWER Pulse 89 03/20/2024 3:51 PM WIRE DRAWER Temperature 36.8 C (98.2 F) 03/20/2024 3:51 PM WIRE DRAWER Respiratory Rate 18 03/20/2024 3:51 PM WIRE DRAWER Oxygen Saturation 100% 03/20/2024 3:51 PM WIRE DRAWER Inhaled Oxygen Concentration - - Weight 113.4 kg (250 lb) 03/19/2024 4:00 PM WIRE DRAWER Height 165.1 cm (5' 5) 03/19/2024 4:00 PM WIRE DRAWER Body Mass Index 41.6 03/19/2024 4:00 PM WIRE DRAWER Plan of Treatment Health Maintenance Due Date [...] season) 11/30/202406/2020 Influenza Vaccine (#1) 2024 Insurance Advance Directives For more information, please contact: [phone] * Full Code (Latest Code Status on File) Date Activated Date Inactivated Comments 03/18/2024 12:08 AM 03/20/2024 9:57 PM Care Teams Cigarette Maker Relationship Specialty Start Date End Date Juanito Moralez MD [address] [address] PCP - General Family Medicine 03/18/24 Arianne Jhaveri [address] [place] [address] Cardiothoracic Surgery 03/20/24
[2025-01-28 10:30] LABS: Iron 81 ug/dL (49-181)
[2025-01-28 10:40] LABS: Percent Iron Saturation 19 % (20-50)
[2025-01-28 11:00] LABS: Thyroid Stimulating Hormone 1.390 uIU/mL (0.465-4.680)
[2025-01-28 11:12] LABS: Ferritin 12.90 ng/mL (11.1-264)
== END 2025-01-28 09:37 | disposition home or self-care (01) ==
PROVIDERS: PCP Family Medicine; Visit Provider Family Medicine
DX: D50.9 Iron deficiency anemia, unspecified (principal); E78.2 Mixed hyperlipidemia
CPT/HCPCS: 36415; 82728; 83540; 83550; 84443; 85025